=== PATIENT | male | born 1950 | race Caucasian/White ===

== ENCOUNTER → 2023-12-04 06:26 | Outpatient (REF) | payer MEDICARE, OTHER, SELFPAY ==
[2023-12-04 08:14] LABS: % Basophils 0.6 % (0-2); % Eosinophils 1.2 % (0-6); % Immature Granulocytes 0.4 % (0-0.5); % Lymphocytes 31.6 % (20.5-51.1); % Neutrophils 55.2 % (42.2-75.2); Absolute Eosinophils 0.1 10^3/uL (0-0.7); Absolute Lymphocytes 1.6 10^3/uL (1.2-3.4); Absolute Monocytes 0.5 10^3/uL (0.1-0.6); Absolute Neutrophils 2.7 10^3/uL (1.4-6.5); Hematocrit 30.9 % (39.0-52.0); Hemoglobin 10.7 g/dL (13.0-18.0); Mean Corp Hgb Conc. 34.6 g/dL (33.0-37.0); Mean Corpuscular Hgb 29.3 pg (27.0-31.0); Mean Corpuscular Volume 84.7 fL (80.0-94.0); Mean Platelet Volume 10.5 fL (7.4-10.4); Nucleated Red Blood Cells % 0 % (-); Platelet Count 242 10^3/uL (130-400); Red Blood Cell Count 3.65 10^6/uL (4.70-6.10); Red Cell Dist. Width 15.7 % (11.5-14.5); White Blood Cell Count 4.9 10^3/uL (4.8-10.8)
[2023-12-04 09:12] LABS: ALT (SGPT) 17 U/L (0-50); AST (SGOT) 29 U/L (17-59); Alkaline Phosphatase 67 U/L (38-126); Blood Urea Nitrogen 51 mg/dl (9-20); Calcium 9.2 mg/dl (8.4-10.2); Carbon Dioxide 22 mmol/L (22-30); Chloride 108 mmol/L (98-107); Glucose 100 mg/dl (70-99); HDL Cholesterol 46 mg/dl; LDL Cholesterol, Calculated 96 mg/dl; Sodium 140 mmol/L (135-145); Total Bilirubin 0.5 mg/dl (0.2-1.3); Total Cholesterol 164 mg/dl (50-199); Total Protein 7.4 g/dl (6.3-8.2); Triglyceride 110 mg/dl (10-149); Very Low Density Lipoprotein 22 mg/dl (0-30); eGFR 52.41
== END ==
LOC: REG 06:26
PROVIDERS: ATTENDING PHYSICIAN Family Medicine
DX: E78.2 Mixed hyperlipidemia (principal); I10 Essential (primary) hypertension; E87.1 Hypo-osmolality and hyponatremia; G45.9 Transient cerebral ischemic attack, unspecified; E87.5 Hyperkalemia; D64.9 Anemia, unspecified; E74.39 Other disorders of intestinal carbohydrate absorption
CPT/HCPCS: 36415; 80053; 80061; 85025

== ENCOUNTER → 2024-01-05 06:28 | Outpatient (REF) | payer MEDICARE, OTHER, SELFPAY ==
[2024-01-05 08:33] LABS: Blood Urea Nitrogen 52 mg/dl (9-20); Calcium 8.9 mg/dl (8.4-10.2); Carbon Dioxide 22 mmol/L (22-30); Chloride 108 mmol/L (98-107); Glucose 105 mg/dl (70-99); Sodium 138 mmol/L (135-145); eGFR 44.65
[2024-01-07 13:13] LABS: Aldosterone, Serum <3.0 ng/dL; Aldosterone/Renin Activ Ratio <6.0 ratio (<=25.0); Renin Activity Results 0.5 ng/mL/hr
== END ==
LOC: REG 06:28
PROVIDERS: ATTENDING PHYSICIAN Internal Medicine Cardiovascular Disease; FAMILY PHYSICIAN Family Medicine
DX: I10 Essential (primary) hypertension (principal)
CPT/HCPCS: 36415; 80048; 82088; 84244

== ENCOUNTER 2024-02-14 13:02 | Inpatient (IN) | payer MEDICARE, OTHER, SELFPAY ==
[2024-02-14] VITALS (10 sets, daily range): BP systolic 154–190; BP diastolic 61–76; BMI 24.6; BMI 23.4
[2024-02-14 09:52] LABS: % Basophils 0.8 % (0-2); % Eosinophils 1.2 % (0-6); % Immature Granulocytes 0.6 % (0-0.5); % Lymphocytes 17.2 % (20.5-51.1); % Monocytes 9.3 % (1.7-9.3); % Neutrophils 70.9 % (42.2-75.2); Absolute Eosinophils 0.1 10^3/uL (0-0.7); Absolute Lymphocytes 0.9 10^3/uL (1.2-3.4); Absolute Monocytes 0.5 10^3/uL (0.1-0.6); Absolute Neutrophils 3.6 10^3/uL (1.4-6.5); Hematocrit 24.5 % (39.0-52.0); Hemoglobin 8.9 g/dL (13.0-18.0); Mean Corp Hgb Conc. 36.3 g/dL (33.0-37.0); Mean Corpuscular Hgb 29.4 pg (27.0-31.0); Mean Corpuscular Volume 80.9 fL (80.0-94.0); Mean Platelet Volume 10.2 fL (7.4-10.4); Nucleated Red Blood Cells % 0 % (-); Platelet Count 235 10^3/uL (130-400); Red Blood Cell Count 3.03 10^6/uL (4.70-6.10); Red Cell Dist. Width 15.9 % (11.5-14.5); White Blood Cell Count 5.1 10^3/uL (4.8-10.8)
--- NOTE | 2024-02-14 09:53 | ED.GENMED ---
History of Present Illness
General
Chief Complaint: Cough
Source: patient and family
Exam Limitations: none
Time Seen by Provider: 02/14/24 09:04
Nursing documentation reviewed up to this point in time: agreed with
History of Present Illness
History of Present Illness:
Patient is a 73-year-old male with past medical history of GI bleed, stroke hypertension carotid artery disease presents to the ER for evaluation. Patient reports for the past several weeks he has been coughing up some blood. He reports there were
small strands of blood in his sputum but today he noticed bright red blood which is what prompted her to come to the ER. Also for the past 1 week he is very short of breath dyspneic with exertion. He is on Plavix. He is a former smoker quit 30
years ago. He denies any associated chest pain ,fever,chills. reports he does have a history of chronic wet sounding cough.
Past History
Past History
ED Past Medical History: CVA (TIA July 2021), HTN and Hypercholesterolemia
ED Past Surgical History: Orthopedic (Right hip replacement) and Other (Hernia repair)
Social History
Tobacco: Former smoker
Alcohol: None
Drug: None
Personal:
Living: with family
Employment: Employed
Family History
Family History: Other (Noncontributory)
Review of Systems
Review of Systems
Allergies reviewed?: Yes
Other source history: family
All Other Systems: ROS reviewed and negative except as documented in HPI and ROS
Constitutional: Denies fever, fatigue or chills
EENT: Reports no symptoms
Respiratory: Reports cough, hemoptysis and trouble breathing
Cardiac: Reports no symptoms
ABD/GI: Reports no symptoms
: Reports no symptoms
Skin: Reports no symptoms
Neurological: Reports other (pt shakes head no headache ); Denies dizzy or headache
Psychiatric: Reports no symptoms
Phy Exam
General Physical Exam
General Presentation: no apparent distress
General age: appears stated age
General Skin: warm and dry
General Habitus: elderly
General Mental: alert
General Hydration: appears well hydrated
Eye Exam
Eye Exam: PERRL and EOMI
Eye Exam General: PERRL: bilateral and EOM intact: bilateral
Pulmonary Exam
Pulmonary Exam: lungs clear, no respiratory distress and other (Wet sounding cough patient did cough bright red blood)
Neurological Exam
Neurological Exam: alert and oriented x3
Musculoskeletal Exam
Musculoskeletal Exam: full ROM
Skin Exam
Skin Exam: normal color and warm/dry
Psychiatric Exam
Psychiatric Exam: normal mood/affect
Course
Orders/Labs/Results
Orders:
Orders
02/14/24 09:20
DDimer [D-Dimer] Urgent
02/14/24 09:27
EKG [Electrocardiogram (*1)] Urgent
Reason for Study: Shortness of Breath
02/14/24 09:28
EKG- Treatment ONCE
02/14/24 09:30
BNP [NT-proBNP] Urgent
CMP [Comprehensive Metabolic Panel] Urgent
Complete Blood Count/With Diff Urgent
02/14/24 10:10
CT Chest W/o Iv Contrast Urgent
Comment:
Reason For Exam: hemoptysis/GRIER low GFR
02/14/24 11:25
CefTRIAXone [Rocephin] 1,000 mg IV NOW STA
02/14/24 11:26
Azithromycin 500 mg/250 ml [Zithromax Infusion] 500 mg in 250 ml IV NOW
Abnormal Lab Results
02/14/24 02/14/24
09:20 09:30
RBC 3.03 L 10^6/uL
(4.70-6.10)
Hgb 8.9 L g/dL
(13.0-18.0)
Hct 24.5 L %
(39.0-52.0)
RDW 15.9 H %
(11.5-14.5)
Absolute Lymphs (auto) 0.9 L 10^3/uL
(1.2-3.4)
Immature Gran % 0.6 H %
(0-0.5)
Lymphocytes % 17.2 L %
(20.5-51.1)
D-Dimer 1.56 H ug/mlFEU
(0.00-0.50)
Carbon Dioxide 21 L mmol/L
(22-30)
BUN 64 H mg/dl
(9-20)
Creatinine 2.2 H mg/dL
(0.7-1.3)
Glucose 138 H mg/dl
(70-99)
02/14/24 09:30
02/14/24 09:30
Vital Signs
Initial and Last Documented VS:
Initial Vital Signs
Temp Pulse Resp BP Pulse Ox
98.1 F 73 16 156/64 95
02/14/24 08:38 02/14/24 08:38 02/14/24 08:38 02/14/24 08:38 02/14/24 08:38
Last Documented Vital Signs
Temp Pulse Resp BP Pulse Ox
98.1 F 67 17 185/73 93
02/14/24 08:38 02/14/24 11:15 02/14/24 11:15 02/14/24 11:00 02/14/24 11:15
Panel Flow Machine Operator consulted with Physician
Panel Flow Machine Operator consulted with physician?: Yes
Name of Physician Consulted: DR Garcia
MDM/Problems Addressed
Differential Diagnosis Includes:
Not limited to mass pneumonia PE
MDM/Problems Addressed:
Patient is a 73-year-old male with past medical history as document of stroke GI bleed carotid artery disease on Plavix presents for evaluation of hemoptysis. Patient reports he has had a chronic cough which is not new and has noticed over the past
several weeks strands of blood in his cough but today had bright red blood and has noticed worsening dyspnea on exertion for the past 1 week. 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 He
denies any recent fever or chills. He presents awake alert he is not hypoxic nontachycardic afebrile with a normal white count hemoglobin however is low at 8.9 which is decreased from 10.10 Nov 2023. Patient also with elevated BUN/creatinine
creatinine 2.2 was 1.6 a month ago. His GFR is low at 30.47. With hemoptysis and shortness of breath initial CAT scan with IV contrast was ordered however with low GFR and elevated renal function we will do a plain CAT scan without contrast.
1130: CAT scan shows right upper lobe pneumonia. Patient's pulse ox around 88% on room air though no shortness of breath here. He was placed on 2 L. Patient is well-appearing IV antibiotics ordered will require admission for hemoptysis and
pneumonia(pt on plavix)
*Radiology
Radiology exam reviewed: radiology read reviewed (CAT scan shows large right upper lobe pneumonia; COPD)
*Pulse Oximetry
Patient hypoxic: yes
Comment: 88% on room air
*EKG
Interpreted by ED Provider?: Yes
Interpretation: abnormal
Comparison EKG: no changes
Heart Rate: 68
Rate: normal
Rhythm: sinus
Ischemia: non-specific ST changes
*Critical Care Note
Total Time (30-74mins, 75-104mins- exclusive of procedures): Not Applicable
Data Reviewed
Review of Other/Old Records Reveals: Other (Echo from 2022: EF of 60-65% normal right heart aortic sclerosis with trace aortic insufficiency)
ED Attending Note
-
Portions of this chart may have been created with voice recognition software.� Occasional wrong word or��sound alike� substitutions may have occurred due to the inherent limitations of voice recognition software.
Discharge Plan
Departure
Patient Disposition: Admit
Date of Disposition: 02/14/24
Time of Disposition: 11:29
Admit to: Telemetry
Admit to doctor: hospitalist
Presentation/result/management discussed w/ accepting MD/DO: Hospitalist
Patient with high blood pressure during this ER visit?: Yes
Condition: Fair
Covid-19: Not Applicable
Discharge Problem:
Pneumonia, Hemoptysis, Acute renal insufficiency, Anemia
Prescriptions:
No Action
metoprolol succinate 50 MG tablet extended release 24 hr
100 mg PO HS
pantoprazole 40 MG tablet,delayed release (DR/EC)
40 mg PO DAILY
acetaminophen [Tylenol Extra Strength] 500 MG tablet
1,000 mg PO HS
clopidogrel 75 MG tablet
75 mg PO DAILY 30 Days Qty: 30 0RF
atorvastatin 40 MG tablet
80 mg PO DAILY
amlodipine 10 MG tablet
10 mg PO HS
Referrals:
Rajat Talbert MD [Family Provider] -
Interventions
Interventions:
*Risk Screen - Suicide Last Done: 02/14/24 08:38
*General Assessment Last Done: 02/14/24 09:14
*Neglect/Abuse Screening Last Done: 02/14/24 08:38
ED- Fall Risk Assessment Last Done: 02/14/24 09:14
*ED COVID-19 Vaccine History Last Done: 02/14/24 08:38
ED- Pulmonary Assessment Last Done: 02/14/24 09:14
Discharge Date and Time
Print Language: LITHUANIAN
[2024-02-14 10:03] LABS: ALT (SGPT) 20 U/L (0-50); AST (SGOT) 31 U/L (17-59); Alkaline Phosphatase 87 U/L (38-126); Blood Urea Nitrogen 64 mg/dl (9-20); Calcium 8.9 mg/dl (8.4-10.2); Carbon Dioxide 21 mmol/L (22-30); Chloride 105 mmol/L (98-107); Estimated Creatinine Clearance 28 ml/min; Glucose 138 mg/dl (70-99); Potassium 4.6 mmol/L (3.5-5.1); Sodium 135 mmol/L (135-145); Total Bilirubin 0.6 mg/dl (0.2-1.3); Total Protein 7.1 g/dl (6.3-8.2); eGFR 30.47
[2024-02-14 10:12] LABS: NT-proBNP 8650 pg/ml
[2024-02-14 11:20] LABS: D-Dimer 1.56 ug/mlFEU (0.00-0.50)
[2024-02-14] MEDS: ROCEPHIN 1000 MG IV (11:47)
[2024-02-14] MEDS: ZITHROMAX INFUSION 250 IV (11:48)
--- NOTE | 2024-02-14 12:26 | HPS.HSE ---
Family Physician
-
Family Physician: Rajat Talbert
Chief Complaint
-
Cough, hemoptysis, shortness of breath
History of Present Illness
73-year-old male here complaining of increasing cough, hemoptysis and shortness of breath. Symptoms started a few weeks ago but have gradually worsened. Now with dyspnea on exertion. Hemoptysis initially was streaking of sputum but now has more
noticeable blood.
Denies any sick contacts.
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
History of pneumonia about 20 years ago requiring hospitalization.
Started a gluten-free diet 2 weeks ago under the direction of his primary care physician for treatment of chronic diarrhea. Has noted some improvement.
Medical History
Past Medical History
Past Medical History: Reports Other
Additional Past Medical History:
Duodenal ulcer with GI bleed
TIA -August 2021
Essential hypertension, difficult to control
Hyperlipidemia
Chronic anemia
CKD 3B -patient unaware of diagnosis
Past Surgical History: Reports Other
Additional Past Surgical History:
Right hip replacement
Hernia repair
Social History
Tobacco: Former Smoker
Alcohol: None
Drug: None
Personal:
Living: With Family
Family History
Family History: Not pertinent
Allergies / Home Medications
Allergies reflects when Allergies were last updated in [facility].
Home Medications with original date entered in [facility]
Allergy/Medication List:
Allergies
Allergy/AdvReac Type Severity Reaction Status Date / Time
No Known Allergies Allergy Verified 08/28/21 22:59
Home Medications
metoprolol succinate 50 mg tablet,extended release 24 hr 100 mg PO HS Blood pressure 08/10/20
pantoprazole 40 mg tablet,delayed release 40 mg PO DAILY Gastrointestinal issue 09/25/20
acetaminophen 500 mg tablet (Tylenol Extra Strength) 1,000 mg PO HS 08/05/21
clopidogrel 75 mg tablet 75 mg PO DAILY 30 days #30 tabs 08/07/21
amlodipine 10 mg tablet 10 mg PO HS 02/14/24
atorvastatin 40 mg tablet 80 mg PO DAILY 02/14/24
furosemide 40 mg tablet (Lasix) 40 mg PO DAILY 02/14/24
hydralazine 50 mg tablet 50 mg PO BID 02/14/24
losartan 50 mg tablet 50 mg PO HS 02/14/24
Review of Systems
-
History Source: Patient
A 12 point ROS was completed and negative except as noted: Yes
Physical Exam
Vital Signs
Vital Signs
Temp Pulse Resp BP Pulse Ox
98.1 F 67 17 185/73 93
02/14/24 08:38 02/14/24 11:15 02/14/24 11:15 02/14/24 11:00 02/14/24 11:15
Physical Exam
General: Well Developed, Well Nourished, No Apparent Distress and Comfortable
HEENT: NormoCephalic, Anicteric and Moist mucous membranes
Respiratory: Clear
Cardiac: S1/S2 and Regular Rhythm
GI: Soft, Non Tender and Non Distended
Genito-urinary: Deferred by me
Musculoskeletal: No Clubbing, No Cyanosis and No Edema
Skin: Warm and Dry
Neuro: AO x 3
Hematologic/Lymphatic: No Lymphadenopathy
Psych: Calm
Laboratory Results
-
02/14/24 09:30
02/14/24 09:30
Laboratory Results
Total Bilirubin 0.6 mg/dl (0.2-1.3) 02/14/24 09:30
AST 31 U/L (17-59) 02/14/24 09:30
ALT 20 U/L (0-50) 02/14/24 09:30
Alkaline Phosphatase 87 U/L (38-126) 02/14/24 09:30
Impression/Plan
-
Severe right upper lobe pneumonia - community-acquired. CT scan reviewed, large right upper lobe pneumonia confirmed. Small pericardial effusion, small right pleural effusion, mild loculated pleural fluid in the right minor fissure noted.
Admit to telemetry, start antibiotics, check cultures.
Consult pulmonary given severity of pneumonia, hemoptysis, suspected underlying COPD. Cannot rule out underlying malignancy.
Patient denies night sweats, fevers, chills, anorexia, weight loss.
JUDI on CKD 3B -etiology of JUDI unclear but differential diagnosis includes volume depletion. Check urinalysis. Check bladder scan. Hold losartan. Renal ultrasound in the morning. Baseline creatinine 1.4, currently 2.2.
Hemoptysis -likely due to pneumonia in the setting of clopidogrel use. Monitor for now.
Acute on chronic anemia -normocytic. Baseline hemoglobin around 10, currently 8.9. Check anemia labs. Etiology of anemia could be due to blood loss due to hemoptysis. No evidence of hemolysis.
History of duodenal ulcer/GI bleed -continue Protonix.
History of TIA -continue Plavix.
Essential hypertension -uncontrolled. He was informed prior to admission to increase hydralazine to 3 times daily if needed. Will do so now.
COPD -undiagnosed. Will need outpatient PFTs and pulmonary follow-up. Changes of COPD noted on CT scan. Not on inhalers at home.
Hyperlipidemia -on atorvastatin.
Full code
updated at the bedside.
--- NOTE | 2024-02-14 12:44 | CON.PUL ---
Consultation
Consultation Request
Date/Time Consultation Requested: 02/13
Date/Time Consultation Performed: 02/13
Reason for Consultation: Hemoptysis, pneumonia, abnormal CT
Medical History
-
History of Present Illness:
History obtained from the patient, at bedside and reviewing outpatient and inpatient records. Patient is a 73-year-old male with history of hypertension, hyperlipidemia, chronic kidney disease (pt not aware) who presents with shortness of
breath and productive cough. He states symptoms started few weeks ago. He then started coughing up mucus streaked with blood, increased over the last 24 to 48 hours. states that he when he came in from outside yesterday, she did not think he
looked good. Patient denies any fevers, chills, chest pain, pleurisy, lightheadedness, dizziness, nausea, falls, syncope. He continues to work 40 hours a week, and when walking on flat surface denies any issues but does have chronic shortness of
breath when he does any steps or hills. According to his he has a chronic cough for many years, but always has been told that his 'lungs are clear' by his primary physician. Has never seen a slitting and shipping supervisor, never told he had COPD. Patient has
a [id number] history of smoking. He states he had pneumonia in the past, once in 2003
.
PMH: Hypertension, hyperlipidemia, GERD with duodenal ulcer and GI bleed, history of TIA August 2021, Anemia, chronic kidney disease, history of right hip replacement, hernia repair, history of pneumonia around 2003
Past Medical History
Past Medical History: None (See above)
Past Surgical History: None (See above)
Social History
Tobacco: Former Smoker ([id number], quit 2023)
Alcohol: Former (Quit 2003)
Drug: None
Personal:
Living: With Family
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
Occupational Exposures: Asbestos exposure
Family History
Family History: Other (Family history of lung cancer, liver cancer)
Allergies / Home Medications
Allergies
Allergy/AdvReac Type Severity Reaction Status Date / Time
No Known Allergies Allergy Verified 08/28/21 22:59
Home Medications
�Medication �Instructions �Recorded �Confirmed �Last Taken �Type
metoprolol succinate 50 mg 100 mg PO HS Blood pressure 08/10/20 02/14/24 02/13/24 History
tablet,extended release 24 hr
pantoprazole 40 mg tablet,delayed 40 mg PO DAILY Gastrointestinal 09/25/20 02/14/24 02/13/24 History
release issue
acetaminophen 500 mg tablet 1,000 mg PO HS 08/05/21 02/14/24 02/13/24 History
(Tylenol Extra Strength)
clopidogrel 75 mg tablet 75 mg PO DAILY 30 days #30 tabs 08/07/21 02/14/24 02/14/24 Rx
amlodipine 10 mg tablet 10 mg PO HS 02/14/24 02/14/24 02/13/24 History
atorvastatin 40 mg tablet 80 mg PO DAILY 02/14/24 02/14/24 02/14/24 History
furosemide 40 mg tablet (Lasix) 40 mg PO DAILY 02/14/24 02/14/24 02/14/24 History
hydralazine 50 mg tablet 50 mg PO BID 02/14/24 02/14/24 02/14/24 History
losartan 50 mg tablet 50 mg PO HS 02/14/24 02/14/24 02/13/24 History
Review of Systems
-
All other systems: Negative unless noted
Vitals / Labs / Diagnostic Testing
Vital Signs
Temp Pulse Resp BP Pulse Ox
98.1 F 67 17 185/73 93
02/14/24 08:38 02/14/24 11:15 02/14/24 11:15 02/14/24 11:00 02/14/24 11:15
Lab Data
02/14/24 09:30
02/14/24 09:30
Diagnostic Testing:
Physical Exam
-
HEENT: Normocephalic and Anicteric
Cardiovascular: S1/S2, Regular Rhythm, Murmur (n), Rub (n), Peripheral Edema (tr) and Calf Tenderness (n)
Respiratory: Wheeze (n), Rales (Few right midlung zone posteriorly), Rhonchi (n), Non-Labored Respirations and Other (Bronchial)
GI: Soft, Non Distended and Non Tender
Neurology: Awake, Alert and No Motor Deficits
Skin: Good Color and Other (No rash, no cyanosis, no clubbing)
General: Comfortable (Conversant)
Assessment
-
73-year-old male with history of hypertension, hyperlipidemia, TIA on Plavix therapy, describes chronic bronchitis and chronic subjective dyspnea with [id number] history of smoking quit 2003. He now presents with progressive cough, shortness of
breath and hemoptysis. Found to have right upper lobe mass with likely pneumonia. We are asked to comment on pulmonary process
Right upper lobe mass/infiltrate
Acute hemoptysis x 3 days, blood mixed with mucus
Right upper lobe abnormality noted per chest x-ray April 2023
Small pleural effusion
Chronic bronchitis, dyspnea
Progressive
[id number] history of smoking, quit 2003
No prior spirometry, no prior pulmonary evaluation
Anemia
Chronic kidney disease, creatinine 2.2
Creatinine 1.6 in January 2024
Elevated proBNP
Chronic diarrhea
Conditions present prior to admission
History of anemia
Hypertension/hyperlipidemia
GERD with history of duodenal ulcer with bleeding
Required IR embolization 2020
Possible asbestos exposure
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
Family history of cancer
Father with lung cancer
Sister with brain cancer
Sister with liver cancer
Plan/recommendations
At this time, patient appears to be nontoxic
Mild crackles on right midlung, hemoptysis noted at bedside
Patient describes acute worsening in the last few days but describes chronic cough and subjective dyspnea
Apparently had a chest x-ray for shortness of breath in April 2023 where there was a right upper lobe infiltrate. Patient cannot recall any recent history of pneumonia except that 20+ years ago
Significant smoking history and likely occupational exposure history
Moving forward
Continue with empiric antibiotics for suspected pneumonia
Ceftriaxone/azithromycin is adequate. This will continue
Sputum culture pending
Patient is on Plavix therapy precluding any bronchoscopic evaluation this week
Given this, would recommend continued treatment with antibiotics
We will plan to obtain repeat imaging within the next 7 to 10 days
We will tentatively plan for possible bronchoscopic evaluation towards the end of the month
We will see patient as appropriate prior to that to review in further detail
Okay to continue Plavix for now but will need to monitor and quantify hemoptysis in the interim
Reviewed at length with patient and at bedside
Reviewed concern regarding possibility of underlying malignancy
Protonix therapy for GERD
All questions answered
We will follow
[2024-02-14 12:53] LABS: Urine Albumin Trace (Neg - Trace); Urine Bilirubin Negative (Negative); Urine Character Clear (Clear); Urine Color Yellow; Urine Glucose Negative (Negative); Urine Ketone Negative (Negative); Urine Leukocyte Negative (Negative); Urine Nitrite Negative (Negative); Urine Occult Blood Negative (Negative); Urine Urobilinogen Negative (Neg - 1+)
[2024-02-14 13:31] LABS: Reticulocyte Count 1.7 % (0.4-2.8)
[2024-02-14 13:51] LABS: Iron 56 ug/dl (49-181)
[2024-02-14 14:00] LABS: Percent Saturation 25 % (20-50); Total Iron Binding Capacity 218 ug/dl (261-462)
[2024-02-14 15:13] LABS: Folate 6.3 ng/ml (2.76-20); Vitamin B12 245 pg/ml (239-931)
[2024-02-14] MEDS: APRESOLINE 50 MG PO ×2 (16:14→21:58)
[2024-02-14] MEDS: NSS 1000 IV (16:14)
[2024-02-14] MEDS: HEPARIN 5000 UNITS SC (20:38)
[2024-02-14] MEDS: NORVASC 10 MG PO (21:59)
[2024-02-14] MEDS: TYLENOL 1000 MG PO (21:59)
[2024-02-14] MEDS: TOPROL XL 100 MG PO (21:59)
[2024-02-15] VITALS (7 sets, daily range): BP systolic 152–179; BP diastolic 64–85
[2024-02-15] MEDS: DUONEB 3 ML INH ×5 (00:30→20:04)
[2024-02-15 01:15] LABS: COVID-19 Antigen Negative (Negative)
[2024-02-15] MEDS: NSS 1000 IV (01:26)
--- NOTE | 2024-02-15 03:03 | PTCARENOTE ---
0000: Pt with increased work of breathing and use of abd muscles. SpO2=83-85% on 2L NC. O2 supply increased to 6L NC, SpO2=92-93%. OLIVIA Blanco made aware, ordered Covid test and breathing treatment. Pt breathing improves after Duoneb/Inh treatment.
Pt states he feels much better. Pt Covid test negative. Will continue to monitor the pt.
[2024-02-15] MEDS: LASIX 40 MG IV (06:11)
--- NOTE | 2024-02-15 06:15 | W.PN.UPDATE ---
Addendum entered and electronically signed by OLIVIA Tavarez 02/15/24 06:41:
Patient much improved after interventions outlined below. Asked nursing to reduce oxygen back to 4 L NC. He is able to speak in full sentences and appears comfortable.
Addendum entered and electronically signed by OLIVIA Tavarez 02/15/24 06:24:
COVID negative
Original Note:
Update Note
Progress Note Update
Patient noted with steadily increasing oxygen needs overnight. IV abts continue for PNA, added Lasix 40 mg IV x1, stopped NS IVF, Increased oxygen this am to NRB from 6 L. Morphine 1 mg IV prn, and ABG pending.
[2024-02-15] MEDS: MORPHINE SULFATE 1 MG IV (06:21)
[2024-02-15 06:28] LABS: B.E. -3.7 mmol/L; HCO3 20.3 mmol/L (21-28); O2 Saturation % 99.8 % (94-98); PCO2 32 mmHg (35-48); PO2 97 mmHg (83-108); pH 7.41 (7.35-7.45)
[2024-02-15 06:40] LABS: % Eosinophils 0.6 % (0-6); % Immature Granulocytes 0.8 % (0-0.5); % Lymphocytes 19.6 % (20.5-51.1); % Monocytes 9.4 % (1.7-9.3); % Neutrophils 68.6 % (42.2-75.2); Absolute Basophils 0.1 10^3/uL (0-0.2); Absolute Monocytes 0.5 10^3/uL (0.1-0.6); Absolute Neutrophils 3.5 10^3/uL (1.4-6.5); Hematocrit 23.8 % (39.0-52.0); Hemoglobin 8.6 g/dL (13.0-18.0); Mean Corp Hgb Conc. 36.1 g/dL (33.0-37.0); Mean Corpuscular Hgb 30.2 pg (27.0-31.0); Mean Corpuscular Volume 83.5 fL (80.0-94.0); Mean Platelet Volume 10.5 fL (7.4-10.4); Nucleated Red Blood Cells % 0 % (-); Platelet Count 205 10^3/uL (130-400); Red Blood Cell Count 2.85 10^6/uL (4.70-6.10); Red Cell Dist. Width 15.8 % (11.5-14.5); White Blood Cell Count 5.1 10^3/uL (4.8-10.8)
--- NOTE | 2024-02-15 06:57 | PTCARENOTE ---
Pt with labored breathing, SpO2=85-87%. Wood Blanco (OLIVIA) notified. Ordered ABG, IV Lasix, IV morphine and Resp assist. Pt's IVFs were stopped earlier bc of difficulty breathing. Pt breathing improved and pt states that he feels relax now. Pt will be
also placed on telemonitor. Will continue to monitor the pt.
[2024-02-15 07:00] LABS: ALT (SGPT) 16 U/L (0-50); AST (SGOT) 25 U/L (17-59); Albumin 3.5 g/dl (3.5-5.0); Alkaline Phosphatase 86 U/L (38-126); Blood Urea Nitrogen 57 mg/dl (9-20); Calcium 8.3 mg/dl (8.4-10.2); Carbon Dioxide 20 mmol/L (22-30); Chloride 108 mmol/L (98-107); Estimated Creatinine Clearance 33 ml/min; Glucose 112 mg/dl (70-99); Potassium 4.2 mmol/L (3.5-5.1); Sodium 135 mmol/L (135-145); Total Bilirubin 0.5 mg/dl (0.2-1.3); Total Protein 6.4 g/dl (6.3-8.2); eGFR 36.33
[2024-02-15] MEDS: PROTONIX 40 MG PO (08:28)
[2024-02-15] MEDS: LIPITOR 80 MG PO (08:28)
[2024-02-15] MEDS: PLAVIX 75 MG PO (08:28)
[2024-02-15] MEDS: HEPARIN 5000 UNITS SC ×2 (08:29→19:47)
[2024-02-15] MEDS: APRESOLINE 50 MG PO ×3 (08:29→23:26)
--- NOTE | 2024-02-15 08:57 | RESPNOTE ---
Respiratory: patient returned from Ultrasound SOB, SpO2 was 65% on 4 LPM nasal cannula. RN placed patient on NRB mask, pulse ox increased to the 90's quickly. Lungs with rhonchi, upper airway wheeze. Nebulizer given 7 LPM and 4 L nasal cannula
SpO2 92%. Post tx: patient now on 12 LPM midflow SpO2 93-94%.
--- NOTE | 2024-02-15 12:03 | W.PN.HOSP.TC ---
Today's Communication/Plan
-
Urine lytes
IV abx
Trend Cr
DC IVF
Wean o2
Pulm recs
Assessment / Plan
Assessment / Plan
General: Well Developed, Well Nourished, No Apparent Distress and Comfortable
HEENT: NormoCephalic, Anicteric and Moist mucous membranes
Respiratory: rhonchi R>L, Oxygen
Cardiac: S1/S2 and Regular Rhythm
GI: Soft, Non Tender and Non Distended
Genito-urinary: Deferred by me
Musculoskeletal: No Clubbing, No Cyanosis and No Edema
Skin: Warm and Dry
Neuro: AO x 3
Hematologic/Lymphatic: No Lymphadenopathy
Psych: Calm
Severe right upper lobe pneumonia - community-acquired. CT scan reviewed, large right upper lobe pneumonia confirmed. Small pericardial effusion, small right pleural effusion, mild loculated pleural fluid in the right minor fissure noted.
start antibiotics Rocephin/Azithromycin. check cultures.
Consult pulmonary given severity of pneumonia, hemoptysis, suspected underlying COPD. Cannot rule out underlying malignancy. May need bronchoscopy later on.
Patient denies night sweats, fevers, chills, anorexia, weight loss.
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 UA negative. Hold losartan. Renal ultrasound negative for hydro. Baseline creatinine 1.4, currently 2.2. Check
urine lytes. Mild improvement to 1.9 today.
Hemoptysis -likely due to pneumonia in the setting of clopidogrel use. Monitor for now.
Acute on chronic anemia -normocytic. Baseline hemoglobin around 10, currently 8.9. Check anemia labs. Etiology of anemia could be due to blood loss due to hemoptysis. No evidence of hemolysis.
Chronic HFpEF-IVF discontinued. Holding lasix with JUDI.
History of duodenal ulcer/GI bleed -continue Protonix.
History of TIA -continue Plavix.
Essential hypertension -uncontrolled. He was informed prior to admission to increase hydralazine to 3 times daily if needed. Will do so now.
COPD -undiagnosed. Will need outpatient PFTs and pulmonary follow-up. Changes of COPD noted on CT scan. Not on inhalers at home.
Hyperlipidemia -on atorvastatin.
possible exposure to COVID -Initial COVID negative. Repeat testing 02/16 and 02/18 ordered.
Full code
d/w with spouse at bedside
Anticipated Discharge: > 48 hours
Subjective/Interval History
-
Date of Service: February 15, 2024
Overnight events noted
states breathing has stabilized
remains with productive cough
possible exposure to COVID
Objective Data
-
Labs:
Laboratory Results
02/15/24 02/15/24
04:42 06:18
WBC 5.1
Hgb 8.6 L
Hct 23.8 L
Plt Count 205
HCO3 20.3 L
Sodium 135
Potassium 4.2
Chloride 108 H
Carbon Dioxide 20 L
BUN 57 H
Creatinine 1.9 H
Glucose 112 H
Calcium 8.3 L
Total Bilirubin 0.5
AST 25
ALT 16
Alkaline Phosphatase 86
Vital Signs:
Vital Signs
Temp Pulse Resp BP Pulse Ox
98.3 F 83 26 153/64 91
02/15/24 11:51 02/15/24 11:51 02/15/24 11:51 02/15/24 11:51 02/15/24 11:51
I&O
02/14/24 02/15/24 02/16/24
06:59 06:59 06:59
Intake Total 1630 / 1630
Output Total 1170 / 1170
Balance 460 / 460
Data Reviewed
-
Total Time Spent with Patient (in minutes): 56
[2024-02-15] MEDS: ROCEPHIN 1000 MG IV (12:45)
[2024-02-15] MEDS: STERILE WATER FOR INJECTION 10 ML IV (12:45)
[2024-02-15] MEDS: FLUSH (NSS) 1 FLUSH IV (12:45)
[2024-02-15] MEDS: ZITHROMAX INFUSION 250 IV (12:45)
--- NOTE | 2024-02-15 13:07 | W.PN.PUL3 ---
Today's Communication / Plan
-
High flow oxygen
[id number] if able, head of bed elevated
Hold Plavix
Quantify hemoptysis
Transfer to IMU
Respiratory status remains tenuous
Assessment
-
73-year-old male with history of hypertension, hyperlipidemia, TIA on Plavix therapy, describes chronic bronchitis and chronic subjective dyspnea with 87-hnwh-gveg history of smoking quit 2003. He now presents with progressive cough, shortness of
breath and hemoptysis. Found to have right upper lobe mass with likely pneumonia. We are asked to comment on pulmonary process
Right upper lobe mass/infiltrate
Acute hemoptysis x 3 days, blood mixed with mucus
Right upper lobe abnormality noted per chest x-ray April 2023
Small pleural effusion
Chronic bronchitis, dyspnea
Progressive
95-grnr-qlag history of smoking, quit 2003
No prior spirometry, no prior pulmonary evaluation
Anemia
Chronic kidney disease, creatinine 2.2
Creatinine 1.6 in January 2024
Elevated proBNP
Chronic diarrhea
Conditions present prior to admission
History of anemia
Hypertension/hyperlipidemia
GERD with history of duodenal ulcer with bleeding
Required IR embolization 2020
Possible asbestos exposure
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
Family history of cancer
Father with lung cancer
Sister with brain cancer
Sister with liver cancer
Plan/recommendations
At this time, patient respiratory status remains tenuous
He has crackles and rhonchi in the right, minimal crackles of the left base
Patient is currently 12 to 15 L mid flow
Chest x-ray today with worsening right-sided infiltrate
I am concerned about his worsening oxygen requirement and worsening radiographic findings
Preadmission history: Patient is short of breath since April 2023 at which time he had right upper lobe infiltrate. Patient cannot recall any history of recent pneumonia
Significant smoking and asbestos exposure history noted
Moving forward
Continue with empiric antibiotics for suspected pneumonia
Ceftriaxone/azithromycin
Sputum culture pending
Would like to quantify hemoptysis.
Patient is on Plavix therapy precluding any bronchoscopic evaluation this week
Given this, would recommend continued treatment with antibiotics
Given worsening in respiratory status, cannot rule out ongoing bleeding in the lung
Hold the Plavix
Protonix for GERD therapy
Ideally, [id number]
Placed on high flow oxygen
Consider transfer to IMU
Reviewed with respiratory care, primary service
Reviewed at length with patient
Reviewed concern regarding possibility of underlying malignancy, rapidly progressive process
Subjective Data
-
Date of Service:
Date of Service: February 15, 2024
Subjective:
Patient had difficult night. Increased oxygen requirement noted, still with productive cough, blood-tinged mucus. Denies chest pain, pleurisy. Patient prefers to lie on his left side, feels breathing is worse when lying on the right side.
Currently on 12 to 15 L mid flow intermittently requiring nonrebreather on top
Objective Data
Data Reviewed
Vital Signs / I&O / Oxygen:
Vital Signs
Temp Pulse Resp BP Pulse Ox
98.3 F 83 26 153/64 95
02/15/24 11:51 02/15/24 11:51 02/15/24 11:51 02/15/24 11:51 02/15/24 12:43
Intake and Output
02/14/24 02/15/24 02/16/24
06:59 06:59 06:59
Intake Total 1630 / 1630
Output Total 1170 / 1170
Balance 460 / 460
SaO2 95
Nasal Cannula flow liters per 12
minute
Physical Exam
General: Respiratory Distress (Mild with conversation)
HEENT: Normocephalic and Anicteric
Cardiovascular: S1-S2, Regular Rhythm, Murmur (n) and Rub (n)
Respiratory: Wheeze (n), Crackles (few right greater than left), Rhonchi (few), Accessory Resp Muscle Use (Mild with conversation, sitting up) and Stridor (n)
GI: Soft, Non Distended and Non Tender
Neurology: Awake, Alert and No Motor Deficits (Able to sit up without difficulty)
Skin: Cyanosis (n), Jaundice (n) and Rash (n)
Labs/Micro/Reports
Lab Data
02/15/24 04:42
02/15/24 04:42
Laboratory Results
02/15/24
06:18
pH 7.41
pCO2 32 L
pO2 97
HCO3 20.3 L
O2 Delivery Level
Microbiology
02/14/24 12:29 Blood/Venous Blood Culture - Preliminary
No Growth in 24 hours- Final report to follow
02/15/24 06:26 Urine Legionella Urinary Antigen - Final
Negative for Legionella pneumophila Serogroup 1 antigen.
A negative result does not rule out the possiblity of
Legionella infection due to other serogroups or species of
Legionella. Clinical correlation is recommended.
02/15/24 06:26 Urine Streptococcus pneumoniae Antigen (M - Final
Negative for Streptococcus pneumoniae antigen.
A negative result does not exclude infection with
Streptococcus pneumoniae. Clinical correlation is
recommended.
02/14/24 12:42 Sputum Respiratory Culture - Preliminary
Usual Respiratory Kim
02/14/24 12:42 Sputum Gram Stain - Preliminary
[2024-02-15 14:22] LABS: Urine Sodium 92 mmol/L (30-90)
--- NOTE | 2024-02-15 16:01 | PTCARENOTE ---
Pt AAO x3, PIRES; able to transfer to stretcher with minimal assistance; basil well. VSS. Telemetry:NSR. Currently on midflow O2 cannula @ 12 lpm- pulse ox 93%, pt with (+) tachypnea/GRIER; has occ productive cough- small amts blood tinged/pink sputum.
Encouraging use of IS q 1 hr while awake- pt minimally compliant. Abd soft, basil PO well. Voiding clear yellow urine in urinal. Resting in bed at present; awaiting transfer to IMU when bed available. Will continue to monitor.
--- NOTE | 2024-02-15 19:46 | PTCARENOTE ---
Pt transferred to IMU room 3351 via bed; on NRM/15 l O2. All pt belongings sent to room 3351. Report given to Jane CORREA. Pt condition stable at time of transfer.
[2024-02-15] MEDS: TYLENOL 1000 MG PO (19:47)
[2024-02-15] MEDS: TOPROL XL 100 MG PO (19:47)
[2024-02-15] MEDS: NORVASC 10 MG PO (19:47)
[2024-02-16] VITALS (15 sets, daily range): BP systolic 151–182; BP diastolic 65–97
[2024-02-16 04:27] LABS: % Basophils 0.5 % (0-2); % Eosinophils 0.3 % (0-6); % Immature Granulocytes 0.9 % (0-0.5); % Lymphocytes 20.2 % (20.5-51.1); % Neutrophils 69.1 % (42.2-75.2); Absolute Immature Granulocytes 0.1 10^3/uL (0-0.05); Absolute Lymphocytes 1.2 10^3/uL (1.2-3.4); Absolute Monocytes 0.5 10^3/uL (0.1-0.6); Hematocrit 24.4 % (39.0-52.0); Hemoglobin 8.9 g/dL (13.0-18.0); Mean Corp Hgb Conc. 36.5 g/dL (33.0-37.0); Mean Corpuscular Volume 82.2 fL (80.0-94.0); Mean Platelet Volume 9.9 fL (7.4-10.4); Nucleated Red Blood Cells % 0 % (-); Platelet Count 208 10^3/uL (130-400); Red Blood Cell Count 2.97 10^6/uL (4.70-6.10); Red Cell Dist. Width 15.7 % (11.5-14.5); White Blood Cell Count 5.8 10^3/uL (4.8-10.8)
[2024-02-16 04:51] LABS: Blood Urea Nitrogen 56 mg/dl (9-20); Calcium 8.4 mg/dl (8.4-10.2); Carbon Dioxide 20 mmol/L (22-30); Chloride 106 mmol/L (98-107); Estimated Creatinine Clearance 33 ml/min; Glucose 119 mg/dl (70-99); Potassium 4.1 mmol/L (3.5-5.1); Sodium 134 mmol/L (135-145); eGFR 36.33
--- NOTE | 2024-02-16 05:27 | PTCARENOTE ---
Pt transferred to floor earlier tonight. Transferred on NRB, switched to NFNC d/t orders. Started off on 50% on 50L but began desating to 88-89%. Eventually pt had to stay at 55L 85% to stay consistently above or at 92%. Pt desats when moving, pt
used the urinal in the bed and he desated to 79%, did not take oxygen off. Recovered with NRB. Hemoptysis continues. Sputum sent down. NSR. Bedrest for now. Urinal. Denies pain. Covid tests scheduled for thursday & thursday. Will continue to monitor.
[2024-02-16] MEDS: DUONEB 3 ML INH ×4 (07:42→19:59)
[2024-02-16] MEDS: LIPITOR 80 MG PO (08:49)
[2024-02-16] MEDS: APRESOLINE 50 MG PO (08:49)
[2024-02-16] MEDS: PROTONIX 40 MG PO (08:49)
[2024-02-16] MEDS: HEPARIN 5000 UNITS SC ×2 (08:49→20:33)
--- NOTE | 2024-02-16 10:13 | PTCARENOTE ---
Pt AAOx3 on HF 55 liters 85% o2. Covid neg after exposure, for testing again on THU . at bedside, encouraged to wwear a mask as a precaution.
[2024-02-16] MEDS: STERILE WATER FOR INJECTION 10 ML IV (11:57)
[2024-02-16] MEDS: ROCEPHIN 1000 MG IV (11:57)
[2024-02-16] MEDS: ZITHROMAX INFUSION 250 IV (11:58)
--- NOTE | 2024-02-16 12:28 | W.PN.HOSP.TC ---
Today's Communication/Plan
-
Increase hydralazine
Wean HFNC
pulm recs
IV abx
Assessment / Plan
Assessment / Plan
General: Well Developed, Well Nourished, No Apparent Distress and Comfortable
HEENT: NormoCephalic, Anicteric and Moist mucous membranes
Respiratory: rhonchi R>L, Oxygen, HFNC
Cardiac: S1/S2 and Regular Rhythm
GI: Soft, Non Tender and Non Distended
Genito-urinary: Deferred by me
Musculoskeletal: No Clubbing, No Cyanosis and No Edema
Skin: Warm and Dry
Neuro: AO x 3
Hematologic/Lymphatic: No Lymphadenopathy
Psych: Calm
Severe right upper lobe pneumonia - community-acquired. CT scan reviewed, large right upper lobe pneumonia confirmed. Small pericardial effusion, small right pleural effusion, mild loculated pleural fluid in the right minor fissure noted.
start antibiotics Rocephin/Azithromycin. check cultures in lab
Consult pulmonary given severity of pneumonia, hemoptysis, suspected underlying COPD. Cannot rule out underlying malignancy. May need bronchoscopy later on.
Patient denies night sweats, fevers, chills, anorexia, weight loss.
Now on high flow nasal cannula 55 L at 85% FiO2. Also requiring intermittent nonrebreather. Understand if with worsening hypoxemia may also require mechanical ventilation intubation.
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 UA negative. Hold losartan. Renal ultrasound negative for hydro. Baseline creatinine 1.4, currently 1.9. FENA
with intrinsic.
Hemoptysis -likely due to pneumonia in the setting of clopidogrel use. Monitor for now.
Acute on chronic anemia -normocytic. Baseline hemoglobin around 10, currently 8.9. Etiology of anemia could be due to blood loss due to hemoptysis. No evidence of hemolysis. Appropriate iron stores. low b12 and start po supplementation.
Chronic HFpEF-IVF discontinued. Holding lasix with JUDI.
History of duodenal ulcer/GI bleed -continue Protonix.
History of TIA -continue Plavix.
Essential hypertension -uncontrolled. He was informed prior to admission to increase hydralazine to 3 times daily if needed. Increased dose to 75mg TID. Cont toprol 100mg and norvasc 10mg
COPD -undiagnosed. Will need outpatient PFTs and pulmonary follow-up. Changes of COPD noted on CT scan. Not on inhalers at home.
Hyperlipidemia -on atorvastatin.
possible exposure to COVID -Initial COVID negative. Repeat testing 02/16 and 02/18 ordered.
Full code
d/w with spouse at bedside
Anticipated Discharge: > 48 hours
Subjective/Interval History
-
Date of Service: February 16, 2024
tx to IMU
Increase oxygen requirement
now on HFNC
Objective Data
-
Labs:
Laboratory Results
02/16/24
03:59
WBC 5.8
Hgb 8.9 L
Hct 24.4 L
Plt Count 208
Sodium 134 L
Potassium 4.1
Chloride 106
Carbon Dioxide 20 L
BUN 56 H
Creatinine 1.9 H
Glucose 119 H
Calcium 8.4
Vital Signs:
Vital Signs
Temp Pulse Resp BP Pulse Ox
99.5 F 78 28 174/69 94
02/16/24 11:11 02/16/24 11:24 02/16/24 11:24 02/16/24 10:00 02/16/24 11:25
I&O
02/15/24 02/16/24 02/17/24
06:59 06:59 06:59
Intake Total 1630 / 1630 990 / 990
Output Total 1170 / 1170 750 / 750 500 / 500
Balance 460 / 460 240 / 240 -500 / -500
Data Reviewed
-
Total Time Spent with Patient (in minutes): 56
--- NOTE | 2024-02-16 14:42 | W.PN.PUL3 ---
Today's Communication / Plan
-
Continue high flow oxygen
Quantify hemoptysis
Continue antibiotics
Chest x-ray 02/16
Plavix on hold
Assessment
-
73-year-old male with history of hypertension, hyperlipidemia, TIA on Plavix therapy, describes chronic bronchitis and chronic subjective dyspnea with 78-[id number]-qwhh history of smoking quit 2003. He now presents with progressive cough, shortness of
breath and hemoptysis. Found to have right upper lobe mass with likely pneumonia. We are asked to comment on pulmonary process
Right upper lobe mass/infiltrate
Acute hemoptysis x 3 days, blood mixed with mucus
Right upper lobe abnormality noted per chest x-ray April 2023
Small pleural effusion
Chronic bronchitis, dyspnea
Progressive
22-pasy-gpop history of smoking, quit 2003
No prior spirometry, no prior pulmonary evaluation
Anemia
Chronic kidney disease, creatinine 2.2
Creatinine 1.6 in January 2024
Elevated proBNP
Chronic diarrhea
Conditions present prior to admission
History of anemia
Hypertension/hyperlipidemia
GERD with history of duodenal ulcer with bleeding
Required IR embolization 2020
Possible asbestos exposure
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
Family history of cancer
Father with lung cancer
Sister with brain cancer
Sister with liver cancer
Plan/recommendations
At this time, patient respiratory status remains tenuous, but improved
Remains on high flow oxygen, 80% / 55 L
Chest exam improved with less rhonchi, less crackles
Continues to have productive cough, mucus mixed with blood
Preadmission history: Patient is short of breath since April 2023 at which time he had right upper lobe infiltrate. Patient cannot recall any history of recent pneumonia
Significant smoking and asbestos exposure history noted
Patient did not get follow-up x-ray as recommended per report in April
Moving forward
Continue with empiric antibiotics for suspected pneumonia
Ceftriaxone/azithromycin
Sputum culture few gram-positive cocci, many white cells, usual yaritza/finalized
We will repeat chest x-ray 02/16
Continue to quantify hemoptysis
Plavix has been held since 02/14 given worsening hypoxia, chest x-ray
Reviewed with patient and that is difficult to quantify extent of hemorrhage clinically
Protonix for GERD therapy
Ideally, [id number]
Reviewed with patient, at bedside
Reviewed concern regarding possibility of underlying malignancy, rapidly progressive process
Ongoing evaluation for possible bronchoscopic evaluation, timing to be determined
Subjective Data
-
Date of Service:
Date of Service: February 16, 2024
Subjective:
Patient is subjectively improved today. Remains on high flow oxygen, 80%, 55 L. Saturation 94%, goes down to 89 to 90% with conversation and sitting up. Appears to be less dyspneic with less use of accessory muscles per my review. Productive
cough continues. Denies chest pain, nausea, abdominal pain. at bedside
Objective Data
Data Reviewed
Vital Signs / I&O / Oxygen:
Vital Signs
Temp Pulse Resp BP Pulse Ox
99.5 F 78 28 174/69 94
02/16/24 11:11 02/16/24 11:24 02/16/24 11:24 02/16/24 10:00 02/16/24 11:25
Intake and Output
02/15/24 02/16/24 02/17/24
06:59 06:59 06:59
Intake Total 1630 / 1630 990 / 990
Output Total 1170 / 1170 750 / 750 500 / 500
Balance 460 / 460 240 / 240 -500 / -500
SaO2 94
Nasal Cannula flow liters per 55
minute
Physical Exam
General: Comfortable
HEENT: Normocephalic and Anicteric
Cardiovascular: S1-S2, Regular Rhythm, Murmur (n) and Rub (n)
Respiratory: Wheeze (n), Crackles (n), Rhonchi (n), Non-Labored Respirations and Stridor (n)
GI: Soft, Non Distended and Non Tender
Neurology: Awake, Alert and No Motor Deficits (Able to sit up without difficulty)
Skin: Cyanosis (n), Jaundice (n) and Rash (n)
Labs/Micro/Reports
Lab Data
02/16/24 03:59
02/16/24 03:59
Microbiology
02/14/24 12:29 Blood/Venous Blood Culture - Preliminary
No Growth in 48 hours- Final report to follow
02/14/24 12:42 Sputum Respiratory Culture - Final
Usual Respiratory Yaritza
02/14/24 12:42 Sputum Gram Stain - Final
02/15/24 06:26 Urine Legionella Urinary Antigen - Final
Negative for Legionella pneumophila Serogroup 1 antigen.
A negative result does not rule out the possiblity of
Legionella infection due to other serogroups or species of
Legionella. Clinical correlation is recommended.
02/15/24 06:26 Urine Streptococcus pneumoniae Antigen (M - Final
Negative for Streptococcus pneumoniae antigen.
A negative result does not exclude infection with
Streptococcus pneumoniae. Clinical correlation is
recommended.
[2024-02-16] MEDS: APRESOLINE 75 MG PO ×2 (17:15→21:31)
[2024-02-16] MEDS: OCEAN, SALINE MIST 2 SPRAYS NASAL (17:51)
[2024-02-16] MEDS: NORVASC 10 MG PO (21:32)
[2024-02-16] MEDS: TOPROL XL 100 MG PO (21:32)
[2024-02-16] MEDS: TYLENOL 1000 MG PO (21:32)
[2024-02-17] VITALS (12 sets, daily range): BP systolic 139–177; BP diastolic 64–79; BMI 23.9
[2024-02-17 05:19] LABS: % Basophils 0.6 % (0-2); % Eosinophils 0.2 % (0-6); % Immature Granulocytes 1.7 % (0-0.5); % Lymphocytes 12.6 % (20.5-51.1); % Monocytes 9.4 % (1.7-9.3); % Neutrophils 75.5 % (42.2-75.2); Absolute Basophils 0.1 10^3/uL (0-0.2); Absolute Immature Granulocytes 0.1 10^3/uL (0-0.05); Absolute Lymphocytes 1.1 10^3/uL (1.2-3.4); Absolute Monocytes 0.8 10^3/uL (0.1-0.6); Absolute Neutrophils 6.4 10^3/uL (1.4-6.5); Hematocrit 24.5 % (39.0-52.0); Hemoglobin 8.9 g/dL (13.0-18.0); Mean Corp Hgb Conc. 36.3 g/dL (33.0-37.0); Mean Corpuscular Hgb 30.1 pg (27.0-31.0); Mean Corpuscular Volume 82.8 fL (80.0-94.0); Mean Platelet Volume 9.8 fL (7.4-10.4); Nucleated Red Blood Cells % 0 % (-); Platelet Count 233 10^3/uL (130-400); Red Blood Cell Count 2.96 10^6/uL (4.70-6.10); Red Cell Dist. Width 15.9 % (11.5-14.5); White Blood Cell Count 8.4 10^3/uL (4.8-10.8)
--- NOTE | 2024-02-17 05:33 | PTCARENOTE ---
Assume care from AM RN. AAOx3, anxious at times and Gen weakness. NSR in the monitor. Lung sounds are coarse and expiratory wheezing and productive cough. SaO2 92-94% HF 55L 80%. Pt had Large loose BM. SBP <165 for most of the night. Call miranda
within reach.
[2024-02-17 05:44] LABS: Blood Urea Nitrogen 62 mg/dl (9-20); Calcium 8.3 mg/dl (8.4-10.2); Carbon Dioxide 17 mmol/L (22-30); Chloride 105 mmol/L (98-107); Estimated Creatinine Clearance 29 ml/min; Glucose 147 mg/dl (70-99); Potassium 4.3 mmol/L (3.5-5.1); Sodium 134 mmol/L (135-145); eGFR 32.22
[2024-02-17] MEDS: APRESOLINE 75 MG PO ×3 (07:50→20:09)
[2024-02-17] MEDS: LIPITOR 80 MG PO (07:50)
[2024-02-17] MEDS: VITAMIN B-12 1000 MCG PO (07:51)
[2024-02-17] MEDS: HEPARIN 5000 UNITS SC ×2 (07:51→20:08)
[2024-02-17] MEDS: PROTONIX 40 MG PO (07:51)
--- NOTE | 2024-02-17 08:14 | PTCARENOTE ---
Pt very anxious tachypnic SOB now on hf 55 liters 90% O2 OX 96. Pt encouraged to rest and conserve his energy. Dr Razo TT will see pt soon, Pt has a living will but states he would want to be intubated , present during conversation.
[2024-02-17] MEDS: DUONEB 3 ML INH ×4 (08:17→19:49)
[2024-02-17 08:24] LABS: COVID-19 Antigen Negative (Negative)
--- NOTE | 2024-02-17 08:45 | W.PN.PUL3 ---
Today's Communication / Plan
-
Lasix x 1
Decadron x 1
Kuo catheter
Continue antibiotics
Plavix remains on hold
Check Echo
Repeat labs p.m. (Cr)
Assessment
-
73-year-old male with history of hypertension, hyperlipidemia, TIA on Plavix therapy, describes chronic bronchitis and chronic subjective dyspnea with 80-xpel-uloi history of smoking quit 2003. He now presents with progressive cough, shortness of
breath and hemoptysis. Found to have right upper lobe mass with likely pneumonia. We are asked to comment on pulmonary process
Right upper lobe mass/infiltrate
Acute hemoptysis x 3 days, blood mixed with mucus
Right upper lobe abnormality noted per chest x-ray April 2023
Small pleural effusion
Chronic bronchitis, dyspnea
Progressive
90-gwtx-ofoe history of smoking, quit 2003
No prior spirometry, no prior pulmonary evaluation
Anemia
Chronic kidney disease, creatinine 2.2
Creatinine 1.6 in January 2024
Elevated proBNP
Chronic diarrhea
Conditions present prior to admission
History of anemia
Hypertension/hyperlipidemia
GERD with history of duodenal ulcer with bleeding
Required IR embolization 2020
Possible asbestos exposure
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
Family history of cancer
Father with lung cancer
Sister with brain cancer
Sister with liver cancer
Plan/recommendations
At this time, patient respiratory status remains tenuous, requiring 100% nonrebreather on top of high flow
This appeared to have occurred with patient turning. He had a loose stool overnight, required multiple movement/turning with nursing
92 to 97% saturation
Remains on high flow oxygen, 80% / 55 L and 100% nonrebreather
Chest exam improved with less rhonchi, less crackles
Continues to have productive cough, mucus mixed with blood
Chest x-ray today shows worsening of the left side, severe right-sided pneumonia
Creatinine 2.1
Hemoglobin stable
Preadmission history: Patient is short of breath since April 2023 at which time he had right upper lobe infiltrate. Patient cannot recall any history of recent pneumonia
Significant smoking and asbestos exposure history noted
Patient did not get follow-up x-ray as recommended per report in April
Moving forward
Continue with empiric antibiotics for suspected pneumonia
Ceftriaxone/azithromycin
Sputum culture few gram-positive cocci, many white cells, usual yaritza/finalized
Legionella, streptococcal pneumonia negative
Low suspicion for acid-fast organism but this is also pending, given right upper lobe infiltrate back in April 2023
Continue to quantify hemoptysis
Plavix has been held since 02/14 given worsening hypoxia, chest x-ray
Doubt active pulmonary hemorrhage given stable hemoglobin
Xhigl-[id number]-[id number] if develops worsening hemoptysis
I am concerned about worsening lung injury process, ARDS
We will give 1 dose of Decadron, 1 dose of Lasix
Kuo catheter
Repeat labs later p.m.
Protonix for GERD therapy
Reviewed with patient, at bedside
Reviewed concern regarding possibility of underlying malignancy. However, rapidly progressive process makes this less likely
Patient high risk for intubation. Reviewed with . Will update son at 's request (Kevon: [phone])
Subjective Data
-
Date of Service:
Date of Service: February 17, 2024
Subjective:
Patient had okay night but with any movement, desaturates. This morning, was moved, desaturated requiring 100% nonrebreather. Patient cannot recall if it was worse on the right side or left side. Continues to have productive cough, mucus mixed
with blood. No ana paula blood. Denies chest pain, nausea. at bedside
Objective Data
Data Reviewed
Vital Signs / I&O / Oxygen:
Vital Signs
Temp Pulse Resp BP Pulse Ox
98.3 F 78 28 177/79 97
02/17/24 08:17 02/17/24 08:19 02/17/24 08:19 02/17/24 08:00 02/17/24 08:21
Intake and Output
02/16/24 02/17/24 02/18/24
06:59 06:59 06:59
Intake Total 990 / 990 120 / 120
Output Total 750 / 750 1050 / 1050
Balance 240 / 240 -930 / -930
SaO2 97
Nasal Cannula flow liters per 55
minute
Physical Exam
General: Comfortable
HEENT: Normocephalic and Anicteric
Cardiovascular: S1-S2, Regular Rhythm, Murmur (n) and Rub (n)
Respiratory: Wheeze (n), Crackles (few), Rhonchi (n), Non-Labored Respirations and Stridor (n)
GI: Soft, Non Distended and Non Tender
Neurology: Awake, Alert and No Motor Deficits (Able to sit up without difficulty)
Skin: Cyanosis (n), Jaundice (n) and Rash (n)
Labs/Micro/Reports
Lab Data
02/17/24 05:00
02/17/24 05:00
Microbiology
02/16/24 15:05 Sputum Gram Stain - Preliminary
02/14/24 12:29 Blood/Venous Blood Culture - Preliminary
No Growth in 48 hours- Final report to follow
02/14/24 12:42 Sputum Respiratory Culture - Final
Usual Respiratory Yaritza
02/14/24 12:42 Sputum Gram Stain - Final
02/15/24 06:26 Urine Legionella Urinary Antigen - Final
Negative for Legionella pneumophila Serogroup 1 antigen.
A negative result does not rule out the possiblity of
Legionella infection due to other serogroups or species of
Legionella. Clinical correlation is recommended.
02/15/24 06:26 Urine Streptococcus pneumoniae Antigen (M - Final
Negative for Streptococcus pneumoniae antigen.
A negative result does not exclude infection with
Streptococcus pneumoniae. Clinical correlation is
recommended.
[2024-02-17] MEDS: LASIX 40 MG IV (09:32)
[2024-02-17] MEDS: DECADRON 10 MG IV (09:36)
--- NOTE | 2024-02-17 09:40 | PN.CDI ---
CDI
- -
CDI:
Physician Documentation Request
Admit Date: 02/14/24 13:02
Dear Doctor Dung,
Patient admitted for pneumonia.
02/15 PCN: 'Started off on 50% on 50L but began desating to 88-89%. Eventually pt had to stay at 55L 85% to stay consistently above or at 92%. Pt desats when moving, pt used the urinal in the bed and he desated to 79%, did not take oxygen off.
Recovered with NRB.'
02/15 Hospitalist PN: 'Now on high flow nasal cannula 55 L at 85% FiO2. Also requiring intermittent nonrebreather. Understand if with worsening hypoxemia may also require mechanical ventilation intubation.'
Clarify which of the following accurately represents the patient's respiratory status:
Acute hypoxic respiratory failure
Hypoxia
Other
Additional information for Respiratory Failure:
Recognized criteria for Respiratory Failure (Source: [facility] May 2013)
ABGs: (1 or more) Symptoms Please indicate type if known
1. p)2 <60 or RA SPO2 <91% on RA 1. Tachypnea, SOB, dyspnea Hypoxic
2. pCO2 50 and pH <7.35 2. Use of accessory muscles Hypercapnic
3. pO2 decrease of pCO2 increase by 3. Pallor or cyanosis Hypoxic and Hypercapnic
10 mmHg from baseline if known 4. Anxiety or restlessness Unable to determine
5. Unable to speak in full sentences
Supplemental O2 of > 40% (5LPM) Intubation is not required
Use of terms such as suspected, likely, concern for, or probable (associated with a specific diagnosis that is being evaluated, monitored, or treated as if it exists) are acceptable and can be coded in the inpatient setting, when documented at the
time of discharge.
Thank you,
Mayra Polanco RN, BSN
CDI Specialist
Available via [place] text
Please use your independent medical judgment in providing your response.
--- NOTE | 2024-02-17 09:52 | PTCARENOTE ---
Dr Razo and Pulmonary saw pt, new orders given. 16 FR goins placed without incident. Lasix and steroids given .
[2024-02-17 10:40] LABS: NT-proBNP 19500 pg/ml
[2024-02-17] MEDS: ROCEPHIN 1000 MG IV (11:43)
[2024-02-17] MEDS: ZITHROMAX INFUSION 250 IV (11:43)
[2024-02-17] MEDS: STERILE WATER FOR INJECTION 10 ML IV (11:43)
--- NOTE | 2024-02-17 11:54 | PTCARENOTE ---
Pt states he feels better. Not as anxious. Does not want to eat or drink. ABT as directed
--- NOTE | 2024-02-17 12:20 | W.PN.HOSP.TC ---
Today's Communication/Plan
-
IV lasix
IV steroids
IV abx
monitor UOP
Tenuous respiratory status
Assessment / Plan
Assessment / Plan
General: Well Developed, Well Nourished, No Apparent Distress and Comfortable
HEENT: NormoCephalic, Anicteric and Moist mucous membranes
Respiratory: rhonchi R>L, Oxygen, HFNC
Cardiac: S1/S2 and Regular Rhythm
GI: Soft, Non Tender and Non Distended
Genito-urinary: Deferred by me
Musculoskeletal: No Clubbing, No Cyanosis and No Edema
Skin: Warm and Dry
Neuro: AO x 3
Hematologic/Lymphatic: No Lymphadenopathy
Psych: Calm
#Severe right upper lobe pneumonia - community-acquired.
#Severe Acute hypoxic respiratory failure at accelerated pace
CT scan reviewed, large right upper lobe pneumonia confirmed. Small pericardial effusion, small right pleural effusion, mild loculated pleural fluid in the right minor fissure noted.
started antibiotics Rocephin/Azithromycin.
Sputum sample with siena
Consult pulmonary given severity of pneumonia, hemoptysis, suspected underlying COPD. Cannot rule out underlying malignancy. May need bronchoscopy later on.
Patient denies night sweats, fevers, chills, anorexia, weight loss.
Now on high flow nasal cannula 55 L at 85% FiO2. Also requiring intermittent nonrebreather. Understand if with worsening hypoxemia may also require mechanical ventilation intubation.
Trial of IV steroids 10mg Decadron x 1.
#JUDI on CKD 3B -etiology of JUDI unclear but differential diagnosis includes volume depletion in setting of taking diuretics and ARB.
UA negative.
Hold losartan.
Renal ultrasound negative for hydro.
Baseline creatinine 1.4, currently 1.9. FENA with intrinsic.
#Hemoptysis -likely due to pneumonia in the setting of clopidogrel use.
Monitor for now.
Acute on chronic anemia -normocytic.
Baseline hemoglobin around 10, currently 8.9.
Etiology of anemia could be due to blood loss due to hemoptysis.
No evidence of hemolysis. Appropriate iron stores. low b12 and start po supplementation.
#Suspected mild Acute on Chronic HFpEF
[place] [address]
IV lasix trial 40mg x 1 dose and monitor response
History of duodenal ulcer/GI bleed
continue Protonix.
History of TIA
Holding plavix as above
Essential hypertension -uncontrolled.
He was informed prior to admission to increase hydralazine to 3 times daily if needed.
Increased dose to 75mg TID. Cont toprol 100mg and norvasc 10mg
COPD -undiagnosed.
Will need outpatient PFTs and pulmonary follow-up. Changes of COPD noted on CT scan. Not on inhalers at home.
Hyperlipidemia -on atorvastatin.
possible exposure to COVID -COVID negative x 2. Repeat per protocol pending on 02/18.
Full code
d/w with spouse at bedside
d/w with pulmonary
Anticipated Discharge: > 48 hours
Subjective/Interval History
-
Date of Service: February 17, 2024
tachypneic this am
anxious
better with NRB and increase HFNC
Objective Data
-
Labs:
Laboratory Results
02/17/24 02/17/24
05:00 17:00
WBC 8.4
Hgb 8.9 L
Hct 24.5 L
Plt Count 233
Sodium 134 L
Potassium 4.3
Chloride 105
Carbon Dioxide 17 L
BUN 62 H
Creatinine 2.1 H Pending
Glucose 147 H
Calcium 8.3 L
Vital Signs:
Vital Signs
Temp Pulse Resp BP Pulse Ox
98.4 F 79 26 163/70 96
02/17/24 11:17 02/17/24 11:42 02/17/24 11:42 02/17/24 10:00 02/17/24 11:42
I&O
02/16/24 02/17/24 02/18/24
06:59 06:59 06:59
Intake Total 990 / 990 120 / 120 250 / 250
Output Total 750 / 750 1050 / 1050 235 / 235
Balance 240 / 240 -930 / -930
Data Reviewed
-
Total Time Spent with Patient (in minutes): 60
--- NOTE | 2024-02-17 12:26 | PTCARENOTE ---
Mouth care done Pt desat to 86% without nonrebreather mask
--- NOTE | 2024-02-17 16:16 | PTCARENOTE ---
Pt is breathing easier.55 liters 90% O2. goins in place
--- NOTE | 2024-02-17 16:27 | CM ---
Patient seen at bedside with .
to bring in a copy of Living Will.
Dx: hemoptysis, RUL pneumonia, COPD
On high flow 02, IV abt, nebs, IV steroids d/c today.
IA completed.
Patient lives in a 2 story split level home. 6 steps up & 6 steps down. 2 bathrooms
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
PCP: Rajat Talbert
Pharmacy: [facility]
PLAN: Discharge when medically stable. Await PT/OT recommendations.
CM to follow for needs.
[2024-02-17 17:36] LABS: Estimated Creatinine Clearance 24 ml/min
[2024-02-17] MEDS: TOPROL XL 100 MG PO (22:17)
[2024-02-17] MEDS: NORVASC 10 MG PO (22:18)
[2024-02-17] MEDS: TYLENOL 1000 MG PO (22:18)
[2024-02-17] MEDS: CALAMINE LOTION 180 ML TOPICAL (23:36)
[2024-02-18] VITALS (16 sets, daily range): BP systolic 136–167; BP diastolic 61–76; PULSE 83; O2SAT 95; BMI 24.2
--- NOTE | 2024-02-18 05:47 | PTCARENOTE ---
Received patient from day shift. Patient is Ax3 and on high flow nasal cannula at 55L and 100%. Patient stated they were weeding in their backyard prior to admission and now believes he has poison anna on his fingers. Calamine lotion applied. Call
miranda in reach of patient.
[2024-02-18 06:15] LABS: % Basophils 0.1 % (0-2); % Immature Granulocytes 1.1 % (0-0.5); % Lymphocytes 7.3 % (20.5-51.1); % Monocytes 6.2 % (1.7-9.3); % Neutrophils 85.3 % (42.2-75.2); Absolute Immature Granulocytes 0.1 10^3/uL (0-0.05); Absolute Lymphocytes 0.5 10^3/uL (1.2-3.4); Absolute Monocytes 0.5 10^3/uL (0.1-0.6); Absolute Neutrophils 6.3 10^3/uL (1.4-6.5); Hematocrit 23.5 % (39.0-52.0); Hemoglobin 8.5 g/dL (13.0-18.0); Mean Corp Hgb Conc. 36.2 g/dL (33.0-37.0); Mean Corpuscular Hgb 28.8 pg (27.0-31.0); Mean Corpuscular Volume 79.7 fL (80.0-94.0); Mean Platelet Volume 9.9 fL (7.4-10.4); Nucleated Red Blood Cells % 0 % (-); Platelet Count 231 10^3/uL (130-400); Red Blood Cell Count 2.95 10^6/uL (4.70-6.10); Red Cell Dist. Width 15.8 % (11.5-14.5); White Blood Cell Count 7.4 10^3/uL (4.8-10.8)
--- NOTE | 2024-02-18 06:23 | PTCARENOTE ---
Patient woke up at 0600 and was having shortness of breathe as well as hallucinations of the ceiling leaking and thinking his bed was wet. Patient's HOB was elevated and he was placed back on non rebreather until O2 sat returned to 98%. Confirmed
with patient that ceiling was not leaking and his bed was not wet and he understood. Patient was still Ax3, he stated the correct year, his location and name.
[2024-02-18 06:44] LABS: Blood Urea Nitrogen 79 mg/dl (9-20); Calcium 8.5 mg/dl (8.4-10.2); Carbon Dioxide 19 mmol/L (22-30); Chloride 103 mmol/L (98-107); Estimated Creatinine Clearance 23 ml/min; Glucose 141 mg/dl (70-99); Potassium 4.7 mmol/L (3.5-5.1); Sodium 131 mmol/L (135-145); eGFR 23.83
[2024-02-18] MEDS: DUONEB 3 ML INH ×5 (07:26→22:28)
--- NOTE | 2024-02-18 08:42 | W.PN.PUL3 ---
Addendum entered and electronically signed by Uma Mcghee MD 02/18/24 09:29:
Echocardiogram reviewed. Normal biventricular function. Worsening pulm hypertension noted, likely in the setting of pneumonia, hypoxia
Original Note:
Today's Communication / Plan
-
Incentive spirometry, Acapella
Continue to wean oxygen as able
Follow creatinine, urine output
Avoid nephrotoxic agents
Aspiration precautions, may benefit from speech and swallow evaluation. I ordered
Assessment
-
73-year-old male with history of hypertension, hyperlipidemia, TIA on Plavix therapy, describes chronic bronchitis and chronic subjective dyspnea with [id number] history of smoking quit 2003. He now presents with progressive cough, shortness of
breath and hemoptysis. Found to have right upper lobe mass with likely pneumonia. We are asked to comment on pulmonary process
Right upper lobe mass/infiltrate
Acute hemoptysis x 3 days, blood mixed with mucus
Right upper lobe abnormality noted per chest x-ray April 2023
Small pleural effusion
Chronic bronchitis, dyspnea
Progressive
[id number] history of smoking, quit 2003
No prior spirometry, no prior pulmonary evaluation
Anemia
Chronic kidney disease, creatinine 2.2
Creatinine 1.6 in January 2024
Elevated proBNP
Chronic diarrhea
Conditions present prior to admission
History of anemia
Hypertension/hyperlipidemia
GERD with history of duodenal ulcer with bleeding
Required IR embolization 2020
Possible asbestos exposure
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
Family history of cancer
Father with lung cancer
Sister with brain cancer
Sister with liver cancer
Plan/recommendations
At this time, patient respiratory status remains tenuous, 91% on high flow
Mild confusion overnight noted
Received 1 dose of Decadron, 1 dose of Lasix in the a.m. of 02/16
Creatinine increased to 2.7
Productive mucus, blood seems to be improved
Chest x-ray shows worsening of the left side, severe right-sided pneumonia
Hemoglobin stable
Preadmission history: Patient is short of breath since April 2023 at which time he had right upper lobe infiltrate. Patient cannot recall any history of recent pneumonia
Significant smoking and asbestos exposure history noted
Patient did not get follow-up x-ray as recommended per report in April
Moving forward
Continue with empiric antibiotics for suspected pneumonia
Ceftriaxone/azithromycin
Sputum culture few gram-positive cocci, many white cells, usual yaritza/finalized
Myrna noted
May require swallowing evaluation
Legionella, streptococcal pneumonia negative
Low suspicion for acid-fast organism but this is also pending, given right upper lobe infiltrate back in April 2023
Continue to quantify hemoptysis, seems to be improving
Plavix has been held since 02/14 given worsening hypoxia, chest x-ray
Doubt active pulmonary hemorrhage given stable hemoglobin
[id number] if develops worsening hemoptysis
I am concerned about worsening lung injury process, ARDS
Received 1 dose of Decadron, 1 dose of Lasix 02/16
Creatinine now 2.7. Kuo catheter in place
Defer need for nephrology evaluation to primary service
If he develops anuric renal failure, this would be a significant setback. This was reviewed with at bedside
Hold nephrotoxic drugs
Protonix for GERD therapy
Reviewed with patient, at bedside
Updated son by phone 02/16 (Kevon: [phone])
Reviewed concern regarding possibility of underlying malignancy. However, rapidly progressive process makes this less likely
Patient high risk for intubation.
Subjective Data
-
Date of Service:
Date of Service: February 18, 2024
Subjective:
Patient with intermittent confusion overnight, hallucinating. This morning appears to be oriented. at bedside. Presently 90 to 92% on high flow. Denies chest pain, nausea. Denies abdominal pain. Patient feels hemoptysis is improving
Objective Data
Data Reviewed
Vital Signs / I&O / Oxygen:
Vital Signs
Temp Pulse Resp BP Pulse Ox
98.1 F 76 20 150/65 91
02/18/24 07:00 02/18/24 07:29 02/18/24 07:29 02/17/24 22:18 02/18/24 07:29
Intake and Output
02/17/24 02/18/24 02/19/24
06:59 06:59 06:59
Intake Total 120 / 120 970 / 970
Output Total 1050 / 1050 635 / 635
Balance -930 / -930 335 / 335
SaO2 91
Nasal Cannula flow liters per 50
minute
Physical Exam
General: Comfortable
HEENT: Normocephalic and Anicteric
Cardiovascular: S1-S2, Regular Rhythm, Murmur (n) and Rub (n)
Respiratory: Wheeze (n), Crackles (few), Rhonchi (n), Non-Labored Respirations and Stridor (n)
GI: Soft, Non Distended and Non Tender
Neurology: Awake, Alert and No Motor Deficits (Able to sit up without difficulty)
Skin: Cyanosis (n), Jaundice (n) and Rash (n)
Labs/Micro/Reports
Lab Data
02/18/24 06:01
02/18/24 06:01
Microbiology
02/16/24 03:59 Sputum Acid Fast Bacilli Smear - Preliminary
02/16/24 03:59 Sputum Acid Fast Bacilli Culture - Preliminary
02/14/24 12:29 Blood/Venous Blood Culture - Preliminary
No Growth in 72 hours- Final report to follow
02/16/24 15:05 Sputum Respiratory Culture - Preliminary
Myrna albicans
02/16/24 15:05 Sputum Gram Stain - Preliminary
02/14/24 12:42 Sputum Respiratory Culture - Final
Usual Respiratory Yaritza
02/14/24 12:42 Sputum Gram Stain - Final
02/15/24 06:26 Urine Legionella Urinary Antigen - Final
Negative for Legionella pneumophila Serogroup 1 antigen.
A negative result does not rule out the possiblity of
Legionella infection due to other serogroups or species of
Legionella. Clinical correlation is recommended.
02/15/24 06:26 Urine Streptococcus pneumoniae Antigen (M - Final
Negative for Streptococcus pneumoniae antigen.
A negative result does not exclude infection with
Streptococcus pneumoniae. Clinical correlation is
recommended.
[2024-02-18] MEDS: PROTONIX 40 MG PO (08:58)
[2024-02-18] MEDS: LIPITOR 80 MG PO (08:58)
[2024-02-18] MEDS: ZITHROMAX 500 MG PO (08:58)
[2024-02-18] MEDS: VITAMIN B-12 1000 MCG PO (08:59)
[2024-02-18] MEDS: APRESOLINE 75 MG PO ×3 (08:59→19:47)
[2024-02-18] MEDS: HEPARIN 5000 UNITS SC ×2 (09:00→19:48)
--- NOTE | 2024-02-18 10:12 | W.CON.NEPH ---
Consultation
-
Date/Time Consultation Requested: 02/18/2024 9:30 AM
Date/Time Consultation Performed: 02/18/2024 10:15 AM
Requesting Provider: Dr. Razo
Performing Provider: Dr. Weaver
Reason for Consultation: Acute kidney injury/hyponatremia
Medical History
-
Chief Complaint: Acute kidney injury hyponatremia
History of Present Illness:
The patient is a 73-year-old male with a past medical history of chronic kidney disease stage IIIb who maintains a creatinine of approximately 1.6. He has a history of hypertension and is maintained on the combination of amlodipine hydralazine
metoprolol and losartan. He has a history of TIA and is maintained on statin and Plavix. He presented to the hospital a few days prior with complaints of increasing cough hemoptysis and shortness of breath. We were consulted as his creatinine has
now risen from 1.9 on admission up to 2.7.
Past Medical History
DHF
COPD
CKD 1.6
Hypertension (long standing uncontrolled)
GERD
Duodenal ulcer with GI bleed
TIA -August 2021
Hyperlipidemia
Chronic anemia
Social History
Tobacco: Former Smoker
Alcohol: None
Family History
No CKD
Allergies / Home Medications
Allergy/AdvReac Type Severity Reaction Status Date / Time
No Known Allergies Allergy Verified 08/28/21 22:59
�Medication �Instructions �Recorded �Confirmed �Type
metoprolol succinate 50 mg 100 mg PO HS Blood pressure 08/10/20 02/14/24 History
tablet,extended release 24 hr
pantoprazole 40 mg tablet,delayed 40 mg PO DAILY Gastrointestinal 09/25/20 02/14/24 History
release issue
acetaminophen 500 mg tablet 1,000 mg PO HS 08/05/21 02/14/24 History
(Tylenol Extra Strength)
clopidogrel 75 mg tablet 75 mg PO DAILY 30 days #30 tabs 08/07/21 02/14/24 Rx
amlodipine 10 mg tablet 10 mg PO HS 02/14/24 02/14/24 History
atorvastatin 40 mg tablet 80 mg PO DAILY 02/14/24 02/14/24 History
furosemide 40 mg tablet (Lasix) 40 mg PO DAILY 02/14/24 02/14/24 History
hydralazine 50 mg tablet 50 mg PO BID 02/14/24 02/14/24 History
losartan 50 mg tablet 50 mg PO HS 02/14/24 02/14/24 History
Physical Exam
Vital Signs
Vital Signs
Temp Pulse Resp BP Pulse Ox
98.1 F 77 20 159/74 91
02/18/24 07:00 02/18/24 08:59 02/18/24 07:29 02/18/24 08:59 02/18/24 07:35
Lab Results
02/18/24 06:01
02/18/24 06:01
WBC 7.4 10^3/uL (4.8-10.8) 02/18/24 06:01
RBC 2.95 10^6/uL (4.70-6.10) L 02/18/24 06:01
Hgb 8.5 g/dL (13.0-18.0) L 02/18/24 06:01
Hct 23.5 % (39.0-52.0) L 02/18/24 06:01
Plt Count 231 10^3/uL (130-400) 02/18/24 06:01
Sodium 131 mmol/L (135-145) L 02/18/24 06:01
Potassium 4.7 mmol/L (3.5-5.1) 02/18/24 06:01
Chloride 103 mmol/L (98-107) 02/18/24 06:01
Carbon Dioxide 19 mmol/L (22-30) L 02/18/24 06:01
BUN 79 mg/dl (9-20) H 02/18/24 06:01
Creatinine 2.7 mg/dL (0.7-1.3) H 02/18/24 06:01
eGFR 23.83 02/18/24 06:01
Glucose 141 mg/dl (70-99) H 02/18/24 06:01
Calcium 8.5 mg/dl (8.4-10.2) 02/18/24 06:01
Exo-O-Ynqseqydhxe Pept 41746 pg/ml 02/17/24 05:00
Albumin 3.5 g/dl (3.5-5.0) 02/15/24 04:42
Physical Exam
General: AOx3, Nontoxic , mild respiratory distress
HEENT: PERRL, EOMI, Anicteric, Conjunctivae Clear, Ear/Nose Intact, Hearing Normal, Oropharynx Clear/Moist, Dentition Intact, Facial Symmetry, Neck Supple, Neck: Trachea Midline, No JVD and No Thyromegaly, no Bruits
Respiratory: Coarse bilaterally with crackles along right lung field with decreased breath sounds to bases
Cardiac: S1/S2 and Regular tachycardic
Breast: Deferred by me
Abdomen: Soft, Nontender, Nondistended, Normal Bowel Sounds and No Hepatosplenomegaly
Rectal: Deferred by Provider
Genito-urinary: No Costovertebral Tenderness, Goins catheter to gravity
Extremities: No Clubbing, No Cyanosis and No Edema
Skin: No Rash or open lesions
Neuro: Nonfocal/Grossly Intact, CN II-XII (Intact) and Strength (Musculoskeletal exam 5 out of 5 both upper and lower extremities)
Hematologic/Lymphatic: No Cervical Lymphadenopathy, No Submandibular Lymphadenopathy and No Supraclavicular Lymphadenopathy
Psych: Mood/afflect pleasant, Insight/judgement good and Appropriate
Vascular: plus 1 pedal and radial pulses
Data Reviewed
-
Radiology: Image Personally Visualized and interpreted (Chest x-ray reviewed by me right extensive lung infiltrative process appreciate)
Ultrasound: Other (Renal ultrasound report reviewed notable for bilateral increased echogenicity but no hydronephrosis)
Labs: Labs Reviewed by me (bmp , CBC, UA)
Old Records: Reviewed (1.6 01/05/24)
Assessment/Plan
-
Impression:
Right upper lobe mass versus infiltrate with hemoptysis
Acute kidney
CKD stage IIIb baseline creatinine 1.6
HTN
History of TIA
History of COPD
Anemia
CHF HFpEF
Plan:
JUDI:
-Etiology remains elusive: currently barely non oliguric with goins catheter now inserted
-Urinalysis bland and fractional secretion of sodium not consistent with prerenal stimulus
-Obtained kidney and bladder ultrasound: No hydronephrosis echogenic renal parenchyma compatible with medical renal disease
-Volume status evaluation: pro bnp ~20K, weights stable, does not examine volume overloaded today
-Patient has remained hemodynamically stable currently with holding ARB in setting of acute kidney
--- NOTE | 2024-02-18 12:09 | PTOTSP ---
SPEECH THERAPY SWALLOW EVALUATION:
Patient exhibits clinical signs of oropharyngeal dysphagia, likely acutely related to pneumonia and acute hypoxic respiratory failure. Patient denied history of dysphagia symptoms, though endorsed 2-3 day period last week of coughing/choking
with liquids. Patient remains at high risk for aspiration and related complications at this time given tenuous respiratory/pulmonary status. Would consider instrumental assessment of swallowing to further assess swallow physiology, though patient is
not able to tolerate at this time given tenuous respiratory status (on 50L HFNC). Recommend cautious modified oral diet at this time to reduce energy expenditure for mastication and facilitate breathe/swallow coordination: IDDSI Level 6 Soft and
Bite Size diet, thin liquids. Medications whole in applesauce. Strict aspiration precautions including: Upright positioning; Small single sips/bites; Slow rate of intake; Take breaks during meals for breathing; Do not eat/drink when short of breath;
No straw; Oral care 3x/day; Only provide p.o. when SpO2>90% and RR<30. Monitor for signs of aspiration and d/c oral diet if any decline in mental or respiratory status. Speech therapy to follow closely, determine readiness for VSE, assess diet
tolerance and modify as appropriate, and provide continued education regarding aspiration risks and precautions.
RECOMMEND:
1) IDDSI Level 6 Soft and Bite Size diet, thin liquids
2) Medications whole in applesauce
3) Strict aspiration precautions including: Upright positioning; Small single sips/bites; Slow rate of intake; Take breaks during meals for breathing; Do not eat/drink when short of breath; No straw; Oral care 3x/day; Only provide p.o. when SpO2>90%
and RR<30. Monitor for signs of aspiration and d/c oral diet if any decline in mental or respiratory status
4) Speech therapy to follow
5) VSE when appropriate
--- NOTE | 2024-02-18 12:14 | PTCARENOTE ---
Patient out of bed to chair with 2 person assist, unsteady abd dyspnea with exertion. Patient continues to have blood tinged sputum, requiring high flow oygen 50 liters, 100% fio2. Patient has coarse lung sounds with expiratory wheezing. Pulse ox
dropped to the 80s while transferring to the chair and then came back up into the 90s. Denying pain when asked. Fair appetite. at bedside.
--- NOTE | 2024-02-18 12:22 | W.PN.HOSP.TC ---
Today's Communication/Plan
-
wean o2
downgrade diet
iv abx
hold lasix
pt/ot
Assessment / Plan
Assessment / Plan
General: Well Developed, Well Nourished, No Apparent Distress and Comfortable
HEENT: NormoCephalic, Anicteric and Moist mucous membranes
Respiratory: rhonchi R>L, Oxygen, HFNC
Cardiac: S1/S2 and Regular Rhythm
GI: Soft, Non Tender and Non Distended
Genito-urinary: Deferred by me
Musculoskeletal: No Clubbing, No Cyanosis and No Edema
Skin: Warm and Dry
Neuro: AO x 3
Hematologic/Lymphatic: No Lymphadenopathy
Psych: Calm
#Severe right upper lobe pneumonia - community-acquired.
#Severe Acute hypoxic respiratory failure at accelerated pace
CT scan reviewed, large right upper lobe pneumonia confirmed. Small pericardial effusion, small right pleural effusion, mild loculated pleural fluid in the right minor fissure noted.
started antibiotics Rocephin/Azithromycin.
Sputum sample with siena
Consult pulmonary given severity of pneumonia, hemoptysis, suspected underlying COPD. Cannot rule out underlying malignancy. May need bronchoscopy later on.
Patient denies night sweats, fevers, chills, anorexia, weight loss.
Now on high flow nasal cannula 55 L at 100% FiO2. Also requiring intermittent nonrebreather. Understand if with worsening hypoxemia may also require mechanical ventilation intubation.
Trial of IV steroids 10mg Decadron x 1 on 02/16.
Pulmonary HTN noted on ECHO probably in setting of sever hypoxemia
#JUDI on CKD 3B -etiology of JUDI unclear but differential diagnosis includes volume depletion in setting of taking diuretics and ARB.
UA negative.
Hold losartan.
Renal ultrasound negative for hydro.
Baseline creatinine 1.4 and Cr now jumped to 2.7 FENA with intrinsic.
Nephro following.
#Mild dysphagia
-Speech eval and diet downgraded IDDS6
-Eventually VSE pending stabilization of oxygen status
#Hemoptysis -likely due to pneumonia in the setting of clopidogrel use.
Monitor for now. seems to have resolved.
Acute on chronic anemia -normocytic.
Baseline hemoglobin around 10, currently 8.5.
Etiology of anemia could be due to blood loss due to hemoptysis.
No evidence of hemolysis. Appropriate iron stores. low b12 and start po supplementation.
#Suspected mild Acute on Chronic HFpEF
[place] [address]
hold further lasix as Cr bumped
History of duodenal ulcer/GI bleed
continue Protonix.
History of TIA
Holding plavix as above
Essential hypertension -uncontrolled.
He was informed prior to admission to increase hydralazine to 3 times daily if needed.
Increased dose to 75mg TID. Cont toprol 100mg and norvasc 10mg
COPD -undiagnosed.
Will need outpatient PFTs and pulmonary follow-up. Changes of COPD noted on CT scan. Not on inhalers at home.
Hyperlipidemia -on atorvastatin.
possible exposure to COVID -COVID negative x 2. Repeat per protocol pending on 02/18.
Full code
d/w with spouse at bedside
Anticipated Discharge: > 48 hours
Subjective/Interval History
-
Date of Service: February 18, 2024
remains on HFNC
states feeling better-less anxious
Objective Data
-
Labs:
Laboratory Results
02/18/24
06:01
WBC 7.4
Hgb 8.5 L
Hct 23.5 L
Plt Count 231
Sodium 131 L
Potassium 4.7
Chloride 103
Carbon Dioxide 19 L
BUN 79 H
Creatinine 2.7 H
Glucose 141 H
Calcium 8.5
Vital Signs:
Vital Signs
Temp Pulse Resp BP Pulse Ox
98.1 F 88 18 159/69 95
02/18/24 11:00 02/18/24 11:30 02/18/24 11:30 02/18/24 10:00 02/18/24 12:13
I&O
02/17/24 02/18/24 02/19/24
06:59 06:59 06:59
Intake Total 120 / 120 970 / 970 200 / 200
Output Total 1050 / 1050 635 / 635
Balance -930 / -930 335 / 335 200 / 200
Data Reviewed
-
Total Time Spent with Patient (in minutes): 56
[2024-02-18] MEDS: CALAMINE LOTION 180 ML TOPICAL (13:01)
[2024-02-18] MEDS: STERILE WATER FOR INJECTION IV (13:03)
[2024-02-18] MEDS: ROCEPHIN IV (13:03)
[2024-02-18] MEDS: ROCEPHIN 1000 MG IV (16:47)
[2024-02-18] MEDS: STERILE WATER FOR INJECTION 10 ML IV (16:47)
[2024-02-18] MEDS: TOPROL XL 100 MG PO (21:51)
[2024-02-18] MEDS: TYLENOL 1000 MG PO (21:53)
[2024-02-18] MEDS: NORVASC 10 MG PO (21:53)
[2024-02-18] MEDS: MORPHINE SULFATE 2 MG IV (22:28)
--- NOTE | 2024-02-18 22:45 | PTCARENOTE ---
patient was having trouble breathing with retractions while on HFNC at 55L and 80% and o2 sat dropped to 85. Non rebreather put on and sats came back up, but patient still was SOB and anxious. Respiratory therapy and JOB SPOTTER at the bedside. 1 ml morphine
given and stat chest xray ordered.
[2024-02-18 23:56] LABS: B.E. -5.5 mmol/L; HCO3 18.6 mmol/L (21-28); PCO2 30 mmHg (35-48); PO2 68 mmHg (83-108)
[2024-02-19] VITALS (25 sets, daily range): BP systolic 115–163; BP diastolic 50–94; BMI 24.5
[2024-02-19] MEDS: LASIX 60 MG IV (00:17)
[2024-02-19] MEDS: MORPHINE SULFATE 2 MG IV (01:12)
--- NOTE | 2024-02-19 01:37 | PTCARENOTE ---
patient still having sob, 60 mg lasix ordered and given with 150 cc output. Respiratory and GENERAL EXPEDITOR at bedside because sob and retractions continued. Patient was transferred to ICU.
--- NOTE | 2024-02-19 02:17 | PTCARENOTE ---
Pt received from IMU via bed,pt is alert,oriented,cooperative.Tolerated transfer well.Pt remains on noninvasive O2,at 80% with 60 liters,O2 sat 95%,resp rate 22.Pt in high semifowlers,with wedge supporting left posterior back,keeping pt turned to
right.Pt receptive,tolerated physical assessment fairly well.Skin warm and dry,afebrile,SR cardiac cath lab manager.Resp precautions maintained,close observation ongoing.
--- NOTE | 2024-02-19 03:14 | W.PN.UPDATE ---
Addendum entered and electronically signed by OLIVIA Tavarez 02/19/24 03:25:
update patient's over phone..she will be coming in to see him. Explained we did transfer him to ICU out of abundance of caution. She understood. All questions answered.
Original Note:
Update Note
Progress Note Update
Patient became increasingly tachypneic after getting back to bed. Had a good day being oob to chair. Morphine IV given with some effect. PCXR done and appears to be worsening from prior. Gave Lasix 60 mg iV. In discussion with him he would hope not
to need to be intubated but would agree. Reviewed with Jesus BAKER from ICU for possible transfer due to concerns for ability to maintain airway. Second dose of morphine given and he had minimal diuresis noted.
[2024-02-19 05:05] LABS: % Basophils 0.2 % (0-2); % Eosinophils 0.1 % (0-6); % Immature Granulocytes 1.5 % (0-0.5); % Monocytes 8.2 % (1.7-9.3); Absolute Immature Granulocytes 0.1 10^3/uL (0-0.05); Absolute Lymphocytes 0.7 10^3/uL (1.2-3.4); Absolute Monocytes 0.7 10^3/uL (0.1-0.6); Absolute Neutrophils 7.4 10^3/uL (1.4-6.5); Hematocrit 21.7 % (39.0-52.0); Hemoglobin 7.9 g/dL (13.0-18.0); Mean Corp Hgb Conc. 36.4 g/dL (33.0-37.0); Mean Corpuscular Hgb 29.3 pg (27.0-31.0); Mean Corpuscular Volume 80.4 fL (80.0-94.0); Mean Platelet Volume 10.2 fL (7.4-10.4); Nucleated Red Blood Cells % 0 % (-); Platelet Count 249 10^3/uL (130-400); Red Cell Dist. Width 15.7 % (11.5-14.5); White Blood Cell Count 9.1 10^3/uL (4.8-10.8)
[2024-02-19 05:14] LABS: APTT 33.2 Sec (23.4-35.0); INR 1.19; PT 15.1 Sec (11.4-14.6)
[2024-02-19 05:17] LABS: COVID-19 Antigen Negative (Negative)
[2024-02-19 05:29] LABS: Blood Urea Nitrogen 92 mg/dl (9-20); Calcium 8.2 mg/dl (8.4-10.2); Carbon Dioxide 18 mmol/L (22-30); Chloride 100 mmol/L (98-107); Estimated Creatinine Clearance 18 ml/min; Glucose 124 mg/dl (70-99); Potassium 4.9 mmol/L (3.5-5.1); Sodium 131 mmol/L (135-145); eGFR 18.07
[2024-02-19] MEDS: DECADRON 10 MG IV (06:53)
[2024-02-19] MEDS: DUONEB 3 ML INH ×4 (07:10→21:14)
--- NOTE | 2024-02-19 07:23 | W.PN.INTV ---
Today's Communication / Plan
Recommendations
Transfer to ICU for worsening hypoxemia, on HFNC
Add lasix 40mg IV BID, watchful waiting on creat, renal following
Continue abx CTX for 10 days, stop azithro
IV steroids continued, SS added for hyperglycemia
We discussed overall prognosis with on rounds, she understand his QoL is poor
Family to come in and further discuss GOC
Assessment
-
73-year-old male with history of hypertension, hyperlipidemia, TIA on Plavix therapy, describes chronic bronchitis and chronic subjective dyspnea with [id number] history of smoking quit 2003. He now presents with progressive cough, shortness of
breath and hemoptysis. Found to have right upper lobe mass with likely pneumonia. We are asked to comment on pulmonary process 02/14/24. Overnight 02/18/24, developed worsening hypoxemia, likely due to superimposed DHF now on HFNC. Transferred to
ICU for further management.
Acute HFpEF/DHF, proBNP
Moderate-severe PH, new on ECHO
Right upper lobe mass/infiltrate likely PNA
Acute hemoptysis x 3 days, blood mixed with mucus
Right upper lobe abnormality noted per chest x-ray April 2023
Small pleural effusion
Chronic bronchitis
Dyspnea, progressive
Former smoker, [id number] history of smoking, quit 2003
No prior spirometry, no prior pulmonary evaluation
Anemia
JUDI on Chronic kidney disease, creat peak 3.4, rising
Creatinine 1.4-1.6 at baseline
Elevated proBNP
Chronic diarrhea
Conditions present prior to admission
History of anemia
Hypertension
Hyperlipidemia
GERD with history of duodenal ulcer with bleeding
Required IR embolization 2020
Possible asbestos exposure
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
Family history of cancer
Father with lung cancer
Sister with brain cancer
Sister with liver cancer
Plan
At this time, patient respiratory status remains tenuous, 80% on high flow
Mild confusion overnight noted
Received 1 dose of Decadron, 1 dose of Lasix in the a.m. of 02/16
Creatinine increased to 2.7
Productive mucus, blood seems to be improved
Chest x-ray shows worsening of the left side, severe right-sided infiltrates
Preadmission history: Patient is short of breath since April 2023 at which time he had right upper lobe infiltrate. Patient cannot recall any history of recent pneumonia
Significant smoking and asbestos exposure history noted
Patient did not get follow-up x-ray as recommended per report in April
Former smoker, quit >30 years ago, strong family history of cancers
There is high suspicion this could be metastatic illness
IV steroids added, continue
Has been on empiric antibiotics for suspected pneumonia for past 5 days without benefit
Ceftriaxone/azithromycin, can continue until day 10, stop azithro
Sputum culture few gram-positive cocci, many white cells, usual yaritza/finalized
Myrna noted 02/15
Prior sputum 02/13 neg
Legionella, streptococcal pneumonia negative
Continue to quantify hemoptysis, seems to be improving
Airway clearance reviewed with RT, mucinex/acapella
Hemoglobin stable
Plavix has been held since 02/14 given worsening hypoxia, chest x-ray
Doubt active pulmonary hemorrhage given stable hemoglobin
ProBNP rising, history of CHF
Creatinine now >3. Kuo catheter in place
Renal following
Add on lasix 40mg IV BID
Hold nephrotoxic drugs
HD was discussed, if patient would want this, family feels this would not benefit QoL
Protonix for GERD therapy
Aspiration precautions
NPO due to high risk airway
Steroids with hyperglycemia
SS for coverage for now
Family Discussions
Mira 02/18- Reviewed with today and son on speaker phone today on rounds. We discussed all of his poor prognostic markers including possible/suspected metastatic disease, acute HF picture, worsening JUDI, worsening hypoxemia. She understands
his overall outlook remains poor even with intubation/MV. There is less chance for good QoL the more organ dysfunction occurs. Family will visit and discuss further GOC.
Litzy - Reviewed with patient, at bedside
Updated son by phone 02/16 (Kevon: [phone])
Reviewed concern regarding possibility of underlying malignancy. However, rapidly progressive process makes this less likely
Patient high risk for intubation.
Diagnostic Data
Chest X-Ray: 02/18/24- Findings raising concern for pulmonary edema, superimposed on right lung pneumonic process. The patient does have a proBNP value of 19,500 today.
02/17/24- Right lung opacities suspicious for pneumonia without significant change in comparison to recent prior study.
CT Scan: CHEST 02/14/24- 1. Large right upper lobe pneumonia. Imaging follow-up to resolution is recommended as an underlying pulmonary neoplasm would be difficult to completely exclude.
2. Chronic obstructive pulmonary disease.
3. Small pericardial effusion.
4. Small right pleural effusion.
5. Mild loculated pleural fluid in the right minor fissure.
Echo: 02/17/24- Normal left ventricular size and systolic function. No regional wall motion abnormalities are seen. LV ejection fraction is 65-70% by volumetric assessment. Mild concentric left ventricular hypertrophy. Stage II diastolic dysfunction
suggestive of abnormal relaxation and increased filling pressures. Top normal right ventricular size. Normal right ventricular systolic function. Aortic sclerosis without stenosis. Mild tricuspid regurgitation. Estimated pulmonary artery pressure
of 50-55 mmHg assuming a right atrial pressure of 8 mmHg. Compared to prior study dated 04/28/2023, estimated pulmonary artery systolic pressure was previously normal at 25-30 mmHg
04/28/23- 1. Mild concentric left ventricular hypertrophy with preserved systolic function, EF 60-65%
2. Thickened mitral leaflets with mitral annular calcification, trace mitral regurgitation and minimally dilated left atrium
3. Aortic sclerosis with trace aortic insufficiency
4. Normal right heart with normal pulmonary artery pressure
The study is similar to October 2021. The patient will be called and told that there is preserved heart muscle function and no significant valve abnormality.
PFT's:
Reports and relevant images were personally reviewed.
-----
Critical Care time 77 mins -- The patient is admitted for acute critical illness for the treatment of vital organ failure and/or prevention of further life-threatening conditions. Total care includes time spent in review of history, physical exam,
medications, hemodynamic/ventilator parameters, laboratory data, imaging and discussion with house staff, pharmacy, respiratory therapy, crayon grader, and nursing.
Subjective Dataa
Subjective Data
Date of Service:
Date of Service: February 19, 2024
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
Subjective:
Events noted ON, placed on HFNC
Transferred to ICU for worsening hypoxemia
Objective Data
Data Reviewed
Vital Signs / I&O / Oxygen:
Vital Signs
Temp Pulse Resp BP Pulse Ox
97.7 F 84 26 162/73 95
02/19/24 02:02 02/19/24 07:17 02/19/24 07:17 02/19/24 07:00 02/19/24 07:19
Intake and Output
02/18/24 02/19/24 02/20/24
06:59 06:59 06:59
Intake Total 970 / 970 200 / 200
Output Total 635 / 635 550 / 550
Balance 335 / 335 -350 / -350
SaO2 95
Nasal Cannula flow liters per 60
minute
Physical Exam
General: Respiratory Distress (mild-moderate), Poor Appetite and Other (ill appearing)
HEENT: Normocephalic and Anicteric
Cardiovascular: S1-S2 and Regular Rhythm
Respiratory: Crackles and Accessory Resp Muscle Use (mild, anxious appearing)
GI: Soft, Non Distended and Non Tender
Neurology: Awake, Alert and Lethargic (slightly confused)
Skin: Warm, Dry and Good Color
Labs/Micro/Reports
Lab Data
02/19/24 04:33
02/19/24 04:33
Laboratory Results
02/18/24 02/19/24
23:46 04:33
PT 15.1 H
INR 1.19
APTT 33.2
pH 7.40
pCO2 30 L
pO2 68 L
HCO3 18.6 L
O2 Delivery Level hi flow
Microbiology
02/14/24 12:29 Blood/Venous Blood Culture - Preliminary
No Growth in 4 days- Final report to follow
02/16/24 15:05 Sputum Respiratory Culture - Final
Myrna albicans
02/16/24 15:05 Sputum Gram Stain - Final
02/16/24 03:59 Sputum Acid Fast Bacilli Smear - Preliminary
02/16/24 03:59 Sputum Acid Fast Bacilli Culture - Preliminary
02/14/24 12:42 Sputum Respiratory Culture - Final
Usual Respiratory Yaritza
02/14/24 12:42 Sputum Gram Stain - Final
--- NOTE | 2024-02-19 08:00 | PTCARENOTE ---
Received pt in bed, AAOx3, discussed POC w/ , who is now at bedside. Pt is on 80% 60L High Flow, w/ 100% NRB to maintain sat >93%. RR fluctuates between 22-30. LS diminished w/ expiratory wheeze and scattered rhonchi. Pt w/ frequent moist cough,
bloody tinged sputum continues. NSR 80's on monitor. BP wnl. Kuo in place w/ yellow urine. Will continue to monitor, full assessment as documented.
[2024-02-19] MEDS: LIPITOR 80 MG PO (08:24)
[2024-02-19] MEDS: APRESOLINE 75 MG PO ×3 (08:24→22:04)
[2024-02-19] MEDS: ZITHROMAX 500 MG PO (08:25)
[2024-02-19] MEDS: HEPARIN 5000 UNITS SC ×2 (08:25→19:46)
[2024-02-19] MEDS: PROTONIX 40 MG PO (08:25)
[2024-02-19] MEDS: VITAMIN B-12 1000 MCG PO (08:25)
--- NOTE | 2024-02-19 09:40 | PTOTSP ---
SPEECH THERAPY SWALLOW FOLLOW UP NOTE:
Patient continues to exhibit clinical signs of oropharyngeal dysphagia, likely acutely related to COPD/pneumonia with possible underlying chronic component of unknown etiology. Patient will likely need VSE, but patient is not appropriate for
instrumental assessment of swallowing at this time due to tenuous respiratory/pulmonary status; Consider VSE when respiratory/pulmonary status improves. At this point, recommend temporary NPO except for necessary medications crushed in puree and
ARHP small single sips of water with RN supervision, only when breathing appears stable. Hold on all other oral nutrition/hydration at this time due to tenuous respiratory and pulmonary status. Speech therapy to follow, re-assess in 24 hours,
determine readiness for p.o. trials and/or oral diet, determine readiness for VSE procedure, and provide continued education regarding aspiration risks and precautions. /pt verbalized understanding/agreement of recommendations.
RECOMMEND:
1) Temporary NPO
2) Medications crushed in puree
3) ARHP: Small single sips of water, sparingly, with RN supervision
4) ST to follow, determine readiness for p.o. trials and/or oral diet, determine readiness for VSE procedure
--- NOTE | 2024-02-19 10:42 | W.PN.NEPH.PH ---
Today's Communication / Plan
-
lasix 80mg BID
Assessment/Plan
-
Impression:
Right upper lobe mass versus infiltrate with hemoptysis
Acute kidney
CKD stage IIIb baseline creatinine 1.6
HTN
History of TIA
History of COPD
Anemia
CHF HFpEF
Plan:
JUDI:
-Etiology remains elusive: bland UA, high FEna, no hydro on US
however now evolving CHF with PNA
cr increasing with possible oliguric with goins
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
would start lasix 80mg BID for now
not refusing HD if needed but wants to know over all prognosis
BP stable on po meds
on high flow O2 and NRB currently
mild hyponatremia and met acidosis monitor-add po bicarb if pt can take
monitor h/h , adequate fe stores
d/w pt , , nursing and ICU
CC time spent 35min
-
-
Date of Service: February 19, 2024
CC / HPI / ROS
-
Chief Complaint:
UJDI
History of Present Illness:
cr increasing to 3.4, sodium low 131, k 4.9
bicarb 18
BP stable
on high flow O2 and NRB \\
wt is up
Review of Systems:
sob, dry cough
no fever
Labs
-
Labs:
WBC 9.1 10^3/uL (4.8-10.8) 02/19/24 04:33
RBC 2.70 10^6/uL (4.70-6.10) L 02/19/24 04:33
Hgb 7.9 g/dL (13.0-18.0) L 02/19/24 04:33
Hct 21.7 % (39.0-52.0) L 02/19/24 04:33
Plt Count 249 10^3/uL (130-400) 02/19/24 04:33
Sodium 131 mmol/L (135-145) L 02/19/24 04:33
Potassium 4.9 mmol/L (3.5-5.1) 02/19/24 04:33
Chloride 100 mmol/L (98-107) 02/19/24 04:33
Carbon Dioxide 18 mmol/L (22-30) L 02/19/24 04:33
BUN 92 mg/dl (9-20) H 02/19/24 04:33
Creatinine 3.4 mg/dL (0.7-1.3) H 02/19/24 04:33
eGFR 18.07 02/19/24 04:33
Glucose 124 mg/dl (70-99) H 02/19/24 04:33
Calcium 8.2 mg/dl (8.4-10.2) L 02/19/24 04:33
Ada-M-Ojsdzbvioky Pept 76128 pg/ml 02/17/24 05:00
Albumin 3.5 g/dl (3.5-5.0) 02/15/24 04:42
Physical Exam
-
Vital Signs:
Vital Signs
Temp Pulse Resp BP Pulse Ox
98.6 F 84 26 157/69 95
02/19/24 08:56 02/19/24 08:24 02/19/24 07:17 02/19/24 08:24 02/19/24 07:19
Cardiovascular:: Regular rate and rhythm
Respiratory:: Bilateral: Coarse
Lung Excursion:: Abnormal
Abdomen:: Nontender and Soft
Extremity Edema:: None: Bilateral:
Goins Catheter: Yes
[2024-02-19] MEDS: LASIX 80 MG IV ×2 (11:13→15:41)
[2024-02-19] MEDS: ROCEPHIN 1000 MG IV (11:14)
[2024-02-19] MEDS: MUCINEX 600 MG PO ×2 (11:14→19:46)
[2024-02-19] MEDS: STERILE WATER FOR INJECTION 10 ML IV (11:14)
--- NOTE | 2024-02-19 11:34 | PTOTSP ---
Chart reviewed. Patient was transferred to ICU at 0325. PT orders not continued upon transfer.
Will discuss with RN.
--- NOTE | 2024-02-19 12:13 | W.PN.HOSP.TC ---
Today's Communication/Plan
-
Aggressive IV diuresis
IV steroids
IV antibiotic
Diet downgraded
Ultrasound chest pending
Assessment / Plan
Assessment / Plan
General: Well Developed, Well Nourished, No Apparent Distress and tachypenic
HEENT: NormoCephalic, Anicteric and Moist mucous membranes
Respiratory: rhonchi R>L, Oxygen, HFNC
Cardiac: S1/S2 and Regular Rhythm
GI: Soft, Non Tender and Non Distended
Genito-urinary: Deferred by me
Musculoskeletal: No Clubbing, No Cyanosis and No Edema
Skin: Warm and Dry
Neuro: AO x 3
Hematologic/Lymphatic: No Lymphadenopathy
Psych: Calm
#Severe right upper lobe pneumonia - community-acquired.
#Severe Acute hypoxic respiratory failure at accelerated pace likely secondary to pneumonia suspicious for pneumonitis and also with acute on chronic heart failure exacerbation
CT scan reviewed, large right upper lobe pneumonia confirmed. Small pericardial effusion, small right pleural effusion, mild loculated pleural fluid in the right minor fissure noted.
started antibiotics Rocephin/Azithromycin.
Sputum sample with siena
Consult pulmonary given severity of pneumonia, hemoptysis, suspected underlying COPD. Cannot rule out underlying malignancy. May need bronchoscopy later on.
Patient denies night sweats, fevers, chills, anorexia, weight loss.
Now on high flow nasal cannula 50 L at 80% FiO2. Also requiring intermittent nonrebreather. Understand if with worsening hypoxemia may also require mechanical ventilation intubation.
Pulmonary HTN noted on ECHO probably in setting of sever hypoxemia
see HF plan below
Received 10mg steorids overnight
Started on 4 mg every 8 Decadron
Chest ultrasound pending
Metal Numerical Control Programmer consulted
#Dysphagia likely secondary to deconditioning in the setting of pneumonia/heart failure and high flow nasal cannula
N.p.o. for now
Eventual video swallow evaluation once hemodynamically stable
Patient and family understands.
#JUDI on CKD 3B -etiology of JUDI unclear but differential diagnosis includes volume depletion in setting of taking diuretics and ARB.
UA negative.
Hold losartan.
Renal ultrasound negative for hydro.
Baseline creatinine 1.4 and Cr now jumped to 2.7 FENA with intrinsic.
Nephro following.
# Acute on Chronic HFpEF
[place] [id number]
IV Lasix 80 mg twice daily ordered per nephrology.
Chest x-ray this morning with pulmonary edema
Monitor urinary output transferred Kuo catheter. Weight has up trended.
#Hemoptysis -likely due to pneumonia in the setting of clopidogrel use.
Monitor for now. seems to have resolved.
Acute on chronic anemia -normocytic.
Baseline hemoglobin around 10,
Etiology of anemia could be due to blood loss due to hemoptysis.
No evidence of hemolysis. Appropriate iron stores. low b12 and start po supplementation.
History of duodenal ulcer/GI bleed
continue Protonix.
History of TIA
Holding plavix as above
Essential hypertension -uncontrolled.
He was informed prior to admission to increase hydralazine to 3 times daily if needed.
Increased dose to 75mg TID. Cont toprol 100mg and norvasc 10mg
COPD -undiagnosed.
Will need outpatient PFTs and pulmonary follow-up. Changes of COPD noted on CT scan. Not on inhalers at home.
Hyperlipidemia -on atorvastatin.
possible exposure to COVID -COVID negative x 2. Repeat per protocol pending on 02/18.
Full code
d/w with spouse at bedside in details on daily basis
Anticipated Discharge: > 48 hours
Subjective/Interval History
-
Date of Service: February 19, 2024
transfered to ICU overnight
remains with tachypnea
Was just seen by speech-recommend n.p.o.
Objective Data
-
Labs:
Laboratory Results
02/19/24
04:33
WBC 9.1
Hgb 7.9 L
Hct 21.7 L
Plt Count 249
PT 15.1 H
INR 1.19
APTT 33.2
Sodium 131 L
Potassium 4.9
Chloride 100
Carbon Dioxide 18 L
BUN 92 H
Creatinine 3.4 H
Glucose 124 H
Calcium 8.2 L
Vital Signs:
Vital Signs
Temp Pulse Resp BP Pulse Ox
98.6 F 87 29 156/68 92
02/19/24 08:56 02/19/24 11:18 02/19/24 11:18 02/19/24 11:13 02/19/24 11:18
I&O
02/18/24 02/19/24 02/20/24
06:59 06:59 06:59
Intake Total 970 / 970 200 / 200
Output Total 635 / 635 550 / 550
Balance 335 / 335 -350 / -350
Data Reviewed
-
Total Time Spent with Patient (in minutes): 59
--- NOTE | 2024-02-19 12:19 | CM ---
CM following re: discharge planning.
Discussed in Rounds, reviewed pt's chart, met with pt and pt's spouse at bedside. Per Rounds meeting pt requires 60 L HFNC with FIO2 60% with NRB mask, continue supportive care.
PT and OT evaluations yesterday noted - home PT vs SNF level of care recommended with a plan to confirm the plan as hospitalization progresses. Both pt and his spouse focused on clinical improvement rather on the next level of care.
D/C plan: home with VN vs SNF. Pt and his spouse to decide closer to discharge.
CM will follow with discharge plan updates as hospitalization progresses
[2024-02-19 13:10] LABS: Glucose - Point of Care 201 mg/dl (70-99)
--- NOTE | 2024-02-19 13:30 | PTCARENOTE ---
Pt assisted OOB x2 to chair. Son and at bedside. VSS. Remains on High Flow now 100% 60L, NRB as needed. 80mg IV Lasix given as ordered, 150ml yellow urine out after 2 hours. Will continue to monitor.
[2024-02-19] MEDS: NOVOLOG FLEXPEN-LOW RESISTANCE 2 UNITS SC (13:33)
[2024-02-19] MEDS: DECADRON 4 MG IV ×2 (14:57→23:31)
--- NOTE | 2024-02-19 15:11 | PTCARENOTE ---
Pt tolerating OOB to chair. VSS. No other changes.
--- NOTE | 2024-02-19 16:45 | PTCARENOTE ---
Received pt sitting in the chair with HFNC 60 lit/100% w/NRB mask 15 liters. He is tachypneic in the 20's, with moist cough, hemoptysis. He is using the [employer] independently. Right FA#22g protective catheter flushed and patent. Good radial pulses.
+2-3 pitting L/E edema, elevated in recliner with pillow under his calves. Weak pedal pulses. Breath sounds dim in the right base, otherwise sounds CTA. Hypoactive BSX4. NPO, however he has a poor appetite. Last BM 02/14, Thursday. Kuo catheter
secured. Draining small amount of rozina urine. He was informed of the plan of care to assess his Glucose. He prefers to remain in the recliner rather than get back to bed at this time. Safe environment maintained. Will continue to provide supportive
care.
[2024-02-19 18:07] LABS: Glucose - Point of Care 182 mg/dl (70-99)
[2024-02-19] MEDS: NOVOLOG FLEXPEN-LOW RESISTANCE 1 UNITS SC (18:08)
[2024-02-19] MEDS: NOVOLOG FLEXPEN-LOW RESISTANCE SC (18:21)
--- NOTE | 2024-02-19 20:00 | PTCARENOTE ---
Received patient at 1900. Pt. alert and oriented. Denies pain/discomfort. Afebrile. Heart rhythm sinus. Blood pressure normotensive. Currently on HFNC 60 lpm 100% Fi02. NPO. Kuo catheter in place, draining without issue. Skin as documented. Vital
signs stable at this time.
[2024-02-19] MEDS: NORVASC 10 MG PO (22:04)
[2024-02-19] MEDS: TOPROL XL 100 MG PO (22:04)
[2024-02-19] MEDS: TYLENOL 1000 MG PO (22:04)
[2024-02-19] MEDS: NOVOLOG FLEXPEN-MODERATE RESISTANCE 1 UNITS SC (23:31)
[2024-02-19 23:42] LABS: Glucose - Point of Care 153 mg/dl (70-99)
[2024-02-20] VITALS (23 sets, daily range): BP systolic 114–161; BP diastolic 55–85; BMI 24.2
--- NOTE | 2024-02-20 | PTCARENOTE ---
Pt. assessment unchanged. Remains on HFNC 60 lpm 100% Fi02. Pt. appears comfortable. Vital signs stable at this time.
[2024-02-20 03:47] LABS: Hematocrit 24.7 % (39.0-52.0); Hemoglobin 8.9 g/dL (13.0-18.0); Mean Corpuscular Hgb 29.7 pg (27.0-31.0); Mean Corpuscular Volume 82.3 fL (80.0-94.0); Platelet Count 277 10^3/uL (130-400); Red Cell Dist. Width 15.7 % (11.5-14.5); White Blood Cell Count 7.1 10^3/uL (4.8-10.8)
--- NOTE | 2024-02-20 04:00 | PTCARENOTE ---
Pt. assessment remains unchanged. AM labs drawn. Vital signs stable at this time.
[2024-02-20 04:03] LABS: Blood Urea Nitrogen 104 mg/dl (9-20); Calcium 8.5 mg/dl (8.4-10.2); Carbon Dioxide 14 mmol/L (22-30); Chloride 100 mmol/L (98-107); Estimated Creatinine Clearance 16 ml/min; Glucose 151 mg/dl (70-99); Potassium 5.4 mmol/L (3.5-5.1); Sodium 130 mmol/L (135-145); eGFR 15.33
[2024-02-20] MEDS: NOVOLOG FLEXPEN-MODERATE RESISTANCE 1 UNITS SC ×4 (05:03→23:15)
[2024-02-20] MEDS: SODIUM BICARBONATE 50 MEQ IV ×2 (05:03→11:53)
[2024-02-20] MEDS: DECADRON 4 MG IV ×3 (06:08→23:16)
--- NOTE | 2024-02-20 07:22 | W.PN.INTV ---
Today's Communication / Plan
Recommendations
Stable on HFNC, less WOB noted
Airway clearance continued, more productive lately
Continue lasix/steroids/abx
Creat trending upwards, renal following
Prognosis guarded
Assessment
-
73-year-old male with history of hypertension, hyperlipidemia, TIA on Plavix therapy, describes chronic bronchitis and chronic subjective dyspnea with [id number] history of smoking quit 2003. He now presents with progressive cough, shortness of
breath and hemoptysis. Found to have right upper lobe mass with likely pneumonia. We are asked to comment on pulmonary process 02/14/24. Overnight 02/18/24, developed worsening hypoxemia, likely due to superimposed DHF now on HFNC. Transferred to
ICU for further management.
Acute HFpEF/DHF, proBNP
Moderate-severe PH, new on ECHO
Right upper lobe mass/infiltrate likely PNA
Acute hemoptysis x 3 days, blood mixed with mucus
Right upper lobe abnormality noted per chest x-ray April 2023
Small pleural effusion
Chronic bronchitis
Dyspnea, progressive
Former smoker, [id number] history of smoking, quit 2003
No prior spirometry, no prior pulmonary evaluation
Anemia
JUDI on Chronic kidney disease, creat peak 3.4, rising
Creatinine 1.4-1.6 at baseline
Elevated proBNP
Chronic diarrhea
Conditions present prior to admission
History of anemia
Hypertension
Hyperlipidemia
GERD with history of duodenal ulcer with bleeding
Required IR embolization 2020
Possible asbestos exposure
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
Family history of cancer
Father with lung cancer
Sister with brain cancer
Sister with liver cancer
Plan
At this time, patient respiratory status remains tenuous, 80% on high flow
Mild confusion noted
Creatinine increased to >3 now
Productive mucus, blood seems to be improved
Chest x-ray shows worsening of the left side, severe right-sided infiltrates
Preadmission history: Patient is short of breath since April 2023 at which time he had right upper lobe infiltrate. Patient cannot recall any history of recent pneumonia
Significant smoking and asbestos exposure history noted
Patient did not get follow-up x-ray as recommended per report in April
Former smoker, quit >30 years ago, strong family history of cancers
There is high suspicion this could be metastatic illness
IV steroids added, continue
Has been on empiric antibiotics for suspected pneumonia for past 5 days without benefit
Ceftriaxone/azithromycin, can continue until day 10, stop azithro
Sputum culture few gram-positive cocci, many white cells, usual yaritza/finalized
Myrna noted 02/15
Prior sputum 02/13 neg
Legionella, streptococcal pneumonia negative
Continue to quantify hemoptysis, seems to be improving
Airway clearance reviewed with RT, mucinex/acapella
Will add vest/acapella today
Hemoglobin stable
Plavix has been held since 02/14 given worsening hypoxia, chest x-ray
Doubt active pulmonary hemorrhage given stable hemoglobin
ProBNP rising, history of CHF
Creatinine now >3. Kuo catheter in place
Renal following
Add on lasix 40mg IV BID
Hold nephrotoxic drugs
HD was discussed, if patient would want this, family feels this would not benefit QoL
Protonix for GERD therapy
Aspiration precautions
NPO due to high risk airway
Steroids with hyperglycemia
SS for coverage for now
Family Discussions
Mira 02/18- Reviewed with today and son on speaker phone today on rounds. We discussed all of his poor prognostic markers including possible/suspected metastatic disease, acute HF picture, worsening JUDI, worsening hypoxemia. She understands
his overall outlook remains poor even with intubation/MV. There is less chance for good QoL the more organ dysfunction occurs. Family will visit and discuss further GOC.
Litzy - Reviewed with patient, at bedside
Updated son by phone 02/16 (Kevon: [phone])
Reviewed concern regarding possibility of underlying malignancy. However, rapidly progressive process makes this less likely
Patient high risk for intubation.
Diagnostic Data
Chest X-Ray: 02/18/24- Findings raising concern for pulmonary edema, superimposed on right lung pneumonic process. The patient does have a proBNP value of 19,500 today.
02/17/24- Right lung opacities suspicious for pneumonia without significant change in comparison to recent prior study.
CT Scan: CHEST 02/14/24- 1. Large right upper lobe pneumonia. Imaging follow-up to resolution is recommended as an underlying pulmonary neoplasm would be difficult to completely exclude.
2. Chronic obstructive pulmonary disease.
3. Small pericardial effusion.
4. Small right pleural effusion.
5. Mild loculated pleural fluid in the right minor fissure.
Echo: 02/17/24- Normal left ventricular size and systolic function. No regional wall motion abnormalities are seen. LV ejection fraction is 65-70% by volumetric assessment. Mild concentric left ventricular hypertrophy. Stage II diastolic dysfunction
suggestive of abnormal relaxation and increased filling pressures. Top normal right ventricular size. Normal right ventricular systolic function. Aortic sclerosis without stenosis. Mild tricuspid regurgitation. Estimated pulmonary artery pressure
of 50-55 mmHg assuming a right atrial pressure of 8 mmHg. Compared to prior study dated 04/28/2023, estimated pulmonary artery systolic pressure was previously normal at 25-30 mmHg
04/28/23- 1. Mild concentric left ventricular hypertrophy with preserved systolic function, EF 60-65%
2. Thickened mitral leaflets with mitral annular calcification, trace mitral regurgitation and minimally dilated left atrium
3. Aortic sclerosis with trace aortic insufficiency
4. Normal right heart with normal pulmonary artery pressure
The study is similar to October 2021. The patient will be called and told that there is preserved heart muscle function and no significant valve abnormality.
PFT's:
Reports and relevant images were personally reviewed.
-----
Critical Care time 35 mins -- The patient is admitted for acute critical illness for the treatment of vital organ failure and/or prevention of further life-threatening conditions. Total care includes time spent in review of history, physical exam,
medications, hemodynamic/ventilator parameters, laboratory data, imaging and discussion with house staff, pharmacy, respiratory therapy, shuttlecock assembler, and nursing.
Subjective Dataa
Subjective Data
Date of Service:
Date of Service: February 20, 2024
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
Subjective:
Remains on HFNC, appears awake/alert
No new complaints
Trouble expectorating
Objective Data
Data Reviewed
Vital Signs / I&O / Oxygen:
Vital Signs
Temp Pulse Resp BP Pulse Ox
98.3 F 73 19 152/63 95
02/20/24 07:19 02/20/24 06:00 02/20/24 06:00 02/20/24 06:00 02/20/24 06:00
Intake and Output
02/19/24 02/20/24 02/21/24
06:59 06:59 06:59
Intake Total 200 / 200
Output Total 550 / 550 1075 / 1075
Balance -350 / -350 -1075 / -1075
SaO2 95
Nasal Cannula flow liters per 60
minute
Physical Exam
General: Comfortable, Poor Appetite and Other (ill appearing)
HEENT: Normocephalic and Anicteric
Cardiovascular: S1-S2 and Regular Rhythm
Respiratory: Crackles, Rhonchi and Non-Labored Respirations
GI: Soft, Non Distended and Non Tender
Neurology: Awake, Alert and Lethargic (slightly confused)
Skin: Warm, Dry and Good Color
Labs/Micro/Reports
Lab Data
02/20/24 03:28
02/20/24 03:28
Microbiology
02/14/24 12:29 Blood/Venous Blood Culture - Final
No Growth - Final Report
02/16/24 15:05 Sputum Respiratory Culture - Final
Myrna albicans
02/16/24 15:05 Sputum Gram Stain - Final
02/16/24 03:59 Sputum Acid Fast Bacilli Smear - Preliminary
02/16/24 03:59 Sputum Acid Fast Bacilli Culture - Preliminary
--- NOTE | 2024-02-20 08:00 | PTCARENOTE ---
Assumed care of patient. Pt rec'd A&Ox3. Garbled speech due to lack of dentures. Denies pain at present. S1 S2 reg w NSR on monitor. Weak PP. Trace generalized edema. On HFNC 50L/80%...sats 92%. Lungs diminished w/ coarse rhonchi anteriorly.
Productive cough for thick farias secretions...blood tinged. Encouraged to cough and deep breath and use yankauer for oral suctioning. Abdomen round...+BS. Takes po meds w/ applesauce and sips of water. To be seen by speech this am to advance
diet. Kuo draining yellow urine w/ sediment. Skin pale in color...sacrum intact. 20P RAC capped. 22P RFA capped. VS documented. Call miranda within reach. Will continue to monitor closely.
[2024-02-20] MEDS: DUONEB 3 ML INH ×4 (08:20→20:48)
[2024-02-20] MEDS: LASIX 80 MG IV ×2 (08:48→15:04)
[2024-02-20] MEDS: MUCINEX 600 MG PO ×2 (08:51→20:02)
[2024-02-20] MEDS: LIPITOR 80 MG PO (08:51)
[2024-02-20] MEDS: APRESOLINE 75 MG PO ×3 (08:52→21:04)
[2024-02-20] MEDS: VITAMIN B-12 1000 MCG PO (08:52)
[2024-02-20] MEDS: PROTONIX 40 MG PO (08:52)
[2024-02-20] MEDS: HEPARIN 5000 UNITS SC ×2 (08:52→20:02)
--- NOTE | 2024-02-20 09:00 | PTCARENOTE ---
Assist x 2 to get OOB to chair. Remains on HFNC...+GRIER. Call miranda within reach. at bedside and fully updated.
--- NOTE | 2024-02-20 09:08 | PTOTSP ---
SPEECH THERAPY SWALLOW FOLLOW UP NOTE:
Patient continues to exhibit clinical signs of oropharyngeal dysphagia, possibly chronic of unknown etiology (suspected due to report of coughing with liquid prior to admission), and acutely exacerbated by tenuous respiratory/pulmonary status.
Patient remains at HIGH RISK for aspiration and related complications given tenuous respiratory and pulmonary status. However, patient presents with mildly improved respiratory status today. Patient will likely require instrumental assessment of
swallowing (VSE) to further assess swallow physiology, though is not appropriate at this time given respiratory status. Given improved respiratory status, along with intact cognition and ability to implement strict aspiration precautions and safe
swallow strategies, patient appears safe for CAUTIOUS oral diet at this time. Recommend IDDSI Level 4 Puree diet (to reduce energy expenditure on mastication and improve breathe/swallow coordiation), thin liquids via cup single sips only.
Medications crushed in puree. STRICT aspiration precautions: Partial supervision/assistance; Upright positioning; Small single sips/bites; NO STRAW; Take breaks for breathing; Do not eat when SOB; Only provide p.o. when SpO2>90% and RR<30; Monitor
for signs of aspiration; Oral care 3x/day; Discontinue oral diet if ANY decline in respiratory status - LOW threshold to resume NPO status. Discussed at length with pt, who was in agreement. Discussed with RN and MD. ST to continue to follow,
determine readiness for VSE, assess diet tolerance and modify as appropriate, and continue plan of care.
RECOMMEND:
1) CAUTIOUS IDDSI Level 4 Puree diet, thin liquids via single cup sips only
2) Medications crushed in puree
3) STRICT aspiration precautions: Partial supervision/assistance; Upright positioning; Small single sips/bites; NO STRAW; Take breaks for breathing; Do not eat when SOB; Only provide p.o. when SpO2>90% and RR<30; Monitor for signs of aspiration;
Oral care 3x/day; Discontinue oral diet if ANY decline in respiratory status - LOW threshold to resume NPO status
4) ST to follow closely
--- NOTE | 2024-02-20 10:59 | W.PN.NEPH.PH ---
Today's Communication / Plan
-
cont lasix
add po bciarb and IV bicarb push
Assessment/Plan
-
Impression:
Right upper lobe mass versus infiltrate with hemoptysis
Acute kidney
CKD stage IIIb baseline creatinine 1.6
HTN
History of TIA
History of COPD
Anemia
CHF HFpEF
Plan:
JUDI:
-Etiology remains elusive: bland UA, high FEna, no hydro on US
cr increasing, non oliguric with high dose of lasix
reviewed with and pt high risk of B[place] PULP if no improvement, pt decided no HD at this time
and pt will discuss further, main goal is QOL
cont lasix 80mg BID for now
FR and low k diet for mild hyperkalemia
add po carb and IV push of bicarb for worsening met acidosis
BP stable on po meds
wean O2 as able
mild hyponatremia
monitor h/h , adequate fe stores
d/w pt , , nursing
CC time spent 31min
-
-
Date of Service: February 20, 2024
CC / HPI / ROS
-
Chief Complaint:
JUDI
History of Present Illness:
cr increasing to 3.9, BUN 104, sodium low 130, k 5.4
UOP 875cc
bicarb 14
BP stable
on high flow O2 and off NRB \\
wt is down
Review of Systems:
sob improving, dry cough
no fever
no n/v
Labs
-
Labs:
WBC 7.1 10^3/uL (4.8-10.8) 02/20/24 03:28
RBC 3.00 10^6/uL (4.70-6.10) L 02/20/24 03:28
Hgb 8.9 g/dL (13.0-18.0) L 02/20/24 03:28
Hct 24.7 % (39.0-52.0) L 02/20/24 03:28
Plt Count 277 10^3/uL (130-400) 02/20/24 03:28
Sodium 130 mmol/L (135-145) L 02/20/24 03:28
Potassium 5.4 mmol/L (3.5-5.1) H 02/20/24 03:28
Chloride 100 mmol/L (98-107) 02/20/24 03:28
Carbon Dioxide 14 mmol/L (22-30) L* 02/20/24 03:28
BUN 104 mg/dl (9-20) H* 02/20/24 03:28
Creatinine 3.9 mg/dL (0.7-1.3) H 02/20/24 03:28
eGFR 15.33 02/20/24 03:28
Glucose 151 mg/dl (70-99) H 02/20/24 03:28
Calcium 8.5 mg/dl (8.4-10.2) 02/20/24 03:28
Wyf-Q-Rakjqrmcyno Pept 79644 pg/ml 02/17/24 05:00
Albumin 3.5 g/dl (3.5-5.0) 02/15/24 04:42
Physical Exam
-
Vital Signs:
Vital Signs
Temp Pulse Resp BP Pulse Ox
98.3 F 80 23 152/65 92
02/20/24 07:19 02/20/24 08:52 02/20/24 08:30 02/20/24 08:52 02/20/24 08:40
Cardiovascular:: Regular rate and rhythm
Lung Excursion:: Abnormal (decreased)
Abdomen:: Nontender and Soft
Extremity Edema:: +1: Bilateral:
Kuo Catheter: Yes
[2024-02-20 11:10] LABS: Glucose - Point of Care 180 mg/dl (70-99)
--- NOTE | 2024-02-20 11:53 | W.PN.HOSP.TC ---
Today's Communication/Plan
-
Wean HFNC
IV lasix
IV steroids
start diet
prognosis grim
Assessment / Plan
Assessment / Plan
General: Well Developed, Well Nourished, No Apparent Distress and tachypenic
HEENT: NormoCephalic, Anicteric and Moist mucous membranes
Respiratory: rhonchi R>L, Oxygen, HFNC
Cardiac: S1/S2 and Regular Rhythm
GI: Soft, Non Tender and Non Distended
Genito-urinary: Deferred by me
Musculoskeletal: No Clubbing, No Cyanosis and No Edema
Skin: Warm and Dry
Neuro: AO x 3
Hematologic/Lymphatic: No Lymphadenopathy
Psych: Calm
#Severe right upper lobe pneumonia - community-acquired.
#Severe Acute hypoxic respiratory failure at accelerated pace likely secondary to pneumonia suspicious for pneumonitis and also with acute on chronic heart failure exacerbation
CT scan reviewed, large right upper lobe pneumonia confirmed. Small pericardial effusion, small right pleural effusion, mild loculated pleural fluid in the right minor fissure noted.
started antibiotics Rocephin/Azithromycin.
Sputum sample with siena
Consult pulmonary given severity of pneumonia, hemoptysis, suspected underlying COPD. Cannot rule out underlying malignancy. May need bronchoscopy later on.
Patient denies night sweats, fevers, chills, anorexia, weight loss.
Now on high flow nasal cannula 50 L at 80% FiO2. Also requiring intermittent nonrebreather. Understand if with worsening hypoxemia may also require mechanical ventilation intubation.
Pulmonary HTN noted on ECHO probably in setting of sever hypoxemia
see HF plan below
Started on 4 mg every 8 Decadron
Chest ultrasound -no severe effusion noted
Senior Security Engineer consulted
#Dysphagia likely secondary to deconditioning in the setting of pneumonia/heart failure and high flow nasal cannula
N.p.o and now on pureee diet
Eventual video swallow evaluation once hemodynamically stable
Patient and family understands.
#JUDI on CKD 3B -etiology of JUDI unclear but differential diagnosis includes volume depletion in setting of taking diuretics and ARB.
#Metabolic acidosis
#Mild hyperkalemia
UA negative.
Hold losartan.
Renal ultrasound negative for hydro.
Cr jumped to 3.9. IV lasix 80mg BID and started on bicarbonate
trend bmp.
Nephro following.
# Acute on Chronic HFpEF
[place] [id number]
IV Lasix 80 mg twice daily ordered per nephrology.
Chest x-ray with pulmonary edema
Monitor urinary output transferred Kuo catheter. Weight has up trended.
#Hemoptysis -likely due to pneumonia in the setting of clopidogrel use vs pulmonary lesion.
Monitor for now. seems to have resolved.
Acute on chronic anemia -normocytic.
Baseline hemoglobin around 10,
Etiology of anemia could be due to blood loss due to hemoptysis.
No evidence of hemolysis. Appropriate iron stores. low b12 and start po supplementation.
History of duodenal ulcer/GI bleed
continue Protonix.
History of TIA
Holding plavix as above
Essential hypertension -uncontrolled.
He was informed prior to admission to increase hydralazine to 3 times daily if needed.
Increased dose to 75mg TID. Cont toprol 100mg and norvasc 10mg
COPD -undiagnosed.
Will need outpatient PFTs and pulmonary follow-up. Changes of COPD noted on CT scan. Not on inhalers at home.
Hyperlipidemia -on atorvastatin.
possible exposure to COVID -COVID negative x 2. Repeat per protocol pending on 02/18.
Full code
Anticipated Discharge: > 48 hours
Subjective/Interval History
-
Date of Service: February 20, 2024
remains on HFNC
Objective Data
-
Labs:
Laboratory Results
02/20/24 02/20/24
03:28 14:00
WBC 7.1
Hgb 8.9 L
Hct 24.7 L
Plt Count 277
Sodium 130 L Pending
Potassium 5.4 H Pending
Chloride 100 Pending
Carbon Dioxide 14 L* Pending
BUN 104 H* Pending
Creatinine 3.9 H Pending
Glucose 151 H Pending
Calcium 8.5 Pending
Vital Signs:
Vital Signs
Temp Pulse Resp BP Pulse Ox
98.3 F 77 22 152/65 92
02/20/24 07:19 02/20/24 11:21 02/20/24 11:21 02/20/24 08:52 02/20/24 11:21
I&O
02/19/24 02/20/24 02/21/24
06:59 06:59 06:59
Intake Total 200 / 200
Output Total 550 / 550 1075 / 1075
Balance -350 / -350 -1075 / -1075
Data Reviewed
-
Total Time Spent with Patient (in minutes): 56
[2024-02-20] MEDS: STERILE WATER FOR INJECTION 10 ML IV (11:54)
[2024-02-20] MEDS: ROCEPHIN 1000 MG IV (11:54)
--- NOTE | 2024-02-20 12:15 | PTCARENOTE ---
Pt remains OOB in chair...resting comfortably. No major changes in physical assessment. VS documented. Call miranda within reach. Will continue to monitor.
[2024-02-20] MEDS: SODIUM BICARBONATE 1300 MG PO ×2 (15:04→21:05)
[2024-02-20 15:09] LABS: Blood Urea Nitrogen 117 mg/dl (9-20); Calcium 8.4 mg/dl (8.4-10.2); Carbon Dioxide 18 mmol/L (22-30); Chloride 97 mmol/L (98-107); Estimated Creatinine Clearance 16 ml/min; Glucose 179 mg/dl (70-99); Potassium 4.7 mmol/L (3.5-5.1); Sodium 132 mmol/L (135-145); eGFR 15.33
--- NOTE | 2024-02-20 16:00 | PTCARENOTE ---
Pt resting comfortably in chair. HFNC 50L/70%...sats 94%. No major changes in physical assessment. VS documented. Call miranda within reach.
[2024-02-20 17:14] LABS: Glucose - Point of Care 167 mg/dl (70-99)
--- NOTE | 2024-02-20 20:00 | PTCARENOTE ---
Received patient at 1900. Pt. awake, alert, and oriented. Denies pain/discomfort. Afebrile. Heart rhythm sinus. Blood pressure normotensive. Currently on HFNC 50L 70%. Lungs sound diminished. PO diet ordered, good appetite. Kuo catheter in place,
draining without issue. Skin as documented. Discussed plan of care with patient. Vital signs stable at this time.
[2024-02-20] MEDS: TOPROL XL 100 MG PO (21:05)
[2024-02-20] MEDS: TYLENOL 1000 MG PO (21:05)
[2024-02-20] MEDS: NORVASC 10 MG PO (21:05)
[2024-02-20 23:26] LABS: Glucose - Point of Care 193 mg/dl (70-99)
[2024-02-21] VITALS (25 sets, daily range): BP systolic 123–166; BP diastolic 56–88; BMI 24.2
--- NOTE | 2024-02-21 00:03 | PTCARENOTE ---
Pt. assessment unchanged. Remains on HFNC. Laying comfortably in bed. Vital signs stable at this time.
--- NOTE | 2024-02-21 04:55 | PTCARENOTE ---
Pt. assessment remains unchanged. AM labs drawn. Vital signs stable at this time.
[2024-02-21 05:25] LABS: % Basophils 0.2 % (0-2); % Immature Granulocytes 3.1 % (0-0.5); % Lymphocytes 5.3 % (20.5-51.1); % Monocytes 5.4 % (1.7-9.3); Absolute Immature Granulocytes 0.2 10^3/uL (0-0.05); Absolute Lymphocytes 0.3 10^3/uL (1.2-3.4); Absolute Monocytes 0.3 10^3/uL (0.1-0.6); Absolute Neutrophils 5.2 10^3/uL (1.4-6.5); Hematocrit 20.3 % (39.0-52.0); Hemoglobin 7.3 g/dL (13.0-18.0); Mean Corpuscular Hgb 28.9 pg (27.0-31.0); Mean Corpuscular Volume 80.2 fL (80.0-94.0); Mean Platelet Volume 10.6 fL (7.4-10.4); Nucleated Red Blood Cells % 0 % (-); Platelet Count 269 10^3/uL (130-400); Red Blood Cell Count 2.53 10^6/uL (4.70-6.10); Red Cell Dist. Width 15.6 % (11.5-14.5); White Blood Cell Count 6.1 10^3/uL (4.8-10.8)
[2024-02-21 05:33] LABS: Calcium 7.7 mg/dl (8.4-10.2); Carbon Dioxide 19 mmol/L (22-30); Chloride 99 mmol/L (98-107); Estimated Creatinine Clearance 15 ml/min; Glucose 159 mg/dl (70-99); Magnesium 2.2 mg/dl (1.6-2.3); Potassium 4.7 mmol/L (3.5-5.1); Sodium 132 mmol/L (135-145); eGFR 14.44
[2024-02-21 05:41] LABS: Blood Urea Nitrogen 132 mg/dl (9-20)
[2024-02-21] MEDS: NOVOLOG FLEXPEN-MODERATE RESISTANCE 1 UNITS SC ×2 (06:10→17:40)
[2024-02-21] MEDS: DECADRON 4 MG IV ×3 (06:14→21:42)
--- NOTE | 2024-02-21 07:20 | W.PN.INTV ---
Today's Communication / Plan
Recommendations
Improving sats with ongoing diuresis
Creat rising, renal following with discussions regarding HD
Encouraged OOB/PT/IS
Abx and steroids continued
Assessment
-
73-year-old male with history of hypertension, hyperlipidemia, TIA on Plavix therapy, describes chronic bronchitis and chronic subjective dyspnea with [id number] history of smoking quit 2003. He now presents with progressive cough, shortness of
breath and hemoptysis. Found to have right upper lobe mass with likely pneumonia. We are asked to comment on pulmonary process 02/14/24. Overnight 02/18/24, developed worsening hypoxemia, likely due to superimposed DHF now on HFNC. Transferred to
ICU for further management.
Acute HFpEF/DHF, proBNP
Moderate-severe PH, new on ECHO
Right upper lobe mass/infiltrate likely PNA
Acute hemoptysis x 3 days, blood mixed with mucus
Right upper lobe abnormality noted per chest x-ray April 2023
Small pleural effusion
Chronic bronchitis
Dyspnea, progressive
Former smoker, [id number]-otld history of smoking, quit 2003
No prior spirometry, no prior pulmonary evaluation
Anemia
JUDI on Chronic kidney disease, creat peak 3.4, rising
Creatinine 1.4-1.6 at baseline
Elevated proBNP
Chronic diarrhea
Conditions present prior to admission
History of anemia
Hypertension
Hyperlipidemia
GERD with history of duodenal ulcer with bleeding
Required IR embolization 2020
Possible asbestos exposure
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
Family history of cancer
Father with lung cancer
Sister with brain cancer
Sister with liver cancer
Plan
At this time, patient respiratory status remains tenuous, able to reduce to 70% on high flow
Creatinine increased to >4 now
Productive mucus, blood seems to be improved
Chest x-ray shows worsening of the left side, severe right-sided infiltrates
Preadmission history: Patient is short of breath since April 2023 at which time he had right upper lobe infiltrate. Patient cannot recall any history of recent pneumonia
Significant smoking and asbestos exposure history noted
Patient did not get follow-up x-ray as recommended per report in April
Former smoker, quit >30 years ago, strong family history of cancers
There is high suspicion this could be metastatic illness
IV steroids added, continue
Has been on empiric antibiotics for suspected pneumonia for past 5 days without benefit
Ceftriaxone/azithromycin, can continue until day 10, stop azithro
Sputum culture few gram-positive cocci, many white cells, usual yaritza/finalized
Myrna noted 02/15
Prior sputum 02/13 neg
Legionella, streptococcal pneumonia negative
Continue to quantify hemoptysis, seems to be improving
Airway clearance reviewed with RT, mucinex/acapella, vest/IS
Hemoglobin stable
Plavix has been held since 02/14 given worsening hypoxia, chest x-ray
Doubt active pulmonary hemorrhage given stable hemoglobin
ProBNP rising, history of CHF
Creatinine now >3. Kuo catheter in place
Renal following
Continue lasix 40mg IV BID
Hold nephrotoxic drugs
HD was discussed, if patient would want this, family feels this would not benefit QoL
Protonix for GERD therapy
Aspiration precautions
NPO due to high risk airway
Steroids with hyperglycemia
SS for coverage for now
Family Discussions
Mira 02/18- Reviewed with today and son on speaker phone today on rounds. We discussed all of his poor prognostic markers including possible/suspected metastatic disease, acute HF picture, worsening JUDI, worsening hypoxemia. She understands
his overall outlook remains poor even with intubation/MV. There is less chance for good QoL the more organ dysfunction occurs. Family will visit and discuss further GOC.
Litzy - Reviewed with patient, at bedside
Updated son by phone 02/16 (Kevon: [phone])
Reviewed concern regarding possibility of underlying malignancy. However, rapidly progressive process makes this less likely
Patient high risk for intubation.
Diagnostic Data
Chest X-Ray: 02/18/24- Findings raising concern for pulmonary edema, superimposed on right lung pneumonic process. The patient does have a proBNP value of 19,500 today.
02/17/24- Right lung opacities suspicious for pneumonia without significant change in comparison to recent prior study.
CT Scan: CHEST 02/14/24- 1. Large right upper lobe pneumonia. Imaging follow-up to resolution is recommended as an underlying pulmonary neoplasm would be difficult to completely exclude.
2. Chronic obstructive pulmonary disease.
3. Small pericardial effusion.
4. Small right pleural effusion.
5. Mild loculated pleural fluid in the right minor fissure.
Echo: 02/17/24- Normal left ventricular size and systolic function. No regional wall motion abnormalities are seen. LV ejection fraction is 65-70% by volumetric assessment. Mild concentric left ventricular hypertrophy. Stage II diastolic dysfunction
suggestive of abnormal relaxation and increased filling pressures. Top normal right ventricular size. Normal right ventricular systolic function. Aortic sclerosis without stenosis. Mild tricuspid regurgitation. Estimated pulmonary artery pressure
of 50-55 mmHg assuming a right atrial pressure of 8 mmHg. Compared to prior study dated 04/28/2023, estimated pulmonary artery systolic pressure was previously normal at 25-30 mmHg
04/28/23- 1. Mild concentric left ventricular hypertrophy with preserved systolic function, EF 60-65%
2. Thickened mitral leaflets with mitral annular calcification, trace mitral regurgitation and minimally dilated left atrium
3. Aortic sclerosis with trace aortic insufficiency
4. Normal right heart with normal pulmonary artery pressure
The study is similar to October 2021. The patient will be called and told that there is preserved heart muscle function and no significant valve abnormality.
PFT's:
Reports and relevant images were personally reviewed.
-----
Critical Care time 32 mins -- The patient is admitted for acute critical illness for the treatment of vital organ failure and/or prevention of further life-threatening conditions. Total care includes time spent in review of history, physical exam,
medications, hemodynamic/ventilator parameters, laboratory data, imaging and discussion with house staff, pharmacy, respiratory therapy, striper spray gun, and nursing.
Subjective Dataa
Subjective Data
Date of Service:
Date of Service: February 21, 2024
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
Subjective:
Slightly improved sats today, sitting in chair
Creat increasing
He is sitting in chair, sats 89-90% on HFNC
Objective Data
Data Reviewed
Vital Signs / I&O / Oxygen:
Vital Signs
Temp Pulse Resp BP Pulse Ox
98.1 F 79 21 153/78 88
02/21/24 07:01 02/21/24 06:02 02/21/24 06:02 02/21/24 06:02 02/21/24 06:02
Intake and Output
02/20/24 02/21/24 02/22/24
06:59 06:59 06:59
Intake Total 420 / 420
Output Total 1075 / 1075 875 / 875
Balance -1075 / -1075 -455 / -455
SaO2 88
Nasal Cannula flow liters per 50
minute
Physical Exam
General: Comfortable, Poor Appetite and Other (chronically ill appearing, weak/decondtioned)
HEENT: Normocephalic and Anicteric
Cardiovascular: S1-S2 and Regular Rhythm
Respiratory: Crackles, Rhonchi and Non-Labored Respirations
GI: Soft, Non Distended and Non Tender
Neurology: Awake, Alert, Oriented, AO x 3 and No Motor Deficits
Skin: Warm, Dry and Good Color
Labs/Micro/Reports
Lab Data
02/21/24 04:51
02/21/24 04:51
Microbiology
02/14/24 12:29 Blood/Venous Blood Culture - Final
No Growth - Final Report
02/16/24 15:05 Sputum Respiratory Culture - Final
Myrna albicans
02/16/24 15:05 Sputum Gram Stain - Final
02/16/24 03:59 Sputum Acid Fast Bacilli Smear - Preliminary
02/16/24 03:59 Sputum Acid Fast Bacilli Culture - Preliminary
[2024-02-21] MEDS: LASIX 80 MG IV ×2 (07:52→18:15)
[2024-02-21] MEDS: PROTONIX 40 MG PO (07:54)
[2024-02-21] MEDS: APRESOLINE 75 MG PO ×3 (07:54→21:43)
[2024-02-21] MEDS: MUCINEX 600 MG PO ×2 (07:54→19:48)
[2024-02-21] MEDS: LIPITOR 80 MG PO (07:54)
[2024-02-21] MEDS: VITAMIN B-12 1000 MCG PO (07:54)
[2024-02-21] MEDS: SODIUM BICARBONATE 1300 MG PO ×3 (07:54→21:45)
[2024-02-21] MEDS: HEPARIN 5000 UNITS SC ×2 (07:55→19:48)
[2024-02-21] MEDS: DUONEB 3 ML INH ×4 (08:02→19:22)
--- NOTE | 2024-02-21 08:22 | PTCARENOTE ---
Assumed care of patient. Pt rec'd A&Ox3. Garbled speech due to lack of dentures. Oral care done. Denies pain at present. S1 S2 reg w NSR on monitor. Weak PP. +1 generalized edema. On HFNC 50L/70%...sats 92%. Lungs diminished w/ coarse
rhonchi scattered throughout. Productive cough for thick farias secretions...blood tinged. Encouraged to cough and deep breath and use yankauer for oral suctioning. Abdomen round...+BS. Mod soft BM on BSC. Takes po meds whole w/ applesauce and
sips of water. Speech recommended staying on IDDS 4 (pureed) diet for now. Kuo draining yellow urine w/ sediment. Skin pale in color...sacrum intact. 20P RAC capped. 22P RFA capped. VS documented. Call miranda within reach. Will continue to
monitor closely.
--- NOTE | 2024-02-21 10:20 | PTCARENOTE ---
at bedside to speak w/ pt and pt's . Pt agreeable to HD cath and HD tomorrow.
--- NOTE | 2024-02-21 10:40 | W.PN.HOSP.TC ---
Today's Communication/Plan
-
IV steroid
IV rocephin
puree diet
HD tentative in am
Assessment / Plan
Assessment / Plan
General: Well Developed, Well Nourished, No Apparent Distress and tachypenic
HEENT: NormoCephalic, Anicteric and Moist mucous membranes
Respiratory: rhonchi R>L, Oxygen, HFNC
Cardiac: S1/S2 and Regular Rhythm
GI: Soft, Non Tender and Non Distended
Genito-urinary: Deferred by me
Musculoskeletal: No Clubbing, No Cyanosis and No Edema
Skin: Warm and Dry
Neuro: AO x 3
Hematologic/Lymphatic: No Lymphadenopathy
Psych: Calm
#Severe right upper lobe pneumonia - community-acquired.
#Severe Acute hypoxic respiratory failure at accelerated pace likely secondary to pneumonia suspicious for pneumonitis and also with acute on chronic heart failure exacerbation
CT scan reviewed, large right upper lobe pneumonia confirmed. Small pericardial effusion, small right pleural effusion, mild loculated pleural fluid in the right minor fissure noted.
started antibiotics Rocephin/Azithromycin. Completed azithromycin.
Sputum sample with siena
Consult pulmonary given severity of pneumonia, hemoptysis, suspected underlying COPD. Cannot rule out underlying malignancy. May need bronchoscopy later on.
Patient denies night sweats, fevers, chills, anorexia, weight loss.
Now on high flow nasal cannula 50 L at 70% FiO2. Also requiring intermittent nonrebreather. Understand if with worsening hypoxemia may also require mechanical ventilation intubation.
Pulmonary HTN noted on ECHO probably in setting of sever hypoxemia
see HF plan below
Started on 4 mg every 8 Decadron
Chest ultrasound -no severe effusion noted
Flap Presser consulted
#Dysphagia likely secondary to deconditioning in the setting of pneumonia/heart failure and high flow nasal cannula
N.p.o and now on pureee diet
Eventual video swallow evaluation once hemodynamically stable
Patient and family understands.
#JUDI on CKD 3B -etiology of JUDI unclear but differential diagnosis includes volume depletion in setting of taking diuretics and ARB.
#Metabolic acidosis
#Mild hyperkalemia
UA negative.
Hold losartan.
Renal ultrasound negative for hydro.
Cr jumped to 4.1 IV lasix 80mg BID and started on bicarbonate
trend bmp.
Plan to start HD. HD catheter in am.
Nephro following.
# Acute on Chronic HFpEF
[place] [id number]
IV Lasix 80 mg twice daily ordered per nephrology.
Chest x-ray with pulmonary edema
Monitor urinary output transferred Kuo catheter. Weight has up trended.
#Hemoptysis -likely due to pneumonia in the setting of clopidogrel use vs pulmonary lesion.
Monitor for now. seems to have resolved.
Acute on chronic anemia -normocytic.
Baseline hemoglobin around 10,
Etiology of anemia could be due to blood loss due to hemoptysis.
No evidence of hemolysis. Appropriate iron stores. low b12 and start po supplementation.
Tranfuse <7.
History of duodenal ulcer/GI bleed
continue Protonix.
History of TIA
Holding plavix as above
Essential hypertension -uncontrolled.
He was informed prior to admission to increase hydralazine to 3 times daily if needed.
Increased dose to 75mg TID. Cont toprol 100mg and norvasc 10mg
COPD -undiagnosed.
Will need outpatient PFTs and pulmonary follow-up. Changes of COPD noted on CT scan. Not on inhalers at home.
Hyperlipidemia -on atorvastatin.
possible exposure to COVID -COVID negative x 3.
Full code
d/w with spouse at bedside
Anticipated Discharge: > 48 hours
Subjective/Interval History
-
Date of Service: February 21, 2024
remains on HFNC
Eating breakfast
remains dypneic
Objective Data
-
Labs:
Laboratory Results
02/21/24
04:51
WBC 6.1
Hgb 7.3 L
Hct 20.3 L*
Plt Count 269
Sodium 132 L
Potassium 4.7
Chloride 99
Carbon Dioxide 19 L
BUN 132 H*
Creatinine 4.1 H*
Glucose 159 H
Calcium 7.7 L
Vital Signs:
Vital Signs
Temp Pulse Resp BP Pulse Ox
98.1 F 76 23 129/67 95
02/21/24 07:01 02/21/24 10:00 02/21/24 10:00 02/21/24 10:00 02/21/24 10:00
I&O
02/20/24 02/21/24 02/22/24
06:59 06:59 06:59
Intake Total 420 / 420 120 / 120
Output Total 1075 / 1075 875 / 875
Balance -1075 / -1075 -455 / -455 120 / 120
Data Reviewed
-
Total Time Spent with Patient (in minutes): 56
--- NOTE | 2024-02-21 10:47 | W.PN.NEPH.PH ---
Today's Communication / Plan
-
HD tomorrow
cotn lasix today
Assessment/Plan
-
Impression:
Right upper lobe mass versus infiltrate with hemoptysis
Acute kidney
CKD stage IIIb baseline creatinine 1.6
HTN
History of TIA
History of COPD
Anemia
CHF HFpEF
Plan:
JUDI:
-Etiology remains elusive: bland UA, high FEna, no hydro on US
cr increasing, barely non oliguric with high dose of lasix
significant azotemia from steroids, lasix
cont lasix 80mg BID for now
improving met acidosis on po bicarb
BP stable on po meds
wean O2 as able
mild hyponatremia
monitor h/h , adequate fe stores, r/o any bleeding, prn transfusion, send paraprotein w/u
case d/w pt and in detail, pt wishes to accept HD at this time most likely for short term
many questions answered, he is aware that possible lung cancer diagnosis and prepares himself to accept the prognosis
he wants to have some extra time to take care of few things prior to his departure
d/w pt , , nursing
CC time spent 31min
-
-
Date of Service: February 21, 2024
CC / HPI / ROS
-
Chief Complaint:
JUDI
History of Present Illness:
cr increasing to 4.1, BUN 132, sodium low 132, k better 4.7
UOP 875cc
bicarb better at 19
BP stable
on high flow O2
wt no change
hb is low 7.3
Review of Systems:
sob improving, dry cough
no fever
no n/v
Labs
-
Labs:
WBC 6.1 10^3/uL (4.8-10.8) 02/21/24 04:51
RBC 2.53 10^6/uL (4.70-6.10) L 02/21/24 04:51
Hgb 7.3 g/dL (13.0-18.0) L 02/21/24 04:51
Hct 20.3 % (39.0-52.0) L* 02/21/24 04:51
Plt Count 269 10^3/uL (130-400) 02/21/24 04:51
Sodium 132 mmol/L (135-145) L 02/21/24 04:51
Potassium 4.7 mmol/L (3.5-5.1) 02/21/24 04:51
Chloride 99 mmol/L (98-107) 02/21/24 04:51
Carbon Dioxide 19 mmol/L (22-30) L 02/21/24 04:51
BUN 132 mg/dl (9-20) H* 02/21/24 04:51
Creatinine 4.1 mg/dL (0.7-1.3) H* 02/21/24 04:51
eGFR 14.44 02/21/24 04:51
Glucose 159 mg/dl (70-99) H 02/21/24 04:51
Calcium 7.7 mg/dl (8.4-10.2) L 02/21/24 04:51
Kuf-R-Erbzqjfedaz Pept 07414 pg/ml 02/17/24 05:00
Albumin 3.5 g/dl (3.5-5.0) 02/15/24 04:42
Physical Exam
-
Vital Signs:
Vital Signs
Temp Pulse Resp BP Pulse Ox
98.1 F 76 23 129/67 95
02/21/24 07:01 02/21/24 10:00 02/21/24 10:00 02/21/24 10:00 02/21/24 10:00
Cardiovascular:: Regular rate and rhythm
Respiratory:: Bilateral: Coarse
Lung Excursion:: Abnormal
Abdomen:: Nontender and Soft
Extremity Edema:: +1: Bilateral:
Kuo Catheter: Yes
--- NOTE | 2024-02-21 12:00 | PTCARENOTE ---
Pt remains on HFNC and resting in chair. No major changes in physical assessment. Call miranda within reach. Will continue to monitor.
[2024-02-21] MEDS: NOVOLOG FLEXPEN-MODERATE RESISTANCE 3 UNITS SC (12:32)
[2024-02-21] MEDS: ROCEPHIN 1000 MG IV (12:34)
[2024-02-21] MEDS: STERILE WATER FOR INJECTION 10 ML IV (12:34)
[2024-02-21 12:35] LABS: Glucose - Point of Care 218 mg/dl (70-99)
--- NOTE | 2024-02-21 16:00 | PTCARENOTE ---
Both pt and pt's emotional after multiple conversations about goals of care. Pt and pt's both tearful at times...emotional support provided. Pt appears tired and states 'I need to say everything now'...'I'm don't think I will leave the
hospital'. Pt remains GRIER and tachypneic at times. Encouraged coughing and deep breathing. Scattered coarse crackles throughout. Multiple questions about HD...all questions answered. VS documented. Call miranda within reach. Will continue to
monitor closely.
[2024-02-21 16:14] LABS: Protein/creatinine Ratio 0.3; Urine Protein 21 mg/dl
[2024-02-21 16:31] LABS: Glucose - Point of Care 185 mg/dl (70-99)
--- NOTE | 2024-02-21 18:11 | PTCARENOTE ---
made aware of pt's increase in SOB....lasix reordered.
--- NOTE | 2024-02-21 20:00 | PTCARENOTE ---
Rec'd pt resting in bed, tearful, encouraged to vent, stated he 'wants to try dialysis so he can get his affairs in order', followscommands, SR, bp stable, weak distal pulses, + edema, skin warm/dry, O2 via hi flow- 60 liters/ 80% o2, sat 96, desat
to 88 when turning- uses prn nrb mask; lungs coarse rhonchi, moist cough for thick yellow bld tinged sputum- uses yankeaur, + bowel sounds, no bm, abd soft/nontender, no n/v, takes pills whole in applesauce w/o problem, goins draining yellow urine
w/ sediment
[2024-02-21 21:22] LABS: Glucose - Point of Care 224 mg/dl (70-99)
[2024-02-21] MEDS: XANAX 0.25 MG PO (21:41)
[2024-02-21] MEDS: TYLENOL 1000 MG PO (21:42)
[2024-02-21] MEDS: NOVOLOG FLEXPEN 3 UNITS SC (21:42)
[2024-02-21] MEDS: NORVASC 10 MG PO (21:43)
[2024-02-21] MEDS: TOPROL XL 100 MG PO (21:45)
--- NOTE | 2024-02-21 21:45 | PTCARENOTE ---
xanax 0.25 mg po given for anx, CHG bath done, linens changed, 3 units novolog ins sc given for accu 224
--- NOTE | 2024-02-21 23:35 | PTCARENOTE ---
resting comf, lungs unch, sat 94
[2024-02-22] VITALS (34 sets, daily range): BP systolic 123–172; BP diastolic 51–94; BMI 24.1
--- NOTE | 2024-02-22 03:50 | PTCARENOTE ---
sys reviewed, lungs coarse rhonchi, scat crackles, anxious- xanax 0.25 mg po given
[2024-02-22] MEDS: XANAX 0.25 MG PO (03:53)
[2024-02-22 04:02] LABS: % Immature Granulocytes 3.9 % (0-0.5); % Lymphocytes 4.8 % (20.5-51.1); % Monocytes 5.1 % (1.7-9.3); % Neutrophils 86.2 % (42.2-75.2); Absolute Immature Granulocytes 0.4 10^3/uL (0-0.05); Absolute Lymphocytes 0.4 10^3/uL (1.2-3.4); Absolute Monocytes 0.5 10^3/uL (0.1-0.6); Absolute Neutrophils 7.7 10^3/uL (1.4-6.5); Hematocrit 21.4 % (39.0-52.0); Hemoglobin 7.9 g/dL (13.0-18.0); Mean Corp Hgb Conc. 36.9 g/dL (33.0-37.0); Mean Corpuscular Hgb 29.4 pg (27.0-31.0); Mean Corpuscular Volume 79.6 fL (80.0-94.0); Mean Platelet Volume 10.2 fL (7.4-10.4); Nucleated Red Blood Cells % 0.2 % (-); Platelet Count 331 10^3/uL (130-400); Red Blood Cell Count 2.69 10^6/uL (4.70-6.10); Red Cell Dist. Width 15.6 % (11.5-14.5); White Blood Cell Count 8.9 10^3/uL (4.8-10.8)
[2024-02-22 04:13] LABS: Calcium 7.8 mg/dl (8.4-10.2); Carbon Dioxide 19 mmol/L (22-30); Chloride 99 mmol/L (98-107); Estimated Creatinine Clearance 14 ml/min; Glucose 162 mg/dl (70-99); Potassium 5.1 mmol/L (3.5-5.1); Sodium 131 mmol/L (135-145); eGFR 13.63
[2024-02-22 04:36] LABS: Blood Urea Nitrogen 156 mg/dl (9-20)
[2024-02-22] MEDS: DECADRON 4 MG IV ×3 (05:59→21:59)
[2024-02-22] MEDS: HEPARIN 5000 UNITS SC ×2 (07:28→19:26)
[2024-02-22] MEDS: SODIUM BICARBONATE 1300 MG PO ×3 (07:28→22:01)
[2024-02-22] MEDS: VITAMIN B-12 1000 MCG PO (07:28)
[2024-02-22] MEDS: MUCINEX 600 MG PO ×2 (07:28→19:26)
[2024-02-22] MEDS: LIPITOR 80 MG PO (07:28)
[2024-02-22] MEDS: PROTONIX 40 MG PO (07:28)
[2024-02-22] MEDS: APRESOLINE 75 MG PO ×3 (07:30→22:00)
[2024-02-22] MEDS: LASIX 80 MG IV (07:30)
[2024-02-22] MEDS: NOVOLOG FLEXPEN-MODERATE RESISTANCE 1 UNITS SC ×2 (07:32→11:40)
[2024-02-22] MEDS: DUONEB 3 ML INH ×4 (07:38→20:07)
[2024-02-22 07:43] LABS: Glucose - Point of Care 174 mg/dl (70-99)
[2024-02-22] MEDS: MORPHINE SULFATE 1 MG IV ×3 (07:52→19:26)
--- NOTE | 2024-02-22 07:52 | W.PN.INTV ---
Today's Communication / Plan
Recommendations
HD catheter insertion today followed by HD at bedside
Aspiration precautions
Mucolytics
Abx with rocephin
Monitor quantity of hemoptysis
Low threshold to intubate
DNR
Assessment
-
73-year-old male with history of hypertension, hyperlipidemia, TIA on Plavix therapy, describes chronic bronchitis and chronic subjective dyspnea with [id number] history of smoking quit 2003. He now presents with progressive cough, shortness of
breath and hemoptysis. Found to have right upper lobe mass with likely pneumonia. We are asked to comment on pulmonary process 02/14/24. Overnight 02/18/24, developed worsening hypoxemia, likely due to superimposed DHF now on HFNC. Transferred to
ICU for further management.
Impression:
Acute HFpEF/DHF, proBNP
Moderate-severe PH, new on ECHO
Right upper lobe mass/infiltrate likely PNA however lung cancer with postobstructive pneumonia also very possible
Acute hemoptysis, blood mixed with mucus - likely due to right upper lobe mass in the setting of uremia with platelet dysfunction
Right upper lobe abnormality noted per chest x-ray April 2023
Small pleural effusion
Chronic bronchitis
Dyspnea, progressive
Former smoker, [id number] history of smoking, quit 2003
No prior spirometry, no prior pulmonary evaluation
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
Anemia
JUDI on Chronic kidney disease, creat now 4.3 c/b uremia--> worsening
Creatinine 1.4-1.6 at baseline
Metabolic acidosis with normal anion gap due to JUDI
Elevated proBNP
Chronic diarrhea
Conditions present prior to admission
History of anemia
Hypertension
Hyperlipidemia
GERD with history of duodenal ulcer with bleeding
Required IR embolization 2020
Possible asbestos exposure
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
Family history of cancer
Father with lung cancer
Sister with brain cancer
Sister with liver cancer
Plan
At this time, patient respiratory status remains tenuous, now on high flow nasal cannula at 100% FiO2 with nonrebreather mask
Creatinine increased to >4 now with BUN >150
Productive mucus, blood seems to be improved
Chest x-ray shows worsening of the left side, severe right-sided infiltrates
Preadmission history: Patient is short of breath since April 2023 at which time he had right upper lobe infiltrate. Patient cannot recall any history of recent pneumonia
Significant smoking and asbestos exposure history noted
Patient did not get follow-up x-ray as recommended per report in April
Former smoker, quit >30 years ago, strong family history of cancers
There is high suspicion this could be metastatic illness
IV steroids added, continue
Has been on empiric antibiotics for suspected pneumonia for past 5 days without benefit
Ceftriaxone/azithromycin, continue until day 10, stopped azithro on 02/18
Sputum culture few gram-positive cocci, many white cells, usual yaritza/finalized
Myrna noted 02/15
Prior sputum 02/13 neg
Legionella, streptococcal pneumonia negative
Continue to quantify hemoptysis
Airway clearance reviewed with RT, mucinex/acapella, vest/IS
Hemoglobin stable
Plavix has been held since 02/14 given worsening hypoxia, chest x-ray findings
Doubt active pulmonary hemorrhage given stable hemoglobin
ProBNP rising, history of CHF
Creatinine now >4. Kuo catheter in place
Renal following
Hold nephrotoxic drugs
HD already discussed --> getting HD cath today then starting HD at bedside
Pt having anxiety and insomnia -- starting seroquel 25mg HS
Protonix for GERD therapy
Aspiration precautions
Pur�ed diet
Continue with moderate resistance sliding scale with goal BG 140�180
DVT ppx: HSQ to keep at 5000 units q 12hr for now given hemoptysis with uremia
Family Discussions
Mira 02/18- Reviewed with today and son on speaker phone today on rounds. We discussed all of his poor prognostic markers including possible/suspected metastatic disease, acute HF picture, worsening JUDI, worsening hypoxemia. She understands
his overall outlook remains poor even with intubation/MV. There is less chance for good QoL the more organ dysfunction occurs. Family will visit and discuss further GOC.
Litzy - Reviewed with patient, at bedside
Updated son by phone 02/16 (Kevon: [phone])
Reviewed concern regarding possibility of underlying malignancy.
Patient high risk for intubation.
Discussion held today with and patient is now DNR, okay for intubation in addition to other full medical management (see separate note from today)
Critical care statement: A total of 40 minutes of critical care time was provided for this patient today. This includes management of unstable vital signs, evaluation of the patient at bedside, reviewing the patient's pertinent medical records
including radiographs, microbiology, laboratory evaluations, and discussion with primary team, consultants, pharmacy, nutrition, physical therapy, case management, charge nurse, critical care nursing, and respiratory therapy.
Diagnostic Data
Chest x-ray 02/22/2024: Multifocal pneumonia, most pronounced within the right upper lobe. No significant change compared to 02/18/2024; Interstitial coarsening and mild interstitial prominence, suggestive of COPD. Pulmonary edema may also be present
Chest X-Ray: 02/18/24- Findings raising concern for pulmonary edema, superimposed on right lung pneumonic process. The patient does have a proBNP value of 19,500 today.
02/17/24- Right lung opacities suspicious for pneumonia without significant change in comparison to recent prior study.
CT Scan: CHEST 02/14/24- 1. Large right upper lobe pneumonia. Imaging follow-up to resolution is recommended as an underlying pulmonary neoplasm would be difficult to completely exclude.
2. Chronic obstructive pulmonary disease.
3. Small pericardial effusion.
4. Small right pleural effusion.
5. Mild loculated pleural fluid in the right minor fissure.
Echo: 02/17/24- Normal left ventricular size and systolic function. No regional wall motion abnormalities are seen. LV ejection fraction is 65-70% by volumetric assessment. Mild concentric left ventricular hypertrophy. Stage II diastolic dysfunction
suggestive of abnormal relaxation and increased filling pressures. Top normal right ventricular size. Normal right ventricular systolic function. Aortic sclerosis without stenosis. Mild tricuspid regurgitation. Estimated pulmonary artery pressure
of 50-55 mmHg assuming a right atrial pressure of 8 mmHg. Compared to prior study dated 04/28/2023, estimated pulmonary artery systolic pressure was previously normal at 25-30 mmHg
04/28/23- 1. Mild concentric left ventricular hypertrophy with preserved systolic function, EF 60-65%
2. Thickened mitral leaflets with mitral annular calcification, trace mitral regurgitation and minimally dilated left atrium
3. Aortic sclerosis with trace aortic insufficiency
4. Normal right heart with normal pulmonary artery pressure
The study is similar to October 2021. The patient will be called and told that there is preserved heart muscle function and no significant valve abnormality.
Subjective Dataa
Subjective Data
Date of Service:
Date of Service: February 22, 2024
Chief Complaint: Billposter Follow Up
Subjective:
Seen and evaluated this morning. Still having ana paula red blood from cough, about 5-10 cc per episode. He remains on high flow nasal cannula with FiO2 100%, SpO2 88%, heart rate 76 and BP 150/66. Put out 125cc of urine this AM s/p lasix. He is
pending HD catheter insertion. , Ashley, at bedside - I answered all of her questions.
Review of Systems
General: Other (Negative unless mentioned above)
Objective Data
Data Reviewed
Vital Signs / I&O / Oxygen:
Vital Signs
Temp Pulse Resp BP Pulse Ox
98.1 F 74 30 143/65 92
02/22/24 07:43 02/22/24 07:41 02/22/24 07:41 02/22/24 07:30 02/22/24 07:42
Intake and Output
02/21/24 02/22/24 02/23/24
06:59 06:59 06:59
Intake Total 420 / 420 820 / 820
Output Total 875 / 875 800 / 800
Balance -455 / -455
SaO2 92
Nasal Cannula flow liters per 60
minute
Physical Exam
General: Comfortable, Fever (negative), Poor Appetite and Other (chronically ill appearing, weak/deconditioned)
HEENT: Normocephalic and Anicteric
Cardiovascular: S1-S2 and Peripheral Edema (negative)
Respiratory: Wheeze (negative), Crackles (Bilateral), Rhonchi (Bilateral) and Accessory Resp Muscle Use
GI: Soft, Non Distended and Non Tender
Neurology: AO x 3 and Tremors (negative)
Skin: Warm, Dry, Cyanosis (negative) and Jaundice (negative)
Labs/Micro/Reports
Lab Data
02/22/24 03:45
02/22/24 03:45
Microbiology
02/14/24 12:29 Blood/Venous Blood Culture - Final
No Growth - Final Report
--- NOTE | 2024-02-22 08:41 | PTCARENOTE ---
Rec'd care of patient at 0700. Patient alert and oriented. Difficulty speaking due to dyspnea. Tachypneic with rate in the high 20-low 30's. Repositioned high in the bed. Pulse ox 88-92% on HFNC 60L 80%. GRIER and orthopneic requiring NRB for
recovery. 1mg Morphine administered (see MAR). Lung sounds coarse with scattered crackles throughout. Productive cough; blood tinged. NSR on tele monitor. +1 edema in b/l LE. Trace anasarca. Pulses palpable. +BS. Last BM yesterday. Appetite poor.
Kuo in place for JUDI. HD scheduled for today. Awaiting placement of temporary HD cath by NATHANAEL.
--- NOTE | 2024-02-22 10:29 | PTCARENOTE ---
HFNC increased to 100% FiO2. Pulse ox 89%.
[2024-02-22] MEDS: ATIVAN 0.25 MG IV (10:44)
--- NOTE | 2024-02-22 10:49 | PTCARENOTE ---
Pulse ox 85% on HFNC 60L 100%. NRB placed on top. Brim Stretching Machine Operator notified. Repeat CXR, 0.25mg Ativan and 1mg Morphine ordered.
--- NOTE | 2024-02-22 10:59 | W.PN.HOSP.TC ---
Today's Communication/Plan
-
HD catheter and HD afterwards
Wean o2 as tolerated
IV steroids high dose
IV abx
prognosis grim
Assessment / Plan
Assessment / Plan
General: Well Developed, Well Nourished, No Apparent Distress and tachypenic
HEENT: NormoCephalic, Anicteric and Moist mucous membranes
Respiratory: rhonchi R>L, Oxygen, HFNC
Cardiac: S1/S2 and Regular Rhythm
GI: Soft, Non Tender and Non Distended
Genito-urinary: Deferred by me
Musculoskeletal: No Clubbing, No Cyanosis and No Edema
Skin: Warm and Dry
Neuro: AO x 3
Hematologic/Lymphatic: No Lymphadenopathy
Psych: Calm
#Severe right upper lobe pneumonia - community-acquired.
#Severe Acute hypoxic respiratory failure at accelerated pace likely secondary to pneumonia suspicious for pneumonitis and also with acute on chronic heart failure exacerbation
CT scan reviewed, large right upper lobe pneumonia confirmed. Small pericardial effusion, small right pleural effusion, mild loculated pleural fluid in the right minor fissure noted.
started antibiotics Rocephin/Azithromycin. Completed azithromycin.
Sputum sample with siena
Consult pulmonary given severity of pneumonia, hemoptysis, suspected underlying COPD. Cannot rule out underlying malignancy. May need bronchoscopy later on.
Patient denies night sweats, fevers, chills, anorexia, weight loss.
Now on high flow nasal cannula 60 L at 100% FiO2. Also requiring intermittent nonrebreather. Understand if with worsening hypoxemia may also require mechanical ventilation intubation.
Pulmonary HTN noted on ECHO probably in setting of sever hypoxemia
see HF plan below
Started on 4 mg every 8 Decadron
Chest ultrasound -no severe effusion noted
Online Marketing Specialist consulted
#Dysphagia likely secondary to deconditioning in the setting of pneumonia/heart failure and high flow nasal cannula
N.p.o and now on pureee diet
Eventual video swallow evaluation once hemodynamically stable
Patient and family understands.
#JUDI on CKD 3B -etiology of JUDI unclear but differential diagnosis includes volume depletion in setting of taking diuretics and ARB.
#Metabolic acidosis
#Mild hyperkalemia
UA negative.
Hold losartan.
Renal ultrasound negative for hydro.
Cr jumped to 4.3 IV lasix 80mg BID and started on bicarbonate
trend bmp.
Plan to start HD. HD catheter today. fluid removal may help with oxygenation.
Nephro following.
# Acute on Chronic HFpEF
IVF discontinued.
Probnp elevated at
IV Lasix 80 mg twice daily ordered per nephrology.
Chest x-ray with pulmonary edema
Monitor urinary output transferred Kuo catheter.
#Hemoptysis -likely due to pneumonia in the setting of clopidogrel use vs pulmonary lesion.
Monitor for now. seems to have resolved.
Acute on chronic anemia -normocytic.
Baseline hemoglobin around 10,
Etiology of anemia could be due to blood loss due to hemoptysis.
No evidence of hemolysis. Appropriate iron stores. low b12 and start po supplementation.
Transfuse <7.
History of duodenal ulcer/GI bleed
continue Protonix.
History of TIA
Holding plavix as above
Essential hypertension -uncontrolled.
He was informed prior to admission to increase hydralazine to 3 times daily if needed.
Increased dose to 75mg TID. Cont toprol 100mg and norvasc 10mg
COPD -undiagnosed.
Will need outpatient PFTs and pulmonary follow-up. Changes of COPD noted on CT scan. Not on inhalers at home.
Hyperlipidemia -on atorvastatin.
possible exposure to COVID -COVID negative x 3.
Full code
d/w with RN
Anticipated Discharge: > 48 hours
Subjective/Interval History
-
Date of Service: February 22, 2024
remains tachypneic and on HFNC
agreed for HD
Objective Data
-
Labs:
Laboratory Results
02/22/24
03:45
WBC 8.9
Hgb 7.9 L
Hct 21.4 L
Plt Count 331 D
Sodium 131 L
Potassium 5.1
Chloride 99
Carbon Dioxide 19 L
BUN 156 H*
Creatinine 4.3 H*
Glucose 162 H
Calcium 7.8 L
Vital Signs:
Vital Signs
Temp Pulse Resp BP Pulse Ox
98.1 F 77 28 150/66 95
02/22/24 07:43 02/22/24 10:00 02/22/24 10:00 02/22/24 10:00 02/22/24 10:52
I&O
02/21/24 02/22/24 02/23/24
06:59 06:59 06:59
Intake Total 420 / 420 820 / 820 120 / 120
Output Total 875 / 875 800 / 875 250 / 250
Balance -455 / -455 20 / -55 -130 / -130
Data Reviewed
-
Total Time Spent with Patient (in minutes): 58
[2024-02-22 11:49] LABS: Glucose - Point of Care 162 mg/dl (70-99)
[2024-02-22] MEDS: ROCEPHIN 1000 MG IV (12:26)
[2024-02-22] MEDS: STERILE WATER FOR INJECTION 10 ML IV (12:26)
--- NOTE | 2024-02-22 12:35 | PTCARENOTE ---
Assessment unchanged. HFNC +NRB remains on. Oxygen dropping when NRB removed and with any exertion. Slow to recover. Labored breathing. UOP 75 cc's/hr. Awaiting IRAD to place temp cath for HD. at bedside.
--- NOTE | 2024-02-22 13:59 | CM ---
CM following re: discharge planning.
Discussed in Rounds, reviewed pt's chart, met with pt and pt's spouse at bedside. Per Rounds meeting pt requires 55 L HFNC with FIO2 100% with NRB mask, continue supportive care.
PT and OT will re-evaluate the pt when clinically appropriate to determine a level of care at discharge.
D/C plan: uncertain at this time and will dep[end on pt's progress
CM will follow with discharge plan updates as hospitalization progresses
--- NOTE | 2024-02-22 14:20 | PTCARENOTE ---
Missile Pad Mechanic at bedside to place temporary HD catheter. Consent obtained. Code status discussed with and patient. Code status to be changed to DNR.
--- NOTE | 2024-02-22 14:39 | W.PN.UPDATE ---
Update Note
Progress Note Update
Discussed patient's clinical status with the patient as well as , Ashley, at bedside. Patient currently on 100% FiO2 via high flow nasal cannula + nonrebreather. We discussed if breathing were to worsen that he will require ventilator. He is
okay with this however if his heart were to stop he does not wish to be resuscitated. He understands that in this scenario that he would pass away, and I explained that we would make him comfortable in that case. I answered all of his and his
's questions, emotional support provided, and code status changed in [facility].
--- NOTE | 2024-02-22 15:23 | PTCARENOTE ---
Right femoral line placed by Bioprocess Engineer. HD RN Celsa at bedside to initiate HD. VSS.
--- NOTE | 2024-02-22 15:27 | W.SUR.POST ---
Addendum entered and electronically signed by Thien Montoya MD 02/22/24 23:23:
Date of service: 02/22/2024
Original Note:
Surgical Immediate Post Op
Note
Dialysis Catheter Insertion Procedure
Pre Op Diagnosis: Acute kidney injury; Hypoxia; Acute pulmonary edema
Post Op Diagnosis: Same as above
Procedure Performed: Trialysis catheter insertion
Primary Surgeon/proceduralist: Dr. Montoya
Secondary Surgeons: N/A
Anesthesia: N/A
Estimated Blood Loss: 5-10cc
Fluids: N/A
Drains/Shunts: N/A
Specimens/Cultures: N/A
Doppler/Duplex/Angio (Y/N): N/A
Complications: No immediate complications
Operative Findings: After informed written consent obtained, patient positioned into reverse Trendelenburg. Preprocedure ultrasound identified right common femoral vein which was patent with apical�posterior piña touching indicating no thrombus
seen. Full sterile technique employed including handwashing, sterile gown, cap, mask, and sterile gloves. Patient draped in usual fashion. Trocar inserted into common femoral vein with blood return seen entering syringe. Syringe removed and
guidewire inserted into trocar without resistance. Trocar removed. First of 2 dilators inserted without resistance. Dilator removed and then second of 2 dilators inserted without resistance. Trialysis catheter inserted over the wire to the hub
and guidewire was removed entirely. Blood return from all 3 ports identified and 10 cc of NS instilled into each port without resistance. Paralysis was sutured in place. Trialysis catheter hub covered with Biopatch and then Tegaderm. There were
no immediate complications.
[2024-02-22 15:28] LABS: Venous Blood Gas B.E. -14.4 mmol/L (-4 to +4); Venous Blood Gas HCO3 9.8 mmol/L (22-27); Venous Blood Gas O2 Sat % 98.2 %; Venous Blood Gas pCO2 17 mmHg (35-48); Venous Blood Gas pH 7.37 (7.32-7.43); Venous Blood Gas pO2 94 mmHg (30-50)
[2024-02-22] MEDS: MANNITOL 25% 12.5 GRAMS IV ×2 (15:35→16:24)
[2024-02-22] MEDS: RETACRIT 10000 UNITS IV (15:51)
[2024-02-22] MEDS: FLEXBUMIN 25% FOR HEMODIALYSIS 12.5 GRAMS IV ×2 (15:52→16:24)
--- NOTE | 2024-02-22 16:36 | W.PN.NEPH.HD ---
Assessment
-
- patient is very tenuous
- removing 1L UF today, will plan for more tomorrow
Progress Note - Hemodialysis
-
Date of Service: February 22, 2024
Duration: 2 hours
Potassium Bath: 3
Calcium Bath: 2.5
Opti-Dialyzer: 160
Ultrafiltration: Other
Blood Flow: 200
Dialysate Flow: Other (400)
[2024-02-22] MEDS: LASIX IV (16:44)
[2024-02-22] MEDS: HEPARIN 2800 UNITS INTRACATH (17:35)
[2024-02-22] MEDS: NOVOLOG FLEXPEN-MODERATE RESISTANCE SC (17:46)
[2024-02-22 17:58] LABS: Glucose - Point of Care 146 mg/dl (70-99)
[2024-02-22 18:35] LABS: Hepatitis B Surface Antigen Negative (Negative)
[2024-02-22 18:53] LABS: Hepatitis B Core Ab, Total Negative (Negative); Hepatitis B Surface Antibody Negative; Hepatitis C Antibody Negative (Negative)
--- NOTE | 2024-02-22 19:25 | PTCARENOTE ---
Rec'd pt resting in bed, drowsy but easily awakened, oriented, cooperative, SR, bp stable, + edema, skin warm/dry, O2 via NRB mask & hi flow- 60 liters/ 100% o2, sat 93, morphine 1mg iv given for sob,when mask taken off for dinner sat dropped to
78%, mask reapplied & pt did not eat, he had no appetite, lungs coarse, crackles throughout, tachypneic, GRIER, sm amt bloody secretions, + bowel sounds, no bm, abd soft, no n/v, goins w/ scant yellow urine
[2024-02-22] MEDS: NORVASC 10 MG PO (21:59)
[2024-02-22] MEDS: TOPROL XL 100 MG PO (22:00)
[2024-02-22] MEDS: SEROQUEL 25 MG PO (22:01)
[2024-02-22] MEDS: TYLENOL 1000 MG PO (22:01)
[2024-02-22 22:16] LABS: Glucose - Point of Care 181 mg/dl (70-99)
[2024-02-22] MEDS: NOVOLOG FLEXPEN 2 UNITS SC (22:26)
--- NOTE | 2024-02-22 22:28 | PTCARENOTE ---
2 units novolog ins sc given for accu 181
--- NOTE | 2024-02-22 23:50 | PTCARENOTE ---
sys reviewed, lungs unch, CHG bath done, linens changed, remains on max hi flow & NRB mask
[2024-02-23] VITALS (34 sets, daily range): BP systolic 119–166; BP diastolic 54–74; BMI 23.7
--- NOTE | 2024-02-23 04:00 | PTCARENOTE ---
sys reviewed, has been sleeping most of night, resp unch, lungs unch
[2024-02-23 04:18] LABS: % Basophils 0.1 % (0-2); % Lymphocytes 3.8 % (20.5-51.1); % Monocytes 8.2 % (1.7-9.3); % Neutrophils 83.9 % (42.2-75.2); Absolute Immature Granulocytes 0.3 10^3/uL (0-0.05); Absolute Lymphocytes 0.3 10^3/uL (1.2-3.4); Absolute Monocytes 0.7 10^3/uL (0.1-0.6); Absolute Neutrophils 6.9 10^3/uL (1.4-6.5); Hematocrit 20.9 % (39.0-52.0); Hemoglobin 7.4 g/dL (13.0-18.0); Mean Corp Hgb Conc. 35.4 g/dL (33.0-37.0); Mean Corpuscular Hgb 29.5 pg (27.0-31.0); Mean Corpuscular Volume 83.3 fL (80.0-94.0); Mean Platelet Volume 10.5 fL (7.4-10.4); Nucleated Red Blood Cells % 0.7 % (-); Platelet Count 256 10^3/uL (130-400); Red Blood Cell Count 2.51 10^6/uL (4.70-6.10); Red Cell Dist. Width 15.3 % (11.5-14.5); White Blood Cell Count 8.2 10^3/uL (4.8-10.8)
[2024-02-23 04:36] LABS: ALT (SGPT) 36 U/L (0-50); AST (SGOT) 35 U/L (17-59); Albumin 3.3 g/dl (3.5-5.0); Alkaline Phosphatase 71 U/L (38-126); Blood Urea Nitrogen 112 mg/dl (9-20); Calcium 7.8 mg/dl (8.4-10.2); Carbon Dioxide 24 mmol/L (22-30); Chloride 100 mmol/L (98-107); Estimated Creatinine Clearance 21 ml/min; Glucose 147 mg/dl (70-99); Magnesium 2.2 mg/dl (1.6-2.3); Phosphorus 6.7 mg/dl (2.5-4.5); Potassium 5.1 mmol/L (3.5-5.1); Sodium 133 mmol/L (135-145); Total Bilirubin 0.6 mg/dl (0.2-1.3); Total Protein 5.9 g/dl (6.3-8.2)
[2024-02-23] MEDS: DECADRON 4 MG IV ×2 (06:24→19:40)
[2024-02-23] MEDS: DUONEB 3 ML INH ×4 (07:43→20:13)
--- NOTE | 2024-02-23 07:45 | PTCARENOTE ---
Assumed care of patient. Pt rec'd A&Ox3. Garbled speech due to lack of dentures. Oral care done. Denies pain at present. Tearful at times...emotional support provided. Drowsy but easily arousable. S1 S2 reg w NSR on monitor. Weak PP. +1
generalized edema. On HFNC 60L/100% w/ 100% NRB...sats 88-92%. Lungs diminished w/ coarse rhonchi and crackles scattered throughout. Productive cough for scant pink tinged secretions. Encouraged to cough and deep breath and use IS/acapella...
yankauer for oral suctioning. Abdomen round...+BS. Takes po meds whole w/ applesauce and sips of water. IDD4 pureed diet w/ thin liquids...refused breakfast. Kuo draining yellow urine w/ sediment. Skin pale in color...sacrum intact. 20P RAC
capped. 22P RFA capped. (R) femoral HD cath w/ pigtail VS documented. Call miranda within reach. Will continue to monitor closely.
--- NOTE | 2024-02-23 08:21 | W.PN.INTV ---
Today's Communication / Plan
Recommendations
Second session of HD today
Start nocturnal BiPAP and prn during the day for SOB/worsening dyspnea, lucas since his hemoptysis has improved
Aspiration precautions
Mucolytics
Abx with rocephin - last day today (day #10)
Monitor quantity of hemoptysis
Titrate FiO2 to keep SpO2 >88%
Low threshold to intubate
DNR
Assessment
-
73-year-old male with history of hypertension, hyperlipidemia, TIA on Plavix therapy, describes chronic bronchitis and chronic subjective dyspnea with [id number] history of smoking quit 2003. He now presents with progressive cough, shortness of
breath and hemoptysis. Found to have right upper lobe mass with likely pneumonia. We are asked to comment on pulmonary process 02/14/24. Overnight 02/18/24, developed worsening hypoxemia, likely due to superimposed DHF now on HFNC. Transferred to
ICU for further management.
Impression:
Acute HFpEF/DHF, proBNP
Moderate PH, new on ECHO from 02/17/2024 with estimated PASP 50-55 assuming RAP of 8 mmHg
Right upper lobe mass/infiltrate likely PNA however lung cancer with postobstructive pneumonia also very possible
Acute hemoptysis, blood mixed with mucus - likely due to right upper lobe mass in the setting of uremia with platelet dysfunction
Right upper lobe abnormality noted per chest x-ray April 2023
Small pleural effusion
Chronic bronchitis
Dyspnea, progressive
Former smoker, [id number] history of smoking, quit 2003
No prior spirometry, no prior pulmonary evaluation
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
Anemia
JUDI on chronic kidney disease, now on HD (Cr: 1.4-1.6 at baseline)
Metabolic acidosis with normal anion gap due to JUDI
Elevated proBNP
Chronic diarrhea
Conditions present prior to admission
History of anemia
Hypertension
Hyperlipidemia
GERD with history of duodenal ulcer with bleeding
Required IR embolization 2020
Possible asbestos exposure
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
Family history of cancer
Father with lung cancer
Sister with brain cancer
Sister with liver cancer
Plan
At this time, patient respiratory status remains tenuous, still on high flow nasal cannula at 100% FiO2 with nonrebreather mask
Creatinine peaked at 4.3 now with BUN 156 on 02/21
Productive mucus, blood seems to be improved lucas after HD session
Chest x-ray shows bilateral infiltrates with RUL mass and pulmonary vascular congestion
Preadmission history: Patient is short of breath since April 2023 at which time he had right upper lobe infiltrate. Patient cannot recall any history of recent pneumonia
Significant smoking and asbestos exposure history noted
Patient did not get follow-up x-ray as recommended per report in April
Former smoker, quit >30 years ago, strong family history of cancers
There is high suspicion this could be metastatic illness
IV steroids added with Decadron--> wean down to 4mg IV q12hr today
Today is 10th day of ceftriaxone, then stop
s/p 6 days zithromax - stopped on 02/18
Sputum culture few gram-positive cocci, many white cells, usual yaritza/finalized
Myrna noted 02/15
Prior sputum 02/13 neg
Legionella, streptococcal pneumonia negative
Continue to quantify hemoptysis
Airway clearance reviewed with RT, mucinex/acapella, vest/IS
Start BiPAP with sleep to help improve sleep quality, assist with ventilation and the higher PEEP may also improve O2 requiremnts
Hemoglobin stable
Plavix has been held since 02/14 given worsening hypoxia, chest x-ray findings
Doubt active pulmonary hemorrhage given stable hemoglobin
ProBNP elevated at 19,500 on 02/17/2024, history of CHF
Trend sCr and UOP; Kuo catheter in place --> recommend to continue given his critically ill state with need for strict I/O
Nephrology following � recommendations appreciated
Hold nephrotoxic drugs
s/p HD cath on 02/21 and got 1st session on 02/21, 2nd session planned for today
Pt having anxiety and insomnia -- started seroquel 25mg HS on 02/21 --> seemed to help his sleep quality
Protonix for GERD therapy
Aspiration precautions
Pur�ed diet
Continue with moderate resistance sliding scale with goal BG 140�180
DVT ppx: HSQ to keep at 5000 units q12hr for now given hemoptysis with uremia
Family Discussions
Mira 02/18- Reviewed with today and son on speaker phone today on rounds. We discussed all of his poor prognostic markers including possible/suspected metastatic disease, acute HF picture, worsening JUDI, worsening hypoxemia. She understands
his overall outlook remains poor even with intubation/MV. There is less chance for good QoL the more organ dysfunction occurs. Family will visit and discuss further GOC.
Litzy - Reviewed with patient, at bedside
Updated son by phone 02/16 (Kevon: [phone])
Reviewed concern regarding possibility of underlying malignancy.
Patient high risk for intubation.
Discussion held by Dr. Montoya on 02/22/2024 with in presence of the patient ---> patient is now DNR, okay for intubation in addition to other full medical management (see separate note from 02/21)
Critical care statement: A total of 38 minutes of critical care time was provided for this patient today. This includes management of unstable vital signs, evaluation of the patient at bedside, reviewing the patient's pertinent medical records
including radiographs, microbiology, laboratory evaluations, and discussion with primary team, consultants, pharmacy, nutrition, physical therapy, case management, charge nurse, critical care nursing, and respiratory therapy.
Diagnostic Data
Chest x-ray 02/22/2024: Multifocal pneumonia, most pronounced within the right upper lobe. No significant change compared to 02/18/2024; Interstitial coarsening and mild interstitial prominence, suggestive of COPD. Pulmonary edema may also be present
Chest X-Ray: 02/18/24- Findings raising concern for pulmonary edema, superimposed on right lung pneumonic process. The patient does have a proBNP value of 19,500 today.
02/17/24- Right lung opacities suspicious for pneumonia without significant change in comparison to recent prior study.
CT Scan: CHEST 02/14/24- 1. Large right upper lobe pneumonia. Imaging follow-up to resolution is recommended as an underlying pulmonary neoplasm would be difficult to completely exclude.
2. Chronic obstructive pulmonary disease.
3. Small pericardial effusion.
4. Small right pleural effusion.
5. Mild loculated pleural fluid in the right minor fissure.
Echo: 02/17/24- Normal left ventricular size and systolic function. No regional wall motion abnormalities are seen. LV ejection fraction is 65-70% by volumetric assessment. Mild concentric left ventricular hypertrophy. Stage II diastolic dysfunction
suggestive of abnormal relaxation and increased filling pressures. Top normal right ventricular size. Normal right ventricular systolic function. Aortic sclerosis without stenosis. Mild tricuspid regurgitation. Estimated pulmonary artery pressure
of 50-55 mmHg assuming a right atrial pressure of 8 mmHg. Compared to prior study dated 04/28/2023, estimated pulmonary artery systolic pressure was previously normal at 25-30 mmHg
04/28/23- 1. Mild concentric left ventricular hypertrophy with preserved systolic function, EF 60-65%
2. Thickened mitral leaflets with mitral annular calcification, trace mitral regurgitation and minimally dilated left atrium
3. Aortic sclerosis with trace aortic insufficiency
4. Normal right heart with normal pulmonary artery pressure
The study is similar to October 2021. The patient will be called and told that there is preserved heart muscle function and no significant valve abnormality.
Subjective Dataa
Subjective Data
Date of Service:
Date of Service: February 23, 2024
Chief Complaint: Recordist Chief Follow Up
Subjective:
Patient seen and evaluated this morning. Obtained 1st session of bedside HD yesterday. Current heart rate 70, BP 139/1960, saturating 89-90% on HFNC at 100% FiO2 + NRB. Second HD session planned for today. Hemoptysis improved - scant amount now.
He says he feels well, just tired overall but he did get some sleep last night. He denies chest pain, CERVANTES, abdominal pain, nausea, vomiting, fevers or chills.
Review of Systems
General: Other (Negative unless mentioned above)
Objective Data
Data Reviewed
Vital Signs / I&O / Oxygen:
Vital Signs
Temp Pulse Resp BP Pulse Ox
97.8 F 71 20 144/66 90
02/23/24 08:25 02/23/24 08:29 02/23/24 07:54 02/23/24 08:29 02/23/24 08:25
Intake and Output
02/22/24 02/23/24 02/24/24
06:59 06:59 06:59
Intake Total 820 / 820 480 / 480
Output Total 800 / 875 725 / 725
Balance 20 / -55 -245 / -245
SaO2 90
Nasal Cannula flow liters per 60
minute
Physical Exam
General: Comfortable, Fever (negative), Poor Appetite and Other (chronically ill appearing, weak/deconditioned)
HEENT: Normocephalic and Anicteric
Cardiovascular: S1-S2 and Peripheral Edema (+1 lower extremity pitting edema bilaterally)
Respiratory: Wheeze (negative), Crackles (Bilateral), Rhonchi (Bilateral) and Accessory Resp Muscle Use (During activity/exertion)
GI: Soft, Non Distended and Non Tender
Neurology: AO x 3 and Tremors (negative)
Skin: Warm, Dry, Cyanosis (negative) and Jaundice (negative)
Labs/Micro/Reports
Lab Data
02/23/24 03:21
02/23/24 03:21
[2024-02-23] MEDS: APRESOLINE 75 MG PO ×3 (08:29→21:52)
[2024-02-23] MEDS: LIPITOR 80 MG PO (08:29)
[2024-02-23] MEDS: MUCINEX 600 MG PO ×2 (08:29→19:40)
[2024-02-23] MEDS: NOVOLOG FLEXPEN-MODERATE RESISTANCE SC ×3 (08:29→17:09)
[2024-02-23] MEDS: SODIUM BICARBONATE 1300 MG PO ×3 (08:29→21:46)
[2024-02-23] MEDS: PROTONIX 40 MG PO (08:30)
[2024-02-23] MEDS: HEPARIN 5000 UNITS SC ×2 (08:30→19:40)
[2024-02-23] MEDS: VITAMIN B-12 1000 MCG PO (08:30)
[2024-02-23 08:39] LABS: Glucose - Point of Care 137 mg/dl (70-99)
--- NOTE | 2024-02-23 10:03 | W.PN.HOSP.TC ---
Today's Communication/Plan
-
Continue with IV steroid
IV antibiotics
HD today
Prognosis remains poor.
Assessment / Plan
Assessment / Plan
General: Well Developed, Well Nourished, No Apparent Distress and tachypenic
HEENT: NormoCephalic, Anicteric and Moist mucous membranes
Respiratory: rhonchi R>L, Oxygen, HFNC +NRB
Cardiac: S1/S2 and Regular Rhythm
GI: Soft, Non Tender and Non Distended
Genito-urinary: Deferred by me
Musculoskeletal: No Clubbing, No Cyanosis and No Edema
Skin: Warm and Dry
Neuro: AO x 3
Hematologic/Lymphatic: No Lymphadenopathy
Psych: Calm
#Severe right upper lobe pneumonia - community-acquired.
#Severe Acute hypoxic respiratory failure at accelerated pace likely secondary to pneumonia suspicious for pneumonitis and also with acute on chronic heart failure exacerbation
# High suspicious for right upper lobe mass
# Acute hemoptysis likely in the setting of suspected right upper lobe malignancy and also with Plavix
CT scan reviewed, large right upper lobe pneumonia confirmed. Small pericardial effusion, small right pleural effusion, mild loculated pleural fluid in the right minor fissure noted.
Continue with ceftriaxone. Completed azithromycin.
Sputum sample with siena
Consult pulmonary given severity of pneumonia, hemoptysis, suspected underlying COPD. Cannot rule out underlying malignancy. May need bronchoscopy later on.
Patient denies night sweats, fevers, chills, anorexia, weight loss.
Now on high flow nasal cannula 60 L at 100% FiO2. Also requiring intermittent nonrebreather. Understand if with worsening hypoxemia may also require mechanical ventilation intubation.
Pulmonary HTN noted on ECHO probably in setting of sever hypoxemia
see HF plan below
Started on 4 mg every 8 Decadron
Chest ultrasound -no severe effusion noted
Chief Design Branch consulted
#Dysphagia likely secondary to deconditioning in the setting of pneumonia/heart failure and high flow nasal cannula
N.p.o and now on pureee diet
Eventual video swallow evaluation once hemodynamically stable
Patient and family understands.
#JUDI on CKD 3B -etiology of JUDI unclear but differential diagnosis includes volume depletion in setting of taking diuretics and ARB.
#Metabolic acidosis
#Mild hyperkalemia
UA negative.
Hold losartan.
Renal ultrasound negative for hydro.
Lasix discontinued. Continued on bicarbonate
trend bmp.
Status post HD catheter and started on hemodialysis on 02/21. Plan for repeat HD today. 1 kg fluid removed yesterday.
Nephro following.
# Acute on Chronic HFpEF
[place] [id number]
IV Lasix 80 mg twice daily ordered per nephrology. Lasix discontinued and further fluid removal with HD.
Chest x-ray with pulmonary edema
Monitor urinary output transferred Kuo catheter.
#Hemoptysis -likely due to pneumonia in the setting of clopidogrel use vs pulmonary mass concern for malignancy
Unable to undergo bronchoscopy for further evaluation. Plavix has been on hold.
Acute on chronic anemia -normocytic.
Baseline hemoglobin around 10,
Etiology of anemia could be due to blood loss due to hemoptysis.
No evidence of hemolysis. Appropriate iron stores. low b12 and start po supplementation.
Transfuse <7.
History of duodenal ulcer/GI bleed
continue Protonix.
History of TIA
Holding plavix as above
Essential hypertension -uncontrolled.
He was informed prior to admission to increase hydralazine to 3 times daily if needed.
Increased dose to 75mg TID. Cont toprol 100mg and norvasc 10mg
Suspected COPD with emphysema
History of heavy tobacco abuse in the past
Will need outpatient PFTs and pulmonary follow-up. Changes of COPD noted on CT scan. Not on inhalers at home.
Hyperlipidemia -on atorvastatin.
possible exposure to COVID -COVID negative x 3.
Limited DNR-no CPR
DVT ppx-hep sc
d/w with RN
Discussed with patient spouse at bedside
Anticipated Discharge: > 48 hours
Subjective/Interval History
-
Date of Service: February 23, 2024
slept well last night
remains on HFNC w/NRB
Objective Data
-
Labs:
Laboratory Results
02/23/24
03:21
WBC 8.2
Hgb 7.4 L
Hct 20.9 L*
Plt Count 256 D
Sodium 133 L
Potassium 5.1
Chloride 100
Carbon Dioxide 24
BUN 112 H*
Creatinine 3.0 H
Glucose 147 H
Calcium 7.8 L
Total Bilirubin 0.6
AST 35
ALT 36
Alkaline Phosphatase 71
Vital Signs:
Vital Signs
Temp Pulse Resp BP Pulse Ox
97.8 F 71 20 144/66 90
02/23/24 08:25 02/23/24 08:29 02/23/24 07:54 02/23/24 08:29 02/23/24 08:25
I&O
02/22/24 02/23/24 02/24/24
06:59 06:59 06:59
Intake Total 820 / 820 480 / 480 60 / 60
Output Total 800 / 875 725 / 725
Balance 20 / -55 -245 / -245 60 / 60
Data Reviewed
-
Total Time Spent with Patient (in minutes): 58
--- NOTE | 2024-02-23 10:56 | PTCARENOTE ---
HD nurse at bedside to provide treatment.
[2024-02-23] MEDS: MANNITOL 25% 12.5 GRAMS IV ×2 (11:20→12:29)
--- NOTE | 2024-02-23 12:00 | PTCARENOTE ---
No major changes in physical assessment. Rec'ing HD at bedside. VS documented. Call miranda within reach.
[2024-02-23 12:09] LABS: Glucose - Point of Care 127 mg/dl (70-99)
[2024-02-23] MEDS: ROCEPHIN 1000 MG IV (13:49)
[2024-02-23] MEDS: STERILE WATER FOR INJECTION 10 ML IV (13:49)
--- NOTE | 2024-02-23 15:32 | W.PN.NEPH.HD ---
Assessment
-
- UF 1.5L
- feeling well on HD
Progress Note - Hemodialysis
-
Date of Service: February 23, 2024
Duration: 30 minutes and 2 hours
Potassium Bath: 2
Calcium Bath: 2.5
Opti-Dialyzer: 160
Ultrafiltration: Other
Blood Flow: 300
Dialysate Flow: 600
--- NOTE | 2024-02-23 16:00 | PTCARENOTE ---
Pt remains on HFNC 60L/100% but w/ PNRB...sats 93%. HD completed w/o issue...1.5kg removed. For HD tmr morning...time unknown. Pt continent for moderate soft brown BM on bedpan. No other major changes in physical assessment. VS documented.
at bedside and fully updated. Call miranda within reach. Will continue to monitor closely.
[2024-02-23 17:16] LABS: Glucose - Point of Care 139 mg/dl (70-99)
--- NOTE | 2024-02-23 19:57 | PTCARENOTE ---
rec'd pt resting in bed,oriented, cooperative,denies pain, SR, weak distal pulses, +LE edema, TR anasarca, skin warm/dry,O2 via hi flow 100% O2, 60 liters, sat 92%, desat to 84% with activity, PRB mask applied prn, reaches 1250ml on IS, uses flutter
valve, scant bld tinged sputum, few exp wheezes, decr in bases,, coarse rhonchi, + bowel sounds, had sm brown soft bm, ate 50% of dinner, abd soft/nontender,goins draining yellow urine
--- NOTE | 2024-02-23 20:33 | PTCARENOTE ---
sat 88%, PRB mask appied- sat incr to 91-92
[2024-02-23 21:39] LABS: Glucose - Point of Care 218 mg/dl (70-99)
[2024-02-23] MEDS: NOVOLOG FLEXPEN 5 UNITS SC (21:45)
[2024-02-23] MEDS: TOPROL XL 100 MG PO (21:46)
[2024-02-23] MEDS: TYLENOL 1000 MG PO (21:46)
[2024-02-23] MEDS: SEROQUEL 25 MG PO (21:46)
[2024-02-23] MEDS: NORVASC 10 MG PO (21:52)
--- NOTE | 2024-02-23 21:56 | PTCARENOTE ---
5 novolog insulin sc given per order, CHG bath done, linens changed
--- NOTE | 2024-02-23 22:44 | PTCARENOTE ---
changged to NIV- Rate 15, IPAP 15, EPAP 8, 75% by resp therapist
--- NOTE | 2024-02-23 22:45 | PTCARENOTE ---
changed to NIV- Rate 15, IPAP 15, EPAP 8, 75% by resp therapist
--- NOTE | 2024-02-23 23:43 | PTCARENOTE ---
sys reviewed, changes noted
[2024-02-24] VITALS (42 sets, daily range): BP systolic 134–168; BP diastolic 57–132; BMI 22.9
--- NOTE | 2024-02-24 02:00 | PTCARENOTE ---
Pt requests NIV to be off,'too uncomf', Resp changed pt to Hi flow 60 liters/ 100%, sat 94
--- NOTE | 2024-02-24 02:55 | DOWNTIME ---
There was a [facility] [employer] Downtime on 02/24/2024 from 0100 to 02/24/2024 at 0252. Downtime documentation of patient's care, including medication administrations, has been reconciled in the electronic record per guidelines. Refer to the
patient's paper chart under the miscellaneous tab to see printed paper medication records and downtime forms.
--- NOTE | 2024-02-24 03:35 | PTCARENOTE ---
asha reviewed, much more comf on hi flow, sat 94
[2024-02-24 03:41] LABS: % Basophils 0.1 % (0-2); % Immature Granulocytes 4.3 % (0-0.5); % Lymphocytes 3.5 % (20.5-51.1); % Monocytes 7.5 % (1.7-9.3); % Neutrophils 84.6 % (42.2-75.2); Absolute Immature Granulocytes 0.5 10^3/uL (0-0.05); Absolute Lymphocytes 0.4 10^3/uL (1.2-3.4); Absolute Monocytes 0.9 10^3/uL (0.1-0.6); Absolute Neutrophils 10.6 10^3/uL (1.4-6.5); Hemoglobin 7.7 g/dL (13.0-18.0); Mean Corpuscular Hgb 28.7 pg (27.0-31.0); Mean Corpuscular Volume 82.1 fL (80.0-94.0); Nucleated Red Blood Cells % 1.3 % (-); Platelet Count 277 10^3/uL (130-400); Red Blood Cell Count 2.68 10^6/uL (4.70-6.10); Red Cell Dist. Width 15.6 % (11.5-14.5); White Blood Cell Count 12.5 10^3/uL (4.8-10.8)
[2024-02-24 03:56] LABS: Blood Urea Nitrogen 73 mg/dl (9-20); Calcium 7.9 mg/dl (8.4-10.2); Carbon Dioxide 28 mmol/L (22-30); Chloride 98 mmol/L (98-107); Estimated Creatinine Clearance 23 ml/min; Glucose 168 mg/dl (70-99); Potassium 4.5 mmol/L (3.5-5.1); Sodium 134 mmol/L (135-145); eGFR 23.83
[2024-02-24] MEDS: DUONEB 3 ML INH ×4 (07:47→19:43)
[2024-02-24] MEDS: PROTONIX 40 MG PO (07:56)
[2024-02-24] MEDS: NOVOLOG FLEXPEN-MODERATE RESISTANCE 1 UNITS SC ×2 (07:56→12:28)
[2024-02-24] MEDS: MUCINEX 600 MG PO ×2 (07:56→19:37)
[2024-02-24] MEDS: HEPARIN 5000 UNITS SC ×2 (07:56→17:42)
[2024-02-24] MEDS: APRESOLINE 75 MG PO ×3 (07:56→21:31)
[2024-02-24] MEDS: SODIUM BICARBONATE 1300 MG PO (07:57)
[2024-02-24] MEDS: LIPITOR 80 MG PO (07:57)
[2024-02-24] MEDS: DECADRON 4 MG IV ×2 (07:59→19:37)
[2024-02-24] MEDS: VITAMIN B-12 1000 MCG PO (07:59)
[2024-02-24 08:06] LABS: Glucose - Point of Care 154 mg/dl (70-99)
--- NOTE | 2024-02-24 08:26 | W.PN.INTV ---
Today's Communication / Plan
Recommendations
3rd session of HD today
Continue nocturnal BiPAP --> reduce pressures to 12/5
Aspiration precautions
Mucolytics
Monitor quantity of hemoptysis
Titrate FiO2 to keep SpO2 >88%
Low threshold to intubate
DNR
Assessment
-
73-year-old male with history of hypertension, hyperlipidemia, TIA on Plavix therapy, describes chronic bronchitis and chronic subjective dyspnea with 27-[id number]-tzci history of smoking quit 2003. He now presents with progressive cough, shortness of
breath and hemoptysis. Found to have right upper lobe mass with likely pneumonia. We are asked to comment on pulmonary process 02/14/24. Overnight 02/18/24, developed worsening hypoxemia, likely due to superimposed DHF now on HFNC. Transferred to
ICU for further management.
Impression:
Acute HFpEF/DHF, proBNP
Moderate PH, new on ECHO from 02/17/2024 with estimated PASP 50-55 assuming RAP of 8 mmHg
Right upper lobe mass/infiltrate likely PNA however lung cancer with postobstructive pneumonia also very possible
Acute hemoptysis, blood mixed with mucus - likely due to right upper lobe mass in the setting of uremia with platelet dysfunction
Right upper lobe abnormality noted per chest x-ray April 2023
Small pleural effusion
Chronic bronchitis
Dyspnea, progressive
Former smoker, [id number] history of smoking, quit 2003
No prior spirometry, no prior pulmonary evaluation
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
Anemia
JUDI on chronic kidney disease, now on iHD (Cr: 1.4-1.6 at baseline)
Metabolic acidosis with normal anion gap due to JUDI
Elevated proBNP
Chronic diarrhea
Conditions present prior to admission
History of anemia
Hypertension
Hyperlipidemia
GERD with history of duodenal ulcer with bleeding
Required IR embolization 2020
Possible asbestos exposure
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
Family history of cancer
Father with lung cancer
Sister with brain cancer
Sister with liver cancer
Plan
Today, patient's respiratory status has improved, and he is only on high flow nasal cannula without nonrebreather. Today's CXR shows improvement in bilateral infiltrates with improved pulmonary edema
Creatinine and BUN peaked at 4.3 and 156, respectively, on 02/21
Productive mucus, blood seems to be improved lucas after HD session
Preadmission history: Patient is short of breath since April 2023 at which time he had right upper lobe infiltrate. Patient cannot recall any history of recent pneumonia
Significant smoking and asbestos exposure history noted
Patient did not get follow-up x-ray as recommended per report in April
Former smoker, quit >30 years ago, strong family history of cancers
There is high suspicion this could be metastatic illness
IV steroids added with Decadron--> weaned down to 4mg IV q12hr on 02/22 --> can likely wean further tomorrow and then transition to prednisone taper
Finished 10 day course of ceftriaxone on 02/22
s/p 6 days zithromax - stopped on 02/18
Sputum culture few gram-positive cocci, many white cells, usual yaritza/finalized
Myrna noted 02/15
Prior sputum 02/13 neg
Legionella, streptococcal pneumonia negative
Continue to quantify hemoptysis
Airway clearance reviewed with RT, mucinex/acapella, vest/IS
Did not tolerate BiPAP last night -->try again tonight on reduced pressures; will try 06/09 --> goal is to improve sleep quality, assist with ventilation and the higher PEEP may also improve O2 requirements
Otherwise continue high flow NC during the day, reducing FiO2 as tolerated, keeping SpO2 88-95%
Hemoglobin stable
Plavix has been held since 02/14 given worsening hypoxia, chest x-ray findings
- Consider restarting plavix once hemoptysis fully resolved for >48 -72 hrs
Doubt active pulmonary hemorrhage given stable hemoglobin
ProBNP elevated at 19,500 on 02/17/2024, history of CHF
Trend sCr and UOP; Kuo catheter in place --> recommend to continue given his critically ill state with need for strict I/O
Nephrology following � recommendations appreciated
Hold nephrotoxic drugs
s/p HD cath on 02/21 and got 1st session on 02/21, 2nd session 02/22; 3rd session today
Pt having anxiety and insomnia -- started seroquel 25mg HS on 02/21 --> seemed to help his sleep quality
Protonix for GERD therapy
Aspiration precautions
Pur�ed diet
Continue with moderate resistance sliding scale with goal BG 140�180
DVT ppx: HSQ 5000 units q8hr
Family Discussions
Mira 02/18- Reviewed with today and son on speaker phone today on rounds. We discussed all of his poor prognostic markers including possible/suspected metastatic disease, acute HF picture, worsening JUDI, worsening hypoxemia. She understands
his overall outlook remains poor even with intubation/MV. There is less chance for good QoL the more organ dysfunction occurs. Family will visit and discuss further GOC.
Litzy - Reviewed with patient, at bedside
Updated son by phone 02/16 (Kevon: [phone])
Reviewed concern regarding possibility of underlying malignancy.
Patient high risk for intubation.
Discussion held by Dr. Montoya on 02/22/2024 with in presence of the patient ---> patient is now DNR, okay for intubation in addition to other full medical management (see separate note from 02/21)
Critical care statement: A total of 42 minutes of critical care time was provided for this patient today. This includes management of unstable vital signs, evaluation of the patient at bedside, reviewing the patient's pertinent medical records
including radiographs, microbiology, laboratory evaluations, and discussion with primary team, consultants, pharmacy, nutrition, physical therapy, case management, charge nurse, critical care nursing, and respiratory therapy.
Diagnostic Data
Chest x-ray 02/22/2024: Multifocal pneumonia, most pronounced within the right upper lobe. No significant change compared to 02/18/2024; Interstitial coarsening and mild interstitial prominence, suggestive of COPD. Pulmonary edema may also be present
Chest X-Ray: 02/18/24- Findings raising concern for pulmonary edema, superimposed on right lung pneumonic process. The patient does have a proBNP value of 19,500 today.
02/17/24- Right lung opacities suspicious for pneumonia without significant change in comparison to recent prior study.
CT Scan: CHEST 02/14/24- 1. Large right upper lobe pneumonia. Imaging follow-up to resolution is recommended as an underlying pulmonary neoplasm would be difficult to completely exclude.
2. Chronic obstructive pulmonary disease.
3. Small pericardial effusion.
4. Small right pleural effusion.
5. Mild loculated pleural fluid in the right minor fissure.
CXR 02/24/2024:There is moderate diffuse interstitial and groundglass airspace disease throughout both lungs with more confluent alveolar airspace disease in the right upper lung. This airspace disease is improved but unresolved compared with
previous examination and has more the appearance of inflammatory airspace disease than pulmonary edema as there are no septal lines to suggest interstitial edema.
Echo: 02/17/24- Normal left ventricular size and systolic function. No regional wall motion abnormalities are seen. LV ejection fraction is 65-70% by volumetric assessment. Mild concentric left ventricular hypertrophy. Stage II diastolic dysfunction
suggestive of abnormal relaxation and increased filling pressures. Top normal right ventricular size. Normal right ventricular systolic function. Aortic sclerosis without stenosis. Mild tricuspid regurgitation. Estimated pulmonary artery pressure
of 50-55 mmHg assuming a right atrial pressure of 8 mmHg. Compared to prior study dated 04/28/2023, estimated pulmonary artery systolic pressure was previously normal at 25-30 mmHg
04/28/23- 1. Mild concentric left ventricular hypertrophy with preserved systolic function, EF 60-65%
2. Thickened mitral leaflets with mitral annular calcification, trace mitral regurgitation and minimally dilated left atrium
3. Aortic sclerosis with trace aortic insufficiency
4. Normal right heart with normal pulmonary artery pressure
The study is similar to October 2021. The patient will be called and told that there is preserved heart muscle function and no significant valve abnormality.
Subjective Dataa
Subjective Data
Date of Service:
Date of Service: February 24, 2024
Chief Complaint: Cork Cutter Follow Up
Subjective:
Patient seen and evaluated today at bedside. Third session of HD scheduled for today. Remains on high flow nasal cannula at 100% FiO2, SpO2 92%, heart rate 75 and BP 151/65. Having blood-tinged sputum. He says his shortness of breath has
improved. Denies chest pain, CERVANTES, abdominal pain, nausea, fevers or chills. Afebrile overnight.
Review of Systems
General: Other (Negative unless mentioned above)
Objective Data
Data Reviewed
Vital Signs / I&O / Oxygen:
Vital Signs
Temp Pulse Resp BP Pulse Ox
98.6 F 76 18 150/91 92
02/24/24 07:39 02/24/24 09:07 02/24/24 09:07 02/24/24 09:07 02/24/24 09:07
Intake and Output
02/23/24 02/24/24 02/25/24
06:59 06:59 06:59
Intake Total 480 / 480 650 / 650 60 / 60
Output Total 725 / 725 350 / 350
Balance -245 / -245 300 / 300 60 / 60
SaO2 [NIV (Non Invasive 94
Ventilation)]
SaO2 92
Nasal Cannula flow liters per 60
minute
Physical Exam
General: Respiratory Distress (negative), Comfortable, Fever (negative), Poor Appetite and Other (chronically ill appearing, weak/deconditioned)
HEENT: Normocephalic and Anicteric
Cardiovascular: S1-S2 and Peripheral Edema (+1 lower extremity pitting edema bilaterally)
Respiratory: Wheeze (negative), Crackles (Bilateral), Rhonchi (Bilateral) and Accessory Resp Muscle Use (During activity/exertion)
GI: Soft, Non Distended, Non Tender and Normal Bowel Sounds
Neurology: AO x 3 and Tremors (negative)
Skin: Warm, Dry, Cyanosis (negative) and Jaundice (negative)
Labs/Micro/Reports
Lab Data
02/24/24 03:03
02/24/24 03:03
--- NOTE | 2024-02-24 08:56 | PTOTSP ---
Chart reviewed. Patient continues to require re-start orders when medically appropriate to participate.
Will discharge from case load at this time. When patient is appropriate for PT/OT consult please re-consult. Will discuss with RN.
--- NOTE | 2024-02-24 08:58 | PTOTSP ---
Pt remains medically not appropriate to participate in therapy sessions at this time. Poor prognosis per notes. Will sign off at this time. Re-consult if pt becomes more stable to participate in therapy.
--- NOTE | 2024-02-24 09:27 | PTCARENOTE ---
Received pt awake and alert.Speech is appropriate.+PIRES.Assisted with repositioning.Did not get oob because of the right femoral HD catheter.Denies pain.SR noted.Right groin HD catheter intact.High Flow 60 l 100% intact.POX 93%+ tachypnea and
orthopnea noted.Desaturates to 78% with activity.POX returns to 90% within 1-2 minutes.Scattered crackles,coarse breath sounds.Occasional moist cough noted.Expectorating small amount blood tinged sputum.Appetite fair.+ BM.Kuo draining yellow
urine.Skin integrity as documented.Pt's at bedside.Plan of care discussed.
--- NOTE | 2024-02-24 10:15 | W.PN.HOSP.TC ---
Today's Communication/Plan
-
Continue with IV antibiotics and steroid
Wean oxygen for SpO2 goal >90%
Plan for ambulation and OOB after dialysis later
Assessment / Plan
Assessment / Plan
#Severe Acute hypoxic respiratory failure -- due to pneumonia, superimposed HFpEF, possible COPD
#Severe CAP -- RUL, bacterial
#Acute on chronic HFpEF
#Acute hemoptysis -- suspected right upper lobe malignancy and also with Plavix
-CT thorax showed with large RUL consolidation, also signs of malignancy in the RUL, pulmonary edema
-Was started on IV ceftriaxone empirically, completed course of IV azithromycin as well; started on steroid for severe bacterial pneumonia
-Developed decompensation of HFpEF in the context of IV fluids, elevated proBNP, s/p IV Lasix course, now on HD
-Echocardiogram here showed severe pulmonary hypertension; has evidence of COPD with emphysematous findings, tobacco history
-Has temporarily required NIV, often overnight, though currently on high flow oxygen with adequate oxygenation
-Appears to be euvolemic, no signs of excessive wheezing though does seem very rhonchorous
-Pulmonology following
Plan
-Continue with IV ceftriaxone and steroid therapy
-Continue to hold clopidogrel due to hemoptysis
-Continue with HD for volume status; Monitor I/Os
-Consider GDMT with MRA/SGLT2i for HFpEF
-Titrate supplemental oxygen for SpO2 goal >90%
#Oliguric JUDI on CKD 3B
#Metabolic acidosis
-Suspected to be prerenal; Home medications include diuretics and ARB, presented with infection
-Home diuretics and losartan are held, started on bicarbonate therapy for acidosis
-Nephrology following, planning for HD session again today via femoral access
-Optimistic that renal function will improve to no longer needing HD
Plan
-Continue HD at nephrology discretion
-Trend daily BMP, monitor strict I's and O's
-Renal diet
#Right upper lobe mass
-Likely demonstrated on CT, but does have superimposed bacterial pneumonia which may affect findings
-Will need a repeat CT scan when infection is clear, possible consideration for biopsy if mass present
-Suspect this is the source of hemoptysis as above
#Dysphagia -- likely due to deconditioning and critical illness
-Currently on pur�ed diet, pending video swallow examination
#Acute on chronic normocytic anemia -- blood loss from hemoptysis, dilution
-Baseline hemoglobin around 10, most recently hemoglobin 7.5 and has been stable
-Iron studies without signs of deficiency, no evidence of hemolysis, B12 was low but now on therapy
-Will continue to trend daily CBC and transfuse for hemoglobin <7
#History of duodenal ulcer/GI bleed
-No signs of active GI bleeding while here, did have hemoptysis
-Remains on home PPI regimen
#History of TIA
-Holding plavix as above
#Essential hypertension
-No known history of hypertensive systemic disease, Home meds include metoprolol hydralazine, and amlodipine
-Blood pressure has been poorly controlled outside of the hospital, recently hydralazine was increased
-Most recent BP 149/64 mmHg, will not be too aggressive while here due to critical illness
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
-History of heavy tobacco abuse in the past; no formal diagnosis, no home inhaler therapies
-Currently without any wheezing or signs of exacerbation though cannot rule out contribution to his presentation
-Plan for pulm follow-up and PFTs at discharge, DC on DuoNebs as needed
#Hyperlipidemia
-No known history of ASCVD
-No medications include high intensity shortness
CODE STATUS: Limited DNR-no CPR
DVT prophylaxis: Heparin subcutaneous
d/w with RN
Discussed with patient spouse at bedside
Anticipated Discharge: > 48 hours
Subjective/Interval History
-
Date of Service: February 24, 2024
Seen and examined at the bedside. No acute events. Remains hemodynamically stable, on high flow O2 via nasal cannula with SpO2 in low 90s.
He states he feels better today, breathing is improving though slowly. Denies any chest pain or fevers or chills. Denies GI or urinary issues as well. He does want to get out of bed though his femoral placed HD cath is barrier. Spoke with
nephrology today who prefers him to stay in bed until after his HD session.
Objective Data
-
Labs:
Laboratory Results
02/24/24
03:03
WBC 12.5 H
Hgb 7.7 L
Hct 22.0 L
Plt Count 277
Sodium 134 L
Potassium 4.5
Chloride 98
Carbon Dioxide 28
BUN 73 H
Creatinine 2.7 H
Glucose 168 H
Calcium 7.9 L
Vital Signs:
Vital Signs
Temp Pulse Resp BP Pulse Ox
98.6 F 76 18 150/91 92
02/24/24 07:39 02/24/24 09:07 02/24/24 09:07 02/24/24 09:07 02/24/24 09:07
I&O
02/23/24 02/24/24 02/25/24
06:59 06:59 06:59
Intake Total 480 / 480 650 / 650 60 / 60
Output Total 725 / 725 350 / 350
Balance -245 / -245 300 / 300 60 / 60
Review of Systems
-
History Source: Patient
All other systems: Reviewed and negative
Physical Exam
-
General: Well Nourished, No Apparent Distress and Comfortable; Negative Respiratory Distress
HEENT: Normocephalic, Atraumatic, Moist Mucous Membranes and Anicteric
Respiratory: Rhonchi (Bilateral, R>L) and Non Labored Respirations; Negative Wheezes, Rales or Accessory Resp Muscle Use
Cardiac: Regular Rhythm and S1/S2; Negative Murmur, Rub, JVD or Gallop
GI: Soft, Nontender, Nondistended and Normal Bowel Sounds
Musculoskeletal: No Clubbing, No Cyanosis and No Edema
Skin: Warm and Dry; Negative Rash or Jaundice
Neuro: AO x 3, Nonfocal/Grossly Intact and Central Nerve's Intact; Negative Tremors
Psych: Calm
Data Reviewed
-
Labs: Labs Reviewed by me
[2024-02-24 11:11] LABS: 24 Hour Urine Total Volume Random mL; Urine Collection Length Random hr; Urine Free Kappa Light Chains 51.75 mg/L (0.00-32.90); Urine Free Lambda Light Chains 7.39 mg/L (0.00-3.79)
--- NOTE | 2024-02-24 12:02 | W.PN.NEPH.PH ---
Today's Communication / Plan
-
HD today
consider d/c femoral line and plan tunneled HD catheter
d/c goins
Assessment/Plan
-
Impression:
Right upper lobe mass versus infiltrate with hemoptysis
Acute kidney
CKD stage IIIb baseline creatinine 1.6
HTN
History of TIA
History of COPD
Anemia
CHF HFpEF
Plan:
JUDI:
-Etiology remains elusive: bland UA, high FEna, no hydro on US
severe JUDI-HD initiated on 02/21 for hypervolemia
HD again today
wt improving, CXR improving CHF part
wean O2 as able , remains on high flow
BP stable on po meds
mild hyponatremia
monitor h/h , adequate fe stores, high dose AYALA, UPEP neg, SPEP pending
currently he has femoral HD catheter, likely needs to be removed and place tunneled catheter as he remains oliguric
d/w pt ,
-
-
Date of Service: February 24, 2024
CC / HPI / ROS
-
Chief Complaint:
JUDI
History of Present Illness:
oliguric with goins
BP stable
on high flow O2
wt decreasing
hb is low 7.7
Review of Systems:
sob improving, cough+ hemoptysis
no fever
no n/v
Labs
-
Labs:
WBC 12.5 10^3/uL (4.8-10.8) H 02/24/24 03:03
RBC 2.68 10^6/uL (4.70-6.10) L 02/24/24 03:03
Hgb 7.7 g/dL (13.0-18.0) L 02/24/24 03:03
Hct 22.0 % (39.0-52.0) L 02/24/24 03:03
Plt Count 277 10^3/uL (130-400) 02/24/24 03:03
Sodium 134 mmol/L (135-145) L 02/24/24 03:03
Potassium 4.5 mmol/L (3.5-5.1) 02/24/24 03:03
Chloride 98 mmol/L (98-107) 02/24/24 03:03
Carbon Dioxide 28 mmol/L (22-30) 02/24/24 03:03
BUN 73 mg/dl (9-20) H 02/24/24 03:03
Creatinine 2.7 mg/dL (0.7-1.3) H 02/24/24 03:03
eGFR 23.83 02/24/24 03:03
Glucose 168 mg/dl (70-99) H 02/24/24 03:03
Calcium 7.9 mg/dl (8.4-10.2) L 02/24/24 03:03
Phosphorus 6.7 mg/dl (2.5-4.5) H 02/23/24 03:21
Bqi-T-Refggnqqjoc Pept 34340 pg/ml 02/17/24 05:00
Albumin 3.3 g/dl (3.5-5.0) L 02/23/24 03:21
Physical Exam
-
Vital Signs:
Vital Signs
Temp Pulse Resp BP Pulse Ox
99.2 F 74 23 150/91 91
02/24/24 11:30 02/24/24 11:33 02/24/24 11:33 02/24/24 09:07 02/24/24 11:33
Cardiovascular:: Regular rate and rhythm
Respiratory:: Bilateral: Coarse
Lung Excursion:: Abnormal
Abdomen:: Nontender and Soft
Extremity Edema:: None: Bilateral:
Goins Catheter: Yes
--- NOTE | 2024-02-24 12:25 | PTCARENOTE ---
Pt assessed.No change in assessment noted.HD is ongoing.
[2024-02-24 12:38] LABS: Glucose - Point of Care 190 mg/dl (70-99)
--- NOTE | 2024-02-24 14:56 | W.PN.NEPH.HD ---
Assessment
-
pt seen during HD
vitals stable , UF as toelrates
wean O2 as possible
ok for OOB after HD
likley need tunnel HD catheter in next 1-2days
Progress Note - Hemodialysis
-
Date of Service: February 24, 2024
Duration: 15 minutes and 3 hours
Potassium Bath: 3
Calcium Bath: 2.5
Opti-Dialyzer: 160
Ultrafiltration: Other (2kg)
Blood Flow: 400
Dialysate Flow: 600
Heparin: no
EPO: [id number]
[2024-02-24] MEDS: RETACRIT 10000 UNITS IV (15:20)
--- NOTE | 2024-02-24 15:34 | PN.CDI ---
CDI
- -
CDI:
Physician Documentation Request
Admit Date: 02/14/24 13:02
Dear Doctor Collin,
Patient admitted with pneumonia, HF, and possible COPD.
02/23 Hospitalist PN: 'Oliguric JUDI on CKD 3B'
02/23 Nephrology PN: 'JUDI:
-Etiology remains elusive: bland UA, high FEna, no hydro on US
severe JUDI-HD initiated on 02/21 for hypervolemia
HD again today'
02/13 Urine Sodium: 92
02/21 Creatinine: 4.3
Clarify which of the following accurately represents the patient's renal status:
Acute renal failure with suspected ATN
Acute renal failure only
Other
Use of terms such as suspected, likely, concern for, or probable (associated with a specific diagnosis that is being evaluated, monitored, or treated as if it exists) are acceptable and can be coded in the inpatient setting, when documented at the
time of discharge.
Thank you,
Mayra Polanco RN, BSN
CDI Specialist
Available via [facility] text
Please use your independent medical judgment in providing your response.
*Source: Kidney Disease: Improving Global Outcomes (KDIGO) 2012
--- NOTE | 2024-02-24 16:33 | PTCARENOTE ---
Pt assessed.HD completed.POX desaturates to 86-88% on High flow.NRB mask applied.POX 93-94%.Pt denies SOB.PM care completed.
[2024-02-24] MEDS: NOVOLOG FLEXPEN-MODERATE RESISTANCE SC (17:45)
[2024-02-24 17:56] LABS: Glucose - Point of Care 139 mg/dl (70-99)
--- NOTE | 2024-02-24 19:45 | PTCARENOTE ---
Received patient at 1900. Pt. currently awake, alert, and oriented. Denies pain/discomfort. Afebrile. Heart rhythm sinus. Blood pressure normotensive. Currently on HFNC 100% 60L w/ NRB mask. Productive cough, thick blood tinged mucous. PO diet is
ordered, poor appetite. Kuo catheter draining without issue. Skin as documented. Discussed plan of care with patient. Vital signs stable at this time.
[2024-02-24] MEDS: SEROQUEL 25 MG PO (21:32)
[2024-02-24] MEDS: TYLENOL 1000 MG PO (21:32)
[2024-02-24] MEDS: NORVASC 10 MG PO (21:32)
[2024-02-24] MEDS: TOPROL XL 100 MG PO (21:32)
[2024-02-24 21:52] LABS: Glucose - Point of Care 191 mg/dl (70-99)
[2024-02-25] VITALS (24 sets, daily range): BP systolic 117–168; BP diastolic 55–79; BMI 22.8
--- NOTE | 2024-02-25 | PTCARENOTE ---
Pt. placed on Bipap HS. Tolerating mask well. Appears to be sleeping comfortably. Vital signs stable at this time.
[2024-02-25] MEDS: HEPARIN 5000 UNITS SC ×3 (00:13→16:07)
--- NOTE | 2024-02-25 03:20 | PTCARENOTE ---
Pt. assessment remains unchanged. AM labs drawn. Vital signs stable at this time.
[2024-02-25 03:39] LABS: % Basophils 0.2 % (0-2); % Immature Granulocytes 3.9 % (0-0.5); % Lymphocytes 3.8 % (20.5-51.1); % Neutrophils 87.1 % (42.2-75.2); Absolute Immature Granulocytes 0.5 10^3/uL (0-0.05); Absolute Lymphocytes 0.4 10^3/uL (1.2-3.4); Absolute Monocytes 0.6 10^3/uL (0.1-0.6); Hematocrit 22.2 % (39.0-52.0); Hemoglobin 7.6 g/dL (13.0-18.0); Mean Corp Hgb Conc. 34.2 g/dL (33.0-37.0); Mean Corpuscular Hgb 29.6 pg (27.0-31.0); Mean Corpuscular Volume 86.4 fL (80.0-94.0); Mean Platelet Volume 11.2 fL (7.4-10.4); Nucleated Red Blood Cells % 0.9 % (-); Platelet Count 218 10^3/uL (130-400); Red Blood Cell Count 2.57 10^6/uL (4.70-6.10); Red Cell Dist. Width 15.7 % (11.5-14.5); White Blood Cell Count 11.5 10^3/uL (4.8-10.8)
[2024-02-25 03:59] LABS: Blood Urea Nitrogen 50 mg/dl (9-20); Calcium 8.1 mg/dl (8.4-10.2); Carbon Dioxide 30 mmol/L (22-30); Chloride 96 mmol/L (98-107); Estimated Creatinine Clearance 29 ml/min; Glucose 180 mg/dl (70-99); Magnesium 2.1 mg/dl (1.6-2.3); Phosphorus 4.3 mg/dl (2.5-4.5); Potassium 4.2 mmol/L (3.5-5.1); Sodium 135 mmol/L (135-145); eGFR 32.22
[2024-02-25 07:52] LABS: Glucose - Point of Care 156 mg/dl (70-99)
--- NOTE | 2024-02-25 08:00 | PTCARENOTE ---
Received patient from cardiology coordinator. patient is on 83% 50L, and saturating 92%, poor inspiratory effort, diminished throughout, continues to have bloody sputum with productive cough. exchanged [place] and tubing. Patient is AAOx3, [place]. H is
sinus rhythm on monitor, some trace edema in lower extremities. Patient is on pureed diet, aided patient in ordering breakfast. Kuo in for drainage. Right femoral line for HD. plan to possibly change out with IR at bedside. Patient is able
to make needs known, call miranda at bedside. Using NRB prn.
[2024-02-25] MEDS: DUONEB 3 ML INH ×4 (08:14→20:23)
--- NOTE | 2024-02-25 08:28 | W.PN.INTV ---
Today's Communication / Plan
Recommendations
Holding HD session today
Continue nocturnal NIV @ 06/09
Aspiration precautions
Mucolytics
Monitor quantity of hemoptysis
Titrate FiO2 to keep SpO2 >88%
Low threshold to intubate
DNR
Guarded prognosis --> brought up hospice today; goal is to reduce down O2 requirements to nasal cannula, possibly repeat CT chest next week and if RUL mass persists then obtain IR CT-guided TTNA (family wants to know if he has cancer or not), and
then going home on hospice
Assessment
-
73-year-old male with history of hypertension, hyperlipidemia, TIA on Plavix therapy, describes chronic bronchitis and chronic subjective dyspnea with [id number] history of smoking quit 2003. He now presents with progressive cough, shortness of
breath and hemoptysis. Found to have right upper lobe mass with likely pneumonia. We are asked to comment on pulmonary process 02/14/24. Overnight 02/18/24, developed worsening hypoxemia, likely due to superimposed DHF now on HFNC. Transferred to
ICU for further management.
Impression:
Acute HFpEF/DHF, proBNP
Moderate PH, new on ECHO from 02/17/2024 with estimated PASP 50-55 assuming RAP of 8 mmHg
Right upper lobe mass/infiltrate likely PNA however lung cancer with postobstructive pneumonia also very possible
Acute hemoptysis, blood mixed with mucus - likely due to right upper lobe mass in the setting of uremia with platelet dysfunction
Right upper lobe abnormality noted per chest x-ray April 2023
Small pleural effusion
Chronic bronchitis
Dyspnea, progressive
Former smoker, [id number] history of smoking, quit 2003
No prior spirometry, no prior pulmonary evaluation
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
Anemia
JUDI on chronic kidney disease, now on iHD (Cr: 1.4-1.6 at baseline)
Metabolic acidosis with normal anion gap due to JUDI
Elevated proBNP
Chronic diarrhea
Conditions present prior to admission
History of anemia
Hypertension
Hyperlipidemia
GERD with history of duodenal ulcer with bleeding
Required IR embolization 2020
Possible asbestos exposure
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
Family history of cancer
Father with lung cancer
Sister with brain cancer
Sister with liver cancer
Plan
Respiratory status continuing to slowly improve although he still remains tenuous, intermittently needing nonrebreather over the HFNC. HFNC FiO2 down to 80% at 50 L/min flow rate
Creatinine and BUN peaked at 4.3 and 156, respectively, on 02/21
Productive mucus, blood seems to be improved lucas after HD session
Preadmission history: Patient is short of breath since April 2023 at which time he had right upper lobe infiltrate. Patient cannot recall any history of recent pneumonia
Significant smoking and asbestos exposure history noted
Patient did not get follow-up x-ray as recommended per report in April
Former smoker, quit >30 years ago, strong family history of cancers
There is high suspicion this could be metastatic illness
IV steroids added with Decadron--> weaned down to 4mg IV q12hr on 02/22 --> can wean down to prednisone taper starting today
Finished 10 day course of ceftriaxone on 02/22
s/p 6 days zithromax - stopped on 02/18
Sputum culture few gram-positive cocci, many white cells, usual yaritza/finalized
Myrna noted 02/15
Prior sputum 02/13 neg
Legionella, streptococcal pneumonia negative
Continue to quantify hemoptysis
Airway clearance reviewed with RT, mucinex/acapella, vest/IS
Tolerated NIV last night at 12/ at 75% FiO2. Continue NIV with sleep to improve sleep quality, assist with ventilation and the higher PEEP may also improve O2 requirements
Continue high flow NC during the day, reducing FiO2 as tolerated, keeping SpO2 88-95%
Hemoglobin stable
Plavix has been held since 02/14 given worsening hypoxia, chest x-ray findings
- Consider restarting plavix once hemoptysis fully resolved for >48 -72 hrs
Doubt active pulmonary hemorrhage given stable hemoglobin
ProBNP elevated at 19,500 on 02/17/2024, history of CHF
Trend sCr and UOP; Kuo catheter in place --> recommend to continue given his critically ill state with need for strict I/O
Nephrology following � recommendations appreciated
Hold nephrotoxic drugs
s/p HD cath on 02/21 and got 1st session on 02/21, 2nd session 02/22; 3rd session on 02/23 --> skipping HD session today
Pt having anxiety and insomnia -- started seroquel 25mg HS on 02/21 --> seemed to help his sleep quality
Protonix for GERD therapy
Aspiration precautions
Pur�ed diet
Continue with moderate resistance sliding scale with goal BG 140�180
DVT ppx: HSQ 5000 units q8hr
Family Discussions
Mira 02/18- Reviewed with today and son on speaker phone today on rounds. We discussed all of his poor prognostic markers including possible/suspected metastatic disease, acute HF picture, worsening JUDI, worsening hypoxemia. She understands
his overall outlook remains poor even with intubation/MV. There is less chance for good QoL the more organ dysfunction occurs. Family will visit and discuss further GOC.
Litzy - Reviewed with patient, at bedside
Updated son by phone 02/16 (Kevon: [phone])
Reviewed concern regarding possibility of underlying malignancy.
Patient high risk for intubation.
Discussion held by Dr. Montoya on 02/22/2024 with and patient ---> patient is now DNR, okay for intubation in addition to other full medical management (see separate note from 02/21)
Continue ICU level care given his labile oxygen saturations with high risk for clinical deterioration and need for intubation.
Critical care statement: A total of 38 minutes of critical care time was provided for this patient today. This includes management of unstable vital signs, evaluation of the patient at bedside, reviewing the patient's pertinent medical records
including radiographs, microbiology, laboratory evaluations, and discussion with primary team, consultants, pharmacy, nutrition, physical therapy, case management, charge nurse, critical care nursing, and respiratory therapy.
Diagnostic Data
Chest x-ray 02/22/2024: Multifocal pneumonia, most pronounced within the right upper lobe. No significant change compared to 02/18/2024; Interstitial coarsening and mild interstitial prominence, suggestive of COPD. Pulmonary edema may also be present
Chest X-Ray: 02/18/24- Findings raising concern for pulmonary edema, superimposed on right lung pneumonic process. The patient does have a proBNP value of 19,500 today.
02/17/24- Right lung opacities suspicious for pneumonia without significant change in comparison to recent prior study.
CT Scan: CHEST 02/14/24- 1. Large right upper lobe pneumonia. Imaging follow-up to resolution is recommended as an underlying pulmonary neoplasm would be difficult to completely exclude.
2. Chronic obstructive pulmonary disease.
3. Small pericardial effusion.
4. Small right pleural effusion.
5. Mild loculated pleural fluid in the right minor fissure.
CXR 02/24/2024:There is moderate diffuse interstitial and groundglass airspace disease throughout both lungs with more confluent alveolar airspace disease in the right upper lung. This airspace disease is improved but unresolved compared with
previous examination and has more the appearance of inflammatory airspace disease than pulmonary edema as there are no septal lines to suggest interstitial edema.
Echo: 02/17/24- Normal left ventricular size and systolic function. No regional wall motion abnormalities are seen. LV ejection fraction is 65-70% by volumetric assessment. Mild concentric left ventricular hypertrophy. Stage II diastolic dysfunction
suggestive of abnormal relaxation and increased filling pressures. Top normal right ventricular size. Normal right ventricular systolic function. Aortic sclerosis without stenosis. Mild tricuspid regurgitation. Estimated pulmonary artery pressure
of 50-55 mmHg assuming a right atrial pressure of 8 mmHg. Compared to prior study dated 04/28/2023, estimated pulmonary artery systolic pressure was previously normal at 25-30 mmHg
04/28/23- 1. Mild concentric left ventricular hypertrophy with preserved systolic function, EF 60-65%
2. Thickened mitral leaflets with mitral annular calcification, trace mitral regurgitation and minimally dilated left atrium
3. Aortic sclerosis with trace aortic insufficiency
4. Normal right heart with normal pulmonary artery pressure
The study is similar to October 2021. The patient will be called and told that there is preserved heart muscle function and no significant valve abnormality.
Subjective Dataa
Subjective Data
Date of Service:
Date of Service: February 25, 2024
Chief Complaint: Director [employer] Follow Up
Subjective:
Patient seen and evaluated this morning. Remains on high flow nasal cannula at 80% FiO2 saturating 96%, intermittently needing nonrebreather as his sats are labile which drop to the upper 70s with activity. Heart rate 77 and BP 134/55. at
bedside - I answered her questions. Pt. still having bloody phlegm. He denies CP, worsening SOB, CERVANTES, abdominal pain, fevers or chills. Afebrile overnight.
Review of Systems
General: Other (Negative unless mentioned above)
Objective Data
Data Reviewed
Vital Signs / I&O / Oxygen:
Vital Signs
Temp Pulse Resp BP Pulse Ox
98.3 F 71 20 158/78 93
02/25/24 07:46 02/25/24 08:20 02/25/24 08:20 02/25/24 08:32 02/25/24 08:20
Intake and Output
02/24/24 02/25/24 02/26/24
06:59 06:59 06:59
Intake Total 650 / 650 640 / 640 450 / 450
Output Total 350 / 350 350 / 350
Balance 300 / 300 290 / 290 450 / 450
SaO2 [NIV (Non Invasive 94
Ventilation)]
SaO2 93
Nasal Cannula flow liters per 50
minute
Physical Exam
General: Respiratory Distress (negative), Comfortable, Fever (negative) and Other (chronically ill appearing, weak/deconditioned)
HEENT: Normocephalic and Anicteric
Cardiovascular: S1-S2 and Peripheral Edema (+1 lower extremity pitting edema bilaterally)
Respiratory: Wheeze (negative), Crackles (Bilateral), Rhonchi (Bilateral) and Accessory Resp Muscle Use (During activity/exertion)
GI: Soft, Non Distended, Non Tender and Normal Bowel Sounds
Neurology: AO x 3 and Tremors (negative)
Skin: Warm, Dry, Cyanosis (negative) and Jaundice (negative)
Labs/Micro/Reports
Lab Data
02/25/24 03:15
02/25/24 03:15
[2024-02-25] MEDS: VITAMIN B-12 1000 MCG PO (08:32)
[2024-02-25] MEDS: PROTONIX 40 MG PO (08:32)
[2024-02-25] MEDS: LIPITOR 80 MG PO (08:32)
[2024-02-25] MEDS: NOVOLOG FLEXPEN-MODERATE RESISTANCE 1 UNITS SC (08:32)
[2024-02-25] MEDS: MUCINEX 600 MG PO ×2 (08:32→21:09)
[2024-02-25] MEDS: APRESOLINE 75 MG PO ×3 (08:32→21:10)
[2024-02-25] MEDS: DECADRON 4 MG IV (08:33)
--- NOTE | 2024-02-25 09:56 | W.PN.HOSP.TC ---
Today's Communication/Plan
-
Continue to wean oxygen as able
Continue IV antibiotics, steroid
Planning for tunnel cath for HD access
Quantify any hemoptysis produced
Assessment / Plan
Assessment / Plan
#Acute hypoxemic respiratory failure -- due to pneumonia, superimposed HFpEF, possible COPD, hematemesis
#Severe CAP -- RUL, bacterial
#Acute on chronic HFpEF
#Acute hemoptysis -- suspected right upper lobe malignancy and also with Plavix
-CT thorax showed with large RUL consolidation, also signs of malignancy in the RUL, pulmonary edema
-Was started on IV ceftriaxone empirically, completed course of IV azithromycin as well; started on steroid for severe bacterial pneumonia
-Developed decompensation of HFpEF in the context of IV fluids, elevated proBNP, s/p IV Lasix course, now on hemodialysis
-Echocardiogram here showed severe pulmonary hypertension; has evidence of COPD with emphysematous findings, tobacco history
-Appears to be euvolemic, no signs of excessive wheezing though does seem very rhonchorous
-Oxygen status is improving, titrated down to 50 L via high flow nasal cannula
-Pulmonology following
Plan
-Continue with IV ceftriaxone and steroid therapy
-Continue to hold clopidogrel, quantify hemoptysis
-Continue with HD for volume status; Monitor I/Os
-Consider GDMT with MRA/SGLT2i for HFpEF if renal function recovers
-Titrate supplemental oxygen for SpO2 goal 88-94%, NIV nightly PRN
-Will eventually need PFTs and pulm assessment for new COPD
#Oliguric JUDI on CKD 3B
#Metabolic acidosis
-Suspected to be prerenal; Home medications include diuretics and ARB, presented with infection
-Home diuretics and losartan are held, started on bicarbonate therapy for acidosis
-Nephrology following, planning for tunneled cath as permanent HD access
-Optimistic that renal function will improve to no longer needing HD
Plan
-Continue HD at nephrology discretion
-Trend daily BMP, monitor strict I's and O's
-Planning for AYALA for associated anemia
-Renal diet
#Right upper lobe mass
-Likely demonstrated on CT, but does have superimposed bacterial pneumonia which may affect findings
-Will need a repeat CT scan when infection is clear, possible consideration for biopsy if mass present
-Suspect this is the source of hemoptysis as above
#Dysphagia
-likely due to deconditioning and critical illness
-Currently on pur�ed diet, pending video swallow examination
#Acute on chronic normocytic anemia -- blood loss from hemoptysis, dilution
-Baseline hemoglobin around 10, most recently hemoglobin 7.5 and has been stable
-Iron studies without signs of deficiency, no evidence of hemolysis, B12 was low but now on therapy
-Will continue to trend daily CBC and transfuse for hemoglobin <7
-Planning for AYALA as above
#History of duodenal ulcer/GI bleed
-No signs of active GI bleeding while here, did have hemoptysis
-Remains on home PPI regimen
#History of TIA
-Holding plavix as above
#Essential hypertension
-No known history of hypertensive systemic disease, Home meds include metoprolol hydralazine, and amlodipine
-Blood pressure has been poorly controlled outside of the hospital, recently hydralazine was increased
-Most recent BP 149/64 mmHg, will not be too aggressive while here due to critical illness
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
-History of heavy tobacco abuse in the past; no formal diagnosis, no home inhaler therapies
-Currently without any wheezing or signs of exacerbation though cannot rule out contribution to his presentation
-Plan for pulm follow-up and PFTs at discharge, DC on DuoNebs as needed
#Hyperlipidemia
-No known history of ASCVD
-No medications include high intensity shortness
CODE STATUS: Limited DNR-no CPR
DVT prophylaxis: Heparin subcutaneous
Diet: Pur�ed
Anticipated Discharge: > 48 hours
Subjective/Interval History
-
Date of Service: February 25, 2024
Seen and examined at the bedside. No acute events reported overnight. No acute events per telemetry. Has been titrated down to 50 L high flow via nasal cannula.
He states that he feels well this morning, breathing is improving slowly. States that he had a good night sleep as well. Denies chest pain, coughing or wheezing, nausea, vomiting, diarrhea, urinary issues, bleeding or bruising.
He would like to get out of bed today
Objective Data
-
Labs:
Laboratory Results
02/25/24
03:15
WBC 11.5 H
Hgb 7.6 L
Hct 22.2 L
Plt Count 218 D
Sodium 135
Potassium 4.2
Chloride 96 L
Carbon Dioxide 30
BUN 50 H
Creatinine 2.1 H
Glucose 180 H
Calcium 8.1 L
Vital Signs:
Vital Signs
Temp Pulse Resp BP Pulse Ox
98.3 F 71 20 158/78 93
02/25/24 07:46 02/25/24 08:20 02/25/24 08:20 02/25/24 08:32 02/25/24 08:20
I&O
02/24/24 02/25/24 02/26/24
06:59 06:59 06:59
Intake Total 650 / 650 640 / 640 450 / 450
Output Total 350 / 350 350 / 350
Balance 300 / 300 290 / 290 450 / 450
Review of Systems
-
History Source: Patient
All other systems: Reviewed and negative
Physical Exam
-
General: Well Nourished, No Apparent Distress and Comfortable; Negative Respiratory Distress
HEENT: Normocephalic, Atraumatic, Moist Mucous Membranes and Anicteric
Respiratory: Rhonchi (Upper, R>L) and Non Labored Respirations; Negative Wheezes, Rales or Accessory Resp Muscle Use
Cardiac: Regular Rhythm and S1/S2; Negative Murmur, Rub, JVD or Gallop
GI: Soft, Nontender, Nondistended and Normal Bowel Sounds
Musculoskeletal: No Clubbing, No Cyanosis and No Edema
Skin: Warm and Dry; Negative Rash
Neuro: AO x 3, Nonfocal/Grossly Intact and Central Nerve's Intact
Data Reviewed
-
Labs: Labs Reviewed by me and Discussed with Patient
--- NOTE | 2024-02-25 11:24 | W.PN.NEPH.PH ---
Addendum entered and electronically signed by Lynne Polanco MD 02/26/24 15:57:
for billing -ARF suspected ATN
Original Note:
Today's Communication / Plan
-
HD tomorrow
Assessment/Plan
-
Impression:
Right upper lobe mass versus infiltrate with hemoptysis
Acute kidney
CKD stage IIIb baseline creatinine 1.6
HTN
History of TIA
History of COPD
Anemia
CHF HFpEF
Plan:
JUDI:
-Etiology remains elusive: bland UA, high FEna, no hydro on US
severe JUDI-HD initiated on 02/21 for hypervolemia
wean O2 as able , remains on high flow
BP stable on po meds
mild hyponatremia -improving
monitor h/h , adequate fe stores, high dose AYALA, UPEP neg, SPEP pending
currently he has femoral HD catheter,
UOP remains oliguric
may need IJ catheter eventually based on resp status
Seem to have poor prognosis
d/w pt ,
d/w nursing
-
-
Date of Service: February 25, 2024
CC / HPI / ROS
-
Chief Complaint:
JUDI
History of Present Illness:
oliguric with goins
BP stable
remains on high flow O2
wt decreasing
hb is low 7.6
Review of Systems:
sob still, cough+ hemoptysis
no fever
no n/v
Labs
-
Labs:
WBC 11.5 10^3/uL (4.8-10.8) H 02/25/24 03:15
RBC 2.57 10^6/uL (4.70-6.10) L 02/25/24 03:15
Hgb 7.6 g/dL (13.0-18.0) L 02/25/24 03:15
Hct 22.2 % (39.0-52.0) L 02/25/24 03:15
Plt Count 218 10^3/uL (130-400) D 02/25/24 03:15
Sodium 135 mmol/L (135-145) 02/25/24 03:15
Potassium 4.2 mmol/L (3.5-5.1) 02/25/24 03:15
Chloride 96 mmol/L (98-107) L 02/25/24 03:15
Carbon Dioxide 30 mmol/L (22-30) 02/25/24 03:15
BUN 50 mg/dl (9-20) H 02/25/24 03:15
Creatinine 2.1 mg/dL (0.7-1.3) H 02/25/24 03:15
eGFR 32.22 02/25/24 03:15
Glucose 180 mg/dl (70-99) H 02/25/24 03:15
Calcium 8.1 mg/dl (8.4-10.2) L 02/25/24 03:15
Phosphorus 4.3 mg/dl (2.5-4.5) 02/25/24 03:15
Xjc-N-Miyzofmknlu Pept 97192 pg/ml 02/17/24 05:00
Albumin 3.3 g/dl (3.5-5.0) L 02/23/24 03:21
Physical Exam
-
Vital Signs:
Vital Signs
Temp Pulse Resp BP Pulse Ox
98.3 F 77 21 158/78 92
02/25/24 07:46 02/25/24 11:14 02/25/24 11:14 02/25/24 08:32 02/25/24 11:14
Cardiovascular:: Regular rate and rhythm
Respiratory:: Bilateral: Rales (at bases)
Lung Excursion:: Abnormal
Abdomen:: Nontender and Soft
Extremity Edema:: None: Bilateral:
Goins Catheter: Yes
--- NOTE | 2024-02-25 11:46 | PTCARENOTE ---
Patient now on 90% 50L. Kept desaturating into low 80s and requiring non rebreather.
--- NOTE | 2024-02-25 12:40 | CM ---
Patient seen with in ICU. Nurse indicated that patient had questions. Patient confirmed and stated that he had questions about insurances. Patient also indicated that she had called to the billing office and they were unable to assist
with explaining bills until they were submitted. Patient stated that she understands the plan is for patient to work on needing less O2 in the next week and then they would make a decision with the physicians. Patient expressed questions
about hospice and stated that patient does not want to go home with 'supports' and patient confirmed that wish. Patient and also indicated that they were not interested in SNF/rehab options at this time. Patient expressed appreciation about
[facility] supports and blanket. Patient indicated that their bindery technician would be coming to visit sometime in the next day or so. CM will continue to follow for discharge planning needs.
Plan; pending patient medical treatment needs
[2024-02-25] MEDS: NOVOLOG FLEXPEN-MODERATE RESISTANCE 3 UNITS SC (13:26)
[2024-02-25 13:39] LABS: Glucose - Point of Care 232 mg/dl (70-99)
[2024-02-25 14:13] LABS: Albumin 2.95 g/dL (3.75-5.01); Alpha 1 Globulin 0.51 g/dL (0.19-0.46); Alpha 2 Globulin 1.18 g/dL (0.48-1.05); SPEP IFE Reflex Not Done; Total Protein-Electrophoresis 6.4 g/dL (6.3-8.2)
--- NOTE | 2024-02-25 16:02 | PTOTSP ---
ST Follow-Up
Pt currently presents with clinical symptoms of mild oropharyngeal dysphagia characterized by prolonged mastication and bolus formation, increased WOB with mastication with subsequent PO2 desaturation, and possible penetration/aspiration event with
liquids. Extensive education provided regarding increased risk for aspiration given HFNC and increased WOB with PO intake. Reminded pt of general aspiration precautions as well as importance of choosing softer food items (including Ensure drinks) as
well as taking breaks between bites/sips to breathe/catch his breath.
Recommendations:
- Upgrade pt to SOFT BITE SIZED SOLIDS and continue with regular thin liquids; meds as tolerated.
- HIGH aspiration precautions: Fully awake, alert, and upright for all PO intake, PO2 >92% and RR <30 for PO intake; small bites/sips; alternate bites/sips; slow intake rate; take breaks to breathe/catch breath; denture adhesive if electing to use
dentures.
- LUBRICATING MACHINE TENDER to f/u to ensure pt is safely consuming the recommended diet upgrades and to determine whether pt would benefit from an instrumental swallow study.
[2024-02-25] MEDS: DELTASONE 40 MG PO (16:07)
--- NOTE | 2024-02-25 16:12 | PTCARENOTE ---
Patient OOB to chair assist x2. oxygen saturation now in mid 90s. Sitting and speaking with family. Order changed per physician, ok to get OOB with femoral line.
[2024-02-25 17:19] LABS: Glucose - Point of Care 247 mg/dl (70-99)
[2024-02-25] MEDS: NOVOLOG FLEXPEN-HIGH RESISTANCE 4 UNITS SC (17:59)
[2024-02-25] MEDS: TYLENOL 1000 MG PO (21:09)
[2024-02-25] MEDS: NORVASC 10 MG PO (21:09)
[2024-02-25] MEDS: SEROQUEL 25 MG PO (21:10)
[2024-02-25] MEDS: TOPROL XL 100 MG PO (23:59)
[2024-02-26] VITALS (54 sets, daily range): BP systolic 131–172; BP diastolic 58–89; BMI 22.8
[2024-02-26] MEDS: HEPARIN 5000 UNITS SC ×3 (03:45→16:57)
[2024-02-26 06:41] LABS: % Basophils 0.1 % (0-2); % Lymphocytes 5.8 % (20.5-51.1); % Monocytes 4.6 % (1.7-9.3); % Neutrophils 85.5 % (42.2-75.2); Absolute Immature Granulocytes 0.4 10^3/uL (0-0.05); Absolute Lymphocytes 0.6 10^3/uL (1.2-3.4); Absolute Monocytes 0.4 10^3/uL (0.1-0.6); Absolute Neutrophils 8.2 10^3/uL (1.4-6.5); Hematocrit 20.3 % (39.0-52.0); Hemoglobin 7.1 g/dL (13.0-18.0); Mean Corpuscular Hgb 29.1 pg (27.0-31.0); Mean Corpuscular Volume 83.2 fL (80.0-94.0); Mean Platelet Volume 11.1 fL (7.4-10.4); Nucleated Red Blood Cells % 0.2 % (-); Platelet Count 205 10^3/uL (130-400); Red Blood Cell Count 2.44 10^6/uL (4.70-6.10); White Blood Cell Count 9.6 10^3/uL (4.8-10.8)
[2024-02-26 06:55] LABS: Blood Urea Nitrogen 88 mg/dl (9-20); Calcium 7.8 mg/dl (8.4-10.2); Carbon Dioxide 28 mmol/L (22-30); Chloride 94 mmol/L (98-107); Estimated Creatinine Clearance 24 ml/min; Glucose 149 mg/dl (70-99); Potassium 4.1 mmol/L (3.5-5.1); Sodium 132 mmol/L (135-145); eGFR 24.94
[2024-02-26] MEDS: DUONEB 3 ML INH ×4 (07:33→20:32)
[2024-02-26] MEDS: MUCINEX 600 MG PO ×2 (07:42→20:38)
[2024-02-26] MEDS: NOVOLOG FLEXPEN-HIGH RESISTANCE SC ×3 (07:42→16:57)
[2024-02-26] MEDS: LIPITOR 80 MG PO (07:42)
[2024-02-26] MEDS: VITAMIN B-12 1000 MCG PO (07:42)
[2024-02-26] MEDS: DELTASONE 40 MG PO (07:42)
[2024-02-26] MEDS: APRESOLINE 75 MG PO ×3 (07:42→22:37)
[2024-02-26] MEDS: PROTONIX 40 MG PO (07:42)
[2024-02-26 07:47] LABS: Glucose - Point of Care 143 mg/dl (70-99)
--- NOTE | 2024-02-26 08:00 | PTCARENOTE ---
Received pt @ change of shift. Drowsy, awakens to verbal stim; ox3; denies pain. SR on monitor. SpO2 96% on HFNC 50L/85%. P cough w small amt of thick farias/bloody tinged oral secretions; anchor in use. Assisted w mouth/denture care. +BS, poor
yevgeniy; cachectic. Kuo in place draining yellow urine. R going HD cath w pigtail dressing c/d/i. Assisted pt. w ordering breakfast and awaiting meal. Instructed on how to report care concerns and call ruben fuentes in reach.
--- NOTE | 2024-02-26 08:50 | W.PN.INTV ---
Today's Communication / Plan
Recommendations
4th HD session today
Continue nocturnal NIV @ 06/09
Aspiration precautions
Mucolytics
Monitor quantity of hemoptysis
Trend H/H --> transfuse if Hb<7g/dL
Titrate FiO2 to keep SpO2 >88%
Low threshold to intubate
DNR
Guarded prognosis --> brought up hospice on 02/24; goal is to reduce down O2 requirements to nasal cannula, possibly repeat CT chest next week and if RUL mass persists then obtain IR CT-guided TTNA (family wants to know if he has cancer or not), and
then going home on hospice
Assessment
-
73-year-old male with history of hypertension, hyperlipidemia, TIA on Plavix therapy, describes chronic bronchitis and chronic subjective dyspnea with [id number] history of smoking quit 2003. He now presents with progressive cough, shortness of
breath and hemoptysis. Found to have right upper lobe mass with likely pneumonia. We are asked to comment on pulmonary process 02/14/24. Overnight 02/18/24, developed worsening hypoxemia, likely due to superimposed DHF now on HFNC. Transferred to
ICU for further management.
Impression:
Acute HFpEF/DHF, proBNP
Moderate PH, new on ECHO from 02/17/2024 with estimated PASP 50-55 assuming RAP of 8 mmHg
Right upper lobe mass/infiltrate likely PNA however lung cancer with postobstructive pneumonia also very possible
Acute hemoptysis, blood mixed with mucus - likely due to right upper lobe mass in the setting of uremia with platelet dysfunction
Right upper lobe abnormality noted per chest x-ray April 2023
Small pleural effusion
Chronic bronchitis
Dyspnea, progressive
Former smoker, [id number] history of smoking, quit 2003
No prior spirometry, no prior pulmonary evaluation
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
Anemia
JUDI on chronic kidney disease, now on iHD (Cr: 1.4-1.6 at baseline)
Metabolic acidosis with normal anion gap due to JUDI
Elevated proBNP
Chronic diarrhea
Conditions present prior to admission
History of anemia
Hypertension
Hyperlipidemia
GERD with history of duodenal ulcer with bleeding
Required IR embolization 2020
Possible asbestos exposure
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
Family history of cancer
Father with lung cancer
Sister with brain cancer
Sister with liver cancer
Plan
Respiratory status continuing to slowly improve although he still remains tenuous, intermittently needing nonrebreather over the HFNC. HFNC FiO2 down to 85% at 50 L/min flow rate
Creatinine and BUN peaked at 4.3 and 156, respectively, on 02/21
Productive mucus, blood seems to be improved lucas after HD sessions
Preadmission history: Patient is short of breath since April 2023 at which time he had right upper lobe infiltrate. Patient cannot recall any history of recent pneumonia
Significant smoking and asbestos exposure history noted
Patient did not get follow-up x-ray as recommended per report in April
Former smoker, quit >30 years ago, strong family history of cancers
There is high suspicion this could be metastatic illness
IV steroids added with Decadron--> weaned down to 4mg IV q12hr on 02/22 --> weaned down to prednisone taper on 02/25
Finished 10 day course of ceftriaxone on 02/22
s/p 6 days zithromax - stopped on 02/18
Sputum culture few gram-positive cocci, many white cells, usual yaritza/finalized
Myrna noted 02/15
Prior sputum 02/13 neg
Legionella, streptococcal pneumonia negative
Continue to quantify hemoptysis
Airway clearance reviewed with RT, mucinex/acapella, vest/IS
Tolerating NIV at 12/5 at 70% FiO2. Continue NIV with sleep to improve sleep quality, assist with ventilation and the higher PEEP may also improve O2 requirements
Continue high flow NC during the day, reducing FiO2 as tolerated, keeping SpO2 88-95%
Hemoglobin stable
Plavix has been held since 02/14 given worsening hypoxia, chest x-ray findings
- Consider restarting plavix once hemoptysis fully resolved for >48 -72 hrs
Doubt active pulmonary hemorrhage given stable hemoglobin
ProBNP elevated at 19,500 on 02/17/2024, history of CHF
Trend sCr and UOP; Kuo catheter in place --> recommend to continue given his critically ill state with need for strict I/O
Nephrology following � recommendations appreciated
Hold nephrotoxic drugs
s/p HD cath on 02/21 and got 1st session on 02/21, 2nd session 02/22; 3rd session on 02/23 --> 4th session planned for today
Pt having anxiety and insomnia -- started seroquel 25mg HS on 02/21 --> seemed to help his sleep quality
Protonix for GERD therapy
Aspiration precautions
Soft & bite sized
Continue with moderate resistance sliding scale with goal BG 140�180
DVT ppx: HSQ 5000 units q8hr
Family Discussions
Mira 02/18- Reviewed with today and son on speaker phone today on rounds. We discussed all of his poor prognostic markers including possible/suspected metastatic disease, acute HF picture, worsening JUDI, worsening hypoxemia. She understands
his overall outlook remains poor even with intubation/MV. There is less chance for good QoL the more organ dysfunction occurs. Family will visit and discuss further GOC.
Litzy - Reviewed with patient, at bedside
Updated son by phone 02/16 (Kevon: [phone])
Reviewed concern regarding possibility of underlying malignancy.
Patient high risk for intubation.
Discussion held by Dr. Montoya on 02/22/2024 with and patient ---> patient is now DNR, okay for intubation in addition to other full medical management (see separate note from 02/21)
Continue ICU level care given his labile oxygen saturations with high risk for clinical deterioration and need for intubation.
Critical care statement: A total of 41 minutes of critical care time was provided for this patient today. This includes management of unstable vital signs, evaluation of the patient at bedside, reviewing the patient's pertinent medical records
including radiographs, microbiology, laboratory evaluations, and discussion with primary team, consultants, pharmacy, nutrition, physical therapy, case management, charge nurse, critical care nursing, and respiratory therapy.
Diagnostic Data
Chest x-ray 02/22/2024: Multifocal pneumonia, most pronounced within the right upper lobe. No significant change compared to 02/18/2024; Interstitial coarsening and mild interstitial prominence, suggestive of COPD. Pulmonary edema may also be present
Chest X-Ray: 02/18/24- Findings raising concern for pulmonary edema, superimposed on right lung pneumonic process. The patient does have a proBNP value of 19,500 today.
02/17/24- Right lung opacities suspicious for pneumonia without significant change in comparison to recent prior study.
CT Scan: CHEST 02/14/24- 1. Large right upper lobe pneumonia. Imaging follow-up to resolution is recommended as an underlying pulmonary neoplasm would be difficult to completely exclude.
2. Chronic obstructive pulmonary disease.
3. Small pericardial effusion.
4. Small right pleural effusion.
5. Mild loculated pleural fluid in the right minor fissure.
CXR 02/24/2024:There is moderate diffuse interstitial and groundglass airspace disease throughout both lungs with more confluent alveolar airspace disease in the right upper lung. This airspace disease is improved but unresolved compared with
previous examination and has more the appearance of inflammatory airspace disease than pulmonary edema as there are no septal lines to suggest interstitial edema.
Echo: 02/17/24- Normal left ventricular size and systolic function. No regional wall motion abnormalities are seen. LV ejection fraction is 65-70% by volumetric assessment. Mild concentric left ventricular hypertrophy. Stage II diastolic dysfunction
suggestive of abnormal relaxation and increased filling pressures. Top normal right ventricular size. Normal right ventricular systolic function. Aortic sclerosis without stenosis. Mild tricuspid regurgitation. Estimated pulmonary artery pressure
of 50-55 mmHg assuming a right atrial pressure of 8 mmHg. Compared to prior study dated 04/28/2023, estimated pulmonary artery systolic pressure was previously normal at 25-30 mmHg
04/28/23- 1. Mild concentric left ventricular hypertrophy with preserved systolic function, EF 60-65%
2. Thickened mitral leaflets with mitral annular calcification, trace mitral regurgitation and minimally dilated left atrium
3. Aortic sclerosis with trace aortic insufficiency
4. Normal right heart with normal pulmonary artery pressure
The study is similar to October 2021. The patient will be called and told that there is preserved heart muscle function and no significant valve abnormality.
Subjective Dataa
Subjective Data
Date of Service:
Date of Service: February 26, 2024
Chief Complaint: Dietetic Assistant Follow Up
Subjective:
Patient seen and evaluated this morning, sitting in chair in NAD - at bedside - all questions were answered. Wore NIV overnight 06/09 at 70% FiO2. Currently on HFNC at 50 L/min, 85% FiO2. BP 151/69, HR 71, SpO2 94%. Still having bloody
phlegm mixed with farias sputum. He otherwise denies worsening SOB, CP, CERVANTES, abdominal pain, fevers or chills.
Review of Systems
General: Other (Negative unless mentioned above)
Objective Data
Data Reviewed
Vital Signs / I&O / Oxygen:
Vital Signs
Temp Pulse Resp BP Pulse Ox
97.9 F 78 14 144/59 96
02/26/24 07:50 02/26/24 07:42 02/26/24 07:36 02/26/24 07:42 02/26/24 08:16
Intake and Output
02/25/24 02/26/24 02/27/24
06:59 06:59 06:59
Intake Total 640 / 640 690 / 690 360 / 360
Output Total 350 / 350 450 / 450
Balance 290 / 290 240 / 240 360 / 360
SaO2 [NIV (Non Invasive 94
Ventilation)]
SaO2 96
Nasal Cannula flow liters per 50
minute
Physical Exam
General: Respiratory Distress (negative), Comfortable, Fever (negative) and Other (chronically ill appearing, weak/deconditioned)
HEENT: Normocephalic and Anicteric
Cardiovascular: S1-S2 and Peripheral Edema (trace lower extremity pitting edema bilaterally)
Respiratory: Wheeze (negative), Crackles (negative), Rhonchi (Bilateral) and Accessory Resp Muscle Use (During activity/exertion)
GI: Soft, Non Distended, Non Tender and Normal Bowel Sounds
Neurology: AO x 3 and Tremors (negative)
Skin: Warm, Dry, Cyanosis (negative) and Jaundice (negative)
Labs/Micro/Reports
Lab Data
02/26/24 06:22
02/26/24 06:22
--- NOTE | 2024-02-26 09:55 | W.PN.HOSP.TC ---
Today's Communication/Plan
-
Continue IV antibiotics and steroid
Repeat chest x-ray
Hemodialysis today
Wean oxygen with SpO2 goal 88 to 94%
Assessment / Plan
Assessment / Plan
#Acute hypoxemic respiratory failure -- due to pneumonia, superimposed HFpEF, possible COPD, hematemesis
#Severe CAP -- RUL, bacterial
#Acute on chronic HFpEF
#Acute hemoptysis -- suspected right upper lobe malignancy and also with Plavix
-CT thorax showed with large RUL consolidation, also signs of malignancy in the RUL, pulmonary edema
-Was started on IV ceftriaxone empirically, completed course of IV azithromycin as well; started on steroid for severe bacterial pneumonia
-Developed decompensation of HFpEF in the context of IV fluids, elevated proBNP, s/p IV Lasix course, now on hemodialysis
-Echocardiogram here showed severe pulmonary hypertension; has evidence of COPD with emphysematous findings, tobacco history
-Seems euvolemic as of now, pulmonary auscultation is improving as he seems less rhonchorous, on 50 L high flow today
-Pulmonology following
Plan
-Continue with IV ceftriaxone and steroid therapy
-Continue to hold clopidogrel, quantify hemoptysis
-Continue with HD for volume status; Monitor I/Os
-Repeat chest x-ray today to reassess opacities
-Titrate supplemental oxygen for SpO2 goal 88-94%, NIV nightly PRN
-Will eventually need PFTs and pulm assessment for new COPD
#Oliguric JUDI on CKD 3B
#Metabolic acidosis
#Normocytic anemia
-Suspected to be prerenal; Home medications include diuretics and ARB, presented with infection
-Home diuretics and losartan are held, started on bicarbonate therapy for acidosis
-Nephrology following, planning for tunneled cath as permanent HD access
-Optimistic that renal function will improve to no longer needing HD
-Planning for another HD session today at noon
-Blood counts with hemoglobin in the range of 7-7.6
Plan
-Continue HD at nephrology discretion
-Trend daily BMP, monitor strict I's and O's
-Planning for AYALA for associated anemia
-Consider transfusion for hemoglobin <7
-Renal diet
#Right upper lobe mass
-Likely demonstrated on CT, but does have superimposed bacterial pneumonia which may affect findings
-Will need a repeat CT scan when infection is clear, possible consideration for biopsy if mass present
-Suspect this is the source of hemoptysis as above
#Acute on chronic normocytic anemia -- blood loss from hemoptysis, dilution
-Baseline hemoglobin around 10, most recently hemoglobin 7.5 and has been stable
-Iron studies without signs of deficiency, no evidence of hemolysis, B12 was low but now on therapy
-Will continue to trend daily CBC and transfuse for hemoglobin <7
-Planning for AYALA as above
#History of duodenal ulcer/GI bleed
-No signs of active GI bleeding while here, did have hemoptysis
-Remains on home PPI regimen
#History of TIA
-Holding plavix as above
#Essential hypertension
-No known history of hypertensive systemic disease, Home meds include metoprolol hydralazine, and amlodipine
-Blood pressure has been poorly controlled outside of the hospital, recently hydralazine was increased
-Most recent BP 149/64 mmHg, will not be too aggressive while here due to critical illness
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
-History of heavy tobacco abuse in the past; no formal diagnosis, no home inhaler therapies
-Currently without any wheezing or signs of exacerbation though cannot rule out contribution to his presentation
-Plan for pulm follow-up and PFTs at discharge, DC on DuoNebs as needed
#Hyperlipidemia
-No known history of ASCVD
-No medications include high intensity shortness
CODE STATUS: Limited DNR-no CPR
DVT prophylaxis: Heparin subcutaneous
Diet: Soft and bite sized, Ensure with meals, renal friendly
Anticipated Discharge: > 48 hours
Subjective/Interval History
-
Date of Service: February 26, 2024
Seen and examined at the bedside. No acute events overnight. Remains on 50 L O2 via high flow nasal cannula with SpO2 in the low to mid 90s.
He continues to feel better day by day. Denies significant dyspnea or cough this morning. Also denies chest pain, fevers or chills, nausea, vomiting, diarrhea, abnormal bleeding or bruising, urinary issues, paresthesias or weakness.
Objective Data
-
Labs:
Laboratory Results
02/26/24
06:22
WBC 9.6
Hgb 7.1 L
Hct 20.3 L*
Plt Count 205
Sodium 132 L
Potassium 4.1
Chloride 94 L
Carbon Dioxide 28
BUN 88 H
Creatinine 2.6 H
Glucose 149 H
Calcium 7.8 L
Vital Signs:
Vital Signs
Temp Pulse Resp BP Pulse Ox
97.9 F 78 14 144/59 96
02/26/24 07:50 02/26/24 07:42 02/26/24 07:36 02/26/24 07:42 02/26/24 08:16
I&O
02/25/24 02/26/24 02/27/24
06:59 06:59 06:59
Intake Total 640 / 640 690 / 690 360 / 360
Output Total 350 / 350 450 / 450
Balance 290 / 290 240 / 240 360 / 360
Review of Systems
-
History Source: Patient
All other systems: Reviewed and negative
Physical Exam
-
General: No Apparent Distress and Comfortable; Negative Respiratory Distress
HEENT: Normocephalic, Atraumatic and Moist Mucous Membranes
Respiratory: Rhonchi (Improved, upper, R>L) and Non Labored Respirations; Negative Wheezes, Rales or Accessory Resp Muscle Use
Cardiac: Regular Rhythm and S1/S2; Negative Murmur, Rub, JVD or Gallop
GI: Soft, Nontender, Nondistended and Normal Bowel Sounds
Genito-urinary: Clear Urine and Kuo
Musculoskeletal: No Clubbing, No Cyanosis and No Edema
Skin: Warm and Dry; Negative Rash
Neuro: AO x 3, Nonfocal/Grossly Intact and Central Nerve's Intact
Data Reviewed
-
Diagnostic Radiology: Discussed with Patient and Discussed with Family
Labs: Labs Reviewed by me and Discussed with Patient
--- NOTE | 2024-02-26 12:28 | W.SUR.POST ---
Surgical Immediate Post Op
Note
Bedside Hemodialysis Catheter Insertion Procedure
Pre Op Diagnosis: Acute kidney injury; Hypoxia; Acute pulmonary edema
Post Op Diagnosis: Same as above
Date of procedure: 02/26/2024
Procedure Performed: Trialysis catheter insertion (right IJ)
Primary Surgeon/proceduralist: Dr. Montoya
Secondary Surgeons: N/A
Anesthesia: N/A
Estimated Blood Loss: 5-10cc
Fluids: N/A
Drains/Shunts: N/A
Specimens/Cultures: N/A
Doppler/Duplex/Angio (Y/N): N/A
Complications: No immediate complications
Operative Findings: After informed written consent obtained, patient positioned into Trendelenburg. Pre-procedure ultrasound identified right internal jugular vein which was patent with apical�posterior piña touching indicating no thrombus seen.
Full sterile technique employed including handwashing, sterile gown, cap, mask, and sterile gloves. Patient draped in usual fashion. Trocar inserted into right IJ vein with blood return seen entering syringe. Syringe removed and guidewire
inserted into trocar without resistance. Trocar removed. First of 2 dilators inserted without resistance. Dilator removed and then second of 2 dilators inserted without resistance. Trialysis catheter inserted over the wire to the hub and
guidewire was removed entirely. Blood return from all 3 ports identified and 10 cc of NS 0.9% instilled into each port without resistance. Trialysis was sutured in place. Trialysis catheter hub covered with Biopatch and then Tegaderm. There were
no immediate complications.
--- NOTE | 2024-02-26 12:30 | W.PN.UPDATE ---
Update Note
Progress Note Update
Right femoral Trialysis catheter removed. Hemostasis fully achieved and then prior insertion site covered with 4 x 4 gauze + Tegaderm. Patient tolerated catheter removal without any immediate complications.
[2024-02-26 12:33] LABS: Glucose - Point of Care 195 mg/dl (70-99)
--- NOTE | 2024-02-26 13:06 | PTCARENOTE ---
pt. assisted x 2 to stand/pivot to chair @ 0930. NRB placed for activity over HFNC 50L/85%. Generalized weakness. Tolerated chair position x2H. Assisted x2 back to bed w/out NRB @ 1130. SpO2 dropped to 88%, self recovered on HFNC back into 90's.
Once back to bed, Dr. Vinson to bedside to insert new R IJ Trialysis catheter; placement confirmed w x-ray, stat read by Dr. Montoya @ bedside. R groin Trialysis removed by Dr. Blackwood and clean dressing applied. HD RN to bedside and
treatment in progress. Call ruben fuentes in reach.
[2024-02-26] MEDS: RETACRIT 10000 UNITS IV (13:09)
--- NOTE | 2024-02-26 15:16 | W.PN.NEPH.HD ---
Assessment
-
- feeling well on HD
- remains on high machelle
Progress Note - Hemodialysis
-
Date of Service: February 26, 2024
Duration: 30 minutes and 3 hours
Potassium Bath: 3
Calcium Bath: 2.5
Opti-Dialyzer: 160
Ultrafiltration: Other
Blood Flow: 400
Dialysate Flow: 600
[2024-02-26 15:40] LABS: Hematocrit 25.2 % (39.0-52.0); Hemoglobin 8.8 g/dL (13.0-18.0); Mean Corp Hgb Conc. 34.9 g/dL (33.0-37.0); Mean Corpuscular Hgb 29.5 pg (27.0-31.0); Mean Corpuscular Volume 84.6 fL (80.0-94.0); Mean Platelet Volume 10.9 fL (7.4-10.4); Platelet Count 221 10^3/uL (130-400); Red Blood Cell Count 2.98 10^6/uL (4.70-6.10); Red Cell Dist. Width 16.1 % (11.5-14.5); White Blood Cell Count 14.3 10^3/uL (4.8-10.8)
[2024-02-26] MEDS: HEPARIN 2400 UNITS INTRACATH (16:20)
[2024-02-26 17:08] LABS: Glucose - Point of Care 138 mg/dl (70-99)
--- NOTE | 2024-02-26 22:30 | PTCARENOTE ---
Handoff report received from off going RN. Patient in bed AAOx3 and able to make his needs known. Plan of care for the shift reviewed with the patient. Sinus rhythm on the monitor. Occasional cough. Pt's SpO2 at 92% on high flow. Scattered Rhonchi.
Kuo catheter is intact with small amount of urine. Pt's SpO2 desat to low 80s. Deep breathing encouraged without success.Nonrebreather utilized without improvement. SpO2 at 85%.Respiratory paged and at the bedside. Pt placed on NIV. 06/09 & 60%.
[2024-02-26] MEDS: SEROQUEL 25 MG PO (22:38)
[2024-02-26] MEDS: NORVASC 10 MG PO (22:38)
[2024-02-26] MEDS: TYLENOL 1000 MG PO (22:38)
[2024-02-26] MEDS: TOPROL XL 100 MG PO (22:38)
[2024-02-26 23:01] LABS: Glucose - Point of Care 144 mg/dl (70-99)
[2024-02-27] VITALS (23 sets, daily range): BP systolic 124–162; BP diastolic 55–91; BMI 22.4
[2024-02-27] MEDS: HEPARIN 5000 UNITS SC ×3 (00:12→16:57)
--- NOTE | 2024-02-27 00:55 | PTCARENOTE ---
Pt reassessed. SpO2 at 97%. AAOx3. No further changes at this time.
[2024-02-27] MEDS: XANAX 0.5 MG PO (02:21)
--- NOTE | 2024-02-27 02:26 | PTCARENOTE ---
Patient complained of not being able to fall asleep. The patient asked for 'something to help me sleep.' OLIVIA Gilliland made aware and Xanax 0.5 mg ordered and administered.
[2024-02-27 03:32] LABS: % Basophils 0.1 % (0-2); % Eosinophils 0.1 % (0-6); % Immature Granulocytes 4.2 % (0-0.5); % Lymphocytes 9.3 % (20.5-51.1); % Monocytes 5.6 % (1.7-9.3); % Neutrophils 80.7 % (42.2-75.2); Absolute Immature Granulocytes 0.5 10^3/uL (0-0.05); Absolute Lymphocytes 1.2 10^3/uL (1.2-3.4); Absolute Monocytes 0.7 10^3/uL (0.1-0.6); Absolute Neutrophils 10.1 10^3/uL (1.4-6.5); Hematocrit 21.8 % (39.0-52.0); Hemoglobin 7.5 g/dL (13.0-18.0); Mean Corp Hgb Conc. 34.4 g/dL (33.0-37.0); Mean Corpuscular Hgb 29.5 pg (27.0-31.0); Mean Corpuscular Volume 85.8 fL (80.0-94.0); Mean Platelet Volume 11.3 fL (7.4-10.4); Nucleated Red Blood Cells % 0.2 % (-); Platelet Count 196 10^3/uL (130-400); Red Blood Cell Count 2.54 10^6/uL (4.70-6.10); Red Cell Dist. Width 15.9 % (11.5-14.5); White Blood Cell Count 12.5 10^3/uL (4.8-10.8)
[2024-02-27 03:57] LABS: Blood Urea Nitrogen 44 mg/dl (9-20); Calcium 7.9 mg/dl (8.4-10.2); Carbon Dioxide 30 mmol/L (22-30); Chloride 97 mmol/L (98-107); Estimated Creatinine Clearance 36 ml/min; Glucose 104 mg/dl (70-99); Potassium 3.9 mmol/L (3.5-5.1); Sodium 133 mmol/L (135-145); eGFR 41.52
--- NOTE | 2024-02-27 06:20 | PTCARENOTE ---
0430: Patient reassessed. Remains AAOx3 and able to make his needs known. Patient is incontinent of moderate soft stool. Pt cleansed and full linen change completed. Labs drawn and sent.
[2024-02-27] MEDS: DUONEB 3 ML INH ×4 (07:02→19:28)
--- NOTE | 2024-02-27 08:20 | PTCARENOTE ---
Assumed care of pt at 0715 following shift report. Pt resting quietly in bed. Denies complaints of pain. GRIER noted w/ Pox down to low 80's w/ repositioning pt- NRB mask applied w/ Pox improved to 92%. Physical assessment completed. Hygiene and
comfort care provided. Call miranda w/in pt reach.
--- NOTE | 2024-02-27 08:25 | W.PN.INTV ---
Today's Communication / Plan
Recommendations
4th HD session on 02/25
Ok to make nocturnal NIV prn
Continue HFNC during the day
Aspiration precautions --> VFSS this upcoming Thursday
Mucolytics
Monitor quantity of hemoptysis
Trend H/H --> transfuse if Hb<7g/dL
Titrate FiO2 to keep SpO2 >88%
Low threshold to intubate
DNR
Guarded prognosis --> brought up hospice on 02/24; goal is to reduce down O2 requirements to nasal cannula, possibly repeat CT chest next week and if RUL mass persists then obtain IR CT-guided TTNA (family wants to know if he has cancer or not), and
then go home on hospice. If he does not want to go home on hospice, then he needs to make decision about continuing HD as he may still need to do that after discharge (nephro can help with this discussion)
Assessment
-
73-year-old male with history of hypertension, hyperlipidemia, TIA on Plavix therapy, describes chronic bronchitis and chronic subjective dyspnea with [id number] history of smoking quit 2003. He now presents with progressive cough, shortness of
breath and hemoptysis. Found to have right upper lobe mass with likely pneumonia. We are asked to comment on pulmonary process 02/14/24. Overnight 02/18/24, developed worsening hypoxemia, likely due to superimposed DHF now on HFNC. Transferred to
ICU for further management.
Impression:
Acute HFpEF/DHF, proBNP
Moderate PH, new on ECHO from 02/17/2024 with estimated PASP 50-55 assuming RAP of 8 mmHg
Right upper lobe mass/infiltrate likely PNA however lung cancer with postobstructive pneumonia also very possible
Acute hemoptysis, blood mixed with mucus - likely due to right upper lobe mass in the setting of uremia with platelet dysfunction
Right upper lobe abnormality noted per chest x-ray April 2023
Small pleural effusion
Chronic bronchitis
Dyspnea, progressive
Former smoker, [id number] history of smoking, quit 2003
No prior spirometry, no prior pulmonary evaluation
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
Anemia
JUDI on chronic kidney disease, now on iHD (Cr: 1.4-1.6 at baseline)
Metabolic acidosis with normal anion gap due to JUDI
Elevated proBNP
Chronic diarrhea
Conditions present prior to admission
History of anemia
Hypertension
Hyperlipidemia
GERD with history of duodenal ulcer with bleeding
Required IR embolization 2020
Possible asbestos exposure
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
Family history of cancer
Father with lung cancer
Sister with brain cancer
Sister with liver cancer
Plan
Respiratory status continuing to slowly improve although he still remains tenuous, now on HFNC with FiO2 at 60% from 85% yesterday.
Creatinine and BUN peaked at 4.3 and 156, respectively, on 02/21
Productive mucus, blood seems to be improved lucas after HD sessions
Preadmission history: Patient is short of breath since April 2023 at which time he had right upper lobe infiltrate. Patient cannot recall any history of recent pneumonia
Significant smoking and asbestos exposure history noted
Patient did not get follow-up x-ray as recommended per report in April
Former smoker, quit >30 years ago, strong family history of cancers
There is high suspicion this could be metastatic illness
IV steroids added with Decadron--> weaned down to 4mg IV q12hr on 02/22 --> weaned down to prednisone taper on 02/25
Finished 10 day course of ceftriaxone on 02/22
s/p 6 days zithromax - stopped on 02/18
Sputum culture few gram-positive cocci, many white cells, usual yaritza/finalized
Myrna noted 02/15
Prior sputum 02/13 neg
Legionella, streptococcal pneumonia negative
Continue to quantify hemoptysis
Airway clearance reviewed with RT, mucinex/acapella, vest/IS
Tolerating NIV at 06/09 at 70% FiO2. Can use NIV prn with sleep to improve sleep quality, assist with ventilation and the higher PEEP may also improve O2 requirements
Continue high flow NC during the day, reducing FiO2 as tolerated, keeping SpO2 88-95%
Hemoglobin stable
Plavix has been held since 02/14 given worsening hypoxia, chest x-ray findings
- Consider restarting plavix once hemoptysis fully resolved for >48 -72 hrs
Doubt active pulmonary hemorrhage given stable hemoglobin
ProBNP elevated at 19,500 on 02/17/2024, history of CHF
Trend sCr and UOP; Kuo catheter in place --> recommend to continue given his critically ill state with need for strict I/O
Nephrology following � recommendations appreciated
Hold nephrotoxic drugs
s/p HD cath on 02/21 and got 1st session on 02/21, 2nd session 02/22; 3rd session on 02/23 --> 4th session done on 02/25
Pt having anxiety and insomnia -- started seroquel 25mg HS on 02/21 --> seemed to help his sleep quality
Protonix for GERD therapy
Aspiration precautions
Soft & bite sized/gluten free ---> VFSS this upcoming Thursday as per REEL STRIPPER
Continue with ISS with goal BG 140�180
- Change high resistance to moderate resistance given BG today is in the low 100s
DVT ppx: HSQ 5000 units q8hr
Family Discussions
Mira 02/18- Reviewed with today and son on speaker phone today on rounds. We discussed all of his poor prognostic markers including possible/suspected metastatic disease, acute HF picture, worsening JUDI, worsening hypoxemia. She understands
his overall outlook remains poor even with intubation/MV. There is less chance for good QoL the more organ dysfunction occurs. Family will visit and discuss further GOC.
Litzy - Reviewed with patient, at bedside
Updated son by phone 02/16 (Kevon: [phone])
Reviewed concern regarding possibility of underlying malignancy.
Patient high risk for intubation.
Discussion held by Dr. Montoya on 02/22/2024 with and patient ---> patient is now DNR, okay for intubation in addition to other full medical management (see separate note from 02/21)
Once patient's FiO2 requirements are <70% x 48 hours, I will downgrade out of ICU to IMU level of care, assuming that hemodialysis can be performed at bedside still.
He still remains a high risk for clinical deterioration and need for intubation.
Total time spent today was 75 minutes for this encounter. Time includes reviewing laboratory test/imaging results, reviewing pertinent medical records, obtaining and reviewing medical history, performing an appropriate exam, ordering medications,
tests and procedures. Time also includes documentation of this encounter, coordinating patient care and communicating with other healthcare professionals. Total time does not include separately billed tests performed on this date of service.
Diagnostic Data
Chest x-ray 02/22/2024: Multifocal pneumonia, most pronounced within the right upper lobe. No significant change compared to 02/18/2024; Interstitial coarsening and mild interstitial prominence, suggestive of COPD. Pulmonary edema may also be present
Chest X-Ray: 02/18/24- Findings raising concern for pulmonary edema, superimposed on right lung pneumonic process. The patient does have a proBNP value of 19,500 today.
02/17/24- Right lung opacities suspicious for pneumonia without significant change in comparison to recent prior study.
CT Scan: CHEST 02/14/24- 1. Large right upper lobe pneumonia. Imaging follow-up to resolution is recommended as an underlying pulmonary neoplasm would be difficult to completely exclude.
2. Chronic obstructive pulmonary disease.
3. Small pericardial effusion.
4. Small right pleural effusion.
5. Mild loculated pleural fluid in the right minor fissure.
CXR 02/24/2024:There is moderate diffuse interstitial and groundglass airspace disease throughout both lungs with more confluent alveolar airspace disease in the right upper lung. This airspace disease is improved but unresolved compared with
previous examination and has more the appearance of inflammatory airspace disease than pulmonary edema as there are no septal lines to suggest interstitial edema.
Echo: 02/17/24- Normal left ventricular size and systolic function. No regional wall motion abnormalities are seen. LV ejection fraction is 65-70% by volumetric assessment. Mild concentric left ventricular hypertrophy. Stage II diastolic dysfunction
suggestive of abnormal relaxation and increased filling pressures. Top normal right ventricular size. Normal right ventricular systolic function. Aortic sclerosis without stenosis. Mild tricuspid regurgitation. Estimated pulmonary artery pressure
of 50-55 mmHg assuming a right atrial pressure of 8 mmHg. Compared to prior study dated 04/28/2023, estimated pulmonary artery systolic pressure was previously normal at 25-30 mmHg
04/28/23- 1. Mild concentric left ventricular hypertrophy with preserved systolic function, EF 60-65%
2. Thickened mitral leaflets with mitral annular calcification, trace mitral regurgitation and minimally dilated left atrium
3. Aortic sclerosis with trace aortic insufficiency
4. Normal right heart with normal pulmonary artery pressure
The study is similar to October 2021. The patient will be called and told that there is preserved heart muscle function and no significant valve abnormality.
Subjective Dataa
Subjective Data
Date of Service:
Date of Service: February 27, 2024
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
Subjective:
Patient seen and evaluated today at bedside. Patient's , Ashley, at bedside. All questions were answered. Patient currently on high flow nasal cannula down to 60% FiO2, saturating 94%. BP 162/91 and heart rate 77. Creatinine + BUN are
better today. Still coughing up blood-tinged sputum but it has improved. He denies CP, CERVANTES, SOB, abdominal pain, fevers or chills.
Review of Systems
General: Other (Negative unless mentioned above)
Objective Data
Data Reviewed
Vital Signs / I&O / Oxygen:
Vital Signs
Temp Pulse Resp BP Pulse Ox
97.6 F 67 15 140/62 93
02/27/24 03:30 02/27/24 08:40 02/27/24 07:07 02/27/24 08:40 02/27/24 07:07
Intake and Output
02/26/24 02/27/24 02/28/24
06:59 06:59 06:59
Intake Total 690 / 690 1540 / 1540
Output Total 450 / 450 450 / 450
Balance 240 / 240 1090 / 1090
SaO2 [NIV (Non Invasive 94
Ventilation)]
SaO2 93
Nasal Cannula flow liters per 50
minute
Physical Exam
General: Respiratory Distress (negative), Comfortable, Fever (negative) and Other (chronically ill appearing, weak/deconditioned)
HEENT: Normocephalic and Anicteric
Cardiovascular: S1-S2 and Peripheral Edema (trace lower extremity pitting edema bilaterally)
Respiratory: Wheeze (negative), Crackles (bibasilar), Rhonchi (negative), Accessory Resp Muscle Use (During activity/exertion) and Other (Diminished BS at bases)
GI: Soft, Non Distended, Non Tender and Normal Bowel Sounds
Neurology: AO x 3 and Tremors (negative)
Skin: Warm, Dry, Cyanosis (negative) and Jaundice (negative)
Labs/Micro/Reports
Lab Data
02/27/24 03:21
02/27/24 03:21
[2024-02-27] MEDS: APRESOLINE 75 MG PO ×3 (08:40→22:16)
[2024-02-27] MEDS: DELTASONE 40 MG PO (08:41)
[2024-02-27] MEDS: PROTONIX 40 MG PO (08:42)
[2024-02-27] MEDS: LIPITOR 80 MG PO (08:42)
[2024-02-27] MEDS: VITAMIN B-12 1000 MCG PO (08:42)
[2024-02-27] MEDS: MUCINEX 600 MG PO ×2 (08:42→19:48)
[2024-02-27] MEDS: NOVOLOG FLEXPEN-HIGH RESISTANCE SC ×2 (08:54→12:54)
[2024-02-27 09:04] LABS: Glucose - Point of Care 102 mg/dl (70-99)
--- NOTE | 2024-02-27 09:32 | W.PN.HOSP.TC ---
Today's Communication/Plan
-
Continue with oral steroids
Wean oxygen for SpO2 goal >88%
Hold Plavix and quantify hematemesis [address] present
[address]anning for repeat CT scan, potential IR guided biopsy next week
Assessment / Plan
Assessment / Plan
#Acute hypoxemic respiratory failure -- due to pneumonia, superimposed HFpEF, possible COPD, hematemesis
#Suspected ARDS -- No recent ABG to calculate P/F; clinically consistent per course and xray findings
#Severe CAP -- RUL, bacterial
#Acute on chronic HFpEF
#Acute hemoptysis -- suspected right upper lobe malignancy and also with Plavix
-CT thorax showed with large RUL consolidation, also signs of malignancy in the RUL, pulmonary edema
-Was started on IV ceftriaxone empirically, completed course of IV azithromycin as well; started on steroid for severe bacterial pneumonia
-Developed decompensation of HFpEF in the context of IV fluids, elevated proBNP, s/p IV Lasix course, now on hemodialysis
-Echocardiogram here showed severe pulmonary hypertension; has evidence of COPD with emphysematous findings, tobacco history
-Seems euvolemic as of now, pulmonary auscultation is improving as he seems less rhonchorous, on 50 L high flow today
-Pulmonology following; s/p IV antibiotic course, remains on steroid
Plan
-Continue with oral prednisone taper
-Continue to hold clopidogrel, quantify hemoptysis
-Continue with HD for volume status; Monitor I/Os
-Titrate supplemental oxygen for SpO2 goal 88-94%, NIV nightly PRN
-Will eventually need PFTs and pulm assessment for new COPD
-Low threshold to intubate
#Oliguric JUDI on CKD 3B
#Metabolic acidosis
#Normocytic anemia -- 2/2 renal dysfunction
-Suspected to be prerenal; Home medications include diuretics and ARB, presented with infection
-Home diuretics and losartan are held, received bicarbonate therapy for his acidemia
-Nephrology following, planning for tunneled cath as permanent HD access
-Renal function seems to be improving per labs and urine output
-Blood counts with hemoglobin in the range of 7-7.6
Plan
-Continue HD at nephrology discretion
-Trend daily BMP, monitor strict I's and O's
-Planning for AYALA for associated anemia
-Consider transfusion for hemoglobin <7
-Renal diet
#Right upper lobe mass
-Likely demonstrated on CT, but does have superimposed bacterial pneumonia which may affect findings
-Will need a repeat CT scan when infection is clear, possible consideration for biopsy if mass present
-Planning for possible repeat CT thorax to assess RUL mass, IR guided biopsy if still present
-Suspect this is the source of hemoptysis as above
#Acute on chronic normocytic anemia -- blood loss from hemoptysis, dilution
-Baseline hemoglobin around 10, most recently hemoglobin 7.5 and has been stable
-Iron studies without signs of deficiency, no evidence of hemolysis, B12 was low but now on therapy
-Will continue to trend daily CBC and transfuse for hemoglobin <7
-Planning for AYALA as above
#History of duodenal ulcer/GI bleed
-No signs of active GI bleeding while here, did have hemoptysis
-Remains on home PPI regimen
#History of TIA
-Holding plavix as above
#Essential hypertension
-No known history of hypertensive systemic disease, Home meds include metoprolol hydralazine, and amlodipine
-Blood pressure has been poorly controlled outside of the hospital, recently hydralazine was increased
-Blood pressure here has been stable and adequate for his clinical condition
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
-History of heavy tobacco abuse in the past; no formal diagnosis, no home inhaler therapies
-Currently without any wheezing or signs of exacerbation though cannot rule out contribution to his presentation
-Plan for pulm follow-up and PFTs at discharge, DC on DuoNebs as needed
#Hyperlipidemia
-No known history of ASCVD
-No medications include high intensity shortness
DVT prophylaxis: Heparin subcutaneous
Diet: Soft and bite sized, Ensure with meals, renal friendly
Goals of care/CODE STATUS: Hospice was mentioned on 02/24, remains full treatment with limited DNR (no chest compressions)
Anticipated Discharge: > 48 hours
Subjective/Interval History
-
Date of Service: February 27, 2024
Seen and examined at the bedside. No acute events reported overnight. He states that he continues to feel better day by day. Remains hemodynamically stable without fever. Saturating in the low 90s on high flow nasal cannula, noted to have
desaturations into the 70s with any exertion. Has put out 450 mL of urine since midnight, improved from yesterday.
He denies any chest pain, coughing or wheezing, nausea, vomiting, diarrhea, constipation, paresthesias or weakness, fevers or chills, abnormal bleeding or bruising
Objective Data
-
Labs:
Laboratory Results
02/27/24
03:21
WBC 12.5 H
Hgb 7.5 L
Hct 21.8 L
Plt Count 196
Sodium 133 L
Potassium 3.9
Chloride 97 L
Carbon Dioxide 30
BUN 44 H
Creatinine 1.7 H
Glucose 104 H
Calcium 7.9 L
Vital Signs:
Vital Signs
Temp Pulse Resp BP Pulse Ox
97.6 F 67 15 140/62 93
02/27/24 03:30 02/27/24 08:40 02/27/24 07:07 02/27/24 08:40 02/27/24 07:07
I&O
02/26/24 02/27/24 02/28/24
06:59 06:59 06:59
Intake Total 690 / 690 1540 / 1540
Output Total 450 / 450 450 / 450
Balance 240 / 240 1090 / 1090
Review of Systems
-
History Source: Patient
All other systems: Reviewed and negative
Physical Exam
-
General: No Apparent Distress and Comfortable; Negative Respiratory Distress
HEENT: Normocephalic, Atraumatic and Moist Mucous Membranes
Respiratory: Rhonchi and Non Labored Respirations; Negative Wheezes, Rales or Accessory Resp Muscle Use
Cardiac: Regular Rhythm and S1/S2; Negative Murmur, Rub, JVD or Gallop
GI: Soft, Nontender, Nondistended and Normal Bowel Sounds
Musculoskeletal: No Clubbing, No Cyanosis and No Edema
Skin: Warm and Dry; Negative Rash
Neuro: AO x 3, Nonfocal/Grossly Intact and Central Nerve's Intact
Data Reviewed
-
Labs: Labs Reviewed by me and Discussed with Patient
--- NOTE | 2024-02-27 12:30 | PTCARENOTE ---
Pt has had two loose BM's on BSC this shift and is requesting Yamileth- notified. Pt remains OOB in chair 'I want to stay up all day'. here to visit- updated on pt's present condition and plan of care. No changes from previous assessment
findings. [place]low O2 tapered by Resp Therapy. IS use encouraged w/ pt- pt pulling 1250ml. Call miranda remains w/in pt reach.
[2024-02-27 13:04] LABS: Glucose - Point of Care 145 mg/dl (70-99)
[2024-02-27] MEDS: IMODIUM 2 MG PO (13:15)
--- NOTE | 2024-02-27 13:47 | W.PN.NEPH.PH ---
Today's Communication / Plan
-
- trend Cr
Assessment/Plan
-
Impression:
Right upper lobe mass versus infiltrate with hemoptysis
Acute kidney
CKD stage IIIb baseline creatinine 1.6
HTN
History of TIA
History of COPD
Anemia
CHF HFpEF
Plan:
JUDI:
-Etiology remains elusive: bland UA, high FEna, no hydro on US
-severe JUDI-HD initiated on 02/21 for hypervolemia but Cr is quite low post dialysis --> some renal recovery?
-BP stable on po meds
- monitor h/h , adequate fe stores, high dose AYALA, UPEP neg, SPEP pending
- currently he has IJ catheter (temporary)
- UOP remains oliguric
- Seem to have poor prognosis. planning for repeat CT scan and IR guided biopsy next week
d/w pt ,
-
-
Date of Service: February 27, 2024
CC / HPI / ROS
-
Chief Complaint:
JUDI
History of Present Illness:
oliguric with goins
BP stable
remains on high flow O2
wt decreasing
hb is low 7.6
Review of Systems:
sob still, cough+ hemoptysis
no fever
no n/v
Labs
-
Labs:
WBC 12.5 10^3/uL (4.8-10.8) H 02/27/24 03:21
RBC 2.54 10^6/uL (4.70-6.10) L 02/27/24 03:21
Hgb 7.5 g/dL (13.0-18.0) L 02/27/24 03:21
Hct 21.8 % (39.0-52.0) L 02/27/24 03:21
Plt Count 196 10^3/uL (130-400) 02/27/24 03:21
Sodium 133 mmol/L (135-145) L 02/27/24 03:21
Potassium 3.9 mmol/L (3.5-5.1) 02/27/24 03:21
Chloride 97 mmol/L (98-107) L 02/27/24 03:21
Carbon Dioxide 30 mmol/L (22-30) 02/27/24 03:21
BUN 44 mg/dl (9-20) H 02/27/24 03:21
Creatinine 1.7 mg/dL (0.7-1.3) H 02/27/24 03:21
eGFR 41.52 02/27/24 03:21
Glucose 104 mg/dl (70-99) H 02/27/24 03:21
Calcium 7.9 mg/dl (8.4-10.2) L 02/27/24 03:21
Phosphorus 4.3 mg/dl (2.5-4.5) 02/25/24 03:15
Kwx-L-Zwqzbfzjyfr Pept 28382 pg/ml 02/17/24 05:00
Albumin 3.3 g/dl (3.5-5.0) L 02/23/24 03:21
Physical Exam
-
Vital Signs:
Vital Signs
Temp Pulse Resp BP Pulse Ox
98.5 F 73 14 143/70 93
02/27/24 12:00 02/27/24 12:00 02/27/24 12:00 02/27/24 12:00 02/27/24 12:00
Cardiovascular:: Regular rate and rhythm
Respiratory:: Bilateral: Coarse
Lung Excursion:: Normal
Abdomen:: Nontender and Soft
Bowel Sounds:: Normal
Extremity Edema:: None: Bilateral:
Goins Catheter: Yes
--- NOTE | 2024-02-27 15:40 | PTOTSP ---
ST Follow-Up
Pt continues to present with clinical signs consistent with mild oropharyngeal dysphagia characterized by prolonged mastication and inconsistent airway protection with ingestion of liquids.
Recommendations:
- Continue with GLUTEN FREE SOFT BITE SIZED SOLIDS, THIN LIQUIDS, and meds as tolerated.
- Aspiration precautions: Fully awake, alert, and upright for all PO intake; denture care/adhesive; slow intake rate; small bites/sips; alternate bites/sips.
- VFSS next week for more information.
- MEETING COORDINATOR to f/u to provide updated recommendations upon completion of VFSS.
--- NOTE | 2024-02-27 16:30 | PTCARENOTE ---
Addendum entered by Agnes Foss RN 02/27/24 18:10:
Dr Wheeler made aware of urine output total for last 24hrs.
Original Note:
Pt remains OOB in chair watching TV w/o change from previous assessment findings or new complaints received. Fluid Restriction order clarified/received from Dr Wheeler.
[2024-02-27] MEDS: NOVOLOG FLEXPEN-MODERATE RESISTANCE 3 UNITS SC (17:02)
[2024-02-27 17:13] LABS: Glucose - Point of Care 230 mg/dl (70-99)
--- NOTE | 2024-02-27 19:56 | PTCARENOTE ---
Handoff report recieved from off going RN. Pt's in bed and watching television. Pt's AAox4 and able to make his needs known. plan of care for the shoift reviewed with the patient. sinus rhythm on the monitor. Pt's Spo2 at 94% on high flow oxygen
50L/60%. Occasional productive cough. The patient suctions himself with the [place] for a small amount of farias sputum. IS max at 2000 ml x3 attempts. Pillows placed.Safety measures in place. Bedc in the lowest postion. Call miranda and personal
belonging are within reach.
[2024-02-27] MEDS: NORVASC 10 MG PO (22:14)
[2024-02-27] MEDS: SEROQUEL 25 MG PO (22:16)
[2024-02-27] MEDS: TYLENOL 1000 MG PO (22:16)
[2024-02-27] MEDS: TOPROL XL 100 MG PO (22:16)
[2024-02-28] VITALS (17 sets, daily range): BP systolic 125–160; BP diastolic 58–82; BMI 22.1; BMI 22.7
[2024-02-28] MEDS: HEPARIN 5000 UNITS SC ×4 (00:13→23:18)
--- NOTE | 2024-02-28 00:16 | PTCARENOTE ---
Patient reassessed. Remains AAOx4 and able to make his needs known. VSS on the monitor. Kuo catheter draining yellow urine. No changes from the previous assessment.
[2024-02-28 00:27] LABS: Glucose - Point of Care 121 mg/dl (70-99)
[2024-02-28 03:59] LABS: % Basophils 0.1 % (0-2); % Immature Granulocytes 3.5 % (0-0.5); % Lymphocytes 8.4 % (20.5-51.1); % Monocytes 4.5 % (1.7-9.3); % Neutrophils 83.5 % (42.2-75.2); Absolute Immature Granulocytes 0.4 10^3/uL (0-0.05); Absolute Monocytes 0.5 10^3/uL (0.1-0.6); Absolute Neutrophils 9.7 10^3/uL (1.4-6.5); Hemoglobin 7.3 g/dL (13.0-18.0); Mean Corp Hgb Conc. 35.1 g/dL (33.0-37.0); Mean Corpuscular Hgb 29.8 pg (27.0-31.0); Mean Corpuscular Volume 84.9 fL (80.0-94.0); Mean Platelet Volume 11.4 fL (7.4-10.4); Nucleated Red Blood Cells % 0 % (-); Platelet Count 168 10^3/uL (130-400); Red Blood Cell Count 2.45 10^6/uL (4.70-6.10); Red Cell Dist. Width 15.7 % (11.5-14.5); White Blood Cell Count 11.7 10^3/uL (4.8-10.8)
[2024-02-28 04:12] LABS: Blood Urea Nitrogen 63 mg/dl (9-20); Calcium 7.6 mg/dl (8.4-10.2); Carbon Dioxide 26 mmol/L (22-30); Chloride 94 mmol/L (98-107); Estimated Creatinine Clearance 27 ml/min; Glucose 98 mg/dl (70-99); Potassium 3.9 mmol/L (3.5-5.1); Sodium 129 mmol/L (135-145); eGFR 30.47
--- NOTE | 2024-02-28 06:31 | PTCARENOTE ---
0430: Patient reassessed. Remains AAOx3. Patient cleansed with CHG wipes. Linens changed. Labs drawn and sent.
[id number]: Patient's SpO2 at 85% on 50L % 60% high flow oxygen. Pt's GRIER. nonrebreather mask placed. RT Sunny made aware and at the bedside.
[2024-02-28] MEDS: DUONEB 3 ML INH ×4 (07:31→17:03)
--- NOTE | 2024-02-28 08:30 | PTCARENOTE ---
Assumed care of pt at 0715 following shift report. Pt awake and resting quietly in bed. Denies any c/o pain or SOB. Reports 'slept pretty well last night'. Physical assessment completed as documented. Hygiene and comfort care provided. Assisted w/
ordering breakfast and encouraged intake of dietary supplement. Call miranda w/in pt reach.
[2024-02-28] MEDS: APRESOLINE 75 MG PO ×3 (08:34→22:02)
[2024-02-28] MEDS: NOVOLOG FLEXPEN-MODERATE RESISTANCE SC ×2 (08:34→22:01)
[2024-02-28] MEDS: DELTASONE 30 MG PO (08:35)
[2024-02-28] MEDS: PROTONIX 40 MG PO (08:36)
[2024-02-28] MEDS: LIPITOR 80 MG PO (08:36)
[2024-02-28] MEDS: MUCINEX 600 MG PO ×2 (08:36→21:05)
[2024-02-28] MEDS: VITAMIN B-12 1000 MCG PO (08:37)
[2024-02-28 08:40] LABS: Glucose - Point of Care 96 mg/dl (70-99)
--- NOTE | 2024-02-28 09:51 | W.PN.HOSP.TC ---
Today's Communication/Plan
-
Continue prednisone
Wean oxygen as possible
Quantify hematemesis
Monitor urine output
Plan for repeat CT and biopsy this
Assessment / Plan
Assessment / Plan
#Acute hypoxemic respiratory failure -- due to pneumonia, superimposed HFpEF, possible COPD, hematemesis
#Suspected ARDS -- No recent ABG to calculate P/F; clinically consistent per course and xray findings
#Severe CAP -- RUL, bacterial
#Acute on chronic HFpEF
#Acute hemoptysis -- suspected right upper lobe malignancy and also with Plavix
-CT thorax showed with large RUL consolidation, also signs of malignancy in the RUL, pulmonary edema
-Was started on IV ceftriaxone empirically, completed course of IV azithromycin as well; started on steroid for severe bacterial pneumonia
-Developed decompensation of HFpEF in the context of IV fluids, elevated proBNP, s/p IV Lasix course, now on hemodialysis
-Echocardiogram here showed severe pulmonary hypertension; has evidence of COPD with emphysematous findings, tobacco history
-Seems euvolemic as of now, pulmonary auscultation is improving as he seems less rhonchorous, on 50 L high flow today
-Pulmonology following; s/p IV antibiotic course, remains on steroid
Plan
-Continue with oral prednisone taper
-Continue to hold clopidogrel, quantify hemoptysis
-Continue with HD for volume status; Monitor I/Os
-Titrate supplemental oxygen for SpO2 goal 88-94%, NIV nightly PRN
-Will eventually need PFTs and pulm assessment for new COPD
-Low threshold to intubate
#Oliguric JUDI on CKD 3B
#Metabolic acidosis
#Normocytic anemia -- 2/2 renal dysfunction
-Suspected to be prerenal; Home medications include diuretics and ARB, presented with infection
-Home diuretics and losartan are held, received bicarbonate therapy for his acidemia
-Nephrology following, planning for tunneled cath as permanent HD access
-Renal function seems to be improving per labs and urine output
-Blood counts with hemoglobin in the range of 7-7.5
-Urine output improving daily
Plan
-Continue HD at nephrology discretion
-Trend daily BMP, monitor strict I's and O's
-Planning for AYALA for associated anemia
-Consider transfusion for hemoglobin <7
-Renal diet
#Right upper lobe mass
-Likely demonstrated on CT, but does have superimposed bacterial pneumonia which may affect findings
-Will need a repeat CT scan when infection is clear, possible consideration for biopsy if mass present
-Planning for repeat CT thorax to assess RUL mass, IR guided biopsy if still present
-Suspect this is the source of hemoptysis as above
#Acute on chronic normocytic anemia -- blood loss from hemoptysis, dilution
-Baseline hemoglobin around 10, most recently hemoglobin 7.5 and has been stable
-Iron studies without signs of deficiency, no evidence of hemolysis, B12 was low but now on therapy
-Will continue to trend daily CBC and transfuse for hemoglobin <7
-Planning for AYALA as above
#History of duodenal ulcer/GI bleed
-No signs of active GI bleeding while here, did have hemoptysis
-Remains on home PPI regimen
#History of TIA
-Holding plavix as above
#Essential hypertension
-No known history of hypertensive systemic disease, Home meds include metoprolol hydralazine, and amlodipine
-Blood pressure has been poorly controlled outside of the hospital, recently hydralazine was increased
-Blood pressure here has been stable and adequate for his clinical condition
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
-History of heavy tobacco abuse in the past; no formal diagnosis, no home inhaler therapies
-Currently without any wheezing or signs of exacerbation though cannot rule out contribution to his presentation
-Plan for pulm follow-up and PFTs at discharge, DC on DuoNebs as needed
#Hyperlipidemia
-No known history of ASCVD
-No medications include high intensity shortness
#Celiac's disease
-No formal diagnosis, gluten sensitivity per history, told him to avoid gluten by an outside doctor
-No gluten diet ordered
DVT prophylaxis: Heparin subcutaneous
Diet: Soft and bite sized, Ensure with meals, renal friendly
Goals of care/CODE STATUS: Hospice was mentioned on 02/24, remains full treatment with limited DNR (no chest compressions)
Anticipated Discharge: > 48 hours
Subjective/Interval History
-
Date of Service: February 28, 2024
Seen and examined at the bedside. No acute events overnight. States he slept well and generally feels well today.
Remains hemodynamically stable, afebrile, on high flow nasal cannula with SpO2 95%. Noted to desaturate with exertion into the 70s. Urine output improving daily, 450 mL so far as of this morning. Hematemesis continue to improve, no blood produced
so far today
He denies any chest pain, coughing or wheezing, nausea, vomiting, diarrhea, constipation, urinary issues, fevers or chills, paresthesias or weakness.
Objective Data
-
Labs:
Laboratory Results
02/28/24
03:42
WBC 11.7 H
Hgb 7.3 L
Hct 21.0 L
Plt Count 168
Sodium 129 L
Potassium 3.9
Chloride 94 L
Carbon Dioxide 26
BUN 63 H
Creatinine 2.2 H
Glucose 98
Calcium 7.6 L
Vital Signs:
Vital Signs
Temp Pulse Resp BP Pulse Ox
98.4 F 67 14 143/63 94
02/28/24 08:00 02/28/24 08:34 02/28/24 07:32 02/28/24 08:34 02/28/24 08:25
I&O
02/27/24 02/28/24 02/29/24
06:59 06:59 06:59
Intake Total 1540 / 1540 735 / 735
Output Total 450 / 450 400 / 400
Balance 1090 / 1090 335 / 335
Review of Systems
-
History Source: Patient
All other systems: Reviewed and negative
Physical Exam
-
General: No Apparent Distress and Comfortable; Negative Respiratory Distress
HEENT: Normocephalic, Atraumatic, Moist Mucous Membranes and Anicteric
Respiratory: Rhonchi (RUL, improving daily) and Non Labored Respirations; Negative Wheezes, Rales or Accessory Resp Muscle Use
Cardiac: Regular Rhythm and S1/S2; Negative Murmur, Rub, JVD or Gallop
GI: Soft, Nontender, Nondistended and Normal Bowel Sounds
Genito-urinary: Clear Urine and Kuo
Musculoskeletal: No Clubbing, No Cyanosis and No Edema
Skin: Warm and Dry; Negative Rash
Neuro: AO x 3, Nonfocal/Grossly Intact and Central Nerve's Intact
Data Reviewed
-
Labs: Labs Reviewed by me, Discussed with Patient and Discussed with Family
--- NOTE | 2024-02-28 10:32 | W.PN.INTV ---
Today's Communication / Plan
Recommendations
4th HD session on 02/25
Continue BiPAP HS prn
Continue HFNC during the day --> hopefully can switch to midflow nasal cannula tomorrow
Aspiration precautions --> VFSS tomorrow
Mucolytics
Monitor quantity of hemoptysis
Trend H/H --> transfuse if Hb<7g/dL
Titrate FiO2 to keep SpO2 >88%
DNR
Guarded prognosis --> brought up hospice on 02/24; goal is to reduce down O2 requirements to nasal cannula, repeat CT chest next week (Thursday) and if RUL mass persists then obtain IR CT-guided TTNA (family wants to know if he has cancer or not),
and then discuss home hospice vs continued medical care. If he does not want to go home on hospice, then he needs to make decision about continuing HD as he may still need to do that after discharge (nephro can help with this discussion)
Downgrade patient from ICU to IMU. Pulmonary service will continue to follow along.
Assessment
-
73-year-old male with history of hypertension, hyperlipidemia, TIA on Plavix therapy, describes chronic bronchitis and chronic subjective dyspnea with [id number] history of smoking quit 2003. He now presents with progressive cough, shortness of
breath and hemoptysis. Found to have right upper lobe mass with likely pneumonia. We are asked to comment on pulmonary process 02/14/24. Overnight 02/18/24, developed worsening hypoxemia, likely due to superimposed DHF now on HFNC. Transferred to
ICU for further management.
Impression:
Acute HFpEF/DHF, proBNP
Moderate PH, new on ECHO from 02/17/2024 with estimated PASP 50-55 assuming RAP of 8 mmHg
Right upper lobe mass/infiltrate likely PNA however lung cancer with postobstructive pneumonia also very possible
Acute hemoptysis, blood mixed with mucus - likely due to right upper lobe mass in the setting of uremia with platelet dysfunction
Right upper lobe abnormality noted per chest x-ray April 2023
Small pleural effusion
Chronic bronchitis
Dyspnea, progressive
Former smoker, [id number] history of smoking, quit 2003
No prior spirometry, no prior pulmonary evaluation
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
Anemia
JUDI on chronic kidney disease, now on iHD (Cr: 1.4-1.6 at baseline)
Metabolic acidosis with normal anion gap due to JUDI - acidosis now resolved
Elevated proBNP
Chronic diarrhea
Conditions present prior to admission
History of anemia
Hypertension
Hyperlipidemia
GERD with history of duodenal ulcer with bleeding
Required IR embolization 2020
Possible asbestos exposure
Ch[employer] Spring As[employer]er in the [employer] for many years
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
Family history of cancer
Father with lung cancer
Sister with brain cancer
Sister with liver cancer
Plan
Respiratory status has markedly improved, and he is now on HFNC at 50% FiO2, saturating 93-94% and he clinically is doing better, saying his SOB has improved.
Creatinine and BUN peaked at 4.3 and 156, respectively, on 02/21
Productive mucus, blood seems to be improved lucas after HD sessions
Preadmission history: Patient is short of breath since April 2023 at which time he had right upper lobe infiltrate. Patient cannot recall any history of recent pneumonia
Significant smoking and asbestos exposure history noted
Patient did not get follow-up x-ray as recommended per report in April
Former smoker, quit >30 years ago, strong family history of cancers
There is high suspicion this could be metastatic illness
IV steroids added with Decadron--> weaned down to 4mg IV q12hr on 02/22 --> weaned down to prednisone taper on 02/25
Finished 10 day course of ceftriaxone on 02/22
s/p 6 days zithromax - stopped on 02/18
Sputum culture few gram-positive cocci, many white cells, usual yaritza/finalized
Myrna noted 02/15
Prior sputum 02/13 neg
Legionella, streptococcal pneumonia negative
Continue to quantify hemoptysis
Airway clearance reviewed with RT, mucinex/acapella, vest/IS
Tolerating NIV with sleep at 06/09 --> did not need to use it overnight. Can change to prn BiPAP to improve sleep quality, assist with ventilation and the higher PEEP may also improve O2 requirements
Continue high flow NC during the day, reducing FiO2 as tolerated, keeping SpO2 88-95%
Hemoglobin stable
Plavix has been held since 02/14 given worsening hypoxia, chest x-ray findings
- Consider restarting plavix once hemoptysis fully resolved for >48 -72 hrs
Doubt active pulmonary hemorrhage given stable hemoglobin
Family interested in obtaining lung biopsy. I will obtain CT chest on Thursday as he is getting dialysis tomorrow. Will discuss case with IR after CT chest to discuss if TTNA is feasible.
ProBNP elevated at 19,500 on 02/17/2024, history of CHF
Trend sCr and UOP; Kuo catheter in place --> recommend to continue given his critically ill state with need for strict I/O
Nephrology following � recommendations appreciated
Hold nephrotoxic drugs
s/p HD cath on 02/21 and got 1st session on 02/21, 2nd session 02/22; 3rd session on 02/23 --> 4th session done on 02/25
Pt having anxiety and insomnia -- started seroquel 25mg HS on 02/21 --> seemed to help his sleep quality
Protonix for GERD therapy
Aspiration precautions
Soft & bite sized/gluten free ---> VFSS tomorrow as per PROPERTY DISPOSAL OFFICER
Continue with ISS with goal BG 140�180
- Moderate resistance ISS
DVT ppx: HSQ 5000 units q8hr
Family Discussions
Mira 02/18- Reviewed with today and son on speaker phone today on rounds. We discussed all of his poor prognostic markers including possible/suspected metastatic disease, acute HF picture, worsening JUDI, worsening hypoxemia. She understands
his overall outlook remains poor even with intubation/MV. There is less chance for good QoL the more organ dysfunction occurs. Family will visit and discuss further GOC.
Litzy - Reviewed with patient, at bedside
Updated son by phone 02/16 (Kevon: [phone])
Reviewed concern regarding possibility of underlying malignancy.
Patient high risk for intubation.
Discussion held by Dr. Montoya on 02/22/2024 with and patient ---> patient is now DNR, okay for intubation in addition to other full medical management (see separate note from 02/21)
Patient has markedly improved, FiO2 on high flow nasal cannula is at 50% with plans to reduce to 40-45% today, and he has clinically improved and is feeling better. No longer needs ICU level of care. Will downgrade to IMU and pulmonary service
will continue to follow along. We will also see him after discharge assuming that he continues to improve and is discharged home.
Total time spent today was 50 minutes for this encounter. Time includes reviewing laboratory test/imaging results, reviewing pertinent medical records, obtaining and reviewing medical history, performing an appropriate exam, ordering medications,
tests and procedures. Time also includes documentation of this encounter, coordinating patient care and communicating with other healthcare professionals. Total time does not include separately billed tests performed on this date of service.
Diagnostic Data
Chest x-ray 02/28/2024: Mildly improved pulmonary changes concerning for pneumonia. Underlying mass in the right upper lobe not completely excluded as mentioned on prior chest CT examination. Repeat chest CT examination in a couple weeks following
resolution of acute pneumonic process recommended; Slightly progressed tiny right pleural effusion; Findings diaphragms consistent with COPD. Stable
Chest x-ray 02/22/2024: Multifocal pneumonia, most pronounced within the right upper lobe. No significant change compared to 02/18/2024; Interstitial coarsening and mild interstitial prominence, suggestive of COPD. Pulmonary edema may also be present
Chest X-Ray: 02/18/24- Findings raising concern for pulmonary edema, superimposed on right lung pneumonic process. The patient does have a proBNP value of 19,500 today.
02/17/24- Right lung opacities suspicious for pneumonia without significant change in comparison to recent prior study.
CT Scan: CHEST 02/14/24- 1. Large right upper lobe pneumonia. Imaging follow-up to resolution is recommended as an underlying pulmonary neoplasm would be difficult to completely exclude.
2. Chronic obstructive pulmonary disease.
3. Small pericardial effusion.
4. Small right pleural effusion.
5. Mild loculated pleural fluid in the right minor fissure.
CXR 02/24/2024:There is moderate diffuse interstitial and groundglass airspace disease throughout both lungs with more confluent alveolar airspace disease in the right upper lung. This airspace disease is improved but unresolved compared with
previous examination and has more the appearance of inflammatory airspace disease than pulmonary edema as there are no septal lines to suggest interstitial edema.
Echo: 02/17/24- Normal left ventricular size and systolic function. No regional wall motion abnormalities are seen. LV ejection fraction is 65-70% by volumetric assessment. Mild concentric left ventricular hypertrophy. Stage II diastolic dysfunction
suggestive of abnormal relaxation and increased filling pressures. Top normal right ventricular size. Normal right ventricular systolic function. Aortic sclerosis without stenosis. Mild tricuspid regurgitation. Estimated pulmonary artery pressure
of 50-55 mmHg assuming a right atrial pressure of 8 mmHg. Compared to prior study dated 04/28/2023, estimated pulmonary artery systolic pressure was previously normal at 25-30 mmHg
04/28/23- 1. Mild concentric left ventricular hypertrophy with preserved systolic function, EF 60-65%
2. Thickened mitral leaflets with mitral annular calcification, trace mitral regurgitation and minimally dilated left atrium
3. Aortic sclerosis with trace aortic insufficiency
4. Normal right heart with normal pulmonary artery pressure
The study is similar to October 2021. The patient will be called and told that there is preserved heart muscle function and no significant valve abnormality.
Subjective Dataa
Subjective Data
Date of Service:
Date of Service: February 28, 2024
Chief Complaint: Marketing Research Coordinator Follow Up
Subjective:
Patient seen and evaluated today at bedside. He continues to improve daily and is currently on high flow nasal cannula at 50% FiO2. Saturating 94%, heart rate 72 and BP 125/82. Patient's as well as son, Kevon, at bedside. All questions were
answered. He is still coughing up small amount of blood-tinged phlegm but it is improving. He feels overall well. Denies chest pain, CERVANTES, abdominal pain, fevers or chills.
Review of Systems
General: Other (Negative unless mentioned above)
Objective Data
Data Reviewed
Vital Signs / I&O / Oxygen:
Vital Signs
Temp Pulse Resp BP Pulse Ox
98.4 F 67 14 143/63 94
02/28/24 08:00 02/28/24 08:34 02/28/24 07:32 02/28/24 08:34 02/28/24 08:25
Intake and Output
02/27/24 02/28/24 02/29/24
06:59 06:59 06:59
Intake Total 1540 / 1540 735 / 735
Output Total 450 / 450 400 / 400
Balance 1090 / 1090 335 / 335
SaO2 [NIV (Non Invasive 94
Ventilation)]
SaO2 94
Nasal Cannula flow liters per 50
minute
Physical Exam
General: Respiratory Distress (negative), Comfortable, Fever (negative) and Other (chronically ill appearing, weak/deconditioned)
HEENT: Normocephalic and Anicteric
Cardiovascular: S1-S2 and Peripheral Edema (negative)
Respiratory: Wheeze (negative), Crackles (Right upper lobe in posterior lung field), Rhonchi (negative), Non-Labored Respirations and Accessory Resp Muscle Use (negative)
GI: Soft, Non Distended, Non Tender and Normal Bowel Sounds
Neurology: AO x 3 and Tremors (negative)
Skin: Warm, Dry, Cyanosis (negative) and Jaundice (negative)
Labs/Micro/Reports
Lab Data
02/28/24 03:42
02/28/24 03:42
--- NOTE | 2024-02-28 11:45 | PTCARENOTE ---
No changes from previous assessment findings. OOB to BSC to have BM and then to bedside chair. Call miranda remains w/in pt reach.
[2024-02-28] MEDS: NOVOLOG FLEXPEN-MODERATE RESISTANCE 3 UNITS SC ×2 (13:05→17:32)
[2024-02-28 13:18] LABS: Glucose - Point of Care 204 mg/dl (70-99)
--- NOTE | 2024-02-28 13:38 | W.PN.NEPH.PH ---
Today's Communication / Plan
-
- HD tomorrow
Assessment/Plan
-
Impression:
Right upper lobe mass versus infiltrate with hemoptysis
Acute kidney
CKD stage IIIb baseline creatinine 1.6
HTN
History of TIA
History of COPD
Anemia
CHF HFpEF
Plan:
JDUI:
-Etiology remains elusive: bland UA, high FEna, no hydro on US
-severe JUDI-HD initiated on 02/21 for hypervolemia but Cr is quite low post dialysis --> some renal recovery?
- BP stable on po meds
- monitor h/h , adequate fe stores, high dose AYALA, UPEP neg, SPEP pending
- currently he has IJ catheter (temporary)
- UOP remains oliguric
- Seem to have poor prognosis. planning for repeat CT scan and IR guided biopsy next week
d/w pt ,
-
-
Date of Service: February 28, 2024
CC / HPI / ROS
-
Chief Complaint:
JUDI
History of Present Illness:
oliguric with goins
BP stable
remains on high flow O2 but downtitrating
wt decreasing
hb is low 7.6
Review of Systems:
sob still, cough+ hemoptysis
no fever
no n/v
Labs
-
Labs:
WBC 11.7 10^3/uL (4.8-10.8) H 02/28/24 03:42
RBC 2.45 10^6/uL (4.70-6.10) L 02/28/24 03:42
Hgb 7.3 g/dL (13.0-18.0) L 02/28/24 03:42
Hct 21.0 % (39.0-52.0) L 02/28/24 03:42
Plt Count 168 10^3/uL (130-400) 02/28/24 03:42
Sodium 129 mmol/L (135-145) L 02/28/24 03:42
Potassium 3.9 mmol/L (3.5-5.1) 02/28/24 03:42
Chloride 94 mmol/L (98-107) L 02/28/24 03:42
Carbon Dioxide 26 mmol/L (22-30) 02/28/24 03:42
BUN 63 mg/dl (9-20) H 02/28/24 03:42
Creatinine 2.2 mg/dL (0.7-1.3) H 02/28/24 03:42
eGFR 30.47 02/28/24 03:42
Glucose 98 mg/dl (70-99) 02/28/24 03:42
Calcium 7.6 mg/dl (8.4-10.2) L 02/28/24 03:42
Phosphorus 4.3 mg/dl (2.5-4.5) 02/25/24 03:15
Aar-Q-Jeexgdpzvoe Pept 85051 pg/ml 02/17/24 05:00
Albumin 3.3 g/dl (3.5-5.0) L 02/23/24 03:21
Physical Exam
-
Vital Signs:
Vital Signs
Temp Pulse Resp BP Pulse Ox
98.4 F 68 20 143/63 94
02/28/24 08:00 02/28/24 11:05 02/28/24 11:05 02/28/24 08:34 02/28/24 11:05
Cardiovascular:: Regular rate and rhythm
Respiratory:: Bilateral: Coarse
Lung Excursion:: Normal
Abdomen:: Nontender and Soft
Bowel Sounds:: Normal
Extremity Edema:: None: Bilateral:
Goins Catheter: Yes
--- NOTE | 2024-02-28 14:54 | PTCARENOTE ---
Pt sitting OOB in chair visiting w/ . No new complaints or changes noted from previous assessment findings. Resp Therapy tapering O2 as able.
[2024-02-28 17:40] LABS: Glucose - Point of Care 229 mg/dl (70-99)
--- NOTE | 2024-02-28 17:47 | PTCARENOTE ---
Pt continues to sit OOB in chair. No changes from previous assessment findings- no complaints. POx 95% on 40L/50% HighFlow
--- NOTE | 2024-02-28 21:00 | PTCARENOTE ---
pt ax1 back to bed, SR 60-70s, Sat 94% on HFNC 40L/50%, RA IV x 2/RIJ HD cath WNL. Kuo draining yellow urine. vss, POC discussed with pt, pt tx to IMU.
[2024-02-28 22:00] LABS: Glucose - Point of Care 211 mg/dl (70-99)
[2024-02-28] MEDS: SEROQUEL 25 MG PO (22:02)
[2024-02-28] MEDS: TYLENOL 1000 MG PO (22:03)
[2024-02-28] MEDS: TOPROL XL 100 MG PO (22:03)
[2024-02-28] MEDS: NORVASC 10 MG PO (22:04)
--- NOTE | 2024-02-28 22:20 | PTCARENOTE ---
Received verbal report on pt from MADELINE Mendenhall. pt arrived from ICU in bed, AAOx3. Pt 94% on highflow NC, 40L 50%. Denies c/o pain or SOB. NS on the monitor, hr 60s. Assessment completed. Pt resting in bed with call miranda in reach.
[2024-02-29] VITALS (14 sets, daily range): BP systolic 121–163; BP diastolic 57–71; PULSE 79; O2SAT 94; BMI 22.1
[2024-02-29 05:59] LABS: % Basophils 0.2 % (0-2); % Eosinophils 0.2 % (0-6); % Immature Granulocytes 3.3 % (0-0.5); % Monocytes 4.8 % (1.7-9.3); % Neutrophils 81.5 % (42.2-75.2); Absolute Immature Granulocytes 0.4 10^3/uL (0-0.05); Absolute Lymphocytes 1.2 10^3/uL (1.2-3.4); Absolute Monocytes 0.6 10^3/uL (0.1-0.6); Hematocrit 21.7 % (39.0-52.0); Hemoglobin 7.9 g/dL (13.0-18.0); Mean Corp Hgb Conc. 36.4 g/dL (33.0-37.0); Mean Corpuscular Volume 82.5 fL (80.0-94.0); Mean Platelet Volume 11.3 fL (7.4-10.4); Nucleated Red Blood Cells % 0 % (-); Platelet Count 170 10^3/uL (130-400); Red Blood Cell Count 2.63 10^6/uL (4.70-6.10); Red Cell Dist. Width 15.7 % (11.5-14.5); White Blood Cell Count 12.2 10^3/uL (4.8-10.8)
[2024-02-29 06:27] LABS: ALT (SGPT) 30 U/L (0-50); AST (SGOT) 32 U/L (17-59); Alkaline Phosphatase 67 U/L (38-126); Blood Urea Nitrogen 83 mg/dl (9-20); Calcium 7.9 mg/dl (8.4-10.2); Carbon Dioxide 22 mmol/L (22-30); Chloride 95 mmol/L (98-107); Direct Bilirubin 0.3 mg/dl (0.0-0.4); Estimated Creatinine Clearance 25 ml/min; Glucose 87 mg/dl (70-99); Phosphorus 4.4 mg/dl (2.5-4.5); Potassium 4.1 mmol/L (3.5-5.1); Sodium 128 mmol/L (135-145); Total Bilirubin 0.8 mg/dl (0.2-1.3); Total Protein 5.5 g/dl (6.3-8.2); eGFR 27.45
[2024-02-29 07:59] LABS: Glucose - Point of Care 86 mg/dl (70-99)
[2024-02-29] MEDS: DUONEB 3 ML INH ×4 (08:12→20:19)
[2024-02-29] MEDS: VITAMIN B-12 1000 MCG PO (08:26)
[2024-02-29] MEDS: PROTONIX 40 MG PO (08:26)
[2024-02-29] MEDS: APRESOLINE 75 MG PO ×3 (08:26→21:09)
[2024-02-29] MEDS: LIPITOR 80 MG PO (08:26)
[2024-02-29] MEDS: DELTASONE 30 MG PO (08:26)
[2024-02-29] MEDS: MUCINEX 600 MG PO ×2 (08:26→21:10)
[2024-02-29] MEDS: NOVOLOG FLEXPEN-MODERATE RESISTANCE SC ×2 (08:27→14:17)
[2024-02-29] MEDS: HEPARIN 5000 UNITS SC ×2 (08:27→17:14)
--- NOTE | 2024-02-29 09:04 | W.PN.PUL3 ---
Today's Communication / Plan
-
Doing well, weaning down O2, may transition to midflow and off HFNC today as tolerated
Continue HD per renal, with volume removal
Prednisone taper
PT/OT, reconsult
May consider lung biopsy when hypoxemia improves
Updated at bedside as well
Assessment
-
73-year-old male with history of hypertension, hyperlipidemia, TIA on Plavix therapy, describes chronic bronchitis and chronic subjective dyspnea with [id number] history of smoking quit 2003. He now presents with progressive cough, shortness of
breath and hemoptysis. Found to have right upper lobe mass with likely pneumonia. We are asked to comment on pulmonary process
Right upper lobe mass/infiltrate
Acute hemoptysis x 3 days, blood mixed with mucus
Right upper lobe abnormality noted per chest x-ray April 2023
Small pleural effusion
Chronic bronchitis, dyspnea
Progressive
[id number] history of smoking, quit 2003
No prior spirometry, no prior pulmonary evaluation
Anemia
Chronic kidney disease, creatinine 2.2
Creatinine 1.6 in January 2024
Elevated proBNP
Chronic diarrhea
Conditions present prior to admission
History of anemia
Hypertension/hyperlipidemia
GERD with history of duodenal ulcer with bleeding
Required IR embolization 2020
Possible asbestos exposure
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
Family history of cancer
Father with lung cancer
Sister with brain cancer
Sister with liver cancer
Plan
Respiratory status has markedly improved, and he is now on HFNC at 50% FiO2, saturating 93-94% and he clinically is doing better, saying his SOB has improved.
Transition to midflow if able
Creatinine and BUN peaked at 4.3 and 156, respectively, on 02/21, trending down to mid 2's
Preadmission history: Patient is short of breath since April 2023 at which time he had right upper lobe infiltrate.
Patient cannot recall any history of recent pneumonia
Significant smoking and asbestos exposure history noted
Patient did not get follow-up x-ray as recommended per report in April
Former smoker, quit >30 years ago, strong family history of cancers
There is high suspicion this could be metastatic illness
IV steroids added with Decadron--> weaned down to 4mg IV q12hr on 02/22 --> weaned down to prednisone taper on 02/25
Finished 10 day course of ceftriaxone on 02/22
s/p 6 days zithromax - stopped on 02/18
Sputum culture few gram-positive cocci, many white cells, usual yaritza/finalized
Myrna noted 02/15
Prior sputum 02/13 neg
Legionella, streptococcal pneumonia negative
Airway clearance reviewed with RT, mucinex/acapella, vest/IS
Tolerating NIV with sleep at 12/ --> did not need to use it overnight.
Can change to prn BiPAP to improve sleep quality, assist with ventilation and the higher PEEP may also improve O2 requirements
Hemoglobin stable
Plavix has been held since 02/14 given worsening hypoxia, chest x-ray findings
Consider restarting plavix once hemoptysis fully resolved for >48 -72 hrs
Doubt active pulmonary hemorrhage given stable hemoglobin
Family interested in obtaining lung biopsy.
This may need to be planned pending improvement of hypoxemia
ProBNP elevated at 19,500 on 02/17/2024, history of CHF
Trend sCr and UOP; Kuo catheter in place --> recommend to continue given his critically ill state with need for strict I/O
Nephrology following � recommendations appreciated
s/p HD cath on 02/21 and got 1st session on 02/21
Continue HD per renal
Pt having anxiety and insomnia -- started seroquel 25mg HS on 02/21
Seemed to help his sleep quality, continue for now
Protonix for GERD therapy
Aspiration precautions
Soft & bite sized/gluten free
VFSS tomorrow as per RETAIL MERCHANDISING COORDINATOR
Continue with ISS with goal BG 140�180
Moderate resistance ISS, accu check with meals
DVT ppx: HSQ 5000 units q8hr
Family Discussions
Discussion held by Dr. Montoya on 02/22/2024 with and patient ---> patient is now DNR, okay for intubation in addition to other full medical management (see separate note from 02/21)
Mira 02/18- Reviewed with today and son on speaker phone today on rounds. We discussed all of his poor prognostic markers including possible/suspected metastatic disease, acute HF picture, worsening JUDI, worsening hypoxemia. She understands
his overall outlook remains poor even with intubation/MV. There is less chance for good QoL the more organ dysfunction occurs. Family will visit and discuss further GOC.
Litzy - Reviewed with patient, at bedside
Updated son by phone 02/16 (Kevon: [phone])
Reviewed concern regarding possibility of underlying malignancy.
Patient high risk for intubation.
Diagnostic Data
Chest x-ray 02/28/2024: Mildly improved pulmonary changes concerning for pneumonia. Underlying mass in the right upper lobe not completely excluded as mentioned on prior chest CT examination. Repeat chest CT examination in a couple weeks following
resolution of acute pneumonic process recommended; Slightly progressed tiny right pleural effusion; Findings diaphragms consistent with COPD. Stable
Chest x-ray 02/22/2024: Multifocal pneumonia, most pronounced within the right upper lobe. No significant change compared to 02/18/2024; Interstitial coarsening and mild interstitial prominence, suggestive of COPD. Pulmonary edema may also be present
Chest X-Ray: 02/18/24- Findings raising concern for pulmonary edema, superimposed on right lung pneumonic process. The patient does have a proBNP value of 19,500 today.
02/17/24- Right lung opacities suspicious for pneumonia without significant change in comparison to recent prior study.
CT Scan: CHEST 02/14/24- 1. Large right upper lobe pneumonia. Imaging follow-up to resolution is recommended as an underlying pulmonary neoplasm would be difficult to completely exclude.
2. Chronic obstructive pulmonary disease.
3. Small pericardial effusion.
4. Small right pleural effusion.
5. Mild loculated pleural fluid in the right minor fissure.
CXR 02/24/2024:There is moderate diffuse interstitial and groundglass airspace disease throughout both lungs with more confluent alveolar airspace disease in the right upper lung. This airspace disease is improved but unresolved compared with
previous examination and has more the appearance of inflammatory airspace disease than pulmonary edema as there are no septal lines to suggest interstitial edema.
Echo: 02/17/24- Normal left ventricular size and systolic function. No regional wall motion abnormalities are seen. LV ejection fraction is 65-70% by volumetric assessment. Mild concentric left ventricular hypertrophy. Stage II diastolic dysfunction
suggestive of abnormal relaxation and increased filling pressures. Top normal right ventricular size. Normal right ventricular systolic function. Aortic sclerosis without stenosis. Mild tricuspid regurgitation. Estimated pulmonary artery pressure
of 50-55 mmHg assuming a right atrial pressure of 8 mmHg. Compared to prior study dated 04/28/2023, estimated pulmonary artery systolic pressure was previously normal at 25-30 mmHg
04/28/23- 1. Mild concentric left ventricular hypertrophy with preserved systolic function, EF 60-65%
2. Thickened mitral leaflets with mitral annular calcification, trace mitral regurgitation and minimally dilated left atrium
3. Aortic sclerosis with trace aortic insufficiency
4. Normal right heart with normal pulmonary artery pressure
The study is similar to October 2021. The patient will be called and told that there is preserved heart muscle function and no significant valve abnormality.
-----
Total time spent today was 52 minutes for this encounter. Time includes reviewing laboratory test/imaging results, reviewing pertinent medical records, obtaining and reviewing medical history, performing an appropriate exam, ordering medications,
tests and procedures. Time also includes documentation of this encounter, coordinating patient care and communicating with other healthcare professionals. Total time does not include separately billed tests performed on this date of service.
Subjective Data
-
Date of Service:
Date of Service: February 29, 2024
Chief Complaint: Pulmonary Follow Up
Subjective:
Doing well, on HFNC
HD continued per renal
at bedside
Objective Data
Data Reviewed
Vital Signs / I&O / Oxygen:
Vital Signs
Temp Pulse Resp BP Pulse Ox
97.8 F 62 10 163/63 95
02/29/24 07:47 02/29/24 08:26 02/29/24 08:20 02/29/24 08:26 02/29/24 08:20
Intake and Output
02/28/24 02/29/24 03/01/24
06:59 06:59 06:59
Intake Total 735 / 735 600 / 600
Output Total 400 / 400 430 / 430
Balance 335 / 335 170 / 170
SaO2 [NIV (Non Invasive 94
Ventilation)]
SaO2 95
Nasal Cannula flow liters per 40
minute
Physical Exam
General: Comfortable
HEENT: Normocephalic and Anicteric
Cardiovascular: S1-S2, Regular Rhythm, Murmur (n) and Rub (n)
Respiratory: Wheeze (n), Crackles (few), Rhonchi (n), Non-Labored Respirations and Stridor (n)
GI: Soft, Non Distended and Non Tender
Neurology: Awake, Alert, Oriented, AO x 3 and No Motor Deficits (Able to sit up without difficulty)
Skin: Cyanosis (n), Jaundice (n) and Rash (n)
Labs/Micro/Reports
Lab Data
02/29/24 05:39
02/29/24 05:39
--- NOTE | 2024-02-29 10:23 | W.PN.NEPH.PH ---
Today's Communication / Plan
-
lasix
Assessment/Plan
-
Impression:
Right upper lobe mass versus infiltrate with hemoptysis
Acute kidney
CKD stage IIIb baseline creatinine 1.6
HTN
History of TIA
History of COPD
Anemia
CHF HFpEF
Plan:
hold HD today
follow BMP
lasix trial
ok to dc follow, follow PVR
check remainder serologies, cause of JUDI undetermined
-
-
Date of Service: February 29, 2024
CC / HPI / ROS
-
Chief Complaint:
JUDI
History of Present Illness:
nonoliguric with goins
BP stable
Cr up to 2.4
last HD 02/25
BUN up to 83
Review of Systems:
no fever
no n/v
Labs
-
Labs:
WBC 12.2 10^3/uL (4.8-10.8) H 02/29/24 05:39
RBC 2.63 10^6/uL (4.70-6.10) L 02/29/24 05:39
Hgb 7.9 g/dL (13.0-18.0) L 02/29/24 05:39
Hct 21.7 % (39.0-52.0) L 02/29/24 05:39
Plt Count 170 10^3/uL (130-400) 02/29/24 05:39
Sodium 128 mmol/L (135-145) L 02/29/24 05:39
Potassium 4.1 mmol/L (3.5-5.1) 02/29/24 05:39
Chloride 95 mmol/L (98-107) L 02/29/24 05:39
Carbon Dioxide 22 mmol/L (22-30) 02/29/24 05:39
BUN 83 mg/dl (9-20) H 02/29/24 05:39
Creatinine 2.4 mg/dL (0.7-1.3) H 02/29/24 05:39
eGFR 27.45 02/29/24 05:39
Glucose 87 mg/dl (70-99) 02/29/24 05:39
Calcium 7.9 mg/dl (8.4-10.2) L 02/29/24 05:39
Phosphorus 4.4 mg/dl (2.5-4.5) 02/29/24 05:39
Xcy-C-Fzeigcrjdls Pept 17270 pg/ml 02/17/24 05:00
Albumin 3.0 g/dl (3.5-5.0) L 02/29/24 05:39
Physical Exam
-
Vital Signs:
Vital Signs
Temp Pulse Resp BP Pulse Ox
97.8 F 62 10 163/63 95
02/29/24 07:47 02/29/24 08:26 02/29/24 08:20 02/29/24 08:26 02/29/24 08:20
Cardiovascular:: Regular rate and rhythm
Respiratory:: Bilateral: Coarse
Lung Excursion:: Normal
Abdomen:: Nontender and Soft
Bowel Sounds:: Normal
Extremity Edema:: None: Bilateral:
[2024-02-29] MEDS: LASIX 40 MG PO (10:46)
[2024-02-29 11:32] LABS: Glucose - Point of Care 170 mg/dl (70-99)
[2024-02-29 11:36] LABS: Complement C3 116 mg/dl (88-165)
--- NOTE | 2024-02-29 11:43 | W.PN.HOSP.TC ---
Today's Communication/Plan
-
wean o2 as tolerated
CT chest in am
lasix. HD held
dc buster
prednisone taper
Assessment / Plan
Assessment / Plan
#Acute hypoxemic respiratory failure -- due to pneumonia, superimposed HFpEF, possible COPD, hematemesis
#Suspected ARDS -- No recent ABG to calculate P/F; clinically consistent per course and xray findings
#Severe CAP -- RUL, bacterial
#Acute on chronic HFpEF
#Acute hemoptysis -- suspected right upper lobe malignancy and also with Plavix
-CT thorax showed with large RUL consolidation, also signs of malignancy in the RUL, pulmonary edema
-Was started on IV ceftriaxone empirically, completed course of IV azithromycin as well;
-Developed decompensation of HFpEF in the context of IV fluids, elevated proBNP, s/p IV Lasix course, now on hemodialysis
-Echocardiogram here showed severe pulmonary hypertension; has evidence of COPD with emphysematous findings, tobacco history
-Continue with oral prednisone taper
-Continue to hold clopidogrel, quantify hemoptysis
-Continue with HD for volume status; Monitor I/Os
-Titrate supplemental oxygen for SpO2 goal 88-94%, NIV nightly PRN. Improvement in FiO2 now on 50%
-Will eventually need PFTs and pulm assessment for new COPD
-Pulm recs
#Oliguric JUDI on CKD 3B
#Metabolic acidosis
#Normocytic anemia -- 2/2 renal dysfunction
-Suspected to be prerenal; Home medications include diuretics and ARB, presented with infection
-Home diuretics and losartan are held, received bicarbonate therapy for his acidemia
-Nephrology following, planning for tunneled cath as permanent HD access
-Renal function seems to be improving per labs and urine output
-Continue HD at nephrology discretion
-Trend daily BMP, monitor strict I's and O's
-Planning for AYALA for associated anemia
-Consider transfusion for hemoglobin <7
-REYNALDO goins. plan for lasix today. Complements back to normal. ANCA panel pending. Normal serum protein electrophoresis.
-Renal diet
#Right upper lobe mass
-Likely demonstrated on CT, but does have superimposed bacterial pneumonia which may affect findings
-Will need a repeat CT scan when infection is clear, possible consideration for biopsy if mass present
-Planning for repeat CT thorax to assess RUL mass, IR guided biopsy if still present
-Suspect this is the source of hemoptysis as above
#Acute on chronic normocytic anemia -- blood loss from hemoptysis, dilution
-Baseline hemoglobin around 10, most recently hemoglobin 7.5 and has been stable
-Iron studies without signs of deficiency, no evidence of hemolysis, B12 was low but now on therapy
-Will continue to trend daily CBC and transfuse for hemoglobin <7
-Planning for AYALA as above
#History of duodenal ulcer/GI bleed
-No signs of active GI bleeding while here, did have hemoptysis
-Remains on home PPI regimen
#History of TIA
-Holding plavix as above
#Essential hypertension
-No known history of hypertensive systemic disease, Home meds include metoprolol hydralazine, and amlodipine
-Blood pressure has been poorly controlled outside of the hospital, recently hydralazine was increased
-Blood pressure here has been stable and adequate for his clinical condition
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
-History of heavy tobacco abuse in the past; no formal diagnosis, no home inhaler therapies
-Currently without any wheezing or signs of exacerbation though cannot rule out contribution to his presentation
-Plan for pulm follow-up and PFTs at discharge, DC on DuoNebs as needed
#Hyperlipidemia
-No known history of ASCVD
-No medications include high intensity shortness
#Celiac's disease
-No formal diagnosis, gluten sensitivity per history, told him to avoid gluten by an outside doctor
-No gluten diet ordered
DVT prophylaxis: Heparin subcutaneous
Diet: Soft and bite sized, Ensure with meals, renal friendly
Goals of care/CODE STATUS: Hospice was mentioned on 02/24, remains full treatment with limited DNR (no chest compressions)
Discussed with spouse at bedside in detail
Discussed with nephrology
Discussed with RN
Anticipated Discharge: > 48 hours
Subjective/Interval History
-
Date of Service: February 29, 2024
remains on HFNC
Objective Data
-
Labs:
Laboratory Results
02/29/24
05:39
WBC 12.2 H
Hgb 7.9 L
Hct 21.7 L
Plt Count 170
Sodium 128 L
Potassium 4.1
Chloride 95 L
Carbon Dioxide 22
BUN 83 H
Creatinine 2.4 H
Glucose 87
Calcium 7.9 L
Total Bilirubin 0.8
AST 32
ALT 30
Alkaline Phosphatase 67
Vital Signs:
Vital Signs
Temp Pulse Resp BP Pulse Ox
97.8 F 66 21 152/71 95
02/29/24 07:47 02/29/24 11:28 02/29/24 11:28 02/29/24 10:46 02/29/24 11:29
I&O
02/28/24 02/29/24 03/01/24
06:59 06:59 06:59
Intake Total 735 / 735 600 / 600
Output Total 400 / 400 430 / 430
Balance 335 / 335 170 / 170
Physical Exam
-
General: No Apparent Distress and Comfortable; Negative Respiratory Distress
HEENT: Normocephalic, Atraumatic, Moist Mucous Membranes, Anicteric and Oxygen (HFNC)
Respiratory: Rhonchi and Non Labored Respirations; Negative Wheezes, Rales or Accessory Resp Muscle Use
Cardiac: Regular Rhythm and S1/S2; Negative Murmur, Rub, JVD or Gallop
GI: Soft, Nontender, Nondistended and Normal Bowel Sounds
Genito-urinary: Clear Urine and Goins
Musculoskeletal: No Clubbing, No Cyanosis and No Edema
Skin: Warm and Dry; Negative Rash
Neuro: Awake, AO x 3, Nonfocal/Grossly Intact and Central Nerve's Intact
Psych: Calm
Data Reviewed
-
Total Time Spent with Patient (in minutes): 58
[2024-02-29] MEDS: NOVOLOG FLEXPEN-MODERATE RESISTANCE 1 UNITS SC (14:46)
[2024-02-29 14:56] LABS: Glucose - Point of Care 157 mg/dl (70-99)
--- NOTE | 2024-02-29 16:20 | CM ---
Patient with Dx Acute hypoxemic respiratory failure, pneumonia, HF, JUDI, possible lung mass, anemia. High flow O2. PT; assist of 2, recommend skilled rehab. OT; Therapy not warranted. ST for VSE on hold. Dysphagia diet.
CM continuing to follow and will assist with d/c plans when less medically acute.
Plan TBD.
[2024-02-29 17:50] LABS: Glucose - Point of Care 376 mg/dl (70-99)
[2024-02-29] MEDS: TYLENOL 1000 MG PO (21:09)
[2024-02-29] MEDS: NORVASC 10 MG PO (21:10)
[2024-02-29] MEDS: TOPROL XL 100 MG PO (21:10)
[2024-02-29] MEDS: SEROQUEL 25 MG PO (21:10)
[2024-02-29 21:29] LABS: Glucose - Point of Care 242 mg/dl (70-99)
[2024-03-01] VITALS (15 sets, daily range): BP systolic 139–159; BP diastolic 52–77; O2SAT 93; BMI 23.0
--- NOTE | 2024-03-01 00:59 | PTCARENOTE ---
Received pt at change of shift. RT switched pt from high flow NC to 15L MF. Pt has since been weaned down to 14L MF with pulse ox at 96%. Pt still unable to void. Bladder scanned pt for 481 ml. Straight cath per protocol for 600 output. Pt
states he feels much better and less pressure. States he felt the urge to void but was unable. Difficulty falling asleep. Notified CODING EDUCATOR. Trazadone ordered 1x dose. Resting in bed with call miranda in reach.
[2024-03-01] MEDS: HEPARIN 5000 UNITS SC ×4 (01:12→23:08)
[2024-03-01] MEDS: DESYREL 12.5 MG PO (01:12)
--- NOTE | 2024-03-01 06:13 | PTCARENOTE ---
No urine output. Bladder scanned pt for 554. Pt unable to void on own. Straight cath for 525 ml of clear yellow urine. Tolerated well.
[2024-03-01 06:16] LABS: Hematocrit 21.5 % (39.0-52.0); Hemoglobin 7.7 g/dL (13.0-18.0); Mean Corp Hgb Conc. 35.8 g/dL (33.0-37.0); Mean Corpuscular Hgb 29.6 pg (27.0-31.0); Mean Corpuscular Volume 82.7 fL (80.0-94.0); Mean Platelet Volume 11.4 fL (7.4-10.4); Platelet Count 182 10^3/uL (130-400); Red Cell Dist. Width 15.7 % (11.5-14.5); White Blood Cell Count 12.7 10^3/uL (4.8-10.8)
[2024-03-01 06:42] LABS: Blood Urea Nitrogen 92 mg/dl (9-20); Calcium 7.7 mg/dl (8.4-10.2); Carbon Dioxide 22 mmol/L (22-30); Chloride 92 mmol/L (98-107); Estimated Creatinine Clearance 28 ml/min; Glucose 79 mg/dl (70-99); Sodium 125 mmol/L (135-145); eGFR 30.47
[2024-03-01] MEDS: DUONEB 3 ML INH ×4 (08:13→20:15)
[2024-03-01] MEDS: VITAMIN B-12 1000 MCG PO (08:18)
[2024-03-01] MEDS: DELTASONE 30 MG PO (08:18)
[2024-03-01] MEDS: PROTONIX 40 MG PO (08:18)
[2024-03-01] MEDS: APRESOLINE 75 MG PO ×3 (08:18→22:32)
[2024-03-01] MEDS: LIPITOR 80 MG PO (08:18)
[2024-03-01] MEDS: MUCINEX 600 MG PO ×2 (08:18→22:32)
[2024-03-01] MEDS: NOVOLOG FLEXPEN-MODERATE RESISTANCE SC (08:19)
--- NOTE | 2024-03-01 08:24 | PTCARENOTE ---
Pt AAOx3 desat earlier now on 15l mid flow pt fot Ct and vswallow
[2024-03-01 08:26] LABS: Glucose - Point of Care 88 mg/dl (70-99)
--- NOTE | 2024-03-01 09:04 | W.PN.PUL3 ---
Today's Communication / Plan
-
Doing relatively well transitioning from HFNC to midflow, continue weaning as tolerated
PT/OT resumed
Ongoing diuretic management per renal, keep volume output > input
Prednisone taper continues
Currently off abx, completed course
CT planning today
VSE planning as well, but on hold while sats were borderline this AM
Assessment
-
73-year-old male with history of hypertension, hyperlipidemia, TIA on Plavix therapy, describes chronic bronchitis and chronic subjective dyspnea with [id number] history of smoking quit 2003. He now presents with progressive cough, shortness of
breath and hemoptysis. Found to have right upper lobe mass with likely pneumonia. We are asked to comment on pulmonary process
Right upper lobe mass/infiltrate
Acute hemoptysis x 3 days, blood mixed with mucus
Right upper lobe abnormality noted per chest x-ray April 2023
Small pleural effusion
Chronic bronchitis, dyspnea
Progressive
[id number] history of smoking, quit 2003
No prior spirometry, no prior pulmonary evaluation
Anemia
Chronic kidney disease, creatinine 2.2
Creatinine 1.6 in January 2024
Elevated proBNP
Chronic diarrhea
Conditions present prior to admission
History of anemia
Hypertension/hyperlipidemia
GERD with history of duodenal ulcer with bleeding
Required IR embolization 2020
Possible asbestos exposure
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
Family history of cancer
Father with lung cancer
Sister with brain cancer
Sister with liver cancer
Plan
Respiratory status has markedly improved, transitioned to midflow 15L
Could not tolerate 10L, had some desaturation while sleeping
Could try nocturnal BIPAP to maintain sat
Creatinine and BUN peaked at 4.3 and 156, respectively, on 02/21, trending down to mid 2's
Preadmission history: Patient is short of breath since April 2023 at which time he had right upper lobe infiltrate.
Patient cannot recall any history of recent pneumonia
Significant smoking and asbestos exposure history noted
Patient did not get follow-up x-ray as recommended per report in April
Former smoker, quit >30 years ago, strong family history of cancers
There is high suspicion this could be metastatic illness
IV steroids initially --> on prednisone taper to continue until off
Finished 10 day course of ceftriaxone on 02/22
s/p 6 days zithromax - stopped on 02/18
Sputum culture few gram-positive cocci, many white cells, usual yaritza/finalized
Myrna noted 02/15
Prior sputum 02/13 neg
Legionella, streptococcal pneumonia negative
Airway clearance reviewed with RT, mucinex/acapella, vest/IS
Currently off abx, can observe for now
Hemoglobin stable
Had brief hemoptysis on this admission, resolved
Plavix has been held and can likely be resumed
He has not had further episodes
Family interested in obtaining lung biopsy.
This may need to be planned pending improvement of hypoxemia
CT chest planning
ProBNP elevated at 19,500 on 02/17/2024, history of CHF
Trend sCr and UOP; Kuo catheter in place --> recommend to continue given his critically ill state with need for strict I/O
Nephrology following � recommendations appreciated
s/p HD cath on 02/21 and got 1st session on 02/21
Continue HD per renal
Pt having anxiety and insomnia -- started seroquel 25mg HS on 02/21
Seemed to help his sleep quality initially
Feeling worsening insomnia, will add melatonin
Protonix for GERD therapy
Aspiration precautions
Soft & bite sized/gluten free
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
Continue with ISS with goal BG 140�180
Moderate resistance ISS, accu check with meals
DVT ppx: HSQ 5000 units q8hr
Family Discussions
Discussion held by Dr. Montoya on 02/22/2024 with and patient ---> patient is now DNR, okay for intubation in addition to other full medical management (see separate note from 02/21)
Mira 02/18- Reviewed with today and son on speaker phone today on rounds. We discussed all of his poor prognostic markers including possible/suspected metastatic disease, acute HF picture, worsening JUDI, worsening hypoxemia. She understands
his overall outlook remains poor even with intubation/MV. There is less chance for good QoL the more organ dysfunction occurs. Family will visit and discuss further GOC.
Litzy - Reviewed with patient, at bedside
Updated son by phone 02/16 (Kevon: [phone])
Reviewed concern regarding possibility of underlying malignancy.
Patient high risk for intubation.
Diagnostic Data
Chest x-ray 02/28/2024: Mildly improved pulmonary changes concerning for pneumonia. Underlying mass in the right upper lobe not completely excluded as mentioned on prior chest CT examination. Repeat chest CT examination in a couple weeks following
resolution of acute pneumonic process recommended; Slightly progressed tiny right pleural effusion; Findings diaphragms consistent with COPD. Stable
Chest x-ray 02/22/2024: Multifocal pneumonia, most pronounced within the right upper lobe. No significant change compared to 02/18/2024; Interstitial coarsening and mild interstitial prominence, suggestive of COPD. Pulmonary edema may also be present
Chest X-Ray: 02/18/24- Findings raising concern for pulmonary edema, superimposed on right lung pneumonic process. The patient does have a proBNP value of 19,500 today.
02/17/24- Right lung opacities suspicious for pneumonia without significant change in comparison to recent prior study.
CT Scan: CHEST 02/14/24- 1. Large right upper lobe pneumonia. Imaging follow-up to resolution is recommended as an underlying pulmonary neoplasm would be difficult to completely exclude.
2. Chronic obstructive pulmonary disease.
3. Small pericardial effusion.
4. Small right pleural effusion.
5. Mild loculated pleural fluid in the right minor fissure.
CXR 02/24/2024:There is moderate diffuse interstitial and groundglass airspace disease throughout both lungs with more confluent alveolar airspace disease in the right upper lung. This airspace disease is improved but unresolved compared with
previous examination and has more the appearance of inflammatory airspace disease than pulmonary edema as there are no septal lines to suggest interstitial edema.
Echo: 02/17/24- Normal left ventricular size and systolic function. No regional wall motion abnormalities are seen. LV ejection fraction is 65-70% by volumetric assessment. Mild concentric left ventricular hypertrophy. Stage II diastolic dysfunction
suggestive of abnormal relaxation and increased filling pressures. Top normal right ventricular size. Normal right ventricular systolic function. Aortic sclerosis without stenosis. Mild tricuspid regurgitation. Estimated pulmonary artery pressure
of 50-55 mmHg assuming a right atrial pressure of 8 mmHg. Compared to prior study dated 04/28/2023, estimated pulmonary artery systolic pressure was previously normal at 25-30 mmHg
04/28/23- 1. Mild concentric left ventricular hypertrophy with preserved systolic function, EF 60-65%
2. Thickened mitral leaflets with mitral annular calcification, trace mitral regurgitation and minimally dilated left atrium
3. Aortic sclerosis with trace aortic insufficiency
4. Normal right heart with normal pulmonary artery pressure
The study is similar to October 2021. The patient will be called and told that there is preserved heart muscle function and no significant valve abnormality.
-----
Total time spent today was 53 minutes for this encounter. Time includes reviewing laboratory test/imaging results, reviewing pertinent medical records, obtaining and reviewing medical history, performing an appropriate exam, ordering medications,
tests and procedures. Time also includes documentation of this encounter, coordinating patient care and communicating with other healthcare professionals. Total time does not include separately billed tests performed on this date of service.
Subjective Data
-
Date of Service:
Date of Service: March 01, 2024
Chief Complaint: Pulmonary Follow Up
Subjective:
Doing well on midflow, off HFNC
Had some desaturation overnight briefly (while on 10L), recovered on 15L
at bedside
Objective Data
Data Reviewed
Vital Signs / I&O / Oxygen:
Vital Signs
Temp Pulse Resp BP Pulse Ox
97.7 F 62 22 154/52 93
03/01/24 07:10 03/01/24 08:18 03/01/24 08:15 03/01/24 08:18 03/01/24 08:15
Intake and Output
02/29/24 03/01/24 03/02/24
06:59 06:59 06:59
Intake Total 600 / 600 2080 / 2080
Output Total 430 / 430 1125 / 1125
Balance 170 / 170 955 / 955
SaO2 [NIV (Non Invasive 94
Ventilation)]
SaO2 93
Nasal Cannula flow liters per 15
minute
Physical Exam
General: Comfortable
HEENT: Normocephalic and Anicteric
Cardiovascular: S1-S2, Regular Rhythm, Murmur (n) and Rub (n)
Respiratory: Wheeze (n), Crackles (few), Rhonchi (n), Non-Labored Respirations and Stridor (n)
GI: Soft, Non Distended and Non Tender
Neurology: Awake, Alert, Oriented, AO x 3 and No Motor Deficits (Able to sit up without difficulty)
Skin: Cyanosis (n), Jaundice (n) and Rash (n)
Labs/Micro/Reports
Lab Data
03/01/24 05:52
03/01/24 05:52
--- NOTE | 2024-03-01 09:04 | PTCARENOTE ---
Pt continues to desat 84-88 % on 15 [facility]rs [facility] pt for CT of chest and vs . Dr Fontana notified.VS now on hold
--- NOTE | 2024-03-01 09:09 | W.PN.NEPH.PH ---
Today's Communication / Plan
-
lasix
Assessment/Plan
-
Impression:
Right upper lobe mass versus infiltrate with hemoptysis
Acute kidney
CKD stage IIIb baseline creatinine 1.6
HTN
History of TIA
History of COPD
Anemia
CHF HFpEF
Plan:
hold HD today, if cr lower tomorrow, dc CVC
follow BMP
lasix again today
flomax, unfortunately may require replacement of goins
check remainder serologies, cause of JUDI undetermined. ANCA pending
remove K restriction
-
-
Date of Service: March 01, 2024
CC / HPI / ROS
-
Chief Complaint:
JUDI
History of Present Illness:
required 2 straight cath since goins removed
BP stable
Cr down to 2.2
last HD 02/25
BUN up to 92
Na low 125
Review of Systems:
no fever
no n/v
Labs
-
Labs:
WBC 12.7 10^3/uL (4.8-10.8) H 03/01/24 05:52
RBC 2.60 10^6/uL (4.70-6.10) L 03/01/24 05:52
Hgb 7.7 g/dL (13.0-18.0) L 03/01/24 05:52
Hct 21.5 % (39.0-52.0) L 03/01/24 05:52
Plt Count 182 10^3/uL (130-400) 03/01/24 05:52
Sodium 125 mmol/L (135-145) L 03/01/24 05:52
Potassium 4.0 mmol/L (3.5-5.1) 03/01/24 05:52
Chloride 92 mmol/L (98-107) L 03/01/24 05:52
Carbon Dioxide 22 mmol/L (22-30) 03/01/24 05:52
BUN 92 mg/dl (9-20) H 03/01/24 05:52
Creatinine 2.2 mg/dL (0.7-1.3) H 03/01/24 05:52
eGFR 30.47 03/01/24 05:52
Glucose 79 mg/dl (70-99) 03/01/24 05:52
Calcium 7.7 mg/dl (8.4-10.2) L 03/01/24 05:52
Phosphorus 4.4 mg/dl (2.5-4.5) 02/29/24 05:39
Hxo-N-Vswqfxipdfg Pept 03166 pg/ml 02/17/24 05:00
Albumin 3.0 g/dl (3.5-5.0) L 02/29/24 05:39
Physical Exam
-
Vital Signs:
Vital Signs
Temp Pulse Resp BP Pulse Ox
97.7 F 62 22 154/52 93
03/01/24 07:10 03/01/24 08:18 03/01/24 08:15 03/01/24 08:18 03/01/24 08:15
Cardiovascular:: Regular rate and rhythm
Respiratory:: Bilateral: Coarse
Lung Excursion:: Normal
Abdomen:: Nontender and Soft
Bowel Sounds:: Normal
Extremity Edema:: +1: Bilateral:
[2024-03-01] MEDS: FLOMAX 0.4 MG PO (09:25)
[2024-03-01] MEDS: LASIX 40 MG PO (09:39)
--- NOTE | 2024-03-01 10:48 | W.PN.HOSP.TC ---
Today's Communication/Plan
-
CT chest today to guide further management
IV lasix
monitor UOP
Wean o2
Assessment / Plan
Assessment / Plan
#Acute hypoxemic respiratory failure -- due to pneumonia, superimposed HFpEF, possible COPD, hematemesis
#Suspected ARDS -- No recent ABG to calculate P/F; clinically consistent per course and xray findings
#Severe CAP -- RUL, bacterial
#Acute on chronic HFpEF
#Acute hemoptysis -- suspected right upper lobe malignancy and also with Plavix
-CT thorax showed with large RUL consolidation, also signs of malignancy in the RUL, pulmonary edema
-Was started on IV ceftriaxone empirically, completed course of IV azithromycin as well;
-Developed decompensation of HFpEF in the context of IV fluids, elevated proBNP, s/p IV Lasix course, now on hemodialysis
-Echocardiogram here showed severe pulmonary hypertension; has evidence of COPD with emphysematous findings, tobacco history
-Continue with oral prednisone taper
-Continue to hold clopidogrel, quantify hemoptysis
-Continue with HD for volume status; Monitor I/Os
-off HFNC and transitioned to midflow.
-Will eventually need PFTs and pulm assessment for new COPD
-Pulm recs
#Oliguric JUDI on CKD 3B
#Metabolic acidosis
#Normocytic anemia -- 2/2 renal dysfunction
-Suspected to be prerenal; Home medications include diuretics and ARB, presented with infection
-Home diuretics and losartan are held, received bicarbonate therapy for his acidemia
-Nephrology following, planning for tunneled cath as permanent HD access
-Renal function seems to be improving per labs and urine output
-Continue HD at nephrology discretion
-Trend daily BMP, monitor strict I's and O's
-Planning for AYALA for associated anemia
-Consider transfusion for hemoglobin <7
-REYNALDO goins. plan for lasix again today. Flomax. Complements back to normal. ANCA panel pending. Normal serum protein electrophoresis.
-Renal diet
#Right upper lobe mass
-Likely demonstrated on CT, but does have superimposed bacterial pneumonia which may affect findings
-Will need a repeat CT scan when infection is clear, possible consideration for biopsy if mass present
-Planning for repeat CT thorax to assess RUL mass, IR guided biopsy if still present
-Suspect this is the source of hemoptysis as above
#Urinary retention
-started on flomax.
-straight cath protocol
-may require goins placement
#Acute on chronic normocytic anemia -- blood loss from hemoptysis, dilution
-Baseline hemoglobin around 10, most recently hemoglobin 7.7 and has been stable
-Iron studies without signs of deficiency, no evidence of hemolysis, B12 was low but now on therapy
-Will continue to trend daily CBC and transfuse for hemoglobin <7
-Planning for AYALA as above
#History of duodenal ulcer/GI bleed
-No signs of active GI bleeding while here, did have hemoptysis
-Remains on home PPI regimen
#History of TIA
-Holding plavix as above
#Essential hypertension
-No known history of hypertensive systemic disease, Home meds include metoprolol hydralazine, and amlodipine
-Blood pressure has been poorly controlled outside of the hospital, recently hydralazine was increased
-Blood pressure here has been stable and adequate for his clinical condition
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
-History of heavy tobacco abuse in the past; no formal diagnosis, no home inhaler therapies
-Currently without any wheezing or signs of exacerbation though cannot rule out contribution to his presentation
-Plan for pulm follow-up and PFTs at discharge, DC on DuoNebs as needed
#Hyperlipidemia
-No known history of ASCVD
-No medications include high intensity shortness
#Celiac's disease
-No formal diagnosis, gluten sensitivity per history, told him to avoid gluten by an outside doctor
-No gluten diet ordered
DVT prophylaxis: Heparin subcutaneous
Diet: Soft and bite sized, Ensure with meals, renal friendly
Goals of care/CODE STATUS: Hospice was mentioned on 02/24, remains full treatment with limited DNR (no chest compressions)
Discussed with spouse at bedside in detail
Discussed with RN
Anticipated Discharge: > 48 hours
Subjective/Interval History
-
Date of Service: March 01, 2024
transitioned to midflow
Objective Data
-
Labs:
Laboratory Results
03/01/24
05:52
WBC 12.7 H
Hgb 7.7 L
Hct 21.5 L
Plt Count 182
Sodium 125 L
Potassium 4.0
Chloride 92 L
Carbon Dioxide 22
BUN 92 H
Creatinine 2.2 H
Glucose 79
Calcium 7.7 L
Vital Signs:
Vital Signs
Temp Pulse Resp BP Pulse Ox
97.7 F 68 22 154/52 90
03/01/24 07:10 03/01/24 09:39 03/01/24 08:15 03/01/24 09:39 03/01/24 09:16
I&O
02/29/24 03/01/24 03/02/24
06:59 06:59 06:59
Intake Total 600 / 600 2079 / 2080
Output Total 430 / 430 1125 / 1125
Balance 170 / 170 955 / 955
Physical Exam
-
General: No Apparent Distress and Comfortable; Negative Respiratory Distress
HEENT: Normocephalic, Atraumatic, Moist Mucous Membranes, Anicteric and Oxygen (on 15L midflow )
Respiratory: Rhonchi and Non Labored Respirations; Negative Wheezes, Rales or Accessory Resp Muscle Use
Cardiac: Regular Rhythm and S1/S2; Negative Murmur, Rub, JVD or Gallop
GI: Soft, Nontender, Nondistended and Normal Bowel Sounds
Genito-urinary: Clear Urine and Goins
Musculoskeletal: No Clubbing, No Cyanosis and No Edema
Skin: Warm and Dry; Negative Rash
Neuro: Awake, AO x 3, Nonfocal/Grossly Intact and Central Nerve's Intact
Psych: Calm
Data Reviewed
-
Total Time Spent with Patient (in minutes): 56
--- NOTE | 2024-03-01 11:02 | PTCARENOTE ---
Pt to CT scan without incident
[2024-03-01 13:47] LABS: Glucose - Point of Care 257 mg/dl (70-99)
[2024-03-01] MEDS: NOVOLOG FLEXPEN-MODERATE RESISTANCE 5 UNITS SC (13:57)
[2024-03-01] MEDS: LASIX 40 MG IV (15:43)
--- NOTE | 2024-03-01 16:06 | CM ---
CM reviewed chart- ADC >48 hours
Pt remains with high O2 needs, 15L
PT with SNF recs, OT will be need to be reconsulted
Plan to follow up with pt and family on dc planning once medically stable
Discharge Disposition- anticipate SNF
[2024-03-01] MEDS: NOVOLOG FLEXPEN-MODERATE RESISTANCE 3 UNITS SC (17:52)
[2024-03-01 18:01] LABS: Glucose - Point of Care 204 mg/dl (70-99)
[2024-03-01 21:43] LABS: Glucose - Point of Care 219 mg/dl (70-99)
[2024-03-01] MEDS: TYLENOL 1000 MG PO (22:32)
[2024-03-01] MEDS: NORVASC 10 MG PO (22:32)
[2024-03-01] MEDS: TOPROL XL 100 MG PO (22:32)
[2024-03-01] MEDS: MELATONIN 5 MG PO (22:32)
[2024-03-01] MEDS: SEROQUEL 25 MG PO (22:32)
[2024-03-02] VITALS (18 sets, daily range): BP systolic 113–163; BP diastolic 46–93; BMI 22.7
[2024-03-02 04:20] LABS: Hematocrit 19.1 % (39.0-52.0); Hemoglobin 6.9 g/dL (13.0-18.0); Mean Corp Hgb Conc. 36.1 g/dL (33.0-37.0); Mean Corpuscular Hgb 29.1 pg (27.0-31.0); Mean Corpuscular Volume 80.6 fL (80.0-94.0); Platelet Count 178 10^3/uL (130-400); Red Blood Cell Count 2.37 10^6/uL (4.70-6.10); Red Cell Dist. Width 16.1 % (11.5-14.5); White Blood Cell Count 8.8 10^3/uL (4.8-10.8)
--- NOTE | 2024-03-02 04:24 | PTCARENOTE ---
Patient able to sleep overnight. Tele showing NSR/SB. Midflow 10-14L in place. Denies any pain.
Bladder scan this morning showing >600mL in bladder. Pt unable to void. OLIVIA Haskins made aware that patient has not been able to void on his own and has been straight cathed the past two days since previous goins was removed, despite being on Flomax.
Order for goins received for acute urinary retention. Pt tolerated well. 500mL clear yellow urine drained immediately. Small amount of urine drained from around catheter at urethra.
Labs sent this morning. Critical H/H received and relayed to OLIVIA Tidwell.
[2024-03-02 04:40] LABS: Blood Urea Nitrogen 98 mg/dl (9-20); Calcium 7.9 mg/dl (8.4-10.2); Carbon Dioxide 21 mmol/L (22-30); Chloride 93 mmol/L (98-107); Estimated Creatinine Clearance 29 ml/min; Glucose 141 mg/dl (70-99); Potassium 4.6 mmol/L (3.5-5.1); Sodium 127 mmol/L (135-145); eGFR 32.22
--- NOTE | 2024-03-02 05:04 | W.PN.UPDATE ---
Update Note
Progress Note Update
hgb level this am 6.9 previously 7.7, no signs of bleeding. Vital signs with normal limit. Blood consent was obtained and kept in the chart. Type screen and one unit of blood ordered.
[2024-03-02 07:06] LABS: Myeloperoxidase Antibody 0 AU/mL (0-19); Serine Protease-3, IgG 0 AU/mL (0-19)
[2024-03-02] MEDS: DUONEB 3 ML INH ×4 (07:28→19:55)
--- NOTE | 2024-03-02 08:14 | W.PN.PUL3 ---
Today's Communication / Plan
-
Weaning down slowly, now on 14L midflow
Diuresis ongoing per renal, able to make UO
CT reviewed- still unable to schedule unless hypoxemia much more improved
Chest US in past showing effusion too small to tap
Continue prednisone taper
VSE planning per speech
Assessment
-
73-year-old male with history of hypertension, hyperlipidemia, TIA on Plavix therapy, describes chronic bronchitis and chronic subjective dyspnea with 15-tkav-ibso history of smoking quit 2003. He now presents with progressive cough, shortness of
breath and hemoptysis. Found to have right upper lobe mass with likely pneumonia. We are asked to comment on pulmonary process
Right upper lobe mass/infiltrate
Acute hemoptysis x 3 days, blood mixed with mucus
Right upper lobe abnormality noted per chest x-ray April 2023
Small pleural effusion
Chronic bronchitis, dyspnea
Progressive
15-aewe-ezbw history of smoking, quit 2003
No prior spirometry, no prior pulmonary evaluation
Anemia
Chronic kidney disease, creatinine 2.2
Creatinine 1.6 in January 2024
Elevated proBNP
Chronic diarrhea
Conditions present prior to admission
History of anemia
Hypertension/hyperlipidemia
GERD with history of duodenal ulcer with bleeding
Required IR embolization 2020
Em[address]
Possible asbestos exposure
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
Family history of cancer
Father with lung cancer
Sister with brain cancer
Sister with liver cancer
Plan
Respiratory status has markedly improved, transitioned to midflow 15L--weaned to 14L
Slow progress
Creatinine and BUN peaked at 4.3 and 156, respectively, on 02/21, trending down to mid 2's
Preadmission history: Patient is short of breath since April 2023 at which time he had right upper lobe infiltrate.
Patient cannot recall any history of recent pneumonia
Significant smoking and asbestos exposure history noted--emphysema noted on CT
Patient did not get follow-up x-ray as recommended per report in April
Former smoker, quit >30 years ago, strong family history of cancers
There is high suspicion this could be metastatic illness
IV steroids initially --> on prednisone taper to continue until off
Repeat CT scan reviewed but cannot offer planning until hypoxemia significantly improving
Finished 10 day course of ceftriaxone on 02/22
s/p 6 days zithromax - stopped on 02/18
Sputum culture few gram-positive cocci, many white cells, usual yaritza/finalized
Myrna noted 02/15
Prior sputum 02/13 neg
Legionella, streptococcal pneumonia negative
Airway clearance reviewed with RT, mucinex/acapella, vest/IS
Currently off abx, can observe for now
Hemoglobin stable
Had brief hemoptysis on this admission, resolved
Plavix has been held and can likely be resumed
He has not had further episodes
Family interested in obtaining lung biopsy.
This may need to be planned pending improvement of hypoxemia
ProBNP elevated at 19,500 on 02/17/2024, history of CHF
Trend sCr and UOP; Kuo catheter in place --> recommend to continue given his critically ill state with need for strict I/O
Nephrology following � recommendations appreciated
s/p HD cath on 02/21 and got 1st session on 02/21
Continue HD/diuresis per renal
R effusion has been reviewed on US, too small likely to tap, similar appearance on CT
Pt having anxiety and insomnia -- started seroquel 25mg HS on 02/21
Seemed to help his sleep quality initially
Feeling worsening insomnia, continue melatonin
Protonix for GERD therapy
Aspiration precautions
Soft & bite sized/gluten free
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
Continue with ISS with goal BG 140�180
Moderate resistance ISS, accu check with meals
DVT ppx: HSQ 5000 units q8hr
Family Discussions
Discussion held by Dr. Montoya on 02/22/2024 with and patient ---> patient is now DNR, okay for intubation in addition to other full medical management (see separate note from 02/21)
Mira 02/18- Reviewed with today and son on speaker phone today on rounds. We discussed all of his poor prognostic markers including possible/suspected metastatic disease, acute HF picture, worsening JUDI, worsening hypoxemia. She understands
his overall outlook remains poor even with intubation/MV. There is less chance for good QoL the more organ dysfunction occurs. Family will visit and discuss further GOC.
Litzy - Reviewed with patient, at bedside
Updated son by phone 02/16 (Kevon: [phone])
Reviewed concern regarding possibility of underlying malignancy.
Patient high risk for intubation.
Diagnostic Data
Chest x-ray 02/28/2024: Mildly improved pulmonary changes concerning for pneumonia. Underlying mass in the right upper lobe not completely excluded as mentioned on prior chest CT examination. Repeat chest CT examination in a couple weeks following
resolution of acute pneumonic process recommended; Slightly progressed tiny right pleural effusion; Findings diaphragms consistent with COPD. Stable
CXR 02/24/2024:There is moderate diffuse interstitial and groundglass airspace disease throughout both lungs with more confluent alveolar airspace disease in the right upper lung. This airspace disease is improved but unresolved compared with
previous examination and has more the appearance of inflammatory airspace disease than pulmonary edema as there are no septal lines to suggest interstitial edema.
Chest x-ray 02/22/2024: Multifocal pneumonia, most pronounced within the right upper lobe. No significant change compared to 02/18/2024; Interstitial coarsening and mild interstitial prominence, suggestive of COPD. Pulmonary edema may also be present
Chest X-Ray: 02/18/24- Findings raising concern for pulmonary edema, superimposed on right lung pneumonic process. The patient does have a proBNP value of 19,500 today.
02/17/24- Right lung opacities suspicious for pneumonia without significant change in comparison to recent prior study.
CT Scan: CHEST 03/01/24- Mildly enlarged and more consolidated right upper lobe pulmonary mass. This probably represents pneumonia considering the acute change. Underlying neoplasm cannot be excluded. Sampling recommended as well as clinical and
laboratory correlation. Moderate right pleural effusion. Progressed. Small left pleural effusion. Progressed. Mild right lower lobe consolidation probably atelectasis. New spiculated mass in left lower lung field probably infectious considering the
acute development. New moderate bilateral groundglass densities suggesting additional foci of pneumonia considering the acute development. Emphysematous disease. Stable.
CHEST 02/14/24- 1. Large right upper lobe pneumonia. Imaging follow-up to resolution is recommended as an underlying pulmonary neoplasm would be difficult to completely exclude.
2. Chronic obstructive pulmonary disease.
3. Small pericardial effusion.
4. Small right pleural effusion.
5. Mild loculated pleural fluid in the right minor fissure.
Echo: 02/17/24- Normal left ventricular size and systolic function. No regional wall motion abnormalities are seen. LV ejection fraction is 65-70% by volumetric assessment. Mild concentric left ventricular hypertrophy. Stage II diastolic dysfunction
suggestive of abnormal relaxation and increased filling pressures. Top normal right ventricular size. Normal right ventricular systolic function. Aortic sclerosis without stenosis. Mild tricuspid regurgitation. Estimated pulmonary artery pressure
of 50-55 mmHg assuming a right atrial pressure of 8 mmHg. Compared to prior study dated 04/28/2023, estimated pulmonary artery systolic pressure was previously normal at 25-30 mmHg
04/28/23- 1. Mild concentric left ventricular hypertrophy with preserved systolic function, EF 60-65%
2. Thickened mitral leaflets with mitral annular calcification, trace mitral regurgitation and minimally dilated left atrium
3. Aortic sclerosis with trace aortic insufficiency
4. Normal right heart with normal pulmonary artery pressure
The study is similar to October 2021. The patient will be called and told that there is preserved heart muscle function and no significant valve abnormality.
-----
Total time spent today was 51 minutes for this encounter. Time includes reviewing laboratory test/imaging results, reviewing pertinent medical records, obtaining and reviewing medical history, performing an appropriate exam, ordering medications,
tests and procedures. Time also includes documentation of this encounter, coordinating patient care and communicating with other healthcare professionals. Total time does not include separately billed tests performed on this date of service.
Subjective Data
-
Date of Service:
Date of Service: March 02, 2024
Chief Complaint: Pulmonary Follow Up
Subjective:
Weaned to 14L, stable
at bedside
No new complaints
Objective Data
Data Reviewed
Vital Signs / I&O / Oxygen:
Vital Signs
Temp Pulse Resp BP Pulse Ox
97.5 F 58 19 132/57 94
03/02/24 07:47 03/02/24 07:30 03/02/24 07:30 03/02/24 06:00 03/02/24 07:30
Intake and Output
03/01/24 03/02/24 03/03/24
06:59 06:59 06:59
Intake Total 2080 / 2080 460 / 460
Output Total 1125 / 1125 1400 / 1400
Balance 955 / 955 -940 / -940
SaO2 [NIV (Non Invasive 94
Ventilation)]
SaO2 94
Nasal Cannula flow liters per 14
minute
Physical Exam
General: Comfortable
HEENT: Normocephalic and Anicteric
Cardiovascular: S1-S2, Regular Rhythm, Murmur (n) and Rub (n)
Respiratory: Wheeze (n), Crackles (few), Rhonchi (n), Non-Labored Respirations and Stridor (n)
GI: Soft, Non Distended and Non Tender
Neurology: Awake, Alert, Oriented, AO x 3 and No Motor Deficits (Able to sit up without difficulty)
Skin: Cyanosis (n), Jaundice (n) and Rash (n)
Labs/Micro/Reports
Lab Data
03/02/24 03:54
03/02/24 03:54
[2024-03-02] MEDS: VITAMIN B-12 1000 MCG PO (08:58)
[2024-03-02] MEDS: DELTASONE 20 MG PO (08:59)
[2024-03-02] MEDS: MUCINEX 600 MG PO (08:59)
[2024-03-02] MEDS: FLOMAX 0.4 MG PO (08:59)
[2024-03-02] MEDS: APRESOLINE 75 MG PO (08:59)
[2024-03-02] MEDS: HEPARIN 5000 UNITS SC ×3 (08:59→23:38)
[2024-03-02] MEDS: LIPITOR 80 MG PO (08:59)
[2024-03-02] MEDS: PROTONIX 40 MG PO (08:59)
[2024-03-02] MEDS: NOVOLOG FLEXPEN-MODERATE RESISTANCE SC ×2 (09:00→16:51)
[2024-03-02 09:12] LABS: Glucose - Point of Care 100 mg/dl (70-99)
--- NOTE | 2024-03-02 11:00 | PTOTSP ---
Speech Language Pathology
VIDEOFLUOROSCOPIC SWALLOWING EXAMINATION (VSE) completed. Overall, pt with mod-severe pharyngeal dysphagia with penetration/aspiration during the swallow secondary to inadequate airway protection and following the swallow secondary to spillover of
residue. Aspiration was silent in nature, and a cued cough was ineffective at clearing this. Suspect dysphagia is acute and related to current respiratory status and medical comorbidities. Short-term prognosis dependent on improvement in
respiratory status.
Recommend:
(1) Consider NPO. If not in line with plan of care, can consider IDDSI Level 4 (Puree) and Moderately Thick Liquids, although aspiration risk still present.
(2) Oral care 4x/day with suctioning as needed
(3) Non-oral meds
(4) Allow ice chips post oral care per Aspiration Risk Hydration Protocol (ARHP)
(5) PEN RIDER to continue to follow
--- NOTE | 2024-03-02 11:04 | W.PN.HOSP.TC ---
Today's Communication/Plan
-
Pulm recs
IRAD for thora stated probably tomm
PRBC today
wean o2
Assessment / Plan
Assessment / Plan
#Acute hypoxemic respiratory failure -- due to pneumonia, superimposed HFpEF, possible COPD, hematemesis
#Suspected ARDS -- No recent ABG to calculate P/F; clinically consistent per course and xray findings
#Severe CAP -- RUL, bacterial
#Acute on chronic HFpEF
#Acute hemoptysis -- suspected right upper lobe malignancy and also with Plavix
-CT thorax showed with large RUL consolidation, also signs of malignancy in the RUL, pulmonary edema
-Was started on IV ceftriaxone empirically, completed course of IV azithromycin as well;
-Developed decompensation of HFpEF in the context of IV fluids, elevated proBNP, s/p IV Lasix course, now on hemodialysis
-Echocardiogram here showed severe pulmonary hypertension; has evidence of COPD with emphysematous findings, tobacco history
-Continue with oral prednisone taper
-Continue to hold clopidogrel but if no plan for thora or biopsy may need to consider restarting it in near future.
-Continue with HD for volume status; Monitor I/Os
-off HFNC and transitioned to midflow.
-Will eventually need PFTs and pulm assessment for new COPD
-Pulm recs
#Oliguric JUDI on CKD 3B
#Metabolic acidosis
#Normocytic anemia -- 2/2 renal dysfunction
-Suspected to be prerenal; Home medications include diuretics and ARB, presented with infection
-Home diuretics and losartan are held, received bicarbonate therapy for his acidemia
-Nephrology following, planning for tunneled cath as permanent HD access
-Renal function seems to be improving per labs and urine output
-Continue HD at nephrology discretion
-Trend daily BMP, monitor strict I's and O's
-Planning for AYALA for associated anemia
-Consider transfusion for hemoglobin <7
-REYNALDO goins. plan for lasix again today. Flomax. Complements back to normal. ANCA panel pending. Normal serum protein electrophoresis.
-Renal diet
#Suspected Right upper lobe lesion shadowed due to pneumonia?
#Pleural effusion
-Likely demonstrated on CT, but does have superimposed bacterial pneumonia which may affect findings
-CT chest Mildly enlarged and more consolidated right upper lobe pulmonary mass. This probably represents pneumonia considering the acute change. Underlying neoplasm cannot be excluded. Sampling recommended as well as clinical and laboratory
correlation. Moderate right pleural effusion. Progressed. Small left pleural effusion. Progressed. Mild right lower lobe consolidation probably atelectasis. New spiculated mass in left lower lung field probably infectious considering the acute
development. New moderate bilateral groundglass densities suggesting additional foci of pneumonia considering the acute development.
-IRAD for R sided thoracentesis. Cytology ordered too.
-Unclear role of bronch at this juncture as plavix has been held.
#Urinary retention
-started on flomax.
-straight cath protocol
-s/p goins catheter placement.
#Acute on chronic normocytic anemia -- blood loss from hemoptysis, dilution
-Baseline hemoglobin around 10,
-Iron studies without signs of deficiency, no evidence of hemolysis, B12 was low but now on therapy
-Will continue to trend daily CBC and transfuse for hemoglobin <7
-Hgb at 6.8 with plan to transfuse PRBC later today.
#History of duodenal ulcer/GI bleed
-No signs of active GI bleeding while here, did have hemoptysis
-Remains on home PPI regimen
#History of TIA
-Holding plavix as above
#Essential hypertension
-No known history of hypertensive systemic disease, Home meds include metoprolol hydralazine, and amlodipine
-Blood pressure has been poorly controlled outside of the hospital, recently hydralazine was increased
-Blood pressure here has been stable and adequate for his clinical condition
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
-History of heavy tobacco abuse in the past; no formal diagnosis, no home inhaler therapies
-Currently without any wheezing or signs of exacerbation though cannot rule out contribution to his presentation
-Plan for pulm follow-up and PFTs at discharge, DC on DuoNebs as needed
#Hyperlipidemia
-No known history of ASCVD
-No medications include high intensity shortness
#Celiac's disease
-No formal diagnosis, gluten sensitivity per history, told him to avoid gluten by an outside doctor
-No gluten diet ordered
DVT prophylaxis: Heparin subcutaneous
Diet: Soft and bite sized, Ensure with meals, renal friendly
Goals of care/CODE STATUS: Hospice was mentioned on 02/24, remains full treatment with limited DNR (no chest compressions)
Discussed with spouse at bedside in detail
Discussed with RN
Anticipated Discharge: > 48 hours
Subjective/Interval History
-
Date of Service: March 02, 2024
required goins placement
hgb low
Objective Data
-
Labs:
Laboratory Results
03/02/24
03:54
WBC 8.8
Hgb 6.9 L*
Hct 19.1 L*
Plt Count 178
Sodium 127 L
Potassium 4.6
Chloride 93 L
Carbon Dioxide 21 L
BUN 98 H
Creatinine 2.1 H
Glucose 141 H
Calcium 7.9 L
Vital Signs:
Vital Signs
Temp Pulse Resp BP Pulse Ox
97.8 F 64 17 143/63 90
03/02/24 10:13 03/02/24 10:13 03/02/24 10:13 03/02/24 10:13 03/02/24 10:00
I&O
03/01/24 03/02/24 03/03/24
06:59 06:59 06:59
Intake Total 2080 / 2080 460 / 460 0 / 0
Output Total 1125 / 1125 1400 / 1400
Balance 955 / 955 -940 / -940 0 / 0
Physical Exam
-
General: No Apparent Distress and Comfortable; Negative Respiratory Distress
HEENT: Normocephalic, Atraumatic, Moist Mucous Membranes, Anicteric and Oxygen (on 15L midflow )
Respiratory: Rhonchi, Non Labored Respirations and Decreased Breath Sounds (R>L); Negative Wheezes, Rales or Accessory Resp Muscle Use
Cardiac: Regular Rhythm and S1/S2; Negative Murmur, Rub, JVD or Gallop
GI: Soft, Nontender, Nondistended and Normal Bowel Sounds
Genito-urinary: Clear Urine and Goins
Musculoskeletal: No Clubbing, No Cyanosis and No Edema
Skin: Warm and Dry; Negative Rash
Neuro: Awake, AO x 3, Nonfocal/Grossly Intact and Central Nerve's Intact
Psych: Calm
--- NOTE | 2024-03-02 11:45 | PTCARENOTE ---
One unit of PRBCs infusion with no reactions noted.
Patient taken to OP radiology for VSE by this RN.
--- NOTE | 2024-03-02 12:22 | CM ---
Patient with Dx Acute hypoxemic respiratory failure, pneumonia, HF, suspected ARDS, JUDI, suspected RUL lung lesion, anemia. O2 14L midflow. Transfusion today. VSE today. Dysphagia diet. PT 03/01; min-mod assist of 2 for transfers, ambulated 6',
recommend skilled rehab. OT; max assist/dependent LE dressing; recommend skilled rehab.
Met with patient and Ashley; discussed patient's current mobility as per PT/OT; expressed concern re; return to home with 5 stairs up to bedroom/bath in small living space. does not have any other family to assist her with patient at
home. Ashley says she was told by MD patient will likely need home O2. They will consider short term SNF for rehab vs home with VN. Patient/ wish to wait and see how he progresses and then will decide.
Plan follow up with patient and re; short term SNF for rehab vs home with VN.
[2024-03-02 12:24] LABS: Glucose - Point of Care 162 mg/dl (70-99)
[2024-03-02] MEDS: NOVOLOG FLEXPEN-MODERATE RESISTANCE 1 UNITS SC ×3 (12:44→23:38)
--- NOTE | 2024-03-02 12:56 | W.PN.NEPH.PH ---
Today's Communication / Plan
-
lasix
likely d/c CVC once IV established
Assessment/Plan
-
Impression:
Right upper lobe mass versus infiltrate with hemoptysis
Acute kidney
CKD stage IIIb baseline creatinine 1.6
HTN
History of TIA
History of COPD
Anemia
CHF HFpEF
Plan:
JUDI-cr stable at 2.1
however worsening azotemia on steroids
goins replaced for retention
hb low 6.9, no reported bleeding source , s/p PRBC
will dose lasix today
wean O2 as possible
hyponatremia slowly improving, cont strict FR
cont to hold HD today, plan d/c CVC tomorrow if renal numbers stable
follow BMP
-
-
Date of Service: March 02, 2024
CC / HPI / ROS
-
Chief Complaint:
JUDI
History of Present Illness:
required straight cath since goins repoalced this am
BP stable
Cr down to 2.1, BUN up 98
last HD 02/25
Na better at 127
Review of Systems:
no fever
no cp. sob improving slowly-on mid flow 13lit
hemoptysis resolved
no n/v,failed swallow
Labs
-
Labs:
WBC 8.8 10^3/uL (4.8-10.8) 03/02/24 03:54
RBC 2.37 10^6/uL (4.70-6.10) L 03/02/24 03:54
Hgb 6.9 g/dL (13.0-18.0) L* 03/02/24 03:54
Hct 19.1 % (39.0-52.0) L* 03/02/24 03:54
Plt Count 178 10^3/uL (130-400) 03/02/24 03:54
Sodium 127 mmol/L (135-145) L 03/02/24 03:54
Potassium 4.6 mmol/L (3.5-5.1) 03/02/24 03:54
Chloride 93 mmol/L (98-107) L 03/02/24 03:54
Carbon Dioxide 21 mmol/L (22-30) L 03/02/24 03:54
BUN 98 mg/dl (9-20) H 03/02/24 03:54
Creatinine 2.1 mg/dL (0.7-1.3) H 03/02/24 03:54
eGFR 32.22 03/02/24 03:54
Glucose 141 mg/dl (70-99) H 03/02/24 03:54
Calcium 7.9 mg/dl (8.4-10.2) L 03/02/24 03:54
Phosphorus 4.4 mg/dl (2.5-4.5) 02/29/24 05:39
Dye-Q-Otxybeqhtfh Pept 85284 pg/ml 02/17/24 05:00
Albumin 3.0 g/dl (3.5-5.0) L 02/29/24 05:39
Physical Exam
-
Vital Signs:
Vital Signs
Temp Pulse Resp BP Pulse Ox
97.9 F 71 17 150/58 94
03/02/24 12:55 03/02/24 12:55 03/02/24 12:55 03/02/24 12:55 03/02/24 12:55
Cardiovascular:: Regular rate and rhythm
Lung Excursion:: Abnormal (decreased)
Abdomen:: Nontender and Soft
Extremity Edema:: None: Bilateral: (tarce)
Goins Catheter: Yes
[2024-03-02] MEDS: LASIX 40 MG IV (13:27)
--- NOTE | 2024-03-02 14:05 | W.PN.UPDATE ---
Addendum entered and electronically signed by Yahaira Luz Do, MD 03/03/24 08:55:
I saw and examined the patient on 03/02. This is delayed note
The [employer] OPERATOR's note was reviewed and I agree with the note.
Comment: DHT placed by myself with [employer] assistance. AXR confirmed placement at 65cm from nares. Ok to start TF orders placed. All questions answered
Addendum entered and electronically signed by OLIVIA Estevez 03/02/24 17:15:
NGT good placement -- tube feeds ordered per dietary recs
Addendum entered and electronically signed by OLIVIA Estevez 03/02/24 14:30:
another attempt with Dr. Shabazz and placement in right nare at 65 cm confirmed with air insufflation. Check X ray to confirm placement. Dietary consult for Tube feeds recs
Original Note:
Update Note
Progress Note Update
attempted several times for DHT without success. Will have Dr. Shabazz attempt next. updated family and nursing staff
[2024-03-02 16:49] LABS: Glucose - Point of Care 190 mg/dl (70-99)
[2024-03-02] MEDS: APRESOLINE PO (16:50)
[2024-03-02] MEDS: MUCINEX PO (20:04)
[2024-03-02] MEDS: TOPROL XL PO (20:05)
[2024-03-02] MEDS: MELATONIN 5 MG TUBE (20:35)
[2024-03-02] MEDS: TYLENOL 1000 MG TUBE (20:35)
[2024-03-02] MEDS: SEROQUEL 25 MG TUBE (20:35)
[2024-03-02] MEDS: APRESOLINE 75 MG TUBE (20:35)
[2024-03-02] MEDS: NORVASC 10 MG TUBE (20:35)
[2024-03-02] MEDS: ROBITUSSIN 200 MG TUBE ×2 (20:36→23:38)
[2024-03-02] MEDS: LOPRESSOR 25 MG TUBE (23:38)
[2024-03-02 23:46] LABS: Glucose - Point of Care 178 mg/dl (70-99)
[2024-03-03] VITALS (18 sets, daily range): BP systolic 132–161; BP diastolic 55–69; BMI 22.9
[2024-03-03 03:26] LABS: % Basophils 0.1 % (0-2); % Immature Granulocytes 3.4 % (0-0.5); % Lymphocytes 6.9 % (20.5-51.1); % Monocytes 5.9 % (1.7-9.3); % Neutrophils 83.7 % (42.2-75.2); Absolute Immature Granulocytes 0.3 10^3/uL (0-0.05); Absolute Lymphocytes 0.5 10^3/uL (1.2-3.4); Absolute Monocytes 0.5 10^3/uL (0.1-0.6); Absolute Neutrophils 6.4 10^3/uL (1.4-6.5); Hematocrit 21.9 % (39.0-52.0); Hemoglobin 7.8 g/dL (13.0-18.0); Mean Corp Hgb Conc. 35.6 g/dL (33.0-37.0); Mean Corpuscular Hgb 29.8 pg (27.0-31.0); Mean Corpuscular Volume 83.6 fL (80.0-94.0); Mean Platelet Volume 10.7 fL (7.4-10.4); Nucleated Red Blood Cells % 0 % (-); Platelet Count 170 10^3/uL (130-400); Red Blood Cell Count 2.62 10^6/uL (4.70-6.10); Red Cell Dist. Width 15.9 % (11.5-14.5); White Blood Cell Count 7.6 10^3/uL (4.8-10.8)
[2024-03-03 03:51] LABS: Blood Urea Nitrogen 98 mg/dl (9-20); Calcium 7.9 mg/dl (8.4-10.2); Carbon Dioxide 25 mmol/L (22-30); Chloride 96 mmol/L (98-107); Estimated Creatinine Clearance 31 ml/min; Glucose 128 mg/dl (70-99); Potassium 4.6 mmol/L (3.5-5.1); Sodium 130 mmol/L (135-145); eGFR 34.16
[2024-03-03] MEDS: ROBITUSSIN 200 MG TUBE ×2 (04:19→08:18)
[2024-03-03 05:48] LABS: Glucose - Point of Care 132 mg/dl (70-99)
[2024-03-03] MEDS: LOPRESSOR 25 MG TUBE (05:51)
[2024-03-03] MEDS: NOVOLOG FLEXPEN-MODERATE RESISTANCE SC ×4 (05:51→23:50)
[2024-03-03] MEDS: DUONEB 3 ML INH ×4 (05:56→19:58)
[2024-03-03] MEDS: APRESOLINE 75 MG TUBE (08:17)
[2024-03-03] MEDS: LIPITOR 80 MG TUBE (08:18)
[2024-03-03] MEDS: DELTASONE 20 MG TUBE (08:19)
[2024-03-03] MEDS: FLOMAX 0.4 MG TUBE (08:19)
[2024-03-03] MEDS: HEPARIN 5000 UNITS SC ×3 (08:20→23:39)
[2024-03-03] MEDS: VITAMIN B-12 1000 MCG TUBE (08:20)
[2024-03-03] MEDS: NSS (PRESERVATIVE FREE) 10 ML IV (08:21)
[2024-03-03] MEDS: PROTONIX IV 40 MG IV (08:21)
--- NOTE | 2024-03-03 09:00 | PTCARENOTE ---
Pt AAOx3 13l midflow R rey chand, meds given via ng now clogged. aware. Pt to IR for yani
--- NOTE | 2024-03-03 10:39 | W.PN.HOSP.TC ---
Today's Communication/Plan
-
Thora
IV bp meds
trend cbc
wean o2
GI for DHT assistance
Assessment / Plan
Assessment / Plan
#Acute hypoxemic respiratory failure -- due to pneumonia, superimposed HFpEF, possible COPD, hematemesis
#Suspected ARDS -- No recent ABG to calculate P/F; clinically consistent per course and xray findings
#Severe CAP -- RUL, bacterial
#Acute on chronic HFpEF
#Acute hemoptysis -- suspected right upper lobe malignancy and also with Plavix
-CT thorax showed with large RUL consolidation, also signs of malignancy in the RUL, pulmonary edema
-Was started on IV ceftriaxone empirically, completed course of IV azithromycin as well;
-Developed decompensation of HFpEF in the context of IV fluids, elevated proBNP, s/p IV Lasix course, now on hemodialysis
-Echocardiogram here showed severe pulmonary hypertension; has evidence of COPD with emphysematous findings, tobacco history
-Continue with oral prednisone taper
-Continue to hold clopidogrel but if no plan for thora or biopsy may need to consider restarting it in near future.
-Continue with HD for volume status; Monitor I/Os
-off HFNC and transitioned to midflow.
-Will eventually need PFTs and pulm assessment for new COPD
-Pulm recs
#Severe dysphagia
-s/p VSE and now strict NPO
-DHT placement-clogged per RN. EWELINA aware. appreciate assistance.
-avoid meds via DHT
-will need repeat VSE
-speech recs
#Oliguric JUDI on CKD 3B
#Metabolic acidosis
#Normocytic anemia -- 2/2 renal dysfunction
-Suspected to be prerenal; Home medications include diuretics and ARB, presented with infection
-Home diuretics and losartan are held, received bicarbonate therapy for his acidemia
-Nephrology following, planning for tunneled cath as permanent HD access
-Renal function seems to be improving per labs and urine output
-Continue HD at nephrology discretion
-Trend daily BMP, monitor strict I's and O's
-Planning for AYALA for associated anemia
-Consider transfusion for hemoglobin <7
-DC goins. Complements back to normal. ANCA panel wnl. Normal serum protein electrophoresis.
-Renal diet
#Suspected Right upper lobe lesion shadowed due to pneumonia?
#Pleural effusion
-Likely demonstrated on CT, but does have superimposed bacterial pneumonia which may affect findings
-CT chest Mildly enlarged and more consolidated right upper lobe pulmonary mass. This probably represents pneumonia considering the acute change. Underlying neoplasm cannot be excluded. Sampling recommended as well as clinical and laboratory
correlation. Moderate right pleural effusion. Progressed. Small left pleural effusion. Progressed. Mild right lower lobe consolidation probably atelectasis. New spiculated mass in left lower lung field probably infectious considering the acute
development. New moderate bilateral groundglass densities suggesting additional foci of pneumonia considering the acute development.
-IRAD for R sided thoracentesis. Cytology ordered too. s/p 500cc fluid removed.
-Unclear role of bronch at this juncture as plavix has been held.
#Urinary retention
- flomax.
-straight cath protocol
-s/p goins catheter placement.
#Acute on chronic normocytic anemia -- blood loss from hemoptysis, dilution
-Baseline hemoglobin around 10,
-Iron studies without signs of deficiency, no evidence of hemolysis, B12 was low but now on therapy
-Will continue to trend daily CBC and transfuse for hemoglobin <7
-Hgb at 7.8 s/p 1u of PRBC so far.
#History of duodenal ulcer/GI bleed
-No signs of active GI bleeding while here, did have hemoptysis
-Remains on home PPI regimen
#History of TIA
-Holding plavix as above
#Essential hypertension
-No known history of hypertensive systemic disease, Home meds include metoprolol hydralazine, and amlodipine-HOLD
-Blood pressure has been poorly controlled outside of the hospital, recently hydralazine was increased
-Started on IV labetalol standing and hydralazine prn as plan for non oral meds.
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
-History of heavy tobacco abuse in the past; no formal diagnosis, no home inhaler therapies
-Currently without any wheezing or signs of exacerbation though cannot rule out contribution to his presentation
-Plan for pulm follow-up and PFTs at discharge, DC on DuoNebs as needed
#Hyperlipidemia
-No known history of ASCVD
-No medications include high intensity shortness
#Celiac's disease
-No formal diagnosis, gluten sensitivity per history, told him to avoid gluten by an outside doctor
-No gluten diet ordered
DVT prophylaxis: Heparin subcutaneous
Diet: Soft and bite sized, Ensure with meals, renal friendly
Goals of care/CODE STATUS: Hospice was mentioned on 02/24, remains full treatment with limited DNR (no chest compressions)
Discussed with spouse at bedside in detail
Discussed with RN
Anticipated Discharge: > 48 hours
Subjective/Interval History
-
Date of Service: March 03, 2024
remains on midflow
s/p thoracentesis
Objective Data
-
Labs:
Laboratory Results
03/03/24
03:13
WBC 7.6
Hgb 7.8 L
Hct 21.9 L
Plt Count 170
Sodium 130 L
Potassium 4.6
Chloride 96 L
Carbon Dioxide 25
BUN 98 H
Creatinine 2.0 H
Glucose 128 H
Calcium 7.9 L
Vital Signs:
Vital Signs
Temp Pulse Resp BP Pulse Ox
98.3 F 67 16 149/59 95
03/03/24 07:44 03/03/24 08:17 03/03/24 06:00 03/03/24 08:17 03/03/24 05:58
I&O
03/02/24 03/03/24 03/04/24
06:59 06:59 06:59
Intake Total 460 / 460 830 / 830
Output Total 1400 / 1400 1325 / 1325
Balance -940 / -940 -495 / -495
Data Reviewed
-
Total Time Spent with Patient (in minutes): 61
[2024-03-03 10:43] LABS: Body Fluid pH 7.49
--- NOTE | 2024-03-03 11:02 | W.PN.PUL3 ---
Today's Communication / Plan
-
s/p thora for 500 cc, studies pending
wean O2 further as tolerated, reviewed with RT
continue further PT/OT, OOB, IS
DHT in place, NPO due to recent VSE results
lasix ongoing per renal
Assessment
-
73-year-old male with history of hypertension, hyperlipidemia, TIA on Plavix therapy, describes chronic bronchitis and chronic subjective dyspnea with [id number] history of smoking quit 2003. He now presents with progressive cough, shortness of
breath and hemoptysis. Found to have right upper lobe mass with likely pneumonia. We are asked to comment on pulmonary process
Right upper lobe mass/infiltrate
Acute hemoptysis x 3 days, blood mixed with mucus
Right upper lobe abnormality noted per chest x-ray April 2023
Small R pleural effusion s/p thora 03/03/24
Chronic bronchitis, dyspnea
Progressive
[id number] history of smoking, quit 2003
No prior spirometry, no prior pulmonary evaluation
Anemia
Chronic kidney disease, creatinine 2.2
Creatinine 1.6 in January 2024
Elevated proBNP
Chronic diarrhea
Conditions present prior to admission
History of anemia
Hypertension/hyperlipidemia
GERD with history of duodenal ulcer with bleeding
Required IR embolization 2020
Em[address] via CT
Possible asbestos exposure
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
Family history of cancer
Father with lung cancer
Sister with brain cancer
Sister with liver cancer
Plan
Respiratory status has markedly improved, transitioned to midflow 15L--weaned to 12L
Slow progress
Creatinine and BUN peaked at 4.3 and 156, respectively, on 02/21, trending down to mid 2's
Encouraged IS
Preadmission history: Patient is short of breath since April 2023 at which time he had right upper lobe infiltrate.
Patient cannot recall any history of recent pneumonia
Significant smoking and asbestos exposure history noted--emphysema noted on CT
Patient did not get follow-up x-ray as recommended per report in April
Former smoker, quit >30 years ago, strong family history of cancers
There is high suspicion this could be metastatic illness
IV steroids initially --> on prednisone taper to continue until off
Repeat CT scan reviewed but cannot offer planning until hypoxemia significantly improving
Finished 10 day course of ceftriaxone on 02/22
s/p 6 days zithromax - stopped on 02/18
Sputum culture few gram-positive cocci, many white cells, usual yaritza/finalized
Myrna noted 02/15
Prior sputum 02/13 neg
Legionella, streptococcal pneumonia negative
Airway clearance reviewed with RT, mucinex/acapella, vest/IS
Currently off abx, can observe for now
Hemoglobin stable
Had brief hemoptysis on this admission, resolved
Plavix has been held and can likely be resumed
He has not had further episodes
Family interested in obtaining lung biopsy.
This may need to be planned pending improvement of hypoxemia
ProBNP elevated at 19,500 on 02/17/2024, history of CHF
Trend sCr and UOP; Kuo catheter in place --> recommend to continue given his critically ill state with need for strict I/O
Nephrology following � recommendations appreciated
s/p HD cath on 02/21 and got 1st session on 02/21
Continue HD/diuresis per renal
R effusion has been reviewed on US
s/p thora for 500cc, sent for chem/culture/cyto
Pt having anxiety and insomnia -- started seroquel 25mg HS on 02/21
Seemed to help his sleep quality initially
Feeling worsening insomnia, continue melatonin
Protonix for GERD therapy
Aspiration precautions
Soft & bite sized/gluten free
VSE planning as per VENDING STAND SUPERVISOR--elevated risk
Now NPO with DHT in place, TFs
Continue with ISS with goal BG 140�180
Moderate resistance ISS, accu check with meals
DVT ppx: HSQ 5000 units q8hr
Family Discussions
Discussion held by Dr. Montoya on 02/22/2024 with and patient ---> patient is now DNR, okay for intubation in addition to other full medical management (see separate note from 02/21)
Mira 02/18- Reviewed with today and son on speaker phone today on rounds. We discussed all of his poor prognostic markers including possible/suspected metastatic disease, acute HF picture, worsening JUDI, worsening hypoxemia. She understands
his overall outlook remains poor even with intubation/MV. There is less chance for good QoL the more organ dysfunction occurs. Family will visit and discuss further GOC.
Litzy - Reviewed with patient, at bedside
Updated son by phone 02/16 (Kevon: [phone])
Reviewed concern regarding possibility of underlying malignancy.
Patient high risk for intubation.
Diagnostic Data
Chest x-ray 02/28/2024: Mildly improved pulmonary changes concerning for pneumonia. Underlying mass in the right upper lobe not completely excluded as mentioned on prior chest CT examination. Repeat chest CT examination in a couple weeks following
resolution of acute pneumonic process recommended; Slightly progressed tiny right pleural effusion; Findings diaphragms consistent with COPD. Stable
CXR 02/24/2024:There is moderate diffuse interstitial and groundglass airspace disease throughout both lungs with more confluent alveolar airspace disease in the right upper lung. This airspace disease is improved but unresolved compared with
previous examination and has more the appearance of inflammatory airspace disease than pulmonary edema as there are no septal lines to suggest interstitial edema.
Chest x-ray 02/22/2024: Multifocal pneumonia, most pronounced within the right upper lobe. No significant change compared to 02/18/2024; Interstitial coarsening and mild interstitial prominence, suggestive of COPD. Pulmonary edema may also be present
Chest X-Ray: 02/18/24- Findings raising concern for pulmonary edema, superimposed on right lung pneumonic process. The patient does have a proBNP value of 19,500 today.
02/17/24- Right lung opacities suspicious for pneumonia without significant change in comparison to recent prior study.
CT Scan: CHEST 03/01/24- Mildly enlarged and more consolidated right upper lobe pulmonary mass. This probably represents pneumonia considering the acute change. Underlying neoplasm cannot be excluded. Sampling recommended as well as clinical and
laboratory correlation. Moderate right pleural effusion. Progressed. Small left pleural effusion. Progressed. Mild right lower lobe consolidation probably atelectasis. New spiculated mass in left lower lung field probably infectious considering the
acute development. New moderate bilateral groundglass densities suggesting additional foci of pneumonia considering the acute development. Emphysematous disease. Stable.
CHEST 02/14/24- 1. Large right upper lobe pneumonia. Imaging follow-up to resolution is recommended as an underlying pulmonary neoplasm would be difficult to completely exclude.
2. Chronic obstructive pulmonary disease.
3. Small pericardial effusion.
4. Small right pleural effusion.
5. Mild loculated pleural fluid in the right minor fissure.
Echo: 02/17/24- Normal left ventricular size and systolic function. No regional wall motion abnormalities are seen. LV ejection fraction is 65-70% by volumetric assessment. Mild concentric left ventricular hypertrophy. Stage II diastolic dysfunction
suggestive of abnormal relaxation and increased filling pressures. Top normal right ventricular size. Normal right ventricular systolic function. Aortic sclerosis without stenosis. Mild tricuspid regurgitation. Estimated pulmonary artery pressure
of 50-55 mmHg assuming a right atrial pressure of 8 mmHg. Compared to prior study dated 04/28/2023, estimated pulmonary artery systolic pressure was previously normal at 25-30 mmHg
04/28/23- 1. Mild concentric left ventricular hypertrophy with preserved systolic function, EF 60-65%
2. Thickened mitral leaflets with mitral annular calcification, trace mitral regurgitation and minimally dilated left atrium
3. Aortic sclerosis with trace aortic insufficiency
4. Normal right heart with normal pulmonary artery pressure
The study is similar to October 2021. The patient will be called and told that there is preserved heart muscle function and no significant valve abnormality.
-----
Total time spent today was 51 minutes for this encounter. Time includes reviewing laboratory test/imaging results, reviewing pertinent medical records, obtaining and reviewing medical history, performing an appropriate exam, ordering medications,
tests and procedures. Time also includes documentation of this encounter, coordinating patient care and communicating with other healthcare professionals. Total time does not include separately billed tests performed on this date of service.
Subjective Data
-
Date of Service:
Date of Service: March 03, 2024
Chief Complaint: Pulmonary Follow Up
Subjective:
s/p thora, remains on 12L
DHT in place at bedside
No new complaints
Objective Data
Data Reviewed
Vital Signs / I&O / Oxygen:
Vital Signs
Temp Pulse Resp BP Pulse Ox
98.3 F 67 16 149/59 95
03/03/24 07:44 03/03/24 08:17 03/03/24 06:00 03/03/24 08:17 03/03/24 05:58
Intake and Output
03/02/24 03/03/24 03/04/24
06:59 06:59 06:59
Intake Total 460 / 460 830 / 830
Output Total 1400 / 1400 1325 / 1325
Balance -940 / -940 -495 / -495
SaO2 [NIV (Non Invasive 94
Ventilation)]
SaO2 95
Nasal Cannula flow liters per 14
minute
Physical Exam
General: Comfortable
HEENT: Normocephalic and Anicteric
Cardiovascular: S1-S2, Regular Rhythm, Murmur (n) and Rub (n)
Respiratory: Wheeze (n), Crackles (few), Rhonchi (n), Non-Labored Respirations and Stridor (n)
GI: Soft, Non Distended and Non Tender
Neurology: Awake, Alert, Oriented, AO x 3 and No Motor Deficits (Able to sit up without difficulty)
Skin: Cyanosis (n), Jaundice (n) and Rash (n)
Labs/Micro/Reports
Lab Data
03/03/24 03:13
03/03/24 03:13
[2024-03-03 11:04] LABS: Body Fluid Amylase 35 U/L; Body Fluid Glucose 111 mg/dl; Body Fluid LDH 176 U/L; Body Fluid Protein 2.6 g/dl; Body Fluid Triglycerides < 30 mg/dl
--- NOTE | 2024-03-03 11:35 | PTCARENOTE ---
Pt now back from IR 500ml drained . Gi to be consulted for Dubhoff insertion. at bedside.
[2024-03-03 12:07] LABS: Body Fluid WBC 125 /CUMM
[2024-03-03] MEDS: TRANDATE 10 MG IV ×3 (12:11→23:40)
[2024-03-03 12:20] LABS: Glucose - Point of Care 124 mg/dl (70-99)
[2024-03-03 12:31] LABS: Body Fluid Second Tech EM
--- NOTE | 2024-03-03 12:32 | W.PN.NEPH.PH ---
Today's Communication / Plan
-
lasix and d/c CVC
Assessment/Plan
-
Impression:
Right upper lobe mass versus infiltrate with hemoptysis
Acute kidney
CKD stage IIIb baseline creatinine 1.6
HTN
History of TIA
History of COPD
Anemia
CHF HFpEF
Plan:
JUDI-cr stable at 2
however significant azotemia on steroids
goins replaced for retention
hb better post PRBC, no reported bleeding source
will dose lasix today since wt is slightly up
wean O2 as possible, s/p thoracentesis today
hyponatremia slowly improving, cont strict FR
no plan of further HD, d/c CVC today
Failed swallow, working on DHT feeds
follow BMP
d/w pt and at bedside in detail
d/w nursing
-
-
Date of Service: March 03, 2024
CC / HPI / ROS
-
Chief Complaint:
JUDI
History of Present Illness:
required straight cath since goins replaced 03/02
BP stable
Cr down to 2., BUN no change 98
last HD 02/25
Na better at 130
wt is slightly up
was on DHT feeds last night but not functioning now-GI consulted
Review of Systems:
no fever
no cp. sob improving slowly-on mid flow 12lit
no n/v,failed swallow
Labs
-
Labs:
WBC 7.6 10^3/uL (4.8-10.8) 03/03/24 03:13
RBC 2.62 10^6/uL (4.70-6.10) L 03/03/24 03:13
Hgb 7.8 g/dL (13.0-18.0) L 03/03/24 03:13
Hct 21.9 % (39.0-52.0) L 03/03/24 03:13
Plt Count 170 10^3/uL (130-400) 03/03/24 03:13
Sodium 130 mmol/L (135-145) L 03/03/24 03:13
Potassium 4.6 mmol/L (3.5-5.1) 03/03/24 03:13
Chloride 96 mmol/L (98-107) L 03/03/24 03:13
Carbon Dioxide 25 mmol/L (22-30) 03/03/24 03:13
BUN 98 mg/dl (9-20) H 03/03/24 03:13
Creatinine 2.0 mg/dL (0.7-1.3) H 03/03/24 03:13
eGFR 34.16 03/03/24 03:13
Glucose 128 mg/dl (70-99) H 03/03/24 03:13
Calcium 7.9 mg/dl (8.4-10.2) L 03/03/24 03:13
Phosphorus 4.4 mg/dl (2.5-4.5) 02/29/24 05:39
Tvk-G-Dmtibimzzqs Pept 39120 pg/ml 02/17/24 05:00
Albumin 3.0 g/dl (3.5-5.0) L 02/29/24 05:39
Physical Exam
-
Vital Signs:
Vital Signs
Temp Pulse Resp BP Pulse Ox
98.0 F 80 18 152/65 95
03/03/24 11:11 03/03/24 12:11 03/03/24 11:10 03/03/24 12:11 03/03/24 11:10
Cardiovascular:: Regular rate and rhythm
Lung Excursion:: Abnormal (decreased)
Abdomen:: Nontender and Soft
Extremity Edema:: None: Bilateral: (trace)
Goins Catheter: Yes
[2024-03-03] MEDS: LASIX 40 MG IV (13:15)
--- NOTE | 2024-03-03 15:49 | W.PN.UPDATE ---
Addendum entered and electronically signed by OLIVIA Estevez 03/03/24 16:47:
repeat X ray with tube in adequate position ok to use.
Original Note:
Update Note
Progress Note Update
DHT clogged after meds. Replaced and noted coiled upwards. Repositioned at 65cm. await repeat X ray.
[2024-03-03 18:20] LABS: Glucose - Point of Care 129 mg/dl (70-99)
--- NOTE | 2024-03-03 20:24 | VATNOTE ---
NOTED ORDER TO D/C HDC. PCN REQUESTED CATHETER BE REMOVED 8 SO ORDERED AM LABS CAN BE OBTAINED IN THE MORNING. VAT TO FOLLOW.
[2024-03-03] MEDS: TYLENOL 1000 MG TUBE (21:17)
[2024-03-03 23:50] LABS: Glucose - Point of Care 120 mg/dl (70-99)
[2024-03-04] VITALS (16 sets, daily range): BP systolic 142–180; BP diastolic 53–72; PULSE 72–74; O2SAT 94; BMI 21.6
[2024-03-04 04:10] LABS: % Basophils 0.1 % (0-2); % Eosinophils 0.6 % (0-6); % Immature Granulocytes 3.6 % (0-0.5); % Lymphocytes 11.4 % (20.5-51.1); % Monocytes 7.5 % (1.7-9.3); % Neutrophils 76.8 % (42.2-75.2); Absolute Immature Granulocytes 0.3 10^3/uL (0-0.05); Absolute Lymphocytes 0.8 10^3/uL (1.2-3.4); Absolute Monocytes 0.5 10^3/uL (0.1-0.6); Absolute Neutrophils 5.5 10^3/uL (1.4-6.5); Hematocrit 22.5 % (39.0-52.0); Mean Corp Hgb Conc. 35.6 g/dL (33.0-37.0); Mean Corpuscular Hgb 29.3 pg (27.0-31.0); Mean Corpuscular Volume 82.4 fL (80.0-94.0); Mean Platelet Volume 10.7 fL (7.4-10.4); Nucleated Red Blood Cells % 0 % (-); Platelet Count 189 10^3/uL (130-400); Red Blood Cell Count 2.73 10^6/uL (4.70-6.10); Red Cell Dist. Width 16.2 % (11.5-14.5); White Blood Cell Count 7.2 10^3/uL (4.8-10.8)
[2024-03-04 04:30] LABS: Blood Urea Nitrogen 92 mg/dl (9-20); Calcium 8.3 mg/dl (8.4-10.2); Carbon Dioxide 26 mmol/L (22-30); Chloride 99 mmol/L (98-107); Estimated Creatinine Clearance 34 ml/min; Glucose 99 mg/dl (70-99); Potassium 4.5 mmol/L (3.5-5.1); Sodium 134 mmol/L (135-145); eGFR 38.77
--- NOTE | 2024-03-04 05:18 | PTCARENOTE ---
No acute events overnight. Tube feeds running at goal. Dobhoff flushes without difficulty.
[2024-03-04] MEDS: NOVOLOG FLEXPEN-MODERATE RESISTANCE SC ×3 (05:42→17:50)
[2024-03-04] MEDS: TRANDATE 10 MG IV ×3 (05:42→17:14)
[2024-03-04 05:52] LABS: Glucose - Point of Care 101 mg/dl (70-99)
[2024-03-04 06:09] LABS: Glucose - Point of Care 110 mg/dl (70-99)
[2024-03-04] MEDS: DUONEB 3 ML INH ×4 (07:41→20:05)
[2024-03-04] MEDS: OCEAN, SALINE MIST 2 SPRAYS NASAL (08:53)
[2024-03-04] MEDS: PROTONIX IV 40 MG IV (08:54)
[2024-03-04] MEDS: NSS (PRESERVATIVE FREE) 10 ML IV (08:54)
[2024-03-04] MEDS: HEPARIN 5000 UNITS SC ×2 (08:55→16:42)
--- NOTE | 2024-03-04 10:09 | PTCARENOTE ---
Pt AAOX3 TF running as ordered. HD cat removed by VAT. at bedside. Pt remains on 13 l Mid flow
--- NOTE | 2024-03-04 10:36 | W.PN.NEPH.PH ---
Today's Communication / Plan
-
hydralazine
Assessment/Plan
-
Impression:
Right upper lobe mass versus infiltrate with hemoptysis
Acute kidney
CKD stage IIIb baseline creatinine 1.6
HTN
History of TIA
History of COPD
Anemia
CHF HFpEF
Plan:
follow BMP
maintain goins, likely keep in until OP f/u
add IV hydralazine (avoiding tube meds because of plugging)
continue IV labetalol
d/w pt and at bedside in detail
-
-
Date of Service: March 04, 2024
CC / HPI / ROS
-
Chief Complaint:
JUDI
History of Present Illness:
goins replaced 03/02
BP stable
Cr down to 1.8
last HD 02/25
Na better at 134
DHT replaced (plugged)
Review of Systems:
no fever
no cp. sob improving slowly-on mid flow 12lit
no n/v,failed swallow
Labs
-
Labs:
WBC 7.2 10^3/uL (4.8-10.8) 03/04/24 03:43
RBC 2.73 10^6/uL (4.70-6.10) L 03/04/24 03:43
Hgb 8.0 g/dL (13.0-18.0) L 03/04/24 03:43
Hct 22.5 % (39.0-52.0) L 03/04/24 03:43
Plt Count 189 10^3/uL (130-400) 03/04/24 03:43
Sodium 134 mmol/L (135-145) L 03/04/24 03:43
Potassium 4.5 mmol/L (3.5-5.1) 03/04/24 03:43
Chloride 99 mmol/L (98-107) 03/04/24 03:43
Carbon Dioxide 26 mmol/L (22-30) 03/04/24 03:43
BUN 92 mg/dl (9-20) H 03/04/24 03:43
Creatinine 1.8 mg/dL (0.7-1.3) H 03/04/24 03:43
eGFR 38.77 03/04/24 03:43
Glucose 99 mg/dl (70-99) 03/04/24 03:43
Calcium 8.3 mg/dl (8.4-10.2) L 03/04/24 03:43
Phosphorus 4.4 mg/dl (2.5-4.5) 02/29/24 05:39
Ymz-L-Ijbqcftddwa Pept 95288 pg/ml 02/17/24 05:00
Albumin 3.0 g/dl (3.5-5.0) L 02/29/24 05:39
Physical Exam
-
Vital Signs:
Vital Signs
Temp Pulse Resp BP Pulse Ox
98.1 F 71 17 162/69 90
03/04/24 07:30 03/04/24 10:00 03/04/24 10:00 03/04/24 10:00 03/04/24 10:00
Cardiovascular:: Regular rate and rhythm
Respiratory:: Bilateral: Coarse
Lung Excursion:: Normal
Abdomen:: Nontender and Soft
Bowel Sounds:: Normal
Extremity Edema:: None: Bilateral:
--- NOTE | 2024-03-04 10:51 | W.PN.HOSP.TC ---
Today's Communication/Plan
-
IV bp meds
Tube feeding
wean o2
OOB/Pulm recs
Assessment / Plan
Assessment / Plan
#Acute hypoxemic respiratory failure -- due to pneumonia, superimposed HFpEF, possible COPD, hematemesis
#Suspected ARDS -- No recent ABG to calculate P/F; clinically consistent per course and xray findings
#Severe CAP -- RUL, bacterial
#Acute on chronic HFpEF
#Acute hemoptysis -- suspected right upper lobe malignancy and also with Plavix
-CT thorax showed with large RUL consolidation, also signs of malignancy in the RUL, pulmonary edema
-Was started on IV ceftriaxone empirically, completed course of IV azithromycin as well;
-Developed decompensation of HFpEF in the context of IV fluids, elevated proBNP, s/p IV Lasix course, now on hemodialysis
-Echocardiogram here showed severe pulmonary hypertension; has evidence of COPD with emphysematous findings, tobacco history
-Continue with oral prednisone taper
-Continue to hold clopidogrel but if no plan for thora or biopsy may need to consider restarting it in near future.
-Continue with HD for volume status; Monitor I/Os
-off HFNC and transitioned to midflow.
-Will eventually need PFTs and pulm assessment for new COPD
-Pulm recs
#Severe dysphagia
-s/p VSE and now strict NPO
-DHT placement- and started on tube feeding
-avoid meds via DHT .
-will need repeat VSE once improvement in O2 and nutritional status
-speech recs
#Oliguric JUDI on CKD 3B
#Metabolic acidosis
#Normocytic anemia -- 2/2 renal dysfunction
-Suspected to be prerenal; Home medications include diuretics and ARB, presented with infection
-Home diuretics and losartan are held, received bicarbonate therapy for his acidemia
-Trend daily BMP, monitor strict I's and O's
-Consider transfusion for hemoglobin <7
- Complements back to normal. ANCA panel wnl. Normal serum protein electrophoresis.
-lasix per nephor. losing weight. Cr improving. HD catheter out.
-Renal diet
#Suspected Right upper lobe lesion shadowed due to pneumonia?
#Pleural effusion
-Likely demonstrated on CT, but does have superimposed bacterial pneumonia which may affect findings
-CT chest Mildly enlarged and more consolidated right upper lobe pulmonary mass. This probably represents pneumonia considering the acute change. Underlying neoplasm cannot be excluded. Sampling recommended as well as clinical and laboratory
correlation. Moderate right pleural effusion. Progressed. Small left pleural effusion. Progressed. Mild right lower lobe consolidation probably atelectasis. New spiculated mass in left lower lung field probably infectious considering the acute
development. New moderate bilateral groundglass densities suggesting additional foci of pneumonia considering the acute development.
-IRAD for R sided thoracentesis. Cytology ordered too. s/p 500cc fluid removed.
-Unclear role of bronch at this juncture as plavix has been held.
#Urinary retention
- flomax.
-straight cath protocol
-s/p goins catheter placement.
#Acute on chronic normocytic anemia -- blood loss from hemoptysis, dilution
-Baseline hemoglobin around 10,
-Iron studies without signs of deficiency, no evidence of hemolysis, B12 was low but now on therapy
-Will continue to trend daily CBC and transfuse for hemoglobin <7
-Hgb at 8 s/p 1u of PRBC so far.
#History of duodenal ulcer/GI bleed
-No signs of active GI bleeding while here, did have hemoptysis
-Remains on home PPI regimen
#History of TIA
-Holding plavix as above
#Essential hypertension
-No known history of hypertensive systemic disease, Home meds include metoprolol hydralazine, and amlodipine-HOLD
-Blood pressure has been poorly controlled outside of the hospital, recently hydralazine was increased
-Started on IV labetalol standing and hydralazine as plan for non oral meds due to clogging of DHT and strict NPO.
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
-History of heavy tobacco abuse in the past; no formal diagnosis, no home inhaler therapies
-Currently without any wheezing or signs of exacerbation though cannot rule out contribution to his presentation
-Plan for pulm follow-up and PFTs at discharge, DC on DuoNebs as needed
#Hyperlipidemia
-No known history of ASCVD
-No medications include high intensity shortness
#Celiac's disease
-No formal diagnosis, gluten sensitivity per history, told him to avoid gluten by an outside doctor
-No gluten diet ordered
DVT prophylaxis: Heparin subcutaneous
Diet: Soft and bite sized, Ensure with meals, renal friendly
Goals of care/CODE STATUS: Hospice was mentioned on 02/24, remains full treatment with limited DNR (no chest compressions)
Discussed with spouse at bedside in detail
Discussed with RN
Anticipated Discharge: > 48 hours
Subjective/Interval History
-
Date of Service: March 04, 2024
O2 downtreded slightly
remains on TF
Passing increasing amount of urine
Objective Data
-
Labs:
Laboratory Results
03/04/24
03:43
WBC 7.2
Hgb 8.0 L
Hct 22.5 L
Plt Count 189
Sodium 134 L
Potassium 4.5
Chloride 99
Carbon Dioxide 26
BUN 92 H
Creatinine 1.8 H
Glucose 99
Calcium 8.3 L
Vital Signs:
Vital Signs
Temp Pulse Resp BP Pulse Ox
98.1 F 71 17 162/69 90
03/04/24 07:30 03/04/24 10:00 03/04/24 10:00 03/04/24 10:00 03/04/24 10:00
I&O
03/03/24 03/04/24 03/05/24
06:59 06:59 06:59
Intake Total 830 / 830 1250 / 1250
Output Total 1325 / 1325 1800 / 1800
Balance -495 / -495 -550 / -550
Physical Exam
-
General: No Apparent Distress and Comfortable; Negative Respiratory Distress
HEENT: Normocephalic, Atraumatic, Moist Mucous Membranes, Anicteric and Oxygen (on 12L midflow )
Respiratory: Non Labored Respirations and Decreased Breath Sounds (R>L); Negative Wheezes, Rales or Accessory Resp Muscle Use
Cardiac: Regular Rhythm and S1/S2; Negative Murmur, Rub, JVD or Gallop
GI: Soft, Nontender, Nondistended, Normal Bowel Sounds and Other (DHT and TF ongoing )
Genito-urinary: Clear Urine and Goins
Musculoskeletal: No Clubbing, No Cyanosis and No Edema
Skin: Warm and Dry; Negative Rash
Neuro: Awake, AO x 3, Nonfocal/Grossly Intact and Central Nerve's Intact
Psych: Calm
Data Reviewed
-
Total Time Spent with Patient (in minutes): 56
[2024-03-04] MEDS: APRESOLINE 10 MG IV ×3 (11:03→20:42)
--- NOTE | 2024-03-04 12:10 | W.PN.PUL3 ---
Today's Communication / Plan
-
Remains on midflow 12L, wean as tolerated, slow progress
Ongoing duresis per renal
Tolerating TFs, encouraged IS
OOB, PT/OT
Prednisone taper continued
Cyto still pending on thora
Assessment
-
73-year-old male with history of hypertension, hyperlipidemia, TIA on Plavix therapy, describes chronic bronchitis and chronic subjective dyspnea with 90-[id number]-cmce history of smoking quit 2003. He now presents with progressive cough, shortness of
breath and hemoptysis. Found to have right upper lobe mass with likely pneumonia. We are asked to comment on pulmonary process
Right upper lobe mass/infiltrate
Acute hemoptysis x 3 days, blood mixed with mucus
Right upper lobe abnormality noted per chest x-ray April 2023
Small R pleural effusion s/p thora 03/03/24
Chronic bronchitis, dyspnea
Progressive
[id number] history of smoking, quit 2003
No prior spirometry, no prior pulmonary evaluation
Anemia
Chronic kidney disease, creatinine 2.2
Creatinine 1.6 in January 2024
Elevated proBNP
Chronic diarrhea
Conditions present prior to admission
History of anemia
Hypertension/hyperlipidemia
GERD with history of duodenal ulcer with bleeding
Required IR embolization 2020
Em[address]se[address] via CT
Possible asbestos exposure
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
Family history of cancer
Father with lung cancer
Sister with brain cancer
Sister with liver cancer
Plan
Respiratory status has markedly improved, transitioned to midflow 15L--weaned to 12L
Slow progress
Creatinine and BUN peaked at 4.3 and 156, respectively, on 02/21, trending down to mid 2's
Encouraged IS
Preadmission history: Patient is short of breath since April 2023 at which time he had right upper lobe infiltrate.
Patient cannot recall any history of recent pneumonia
Significant smoking and asbestos exposure history noted--emphysema noted on CT
Patient did not get follow-up x-ray as recommended per report in April
Former smoker, quit >30 years ago, strong family history of cancers
There is high suspicion this could be metastatic illness
IV steroids initially --> on prednisone taper to continue until off
Repeat CT scan reviewed but cannot offer planning until hypoxemia significantly improving
Finished 10 day course of ceftriaxone on 02/22
s/p 6 days zithromax - stopped on 02/18
Sputum culture few gram-positive cocci, many white cells, usual yaritza/finalized
Myrna noted 02/15
Prior sputum 02/13 neg
Legionella, streptococcal pneumonia negative
Airway clearance reviewed with RT, mucinex/acapella, vest/IS
Currently off abx, can observe for now
Hemoglobin stable
Had brief hemoptysis on this admission, resolved
Plavix has been held and can likely be resumed
He has not had further episodes
Family interested in obtaining lung biopsy.
This may need to be planned pending improvement of hypoxemia
ProBNP elevated at 19,500 on 02/17/2024, history of CHF
Trend sCr and UOP; Kuo catheter in place --> recommend to continue given his critically ill state with need for strict I/O
Nephrology following � recommendations appreciated
s/p HD cath on 02/21 and got 1st session on 02/21
Continue HD/diuresis per renal
R effusion has been reviewed on US
s/p thora for 500cc, sent for chem/culture/cyto--culture neg, cyto still pending
Pt having anxiety and insomnia -- started seroquel 25mg HS on 02/21
Seemed to help his sleep quality initially
Feeling worsening insomnia, continue melatonin
Protonix for GERD therapy
Aspiration precautions
Soft & bite sized/gluten free
VSE planning as per TANKAGE GRINDER--elevated risk
Now NPO with DHT in place, TFs
Continue with ISS with goal BG 140�180
Moderate resistance ISS, accu check with meals
DVT ppx: HSQ 5000 units q8hr
Family Discussions
Discussion held by Dr. Montoya on 02/22/2024 with and patient ---> patient is now DNR, okay for intubation in addition to other full medical management (see separate note from 02/21)
Mira 02/18- Reviewed with today and son on speaker phone today on rounds. We discussed all of his poor prognostic markers including possible/suspected metastatic disease, acute HF picture, worsening JUDI, worsening hypoxemia. She understands
his overall outlook remains poor even with intubation/MV. There is less chance for good QoL the more organ dysfunction occurs. Family will visit and discuss further GOC.
Litzy - Reviewed with patient, at bedside
Updated son by phone 02/16 (Kevon: [phone])
Reviewed concern regarding possibility of underlying malignancy.
Patient high risk for intubation.
Diagnostic Data
Chest x-ray 02/28/2024: Mildly improved pulmonary changes concerning for pneumonia. Underlying mass in the right upper lobe not completely excluded as mentioned on prior chest CT examination. Repeat chest CT examination in a couple weeks following
resolution of acute pneumonic process recommended; Slightly progressed tiny right pleural effusion; Findings diaphragms consistent with COPD. Stable
CXR 02/24/2024:There is moderate diffuse interstitial and groundglass airspace disease throughout both lungs with more confluent alveolar airspace disease in the right upper lung. This airspace disease is improved but unresolved compared with
previous examination and has more the appearance of inflammatory airspace disease than pulmonary edema as there are no septal lines to suggest interstitial edema.
Chest x-ray 02/22/2024: Multifocal pneumonia, most pronounced within the right upper lobe. No significant change compared to 02/18/2024; Interstitial coarsening and mild interstitial prominence, suggestive of COPD. Pulmonary edema may also be present
Chest X-Ray: 02/18/24- Findings raising concern for pulmonary edema, superimposed on right lung pneumonic process. The patient does have a proBNP value of 19,500 today.
02/17/24- Right lung opacities suspicious for pneumonia without significant change in comparison to recent prior study.
CT Scan: CHEST 03/01/24- Mildly enlarged and more consolidated right upper lobe pulmonary mass. This probably represents pneumonia considering the acute change. Underlying neoplasm cannot be excluded. Sampling recommended as well as clinical and
laboratory correlation. Moderate right pleural effusion. Progressed. Small left pleural effusion. Progressed. Mild right lower lobe consolidation probably atelectasis. New spiculated mass in left lower lung field probably infectious considering the
acute development. New moderate bilateral groundglass densities suggesting additional foci of pneumonia considering the acute development. Emphysematous disease. Stable.
CHEST 02/14/24- 1. Large right upper lobe pneumonia. Imaging follow-up to resolution is recommended as an underlying pulmonary neoplasm would be difficult to completely exclude.
2. Chronic obstructive pulmonary disease.
3. Small pericardial effusion.
4. Small right pleural effusion.
5. Mild loculated pleural fluid in the right minor fissure.
Echo: 02/17/24- Normal left ventricular size and systolic function. No regional wall motion abnormalities are seen. LV ejection fraction is 65-70% by volumetric assessment. Mild concentric left ventricular hypertrophy. Stage II diastolic dysfunction
suggestive of abnormal relaxation and increased filling pressures. Top normal right ventricular size. Normal right ventricular systolic function. Aortic sclerosis without stenosis. Mild tricuspid regurgitation. Estimated pulmonary artery pressure
of 50-55 mmHg assuming a right atrial pressure of 8 mmHg. Compared to prior study dated 04/28/2023, estimated pulmonary artery systolic pressure was previously normal at 25-30 mmHg
04/28/23- 1. Mild concentric left ventricular hypertrophy with preserved systolic function, EF 60-65%
2. Thickened mitral leaflets with mitral annular calcification, trace mitral regurgitation and minimally dilated left atrium
3. Aortic sclerosis with trace aortic insufficiency
4. Normal right heart with normal pulmonary artery pressure
The study is similar to October 2021. The patient will be called and told that there is preserved heart muscle function and no significant valve abnormality.
-----
Total time spent today was 51 minutes for this encounter. Time includes reviewing laboratory test/imaging results, reviewing pertinent medical records, obtaining and reviewing medical history, performing an appropriate exam, ordering medications,
tests and procedures. Time also includes documentation of this encounter, coordinating patient care and communicating with other healthcare professionals. Total time does not include separately billed tests performed on this date of service.
Subjective Data
-
Date of Service:
Date of Service: March 04, 2024
Chief Complaint: Pulmonary Follow Up
Subjective:
Remains unchanged
Midflow 12L
No new complaints
Objective Data
Data Reviewed
Vital Signs / I&O / Oxygen:
Vital Signs
Temp Pulse Resp BP Pulse Ox
98.1 F 78 18 158/64 12
03/04/24 11:03 03/04/24 12:07 03/04/24 11:23 03/04/24 12:07 03/04/24 11:23
Intake and Output
03/03/24 03/04/24 03/05/24
06:59 06:59 06:59
Intake Total 830 / 830 1250 / 1250
Output Total 1325 / 1325 1800 / 1800
Balance -495 / -495 -550 / -550
SaO2 [NIV (Non Invasive 94
Ventilation)]
SaO2 12
Nasal Cannula flow liters per 95
minute
Physical Exam
General: Comfortable
HEENT: Normocephalic and Anicteric
Cardiovascular: S1-S2, Regular Rhythm, Murmur (n) and Rub (n)
Respiratory: Wheeze (n), Crackles (few), Rhonchi (n), Non-Labored Respirations and Stridor (n)
GI: Soft, Non Distended and Non Tender
Neurology: Awake, Alert, Oriented, AO x 3 and No Motor Deficits (Able to sit up without difficulty)
Skin: Cyanosis (n), Jaundice (n) and Rash (n)
Labs/Micro/Reports
Lab Data
03/04/24 03:43
03/04/24 03:43
Microbiology
03/03/24 10:15 Pleural Fluid Body Fluid Culture - Preliminary
No Growth After 18-24 Hours
03/03/24 10:15 Pleural Fluid Gram Stain - Preliminary
[2024-03-04 12:25] LABS: Glucose - Point of Care 123 mg/dl (70-99)
--- NOTE | 2024-03-04 17:08 | CM ---
Patient with Dx Acute hypoxemic respiratory failure, pneumonia, HF, suspected ARDS, JUDI, suspected RUL lung lesion, anemia. O2 12L midflow. Dobdoff - tube feedings at goal rate. PT & OT recommend skilled rehab.
Plan follow up with patient and re; short term SNF for rehab vs home with VN.
[2024-03-04 18:02] LABS: Glucose - Point of Care 136 mg/dl (70-99)
[2024-03-04] MEDS: TYLENOL 1000 MG TUBE (22:01)
[2024-03-04 23:33] LABS: Glucose - Point of Care 173 mg/dl (70-99)
[2024-03-05] VITALS (13 sets, daily range): BP systolic 118–167; BP diastolic 47–70; BMI 21.3
[2024-03-05] MEDS: TRANDATE 10 MG IV ×5 (00:31→23:09)
[2024-03-05] MEDS: HEPARIN 5000 UNITS SC ×4 (00:33→23:08)
[2024-03-05] MEDS: APRESOLINE 10 MG IV ×5 (00:33→23:08)
[2024-03-05] MEDS: NOVOLOG FLEXPEN-MODERATE RESISTANCE 1 UNITS SC ×3 (00:34→23:20)
--- NOTE | 2024-03-05 01:25 | PTCARENOTE ---
Pt at TF goal and tolerating well. Dressing on HD cath removal site dry and intact. Pt has no complaints at this time. Assessment care and vitals as charted.
[2024-03-05 06:04] LABS: Glucose - Point of Care 142 mg/dl (70-99)
[2024-03-05 06:54] LABS: % Basophils 0.1 % (0-2); % Eosinophils 1.1 % (0-6); % Immature Granulocytes 2.3 % (0-0.5); % Lymphocytes 8.1 % (20.5-51.1); % Monocytes 6.8 % (1.7-9.3); % Neutrophils 81.6 % (42.2-75.2); Absolute Eosinophils 0.1 10^3/uL (0-0.7); Absolute Immature Granulocytes 0.2 10^3/uL (0-0.05); Absolute Lymphocytes 0.6 10^3/uL (1.2-3.4); Absolute Monocytes 0.5 10^3/uL (0.1-0.6); Absolute Neutrophils 6.1 10^3/uL (1.4-6.5); Hematocrit 24.4 % (39.0-52.0); Hemoglobin 8.4 g/dL (13.0-18.0); Mean Corp Hgb Conc. 34.4 g/dL (33.0-37.0); Mean Corpuscular Hgb 29.8 pg (27.0-31.0); Mean Corpuscular Volume 86.5 fL (80.0-94.0); Mean Platelet Volume 10.8 fL (7.4-10.4); Nucleated Red Blood Cells % 0 % (-); Platelet Count 196 10^3/uL (130-400); Red Blood Cell Count 2.82 10^6/uL (4.70-6.10); Red Cell Dist. Width 16.4 % (11.5-14.5); White Blood Cell Count 7.5 10^3/uL (4.8-10.8)
[2024-03-05 07:10] LABS: Blood Urea Nitrogen 87 mg/dl (9-20); Calcium 8.3 mg/dl (8.4-10.2); Carbon Dioxide 25 mmol/L (22-30); Chloride 98 mmol/L (98-107); Estimated Creatinine Clearance 34 ml/min; Glucose 136 mg/dl (70-99); Potassium 5.2 mmol/L (3.5-5.1); Sodium 134 mmol/L (135-145); eGFR 41.52
[2024-03-05] MEDS: DUONEB 3 ML INH ×4 (07:38→19:45)
[2024-03-05] MEDS: NOVOLOG FLEXPEN-MODERATE RESISTANCE SC ×2 (07:43→17:42)
[2024-03-05] MEDS: PROTONIX IV 40 MG IV (08:42)
[2024-03-05] MEDS: NSS (PRESERVATIVE FREE) 10 ML IV (08:42)
--- NOTE | 2024-03-05 08:55 | W.PN.NEPH.PH ---
Today's Communication / Plan
-
chnage TF to Nepro (osmolite this am)
Assessment/Plan
-
Impression:
Right upper lobe mass versus infiltrate with hemoptysis
Acute kidney
CKD stage IIIb baseline creatinine 1.6
HTN
History of TIA
History of COPD
Anemia
CHF HFpEF
Plan:
follow BMP
maintain goins, likely keep in until OP f/u
continue IV hydralazine (avoiding tube meds because of plugging)
continue IV labetalol
change to Nepro TF with higher K on labs today
-
-
Date of Service: March 05, 2024
CC / HPI / ROS
-
Chief Complaint:
JUDI
History of Present Illness:
goins replaced 03/02
BP stable high
Cr down to 1.7
last HD 02/25
Na better at 134 stable
K up to 5.[address] with TF
Review of Systems:
no fever
no cp. sob improving slowly
no n/v, failed swallow
Labs
-
Labs:
WBC 7.5 10^3/uL (4.8-10.8) 03/05/24 05:54
RBC 2.82 10^6/uL (4.70-6.10) L 03/05/24 05:54
Hgb 8.4 g/dL (13.0-18.0) L 03/05/24 05:54
Hct 24.4 % (39.0-52.0) L 03/05/24 05:54
Plt Count 196 10^3/uL (130-400) 03/05/24 05:54
Sodium 134 mmol/L (135-145) L 03/05/24 05:54
Potassium 5.2 mmol/L (3.5-5.1) H 03/05/24 05:54
Chloride 98 mmol/L (98-107) 03/05/24 05:54
Carbon Dioxide 25 mmol/L (22-30) 03/05/24 05:54
BUN 87 mg/dl (9-20) H 03/05/24 05:54
Creatinine 1.7 mg/dL (0.7-1.3) H 03/05/24 05:54
eGFR 41.52 03/05/24 05:54
Glucose 136 mg/dl (70-99) H 03/05/24 05:54
Calcium 8.3 mg/dl (8.4-10.2) L 03/05/24 05:54
Phosphorus 4.4 mg/dl (2.5-4.5) 02/29/24 05:39
Vuw-[id number]-Zqobmtyalqb Pept 31388 pg/ml 02/17/24 05:00
Albumin 3.0 g/dl (3.5-5.0) L 02/29/24 05:39
Physical Exam
-
Vital Signs:
Vital Signs
Temp Pulse Resp BP Pulse Ox
98.1 F 82 23 167/60 92
03/05/24 02:20 03/05/24 07:46 03/05/24 07:46 03/05/24 06:01 03/05/24 07:46
Cardiovascular:: Regular rate and rhythm
Respiratory:: Bilateral: Coarse
Lung Excursion:: Normal
Abdomen:: Nontender and Soft
Bowel Sounds:: Normal
Extremity Edema:: None: Bilateral:
--- NOTE | 2024-03-05 10:09 | W.PN.HOSP.TC ---
Today's Communication/Plan
-
Continue with tube feeds
Meds held
IV BP meds
Assessment / Plan
Assessment / Plan
#Acute hypoxemic respiratory failure -- due to pneumonia, superimposed HFpEF, possible COPD, hematemesis
#Suspected ARDS -- No recent ABG to calculate P/F; clinically consistent per course and xray findings
#Severe CAP -- RUL, bacterial
#Acute on chronic HFpEF
#Acute hemoptysis -- suspected right upper lobe malignancy and also with Plavix
-CT thorax showed with large RUL consolidation, also signs of malignancy in the RUL, pulmonary edema
-Was started on IV ceftriaxone empirically, completed course of IV azithromycin as well;
-Developed decompensation of HFpEF in the context of IV fluids, elevated proBNP, s/p IV Lasix course, now on hemodialysis and now off HD with intermittent lasix.
-Echocardiogram here showed severe pulmonary hypertension; has evidence of COPD with emphysematous findings, tobacco history
-Continue with oral prednisone taper on hold as patient NPO. Can consider IV steroids if needed. Will defer to pulmonary.
-Continue to hold clopidogrel but if no plan for thora or biopsy may need to consider restarting it in near future.
-Losing weight. Monitor I/Os
-off HFNC and transitioned to midflow.
-Pulm recs
#Severe dysphagia
-s/p VSE and now strict NPO
-DHT placement- and started on tube feeding. Changed to Nepro with carb study due to hyperkalemia.
-avoid meds via DHT . Tolerating tube feeds.
-will need repeat VSE once improvement in O2 and nutritional status
-speech recs
#Oliguric JUDI on CKD 3B
#Metabolic acidosis
#Normocytic anemia -- 2/2 renal dysfunction
-Suspected to be prerenal; Home medications include diuretics and ARB, presented with infection
-Home diuretics and losartan are held, received bicarbonate therapy for his acidemia
-Trend daily BMP, monitor strict I's and O's
-Consider transfusion for hemoglobin <7
- Complements back to normal. ANCA panel wnl. Normal serum protein electrophoresis.
-lasix per nephor. losing weight. Cr improving. HD catheter out.
-Renal diet
#Suspected Right upper lobe lesion shadowed due to pneumonia?
#Pleural effusion
-Likely demonstrated on CT, but does have superimposed bacterial pneumonia which may affect findings
-CT chest Mildly enlarged and more consolidated right upper lobe pulmonary mass. This probably represents pneumonia considering the acute change. Underlying neoplasm cannot be excluded. Sampling recommended as well as clinical and laboratory
correlation. Moderate right pleural effusion. Progressed. Small left pleural effusion. Progressed. Mild right lower lobe consolidation probably atelectasis. New spiculated mass in left lower lung field probably infectious considering the acute
development. New moderate bilateral groundglass densities suggesting additional foci of pneumonia considering the acute development.
-IRAD for R sided thoracentesis. Cytology ordered too. s/p 500cc fluid removed.
-Unclear role of bronch at this juncture as plavix has been held.
#Urinary retention
- flomax.
-straight cath protocol
-s/p goins catheter placement.
#Acute on chronic normocytic anemia -- blood loss from hemoptysis, dilution
-Baseline hemoglobin around 10,
-Iron studies without signs of deficiency, no evidence of hemolysis, B12 was low but now on therapy
-Will continue to trend daily CBC and transfuse for hemoglobin <7
-Hgb at 8.4 s/p 1u of PRBC so far.
#History of duodenal ulcer/GI bleed
-No signs of active GI bleeding while here, did have hemoptysis
-Remains on home PPI regimen
#History of TIA
-Holding plavix as above
#Essential hypertension
-No known history of hypertensive systemic disease, Home meds include metoprolol hydralazine, and amlodipine-HOLD
-Blood pressure has been poorly controlled outside of the hospital, recently hydralazine was increased
-Started on IV labetalol standing and hydralazine as plan for non oral meds due to clogging of DHT and strict NPO.
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
-History of heavy tobacco abuse in the past; no formal diagnosis, no home inhaler therapies
-Currently without any wheezing or signs of exacerbation though cannot rule out contribution to his presentation
-Plan for pulm follow-up and PFTs at discharge, DC on DuoNebs as needed
#Hyperlipidemia
-No known history of ASCVD
-No medications include high intensity shortness
#Celiac's disease
-No formal diagnosis, gluten sensitivity per history, told him to avoid gluten by an outside doctor
-No gluten diet ordered
DVT prophylaxis: Heparin subcutaneous
Diet: Soft and bite sized, Ensure with meals, renal friendly
Goals of care/CODE STATUS: Hospice was mentioned on 02/24, remains full treatment with limited DNR (no chest compressions)
Discussed with RN
Anticipated Discharge: > 48 hours
Subjective/Interval History
-
Date of Service: March 05, 2024
Remains on mid flow
Objective Data
-
Labs:
Laboratory Results
03/05/24
05:54
WBC 7.5
Hgb 8.4 L
Hct 24.4 L
Plt Count 196
Sodium 134 L
Potassium 5.2 H
Chloride 98
Carbon Dioxide 25
BUN 87 H
Creatinine 1.7 H
Glucose 136 H
Calcium 8.3 L
Vital Signs:
Vital Signs
Temp Pulse Resp BP Pulse Ox
98.2 F 82 23 167/60 92
03/05/24 07:35 03/05/24 07:46 03/05/24 07:46 03/05/24 06:01 03/05/24 07:46
I&O
03/04/24 03/05/24 03/06/24
06:59 06:59 06:59
Intake Total 1250 / 1250 800 / 800
Output Total 1800 / 1800 850 / 850
Balance -550 / -550 -50 / -50
Physical Exam
-
General: No Apparent Distress and Comfortable; Negative Respiratory Distress
HEENT: Normocephalic, Atraumatic, Moist Mucous Membranes, Anicteric and Oxygen (on 10- 12L midflow )
Respiratory: Non Labored Respirations and Decreased Breath Sounds (R>L); Negative Wheezes, Rales or Accessory Resp Muscle Use
Cardiac: Regular Rhythm and S1/S2; Negative Murmur, Rub, JVD or Gallop
GI: Soft, Nontender, Nondistended, Normal Bowel Sounds and Other (DHT and TF ongoing )
Genito-urinary: Clear Urine and Goins
Musculoskeletal: No Clubbing, No Cyanosis and No Edema
Skin: Warm and Dry; Negative Rash
Neuro: Awake, AO x 3, Nonfocal/Grossly Intact and Central Nerve's Intact
Psych: Calm
Data Reviewed
-
Total Time Spent with Patient (in minutes): 56
[2024-03-05 12:47] LABS: Glucose - Point of Care 167 mg/dl (70-99)
--- NOTE | 2024-03-05 12:52 | W.PN.PUL3 ---
Today's Communication / Plan
-
Wait for cytology
Plans for any further intervention will depend on improvement in oxygenation as well as cytology results.
Assessment
-
73-year-old male with history of hypertension, hyperlipidemia, TIA on Plavix therapy, describes chronic bronchitis and chronic subjective dyspnea with [id number] history of smoking quit 2003. He now presents with progressive cough, shortness of
breath and hemoptysis. Found to have right upper lobe mass with likely pneumonia. We are asked to comment on pulmonary process
Right upper lobe mass/infiltrate
Acute hemoptysis x 3 days, blood mixed with mucus
Right upper lobe abnormality noted per chest x-ray April 2023
Small R pleural effusion s/p thora 03/03/24
Chronic bronchitis, dyspnea
Progressive
[id number] history of smoking, quit 2003
No prior spirometry, no prior pulmonary evaluation
Anemia
Chronic kidney disease, creatinine 2.2
Creatinine 1.6 in January 2024
Elevated proBNP
Chronic diarrhea
Conditions present prior to admission
History of anemia
Hypertension/hyperlipidemia
GERD with history of duodenal ulcer with bleeding
Required IR embolization 2020
Em[address]se[address] via [address]
Possible asbestos exposure
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
Family history of cancer
Father with lung cancer
Sister with brain cancer
Sister with liver cancer
Plan
Oxygenation is slowly improving, down to 10 L mid flow.
Encouraged IS
Preadmission history: Patient is short of breath since April 2023 at which time he had right upper lobe infiltrate.
Patient cannot recall any history of recent pneumonia
Significant smoking and asbestos exposure history noted--emphysema noted on CT
Patient did not get follow-up x-ray as recommended per report in April
Former smoker, quit >30 years ago, strong family history of cancers
There is high suspicion this could be metastatic illness
IV steroids initially --> prednisone has been tapered off.
Repeat CT scan reviewed but cannot offer planning until hypoxemia significantly improving
Finished 10 day course of ceftriaxone on 02/22
s/p 6 days zithromax - stopped on 02/18
Sputum culture few gram-positive cocci, many white cells, usual yaritza/finalized
Myrna noted 02/15
Prior sputum 02/13 neg
Legionella, streptococcal pneumonia negative
Airway clearance reviewed with RT, mucinex/acapella, vest/IS
Currently off abx, can observe for now
Hemoglobin stable
Had brief hemoptysis on this admission, resolved
Can resume Plavix from the hemoptysis perspective
He has not had further episodes
Family interested in obtaining lung biopsy.
This may need to be planned pending improvement of hypoxemia first
Wait for cytology report. It may give some answers. Still pending as of 03/05/2024.
If cytology is negative then can consider bronchoscopic biopsy if oxygenation has improved. Will be an ongoing discussion
ProBNP elevated at 19,500 on 02/17/2024, history of CHF
Trend sCr and UOP; Kuo catheter in place --> recommend to continue given his critically ill state with need for strict I/O
Nephrology following � recommendations appreciated
s/p HD cath on 02/21-now on dialysis.
-
R effusion has been reviewed on US
s/p thora for 500cc, : Exudate/lymphocytic/culture negative. Cytology pending. May be malignant
Pt having anxiety and insomnia -- started seroquel 25mg HS on 02/21
Seemed to help his sleep quality initially
Feeling worsening insomnia, continue melatonin
Aspiration precautions
Soft & bite sized/gluten free
VSE planning as per [employer]MAIL PRODUCTION CONSULTANT--elevated risk
Now NPO with DHT in place, TFs
Continue with ISS with goal BG 140�180
Moderate resistance ISS, accu check with meals
DVT ppx: HSQ 5000 units q8hr

Family Discussions
Discussion held by Dr. Montoya on 02/22/2024 with and patient ---> patient is now DNR, okay for intubation in addition to other full medical management (see separate note from 02/21)
Mira 02/18- Reviewed with today and son on speaker phone today on rounds. We discussed all of his poor prognostic markers including possible/suspected metastatic disease, acute HF picture, worsening JUDI, worsening hypoxemia. She understands
his overall outlook remains poor even with intubation/MV. There is less chance for good QoL the more organ dysfunction occurs. Family will visit and discuss further GOC.
Litzy - Reviewed with patient, at bedside
Updated son by phone 02/16 (Kevon: [phone])
Reviewed concern regarding possibility of underlying malignancy.
Patient high risk for intubation.
Diagnostic Data
Chest x-ray 02/28/2024: Mildly improved pulmonary changes concerning for pneumonia. Underlying mass in the right upper lobe not completely excluded as mentioned on prior chest CT examination. Repeat chest CT examination in a couple weeks following
resolution of acute pneumonic process recommended; Slightly progressed tiny right pleural effusion; Findings diaphragms consistent with COPD. Stable
CXR 02/24/2024:There is moderate diffuse interstitial and groundglass airspace disease throughout both lungs with more confluent alveolar airspace disease in the right upper lung. This airspace disease is improved but unresolved compared with
previous examination and has more the appearance of inflammatory airspace disease than pulmonary edema as there are no septal lines to suggest interstitial edema.
Chest x-ray 02/22/2024: Multifocal pneumonia, most pronounced within the right upper lobe. No significant change compared to 02/18/2024; Interstitial coarsening and mild interstitial prominence, suggestive of COPD. Pulmonary edema may also be present
Chest X-Ray: 02/18/24- Findings raising concern for pulmonary edema, superimposed on right lung pneumonic process. The patient does have a proBNP value of 19,500 today.
02/17/24- Right lung opacities suspicious for pneumonia without significant change in comparison to recent prior study.
CT Scan: CHEST 03/01/24- Mildly enlarged and more consolidated right upper lobe pulmonary mass. This probably represents pneumonia considering the acute change. Underlying neoplasm cannot be excluded. Sampling recommended as well as clinical and
laboratory correlation. Moderate right pleural effusion. Progressed. Small left pleural effusion. Progressed. Mild right lower lobe consolidation probably atelectasis. New spiculated mass in left lower lung field probably infectious considering the
acute development. New moderate bilateral groundglass densities suggesting additional foci of pneumonia considering the acute development. Emphysematous disease. Stable.
CHEST 02/14/24- 1. Large right upper lobe pneumonia. Imaging follow-up to resolution is recommended as an underlying pulmonary neoplasm would be difficult to completely exclude.
2. Chronic obstructive pulmonary disease.
3. Small pericardial effusion.
4. Small right pleural effusion.
5. Mild loculated pleural fluid in the right minor fissure.
Echo: 02/17/24- Normal left ventricular size and systolic function. No regional wall motion abnormalities are seen. LV ejection fraction is 65-70% by volumetric assessment. Mild concentric left ventricular hypertrophy. Stage II diastolic dysfunction
suggestive of abnormal relaxation and increased filling pressures. Top normal right ventricular size. Normal right ventricular systolic function. Aortic sclerosis without stenosis. Mild tricuspid regurgitation. Estimated pulmonary artery pressure
of 50-55 mmHg assuming a right atrial pressure of 8 mmHg. Compared to prior study dated 04/28/2023, estimated pulmonary artery systolic pressure was previously normal at 25-30 mmHg
04/28/23- 1. Mild concentric left ventricular hypertrophy with preserved systolic function, EF 60-65%
2. Thickened mitral leaflets with mitral annular calcification, trace mitral regurgitation and minimally dilated left atrium
3. Aortic sclerosis with trace aortic insufficiency
4. Normal right heart with normal pulmonary artery pressure
The study is similar to October 2021. The patient will be called and told that there is preserved heart muscle function and no significant valve abnormality.
-----
Subjective Data
-
Date of Service:
Date of Service: March 05, 2024
Chief Complaint: Pulmonary Follow Up
Subjective:
No new pulmonary complaints
Review of Systems
Cardiopulmonary: Dyspnea, Cough and Sputum Production (minimal)
GI: Abdominal Pain (n)
Objective Data
Data Reviewed
Vital Signs / I&O / Oxygen:
Vital Signs
Temp Pulse Resp BP Pulse Ox
98.5 F 76 18 149/70 94
03/05/24 11:35 03/05/24 11:32 03/05/24 11:32 03/05/24 11:31 03/05/24 11:32
Intake and Output
03/04/24 03/05/24 03/06/24
06:59 06:59 06:59
Intake Total 1250 / 1250 800 / 800
Output Total 1800 / 1800 850 / 850
Balance -550 / -550 -50 / -50
SaO2 [NIV (Non Invasive 94
Ventilation)]
SaO2 94
Nasal Cannula flow liters per 10
minute
Physical Exam
General: Comfortable
HEENT: Normocephalic and Anicteric
Cardiovascular: S1-S2, Regular Rhythm, Murmur (n) and Rub (n)
Respiratory: Wheeze (n), Crackles (few), Rhonchi (n), Non-Labored Respirations and Stridor (n)
GI: Soft, Non Distended and Non Tender
Neurology: Awake, Alert, Oriented, AO x 3 and No Motor Deficits (Able to sit up without difficulty)
Skin: Cyanosis (n), Jaundice (n) and Rash (n)
Labs/Micro/Reports
Lab Data
03/05/24 05:54
03/05/24 05:54
Microbiology
03/03/24 10:15 Pleural Fluid Body Fluid Culture - Preliminary
No Growth After 48 Hours
03/03/24 10:15 Pleural Fluid Gram Stain - Preliminary
[2024-03-05 17:41] LABS: Glucose - Point of Care 132 mg/dl (70-99)
[2024-03-05] MEDS: AYR SALINE NASAL GEL 1 APPLIC NASAL (21:24)
[2024-03-05] MEDS: TYLENOL 1000 MG TUBE (21:24)
[2024-03-05] MEDS: DULCOLAX 10 MG RECTAL (23:09)
[2024-03-05 23:31] LABS: Glucose - Point of Care 169 mg/dl (70-99)
[2024-03-06] VITALS (13 sets, daily range): BP systolic 119–165; BP diastolic 55–72; BMI 21.6
--- NOTE | 2024-03-06 01:34 | PTCARENOTE ---
Pt weaned down to 4L NC over night. Pt appears to be tolerating well, spo2 96% respirations even and unlabored with a rate of 18. Pt clearing thick sputum, clear with red blood streaks. Work list showing Pt has not had BM in last 6 days. Night SODDER
made aware, suppository ordered. Suppository successful producing XL light down soft BM. Assessment care and vitals as charted.
[2024-03-06 06:03] LABS: % Basophils 0.1 % (0-2); % Eosinophils 0.8 % (0-6); % Immature Granulocytes 1.3 % (0-0.5); % Lymphocytes 8.2 % (20.5-51.1); % Monocytes 6.8 % (1.7-9.3); % Neutrophils 82.8 % (42.2-75.2); Absolute Eosinophils 0.1 10^3/uL (0-0.7); Absolute Immature Granulocytes 0.1 10^3/uL (0-0.05); Absolute Lymphocytes 0.6 10^3/uL (1.2-3.4); Absolute Monocytes 0.5 10^3/uL (0.1-0.6); Absolute Neutrophils 6.3 10^3/uL (1.4-6.5); Hematocrit 21.5 % (39.0-52.0); Hemoglobin 7.5 g/dL (13.0-18.0); Mean Corp Hgb Conc. 34.9 g/dL (33.0-37.0); Mean Platelet Volume 10.2 fL (7.4-10.4); Nucleated Red Blood Cells % 0 % (-); Platelet Count 181 10^3/uL (130-400); Red Blood Cell Count 2.59 10^6/uL (4.70-6.10); Red Cell Dist. Width 16.3 % (11.5-14.5); White Blood Cell Count 7.6 10^3/uL (4.8-10.8)
[2024-03-06] MEDS: NOVOLOG FLEXPEN-MODERATE RESISTANCE SC ×3 (06:08→17:52)
[2024-03-06] MEDS: APRESOLINE 10 MG IV ×4 (06:12→23:15)
[2024-03-06] MEDS: TRANDATE 10 MG IV ×4 (06:12→23:16)
[2024-03-06 06:19] LABS: Glucose - Point of Care 147 mg/dl (70-99)
[2024-03-06 06:27] LABS: Blood Urea Nitrogen 89 mg/dl (9-20); Calcium 8.4 mg/dl (8.4-10.2); Carbon Dioxide 25 mmol/L (22-30); Chloride 99 mmol/L (98-107); Estimated Creatinine Clearance 32 ml/min; Glucose 132 mg/dl (70-99); Potassium 4.3 mmol/L (3.5-5.1); Sodium 133 mmol/L (135-145); eGFR 38.77
[2024-03-06] MEDS: DUONEB 3 ML INH ×4 (07:36→19:44)
[2024-03-06] MEDS: HEPARIN 5000 UNITS SC ×3 (08:16→23:15)
[2024-03-06] MEDS: NSS (PRESERVATIVE FREE) 10 ML IV (08:16)
[2024-03-06] MEDS: PROTONIX IV 40 MG IV (08:17)
--- NOTE | 2024-03-06 08:22 | W.PN.NEPH.PH ---
Today's Communication / Plan
-
observe
Assessment/Plan
-
Impression:
Right upper lobe mass versus infiltrate with hemoptysis
Acute kidney
CKD stage IIIb baseline creatinine 1.6
HTN
History of TIA
History of COPD
Anemia
CHF HFpEF
Plan:
follow BMP
sodium 133
creatinine at 1.8, BUN 89
K down
maintain goins, likely keep in until OP f/u
continue IV hydralazine (avoiding tube meds because of plugging)
continue IV labetalol
changed to Nepro TF with higher K on labs today
-
-
Date of Service: March 06, 2024
CC / HPI / ROS
-
Chief Complaint:
JUDI
History of Present Illness:
goins replaced 03/02
BP improved
Cr at 1.8
last HD 02/25
Na at 133
K down
DHT in place with TF
Review of Systems:
no fever
no cp. sob improving slowly
no n/v, failed swallow
oliguric via goins
Labs
-
Labs:
WBC 7.6 10^3/uL (4.8-10.8) 03/06/24 05:41
RBC 2.59 10^6/uL (4.70-6.10) L 03/06/24 05:41
Hgb 7.5 g/dL (13.0-18.0) L 03/06/24 05:41
Hct 21.5 % (39.0-52.0) L 03/06/24 05:41
Plt Count 181 10^3/uL (130-400) 03/06/24 05:41
Sodium 133 mmol/L (135-145) L 03/06/24 05:41
Potassium 4.3 mmol/L (3.5-5.1) 03/06/24 05:41
Chloride 99 mmol/L (98-107) 03/06/24 05:41
Carbon Dioxide 25 mmol/L (22-30) 03/06/24 05:41
BUN 89 mg/dl (9-20) H 03/06/24 05:41
Creatinine 1.8 mg/dL (0.7-1.3) H 03/06/24 05:41
eGFR 38.77 03/06/24 05:41
Glucose 132 mg/dl (70-99) H 03/06/24 05:41
Calcium 8.4 mg/dl (8.4-10.2) 03/06/24 05:41
Phosphorus 4.4 mg/dl (2.5-4.5) 02/29/24 05:39
Uub-O-Lahjzjlfdga Pept 89638 pg/ml 02/17/24 05:00
Albumin 3.0 g/dl (3.5-5.0) L 02/29/24 05:39
Physical Exam
-
Vital Signs:
Vital Signs
Temp Pulse Resp BP Pulse Ox
99.0 F 80 22 156/63 94
03/06/24 03:10 03/06/24 07:40 03/06/24 07:40 03/06/24 06:12 03/06/24 07:40
Cardiovascular:: Regular rate and rhythm
Respiratory:: Bilateral: Coarse
Lung Excursion:: Normal
Abdomen:: Nontender and Soft
Bowel Sounds:: Normal
Extremity Edema:: None: Bilateral:
Goins Catheter: Yes
--- NOTE | 2024-03-06 10:07 | W.PN.HOSP.TC ---
Addendum entered and electronically signed by Francisco Javier Razo MD 03/06/24 12:29:
Patient pleural fluid preliminary positive for Enterococcus.
Discussed with pulmonary
Started patient on Zosyn
Plan for repeat chest x-ray
If with loculation may require chest tube
May need to consider infectious disease consultation
Original Note:
Today's Communication/Plan
-
wean o2
cont TF
bronch per pulm
await cytology
Assessment / Plan
Assessment / Plan
#Acute hypoxemic respiratory failure -- due to pneumonia, superimposed HFpEF, possible COPD, hematemesis
#Suspected ARDS -- No recent ABG to calculate P/F; clinically consistent per course and xray findings
#Severe CAP -- RUL, bacterial
#Acute on chronic HFpEF
#Acute hemoptysis -- suspected right upper lobe malignancy and also with Plavix
-CT thorax showed with large RUL consolidation, also signs of malignancy in the RUL, pulmonary edema
-Was started on IV ceftriaxone empirically, completed course of IV azithromycin as well;
-Developed decompensation of HFpEF in the context of IV fluids, elevated proBNP, s/p IV Lasix course, now on hemodialysis and now off HD with intermittent lasix.
-Echocardiogram here showed severe pulmonary hypertension; has evidence of COPD with emphysematous findings, tobacco history
-Continue with oral prednisone taper on hold as patient NPO. Can consider IV steroids if needed. Will defer to pulmonary.
-Continue to hold clopidogrel but if no plan for thora or biopsy may need to consider restarting it in near future.
-Losing weight. Monitor I/Os
-off HFNC and transitioned to midflow.
-Pulm recs
#Severe dysphagia
-s/p VSE and now strict NPO
-DHT placement- and started on tube feeding. Changed to Nepro with carb study due to hyperkalemia.
-avoid meds via DHT . Tolerating tube feeds.
-will need repeat VSE once improvement in O2 and nutritional status -can try early next week.
-speech recs
#Oliguric JUDI on CKD 3B
#Metabolic acidosis
#Normocytic anemia -- 2/2 renal dysfunction
#Mild hyponatremia
#Mild hyperkalemia
-Suspected to be prerenal; Home medications include diuretics and ARB, presented with infection
-Home diuretics and losartan are held, received bicarbonate therapy for his acidemia
-Trend daily BMP, monitor strict I's and O's
-Consider transfusion for hemoglobin <7
- Complements back to normal. ANCA panel wnl. Normal serum protein electrophoresis.
-lasix per nephor. losing weight. Cr improving. HD catheter out.
-K improved with switching TF.
-Renal diet
#Suspected Right upper lobe lesion shadowed due to pneumonia?
#Pleural effusion
-Likely demonstrated on CT, but does have superimposed bacterial pneumonia which may affect findings
-CT chest Mildly enlarged and more consolidated right upper lobe pulmonary mass. This probably represents pneumonia considering the acute change. Underlying neoplasm cannot be excluded. Sampling recommended as well as clinical and laboratory
correlation. Moderate right pleural effusion. Progressed. Small left pleural effusion. Progressed. Mild right lower lobe consolidation probably atelectasis. New spiculated mass in left lower lung field probably infectious considering the acute
development. New moderate bilateral groundglass densities suggesting additional foci of pneumonia considering the acute development.
-IRAD for R sided thoracentesis. Cytology ordered too. s/p 500cc fluid removed.
-Unclear role of bronch at this juncture as plavix has been held.
#Urinary retention
- flomax.
-straight cath protocol
-s/p goins catheter placement.
#Acute on chronic normocytic anemia -- blood loss from hemoptysis, dilution
-Baseline hemoglobin around 10,
-Iron studies without signs of deficiency, no evidence of hemolysis, B12 was low but now on therapy
-Will continue to trend daily CBC and transfuse for hemoglobin <7
-Hgb at 7.5 s/p 1u of PRBC so far.
#History of duodenal ulcer/GI bleed
-No signs of active GI bleeding while here, did have hemoptysis
-Remains on home PPI regimen
#History of TIA
-Holding plavix as above
#Essential hypertension
-No known history of hypertensive systemic disease, Home meds include metoprolol hydralazine, and amlodipine-HOLD
-Blood pressure has been poorly controlled outside of the hospital, recently hydralazine was increased
-Started on IV labetalol standing and hydralazine as plan for non oral meds due to clogging of DHT and strict NPO.
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
-History of heavy tobacco abuse in the past; no formal diagnosis, no home inhaler therapies
-Currently without any wheezing or signs of exacerbation though cannot rule out contribution to his presentation
-Plan for pulm follow-up and PFTs at discharge, DC on DuoNebs as needed
#Hyperlipidemia
-No known history of ASCVD
-No medications include high intensity shortness
#Celiac's disease
-No formal diagnosis, gluten sensitivity per history, told him to avoid gluten by an outside doctor
-No gluten diet ordered
DVT prophylaxis: Heparin subcutaneous
Diet: Soft and bite sized, Ensure with meals, renal friendly
Goals of care/CODE STATUS: Hospice was mentioned on 02/24, remains full treatment with limited DNR (no chest compressions)
Discussed with RN
d.w with spouse at bedside in details
Anticipated Discharge: > 48 hours
Subjective/Interval History
-
Date of Service: March 06, 2024
states slept well last night
had bm yesterday
Objective Data
-
Labs:
Laboratory Results
03/06/24
05:41
WBC 7.6
Hgb 7.5 L
Hct 21.5 L
Plt Count 181
Sodium 133 L
Potassium 4.3
Chloride 99
Carbon Dioxide 25
BUN 89 H
Creatinine 1.8 H
Glucose 132 H
Calcium 8.4
Vital Signs:
Vital Signs
Temp Pulse Resp BP Pulse Ox
98.5 F 80 22 156/63 94
03/06/24 07:40 03/06/24 07:40 03/06/24 07:40 03/06/24 06:12 03/06/24 07:40
I&O
03/05/24 03/06/24 03/07/24
06:59 06:59 06:59
Intake Total 800 / 800 1440 / 1440
Output Total 850 / 850 325 / 325
Balance -50 / -50 1115 / 1115
Physical Exam
-
General: No Apparent Distress and Comfortable; Negative Respiratory Distress
HEENT: Normocephalic, Atraumatic, Moist Mucous Membranes, Anicteric and Oxygen (on 4L midflow )
Respiratory: Non Labored Respirations and Decreased Breath Sounds (R>L); Negative Wheezes, Rales or Accessory Resp Muscle Use
Cardiac: Regular Rhythm and S1/S2; Negative Murmur, Rub, JVD or Gallop
GI: Soft, Nontender, Nondistended, Normal Bowel Sounds and Other (DHT and TF ongoing )
Genito-urinary: Clear Urine and Goins
Musculoskeletal: No Clubbing, No Cyanosis and No Edema
Skin: Warm and Dry; Negative Rash
Neuro: Awake, AO x 3, Nonfocal/Grossly Intact and Central Nerve's Intact
Psych: Calm
Data Reviewed
-
Total Time Spent with Patient (in minutes): 56
--- NOTE | 2024-03-06 11:55 | W.PN.PUL3 ---
Addendum entered and electronically signed by Jose A Yoder MD 03/06/24 12:52:
Thoracentesis culture just resulted with Enterococcus species. Suspect empyema.
Repeat chest x-ray, if there is significant pleural effusion we will request evaluation for possible pleural drainage. He does have persistent leukocytosis.
Suspect aspiration event.
Overall oxygenation improved down to 2- 3 L.
He has appears nontoxic. Afebrile.
Restart antibiotics with Unasyn, discussed with primary team.
If this is true empyema and chest tube is placed, this will delay any potential bronchoscopy.
Original Note:
Today's Communication / Plan
-
Continue supportive care
Wait for cytology results
If cytology negative will contemplate bronchoscopy for possibly Thursday
Assessment
-
73-year-old male with history of hypertension, hyperlipidemia, TIA on Plavix therapy, describes chronic bronchitis and chronic subjective dyspnea with [id number] history of smoking quit 2003. He now presents with progressive cough, shortness of
breath and hemoptysis. Found to have right upper lobe mass with likely pneumonia. We are asked to comment on pulmonary process
Right upper lobe mass/infiltrate
Acute hemoptysis x 3 days, blood mixed with mucus
Right upper lobe abnormality noted per chest x-ray April 2023
Small R pleural effusion s/p thora 03/03/24
Chronic bronchitis, dyspnea
Progressive
[id number] history of smoking, quit 2003
No prior spirometry, no prior pulmonary evaluation
Anemia
Chronic kidney disease, creatinine 2.2
Creatinine 1.6 in January 2024
Elevated proBNP
Chronic diarrhea
Conditions present prior to admission
History of anemia
Hypertension/hyperlipidemia
GERD with history of duodenal ulcer with bleeding
Required IR embolization 2020
Emphysema noted via CT
Possible asbestos exposure
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
Family history of cancer
Father with lung cancer
Sister with brain cancer
Sister with liver cancer
Plan
Oxygenation is slowly improving, down to 4 L mid flow.
Encouraged IS
Preadmission history: Patient is short of breath since April 2023 at which time he had right upper lobe infiltrate.
Patient cannot recall any history of recent pneumonia
Significant smoking and asbestos exposure history noted--emphysema noted on CT
Patient did not get follow-up x-ray as recommended per report in April
Former smoker, quit >30 years ago, strong family history of cancers
There is high suspicion this could be metastatic illness
IV steroids initially --> prednisone has been tapered off.
-
Repeat CT scan 03/01/2024: Persistent right upper lobe infiltrate/masslike opacity. Bilateral pleural effusions right greater than left
-
Finished 10 day course of ceftriaxone on 02/22
s/p 6 days zithromax - stopped on 02/18
Sputum culture few gram-positive cocci, many white cells, usual yaritza/finalized
Myrna noted 02/15
Prior sputum 02/13 neg
Legionella, streptococcal pneumonia negative
Airway clearance reviewed with RT, mucinex/acapella, vest/IS
Currently off abx, can observe for now
Hemoglobin stable
Had brief hemoptysis on this admission, resolved
Can resume Plavix from the hemoptysis perspective-currently on hold, possible procedure might be needed.
He has not had further episodes
Family interested in obtaining lung biopsy.
This may need to be planned pending improvement of hypoxemia first-so far improving.
Wait for cytology report. It may give some answers. Still pending as of 03/06/2024
If cytology is negative then can consider bronchoscopic biopsy if oxygenation has improved. Will be an ongoing discussion-potentially can be performed for Thursday provided patient is clinically improved.
Even if this is malignant, unclear whether this patient will tolerate Aggressive care-radiation/chemotherapy etc. He seems debilitated
ProBNP elevated at 19,500 on 02/17/2024, history of CHF
Trend sCr and UOP; Kuo catheter in place --> recommend to continue given his critically ill state with need for strict I/O
Nephrology following � recommendations appreciated
s/p HD cath on 02/21-now on dialysis.
-
R effusion has been reviewed on US
s/p thora for 500cc, : Exudate/lymphocytic/culture negative. Cytology pending. May be malignant
Aspiration precautions
Soft & bite sized/gluten free
VSE planning as per ENGINE REPAIRER--elevated risk
Now NPO with DHT in place, TFs
DVT ppx: HSQ 5000 units q8hr

Family Discussions
Discussion held by Dr. Montoya on 02/22/2024 with and patient ---> patient is now DNR, okay for intubation in addition to other full medical management (see separate note from 02/21)
Mira 02/18- Reviewed with today and son on speaker phone today on rounds. We discussed all of his poor prognostic markers including possible/suspected metastatic disease, acute HF picture, worsening JUDI, worsening hypoxemia. She understands
his overall outlook remains poor even with intubation/MV. There is less chance for good QoL the more organ dysfunction occurs. Family will visit and discuss further GOC.
Litzy - Reviewed with patient, at bedside
Updated son by phone 02/16 (Kevon: [phone])
Reviewed concern regarding possibility of underlying malignancy.
Patient high risk for intubation.
Diagnostic Data
Chest x-ray 02/28/2024: Mildly improved pulmonary changes concerning for pneumonia. Underlying mass in the right upper lobe not completely excluded as mentioned on prior chest CT examination. Repeat chest CT examination in a couple weeks following
resolution of acute pneumonic process recommended; Slightly progressed tiny right pleural effusion; Findings diaphragms consistent with COPD. Stable
CXR 02/24/2024:There is moderate diffuse interstitial and groundglass airspace disease throughout both lungs with more confluent alveolar airspace disease in the right upper lung. This airspace disease is improved but unresolved compared with
previous examination and has more the appearance of inflammatory airspace disease than pulmonary edema as there are no septal lines to suggest interstitial edema.
Chest x-ray 02/22/2024: Multifocal pneumonia, most pronounced within the right upper lobe. No significant change compared to 02/18/2024; Interstitial coarsening and mild interstitial prominence, suggestive of COPD. Pulmonary edema may also be present
Chest X-Ray: 02/18/24- Findings raising concern for pulmonary edema, superimposed on right lung pneumonic process. The patient does have a proBNP value of 19,500 today.
02/17/24- Right lung opacities suspicious for pneumonia without significant change in comparison to recent prior study.
CT Scan: CHEST 03/01/24- Mildly enlarged and more consolidated right upper lobe pulmonary mass. This probably represents pneumonia considering the acute change. Underlying neoplasm cannot be excluded. Sampling recommended as well as clinical and
laboratory correlation. Moderate right pleural effusion. Progressed. Small left pleural effusion. Progressed. Mild right lower lobe consolidation probably atelectasis. New spiculated mass in left lower lung field probably infectious considering the
acute development. New moderate bilateral groundglass densities suggesting additional foci of pneumonia considering the acute development. Emphysematous disease. Stable.
CHEST 02/14/24- 1. Large right upper lobe pneumonia. Imaging follow-up to resolution is recommended as an underlying pulmonary neoplasm would be difficult to completely exclude.
2. Chronic obstructive pulmonary disease.
3. Small pericardial effusion.
4. Small right pleural effusion.
5. Mild loculated pleural fluid in the right minor fissure.
Echo: 02/17/24- Normal left ventricular size and systolic function. No regional wall motion abnormalities are seen. LV ejection fraction is 65-70% by volumetric assessment. Mild concentric left ventricular hypertrophy. Stage II diastolic dysfunction
suggestive of abnormal relaxation and increased filling pressures. Top normal right ventricular size. Normal right ventricular systolic function. Aortic sclerosis without stenosis. Mild tricuspid regurgitation. Estimated pulmonary artery pressure
of 50-55 mmHg assuming a right atrial pressure of 8 mmHg. Compared to prior study dated 04/28/2023, estimated pulmonary artery systolic pressure was previously normal at 25-30 mmHg
04/28/23- 1. Mild concentric left ventricular hypertrophy with preserved systolic function, EF 60-65%
2. Thickened mitral leaflets with mitral annular calcification, trace mitral regurgitation and minimally dilated left atrium
3. Aortic sclerosis with trace aortic insufficiency
4. Normal right heart with normal pulmonary artery pressure
The study is similar to October 2021. The patient will be called and told that there is preserved heart muscle function and no significant valve abnormality.
-----
Subjective Data
-
Date of Service:
Date of Service: March 06, 2024
Chief Complaint: Pulmonary Follow Up
Objective Data
Data Reviewed
Vital Signs / I&O / Oxygen:
Vital Signs
Temp Pulse Resp BP Pulse Ox
98.5 F 82 18 156/63 94
03/06/24 07:40 03/06/24 11:13 03/06/24 11:13 03/06/24 06:12 03/06/24 11:13
Intake and Output
03/05/24 03/06/24 03/07/24
06:59 06:59 06:59
Intake Total 800 / 800 1440 / 1440
Output Total 850 / 850 325 / 325
Balance -50 / -50 1115 / 1115
SaO2 [NIV (Non Invasive 94
Ventilation)]
SaO2 94
Nasal Cannula flow liters per 4
minute
Physical Exam
General: Comfortable
HEENT: Normocephalic and Anicteric
Cardiovascular: S1-S2, Regular Rhythm, Murmur (n) and Rub (n)
Respiratory: Wheeze (n), Crackles (few), Rhonchi (n), Non-Labored Respirations and Stridor (n)
GI: Soft, Non Distended and Non Tender
Neurology: Awake, Alert, Oriented, AO x 3 and No Motor Deficits (Able to sit up without difficulty)
Skin: Cyanosis (n), Jaundice (n) and Rash (n)
Labs/Micro/Reports
Lab Data
03/06/24 05:41
03/06/24 05:41
Microbiology
03/03/24 10:15 Pleural Fluid Body Fluid Culture - Preliminary
Enterococcus species
03/03/24 10:15 Pleural Fluid Gram Stain - Preliminary
[2024-03-06 13:43] LABS: Glucose - Point of Care 149 mg/dl (70-99)
[2024-03-06] MEDS: UNASYN IV ×2 (14:04→19:31)
--- NOTE | 2024-03-06 16:15 | W.PN.UPDATE ---
Update Note
Progress Note Update
Chest x-ray: Confluent area of parenchymal density is worse. Possible infectious.
No significant pleural effusion.
Antibiotics were started due to worsening leukocytosis and worsening right upper lobe abnormality.
No evidence for active empyema at this point.
[2024-03-06 17:46] LABS: Glucose - Point of Care 118 mg/dl (70-99)
[2024-03-06] MEDS: TYLENOL 1000 MG TUBE (21:11)
[2024-03-06] MEDS: NOVOLOG FLEXPEN-MODERATE RESISTANCE 1 UNITS SC (23:16)
[2024-03-06 23:23] LABS: Glucose - Point of Care 154 mg/dl (70-99)
[2024-03-07] VITALS (13 sets, daily range): BP systolic 133–175; BP diastolic 47–109; BMI 21.7
[2024-03-07] MEDS: UNASYN IV ×4 (01:26→19:17)
[2024-03-07] MEDS: NOVOLOG FLEXPEN-MODERATE RESISTANCE SC ×3 (05:38→18:12)
[2024-03-07] MEDS: TRANDATE 10 MG IV ×4 (05:40→23:28)
[2024-03-07] MEDS: APRESOLINE 10 MG IV ×4 (05:40→23:28)
[2024-03-07 05:48] LABS: Glucose - Point of Care 147 mg/dl (70-99)
[2024-03-07 06:00] LABS: % Basophils 0.1 % (0-2); % Eosinophils 1.4 % (0-6); % Lymphocytes 7.3 % (20.5-51.1); % Monocytes 7.2 % (1.7-9.3); Absolute Eosinophils 0.1 10^3/uL (0-0.7); Absolute Immature Granulocytes 0.1 10^3/uL (0-0.05); Absolute Lymphocytes 0.5 10^3/uL (1.2-3.4); Absolute Monocytes 0.5 10^3/uL (0.1-0.6); Absolute Neutrophils 5.9 10^3/uL (1.4-6.5); Hemoglobin 7.4 g/dL (13.0-18.0); Mean Corp Hgb Conc. 35.2 g/dL (33.0-37.0); Mean Corpuscular Hgb 30.2 pg (27.0-31.0); Mean Corpuscular Volume 85.7 fL (80.0-94.0); Mean Platelet Volume 10.6 fL (7.4-10.4); Nucleated Red Blood Cells % 0 % (-); Platelet Count 166 10^3/uL (130-400); Red Blood Cell Count 2.45 10^6/uL (4.70-6.10); Red Cell Dist. Width 15.9 % (11.5-14.5); White Blood Cell Count 7.1 10^3/uL (4.8-10.8)
[2024-03-07 06:09] LABS: Blood Urea Nitrogen 90 mg/dl (9-20); Calcium 8.4 mg/dl (8.4-10.2); Carbon Dioxide 23 mmol/L (22-30); Chloride 99 mmol/L (98-107); Estimated Creatinine Clearance 32 ml/min; Glucose 130 mg/dl (70-99); Potassium 4.6 mmol/L (3.5-5.1); Sodium 133 mmol/L (135-145); eGFR 38.77
--- NOTE | 2024-03-07 06:46 | PTCARENOTE ---
no acute events overnight. pt remains on 4-5L, rating 91-92%. pt is SOB on exertion, using suction at bedside. goins intact draining yellow urine.
[2024-03-07] MEDS: DUONEB 3 ML INH ×4 (07:30→19:30)
[2024-03-07] MEDS: HEPARIN 5000 UNITS SC ×3 (08:23→23:28)
[2024-03-07] MEDS: NSS (PRESERVATIVE FREE) 10 ML IV (08:23)
[2024-03-07] MEDS: PROTONIX IV 40 MG IV (08:23)
--- NOTE | 2024-03-07 09:29 | W.PN.NEPH.PH ---
Today's Communication / Plan
-
follow bmp
Assessment/Plan
-
Impression:
Right upper lobe mass versus infiltrate with hemoptysis: 03/03/24: Enterococcus in pleural effusion
Acute kidney injury
CKD stage IIIb baseline creatinine 1.6
HTN
History of TIA
History of COPD
Anemia
CHF HFpEF
Plan:
follow BMP
sodium 133,unchanged
creatinine at 1.8, BUN 90
maintain goins, likely keep in until OP f/u
continue IV hydralazine (avoiding tube meds because of plugging)
continue IV labetalol
changed to Nepro TF K now stable
-
-
Date of Service: March 07, 2024
CC / HPI / ROS
-
Chief Complaint:
JUDI
History of Present Illness:
goins replaced 03/02
BP stable
Cr at 1.8
last HD 02/25
Na at 133
K down
DHT in place with TF
Review of Systems:
no fever
Weight stable nonoliguric 600 cc
no cp. sob improving slowly
no n/v, failed swallow
Labs
-
Labs:
WBC 7.1 10^3/uL (4.8-10.8) 03/07/24 05:38
RBC 2.45 10^6/uL (4.70-6.10) L 03/07/24 05:38
Hgb 7.4 g/dL (13.0-18.0) L 03/07/24 05:38
Hct 21.0 % (39.0-52.0) L 03/07/24 05:38
Plt Count 166 10^3/uL (130-400) 03/07/24 05:38
Sodium 133 mmol/L (135-145) L 03/07/24 05:38
Potassium 4.6 mmol/L (3.5-5.1) 03/07/24 05:38
Chloride 99 mmol/L (98-107) 03/07/24 05:38
Carbon Dioxide 23 mmol/L (22-30) 03/07/24 05:38
BUN 90 mg/dl (9-20) H 03/07/24 05:38
Creatinine 1.8 mg/dL (0.7-1.3) H 03/07/24 05:38
eGFR 38.77 03/07/24 05:38
Glucose 130 mg/dl (70-99) H 03/07/24 05:38
Calcium 8.4 mg/dl (8.4-10.2) 03/07/24 05:38
Phosphorus 4.4 mg/dl (2.5-4.5) 02/29/24 05:39
Cjl-[id number] Pept 40073 pg/ml 02/17/24 05:00
Albumin 3.0 g/dl (3.5-5.0) L 02/29/24 05:39
Physical Exam
-
Vital Signs:
Vital Signs
Temp Pulse Resp BP Pulse Ox
98.0 F 84 24 154/109 93
03/07/24 07:20 03/07/24 07:32 03/07/24 07:32 03/07/24 06:00 03/07/24 07:32
Cardiovascular:: Regular rate and rhythm
Respiratory:: Bilateral: Coarse
Lung Excursion:: Normal
Abdomen:: Nontender and Soft
Bowel Sounds:: Normal
Extremity Edema:: None: Bilateral:
Goins Catheter: Yes
--- NOTE | 2024-03-07 09:38 | CON.ID ---
Consultation
-
Date/Time Consultation Requested: 03/07/2024 0905
Date/Time Consultation Performed: 03/07/2024 0940
Requesting Provider: Dr. Diane Vasquez
Performing Provider: Dr. Adeline Moe
Reason for Consultation: Enterococcus in pleural fluid
Chief Complaint / Past History
Chief Complaint
Coughing up blood
History of Present Illness
History obtained from review medical records, from patient as well as from his at bedside. He is a 73-year-old male with history of hypertension, COPD, chronic bronchitis, CKD who presented to the hospital on February 13 due to worsening
shortness of breath, cough, blood in sputum for about 2 to 3 days. Patient was in acute hypoxic respiratory failure. Chest CT showed large right upper lobe mass. Patient completed 7 days of azithromycin and 11 days of ceftriaxone completed February
for PNA. He was noted to have severe dysphagia requiring NG tube placement followed by Dobbhoff tube. After completion of antibiotics, patient's white count trended up. Repeat chest CT showed progression of right pleural effusion, new moderate
bilateral groundglass densities, new spiculated mass left lower lobe. On March 03 he underwent right-sided thoracentesis of 500 cc of serosanguineous fluid. The pleural fluid culture from broth only is now growing Enterococcus. He is placed back
on antibiotic Unasyn yesterday. Per she noted patient coughing after eating approximately 1 week prior to admission. No recent weight loss. He is feeling better with decreased cough during hospital stay. No fevers. No vomiting or diarrhea.
Per pulmonary he is too deconditioned for lung biopsy at this time.
Past History
Additional Past Medical History:
HTN
HLD
COPD
Chronic bronchitis
Duodenal ulcer/GI bleed
Anemia
TIA
CKD3
Asbestosis exposure
R BRIGHT
Hernia repair
Allergy History:
gluten Adverse Reaction (Severe, Verified 02/22/24 07:36)
diarrhea
Medications Reviewed: Yes
Current Antibiotics:
Unasyn d2
s/p 7d azithromycin completed 02/18
s/p ceftriaxone x11d completed 02/22.
Social History
Tobacco: Former Smoker
Alcohol: None
Drug: None
Personal:
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
Family History
Family History: Not Pertinent
Review of Systems
Review of Systems
General: Change in Appetite; Negative Fever or Chills
HEENT: Negative Sinus Problems, Headache or Pharyngitis
Respiratory: Dyspnea
Genital / Urological: Negative Dysuria or Flank Pain
Endocrine: Weakness
Neurological: Negative Headache or Dizziness
All systems: All other systems were reviewed and were negative
Vital Signs
Temp Pulse Resp BP Pulse Ox
98.0 F 84 24 154/109 93
03/07/24 07:20 03/07/24 07:32 03/07/24 07:32 03/07/24 06:00 03/07/24 07:32
Physical Exam
Physical Exam
Constitutional: Acutely Ill
Eyes: No Conjunctival Hemorrhage and Sclera Anicteric
Oral: Other (edentulous)
Cardiovascular: Regular Rate and S1/S2
Pulmonary: Other (decreased BS bases, somewhat labored breathing)
Gastrointestinal: Soft, Non Distended and Normal Bowel Sounds
Genito-Urinary: Negative CVA Tenderness
Extremities: Negative Edema
Neurological: AO x 3
Lab / Diagnostic Study Results
03/07/24 05:38
03/07/24 05:38
Abs Immat Gran (auto) 0.1 10^3/uL (0-0.05) H 03/07/24 05:38
Absolute Neuts (auto) 5.9 10^3/uL (1.4-6.5) 03/07/24 05:38
Absolute Lymphs (auto) 0.5 10^3/uL (1.2-3.4) L 03/07/24 05:38
Absolute Monos (auto) 0.5 10^3/uL (0.1-0.6) 03/07/24 05:38
Absolute Basos (auto) 0.0 10^3/uL (0-0.2) 03/07/24 05:38
Immature Gran % 1.0 % (0-0.5) H 03/07/24 05:38
Neutrophils % 83.0 % (42.2-75.2) H 03/07/24 05:38
Lymphocytes % 7.3 % (20.5-51.1) L 03/07/24 05:38
Monocytes % 7.2 % (1.7-9.3) 03/07/24 05:38
Eosinophils % 1.4 % (0-6) 03/07/24 05:38
Basophils % 0.1 % (0-2) 03/07/24 05:38
PT 15.1 Sec (11.4-14.6) H 02/19/24 04:33
INR 1.19 02/19/24 04:33
Microbiology Results
Micro:
03/03/24 10:15 Body Fluid Culture - Preliminary
Pleural Fluid Enterococcus species
Gram Stain - Preliminary
02/14/24 12:29 Blood Culture - Final
Blood/Venous No Growth - Final Report
02/16/24 15:05 Respiratory Culture - Final
Sputum Myrna albicans
Gram Stain - Final
02/16/24 03:59 Acid Fast Bacilli Smear - Preliminary
Sputum Acid Fast Bacilli Culture - Preliminary
02/14/24 12:42 Respiratory Culture - Final
Sputum Usual Respiratory Kim
Gram Stain - Final
02/15/24 06:26 Legionella Urinary Antigen - Final
Urine Negative for Legionella pneumophila Serogroup 1 antigen.
A negative result does not rule out the possiblity of
Legionella infection due to other serogroups or species of
Legionella. Clinical correlation is recommended.
Streptococcus pneumoniae Antigen (M - Final
Negative for Streptococcus pneumoniae antigen.
A negative result does not exclude infection with
Streptococcus pneumoniae. Clinical correlation is
recommended.
03/06/24 CXR: The 13 cm confluent area of parenchymal density in the right upper lobe has worsened slightly in the interval since the previous examination. Interstitial airway disease suggesting pneumonia at the medial right lung base is new when
compared with the prior study
03/01/[address]: Mildly enlarged and more consolidated right upper lobe pulmonary mass. This probably represents pneumonia considering the acute change. Underlying neoplasm cannot be excluded. Moderate right pleural effusion. Progressed. Small left
pleural effusion. Progressed. New spiculated mass in left lower lung field probably infectious considering the acute development.
02/14/[address]: Large right upper lobe pneumonia. Imaging follow-up to resolution is recommended as an underlying pulmonary neoplasm would be difficult to completely exclude.
Assessment / Plan
# Suspect aspiration PNA with large RUL consolidation
# Enterococcal right parapneumonic effusion - from aspiration.
# Severe dysphagia requiring Dobhoff)
# Acute hypoxemic resp failure
- Agree with Unasyn (d2). Await sensitivities
- At time of DC, will transition to po Augmentin to complete 3 weeks.
- Repeat CT chest in few weeks to follow improvement of RUL mass/consolidation
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
HTN
HLD
COPD
Chronic bronchitis
Duodenal ulcer/GI bleed
Anemia
TIA
CKD3
Asbestosis exposure
R BRIGHT
Care Review
Plan reviewed with: Physician (Dr. Mays)
--- NOTE | 2024-03-07 09:44 | W.PN.HOSP.TC ---
Today's Communication/Plan
-
IV Unasyn
Infectious disease consultation
Continue with tube feeding
Continue with IV BP meds
Assessment / Plan
Assessment / Plan
#Acute hypoxemic respiratory failure -- due to pneumonia, superimposed HFpEF, possible COPD, hematemesis
#Suspected ARDS -- No recent ABG to calculate P/F; clinically consistent per course and xray findings
#Severe CAP -- RUL, bacterial
#Acute on chronic HFpEF
#Acute hemoptysis -- suspected right upper lobe malignancy and also with Plavix
-CT thorax showed with large RUL consolidation, also signs of malignancy in the RUL, pulmonary edema
-Was started on IV ceftriaxone empirically, completed course of IV azithromycin as well;
-Developed decompensation of HFpEF in the context of IV fluids, elevated proBNP, s/p IV Lasix course, now on hemodialysis and now off HD with intermittent lasix.
-Echocardiogram here showed severe pulmonary hypertension; has evidence of COPD with emphysematous findings, tobacco history
-Completed p.o. prednisone regimen. Can consider IV steroids if needed. Will defer to pulmonary.
-Continue to hold clopidogrel but if no plan for thora or biopsy may need to consider restarting it in near future.
-Losing weight. Monitor I/Os
-off HFNC and transitioned to midflow.
-Pulm recs
#Suspected parapneumonic effusion infection
-Patient thoracentesis status post below for positive Enterococcus
-Possibility of aspiration. Start Unasyn
-Repeat chest x-ray without much improvement. Infectious disease consulted
#Severe dysphagia
-s/p VSE and now strict NPO
-DHT placement- and started on tube feeding. Changed to Nepro with carb study due to hyperkalemia.
-avoid meds via DHT . Tolerating tube feeds.
-will need repeat VSE once improvement in O2 and nutritional status -can try early next week.
-speech recs
#Oliguric JUDI on CKD 3B
#Metabolic acidosis
#Normocytic anemia -- 2/2 renal dysfunction
#Mild hyponatremia
#Mild hyperkalemia
-Suspected to be prerenal; Home medications include diuretics and ARB, presented with infection
-Home diuretics and losartan are held, received bicarbonate therapy for his acidemia
-Trend daily BMP, monitor strict I's and O's
-Consider transfusion for hemoglobin <7
- Complements back to normal. ANCA panel wnl. Normal serum protein electrophoresis.
-lasix per nephor. losing weight. Cr improving. HD catheter out.
-K improved with switching TF.
-Renal diet
#Suspected Right upper lobe lesion shadowed due to pneumonia?
#Pleural effusion
-Likely demonstrated on CT, but does have superimposed bacterial pneumonia which may affect findings
-CT chest Mildly enlarged and more consolidated right upper lobe pulmonary mass. This probably represents pneumonia considering the acute change. Underlying neoplasm cannot be excluded. Sampling recommended as well as clinical and laboratory
correlation. Moderate right pleural effusion. Progressed. Small left pleural effusion. Progressed. Mild right lower lobe consolidation probably atelectasis. New spiculated mass in left lower lung field probably infectious considering the acute
development. New moderate bilateral groundglass densities suggesting additional foci of pneumonia considering the acute development.
-IRAD for R sided thoracentesis. Cytology ordered too. s/p 500cc fluid removed.
-Unclear role of bronch at this juncture as plavix has been held. Per pulmonology plan is to hold [facility] for now.
#Urinary retention
- flomax.
-straight cath protocol
-s/p goins catheter placement.
#Acute on chronic normocytic anemia -- blood loss from hemoptysis, dilution
-Baseline hemoglobin around 10,
-Iron studies without signs of deficiency, no evidence of hemolysis, B12 was low but now on therapy
-Will continue to trend daily CBC and transfuse for hemoglobin <7
-Hgb at 7.4 s/p 1u of PRBC so far.
#History of duodenal ulcer/GI bleed
-No signs of active GI bleeding while here, did have hemoptysis
-Remains on home PPI regimen
#History of TIA
-Holding plavix as above
#Essential hypertension
-No known history of hypertensive systemic disease, Home meds include metoprolol hydralazine, and amlodipine-HOLD
-Blood pressure has been poorly controlled outside of the hospital, recently hydralazine was increased
-Started on IV labetalol standing and hydralazine as plan for non oral meds due to clogging of DHT and strict NPO.
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
-History of heavy tobacco abuse in the past; no formal diagnosis, no home inhaler therapies
-Currently without any wheezing or signs of exacerbation though cannot rule out contribution to his presentation
-Plan for pulm follow-up and PFTs at discharge, DC on DuoNebs as needed
#Hyperlipidemia
-No known history of ASCVD
-No medications include high intensity shortness
#Celiac's disease
-No formal diagnosis, gluten sensitivity per history, told him to avoid gluten by an outside doctor
-No gluten diet ordered
DVT prophylaxis: Heparin subcutaneous
Diet: Soft and bite sized, Ensure with meals, renal friendly
Goals of care/CODE STATUS: Hospice was mentioned on 02/24, remains full treatment with limited DNR (no chest compressions)
Discussed with RN
d.w with spouse at bedside in details
Discussed with pulmonary
Anticipated Discharge: > 48 hours
Subjective/Interval History
-
Date of Service: March 07, 2024
States she has a dry mouth
Oxygenation requirement going up
Objective Data
-
Labs:
Laboratory Results
03/07/24
05:38
WBC 7.1
Hgb 7.4 L
Hct 21.0 L
Plt Count 166
Sodium 133 L
Potassium 4.6
Chloride 99
Carbon Dioxide 23
BUN 90 H
Creatinine 1.8 H
Glucose 130 H
Calcium 8.4
Vital Signs:
Vital Signs
Temp Pulse Resp BP Pulse Ox
98.0 F 84 24 154/109 93
03/07/24 07:20 03/07/24 07:32 03/07/24 07:32 03/07/24 06:00 03/07/24 07:32
I&O
03/06/24 03/07/24 03/08/24
06:59 06:59 06:59
Intake Total 1440 / 1440 1740 / 1740
Output Total 325 / 325 600 / 600
Balance 1115 / 1115 1140 / 1140
Physical Exam
-
General: No Apparent Distress and Comfortable; Negative Respiratory Distress
HEENT: Normocephalic, Atraumatic, Moist Mucous Membranes, Anicteric and Oxygen (on 4L-5l midflow )
Respiratory: Non Labored Respirations and Decreased Breath Sounds (R>L); Negative Wheezes, Rales or Accessory Resp Muscle Use
Cardiac: Regular Rhythm and S1/S2; Negative Murmur, Rub, JVD or Gallop
GI: Soft, Nontender, Nondistended, Normal Bowel Sounds and Other (DHT and TF ongoing )
Genito-urinary: Clear Urine and Goins
Musculoskeletal: No Clubbing, No Cyanosis and No Edema
Skin: Warm and Dry; Negative Rash
Neuro: Awake, AO x 3, Nonfocal/Grossly Intact and Central Nerve's Intact
Psych: Calm
Data Reviewed
-
Total Time Spent with Patient (in minutes): 56
--- NOTE | 2024-03-07 11:55 | W.PN.PUL3 ---
Today's Communication / Plan
-
Unasyn, will need 3 weeks of antibiotics eventually transition to oral
Nutritional support via Dobbhoff tube and tube feedings
Follow renal function
Physical therapy as tolerated
Hold on bronchoscopy at this point while in the hospital. Can be revisited in the outpatient setting
Assessment
-
73-year-old male with history of hypertension, hyperlipidemia, TIA on Plavix therapy, describes chronic bronchitis and chronic subjective dyspnea with [id number] history of smoking quit 2003. He now presents with progressive cough, shortness of
breath and hemoptysis. Found to have right upper lobe mass with likely pneumonia. We are asked to comment on pulmonary process
Right upper lobe mass/infiltrate
Acute hemoptysis x 3 days, blood mixed with mucus
Right upper lobe abnormality noted per chest x-ray April 2023
Small R pleural effusion s/p thora 03/03/24
Positive for Enterococcus
[id number] history of smoking, quit 2003
No prior spirometry, no prior pulmonary evaluation
Anemia
Chronic kidney disease, creatinine 2.2
Creatinine 1.6 in January 2024
Elevated proBNP
Chronic diarrhea
Conditions present prior to admission
History of anemia
Hypertension/hyperlipidemia
GERD with history of duodenal ulcer with bleeding
Required IR embolization 2020
Em[address]se[address] via CT
Possible asbestos exposure
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
Family history of cancer
Father with lung cancer
Sister with brain cancer
Sister with liver cancer
Plan
Oxygenation improved
Patient afebrile without leukocytosis
Severely deconditioned
-
Preadmission history: Patient is short of breath since April 2023 at which time he had right upper lobe infiltrate.
Patient cannot recall any history of recent pneumonia
Significant smoking and asbestos exposure history noted--emphysema noted on CT
Patient did not get follow-up x-ray as recommended per report in April
Former smoker, quit >30 years ago, strong family history of cancers
There is high suspicion this could be metastatic illness
IV steroids initially --> prednisone has been tapered off.
-
CT scan 03/01/2024: Persistent right upper lobe infiltrate/masslike opacity. Bilateral pleural effusions right greater than left
-
Finished 10 day course of ceftriaxone on 02/22
s/p 6 days zithromax - stopped on 02/18
R effusion has been reviewed on US
s/p thora for 500cc, : Exudate/lymphocytic/culture negative. Cytology pending. May be malignant
Sputum culture few gram-positive cocci, many white cells, usual yaritza/finalized
Myrna noted 02/15
Prior sputum 02/13 neg
Legionella, streptococcal pneumonia negative
Continue -airway clearance reviewed with RT, mucinex/acapella, vest/IS
Thoracentesis culture positive for Enterococcus-likely aspiration.
Cytology report pending. Cannot rule out malignancy versus infectious
-
Case discussed with infectious disease
Unasyn started on 03/06/2024
Will need at least 3 weeks of antibiotics with radiographic follow-up
-
Cancer cannot be ruled out. Dr. Mays discussed this with patient and on 03/06/2024-I explained to the that even if this is cancer, unlikely that patient will tolerate any aggressive therapy. He is debilitated. Currently has a Dobbhoff
tube in place. Has aspiration.
I favor treating infection and deciding in the outpatient whether bronchoscopy with biopsy will be necessary. They both agree. No plans for bronchoscopy during this admission at this point
-
ProBNP elevated at 19,500 on 02/17/2024, history of CHF
Trend sCr and UOP; Kuo catheter in place --> recommend to continue given his critically ill state with need for strict I/O
Nephrology following � recommendations appreciated
Status post dialysis. Now as needed
Creatinine improving
-
Aspiration precautions
Soft & bite sized/gluten free
VSE planning as per [employer]--elevated risk
Now NPO with DHT in place, TFs
DVT ppx: HSQ 5000 units q8hr
-
Physical therapy/Occupational Therapy as able
-
Will continue to follow.
Case was discussed with infectious disease and primary team by Dr. Mays on 03/07/2024.

Family Discussions
Discussion held by Dr. Montoya on 02/22/2024 with and patient ---> patient is now DNR, okay for intubation in addition to other full medical management (see separate note from 02/21)
Mira 02/18- Reviewed with today and son on speaker phone today on rounds. We discussed all of his poor prognostic markers including possible/suspected metastatic disease, acute HF picture, worsening JUDI, worsening hypoxemia. She understands
his overall outlook remains poor even with intubation/MV. There is less chance for good QoL the more organ dysfunction occurs. Family will visit and discuss further GOC.
Litzy - Reviewed with patient, at bedside
Updated son by phone 02/16 (Kevon: [phone])
Reviewed concern regarding possibility of underlying malignancy.
Patient high risk for intubation.
Diagnostic Data
Chest x-ray 02/28/2024: Mildly improved pulmonary changes concerning for pneumonia. Underlying mass in the right upper lobe not completely excluded as mentioned on prior chest CT examination. Repeat chest CT examination in a couple weeks following
resolution of acute pneumonic process recommended; Slightly progressed tiny right pleural effusion; Findings diaphragms consistent with COPD. Stable
CXR 02/24/2024:There is moderate diffuse interstitial and groundglass airspace disease throughout both lungs with more confluent alveolar airspace disease in the right upper lung. This airspace disease is improved but unresolved compared with
previous examination and has more the appearance of inflammatory airspace disease than pulmonary edema as there are no septal lines to suggest interstitial edema.
Chest x-ray 02/22/2024: Multifocal pneumonia, most pronounced within the right upper lobe. No significant change compared to 02/18/2024; Interstitial coarsening and mild interstitial prominence, suggestive of COPD. Pulmonary edema may also be present
Chest X-Ray: 02/18/24- Findings raising concern for pulmonary edema, superimposed on right lung pneumonic process. The patient does have a proBNP value of 19,500 today.
02/17/24- Right lung opacities suspicious for pneumonia without significant change in comparison to recent prior study.
CT Scan: CHEST 03/01/24- Mildly enlarged and more consolidated right upper lobe pulmonary mass. This probably represents pneumonia considering the acute change. Underlying neoplasm cannot be excluded. Sampling recommended as well as clinical and
laboratory correlation. Moderate right pleural effusion. Progressed. Small left pleural effusion. Progressed. Mild right lower lobe consolidation probably atelectasis. New spiculated mass in left lower lung field probably infectious considering the
acute development. New moderate bilateral groundglass densities suggesting additional foci of pneumonia considering the acute development. Emphysematous disease. Stable.
CHEST 02/14/24- 1. Large right upper lobe pneumonia. Imaging follow-up to resolution is recommended as an underlying pulmonary neoplasm would be difficult to completely exclude.
2. Chronic obstructive pulmonary disease.
3. Small pericardial effusion.
4. Small right pleural effusion.
5. Mild loculated pleural fluid in the right minor fissure.
Echo: 02/17/24- Normal left ventricular size and systolic function. No regional wall motion abnormalities are seen. LV ejection fraction is 65-70% by volumetric assessment. Mild concentric left ventricular hypertrophy. Stage II diastolic dysfunction
suggestive of abnormal relaxation and increased filling pressures. Top normal right ventricular size. Normal right ventricular systolic function. Aortic sclerosis without stenosis. Mild tricuspid regurgitation. Estimated pulmonary artery pressure
of 50-55 mmHg assuming a right atrial pressure of 8 mmHg. Compared to prior study dated 04/28/2023, estimated pulmonary artery systolic pressure was previously normal at 25-30 mmHg
04/28/23- 1. Mild concentric left ventricular hypertrophy with preserved systolic function, EF 60-65%
2. Thickened mitral leaflets with mitral annular calcification, trace mitral regurgitation and minimally dilated left atrium
3. Aortic sclerosis with trace aortic insufficiency
4. Normal right heart with normal pulmonary artery pressure
The study is similar to October 2021. The patient will be called and told that there is preserved heart muscle function and no significant valve abnormality.
-----
Subjective Data
-
Date of Service:
Date of Service: March 07, 2024
Chief Complaint: Pulmonary Follow Up
Subjective:
No new complaints
Stable from overnight
Denies any chest
Review of Systems
Cardiopulmonary: Dyspnea (none at rest)
GI: Abdominal Pain (n) and Nausea (n)
Neuro: Headache (n)
Objective Data
Data Reviewed
Vital Signs / I&O / Oxygen:
Vital Signs
Temp Pulse Resp BP Pulse Ox
98.0 F 75 20 153/56 94
03/07/24 07:20 03/07/24 11:23 03/07/24 11:23 03/07/24 10:00 03/07/24 11:23
Intake and Output
03/06/24 03/07/24 03/08/24
06:59 06:59 06:59
Intake Total 1440 / 1440 1740 / 1740
Output Total 325 / 325 600 / 600
Balance 1115 / 1115 1140 / 1140
SaO2 [NIV (Non Invasive 94
Ventilation)]
SaO2 94
Nasal Cannula flow liters per 4
minute
Physical Exam
General: Comfortable
HEENT: Normocephalic and Anicteric
Cardiovascular: S1-S2, Regular Rhythm, Murmur (n) and Rub (n)
Respiratory: Wheeze (n), Crackles (few), Rhonchi (n), Non-Labored Respirations and Stridor (n)
GI: Soft, Non Distended and Non Tender
Neurology: Awake, Alert, Oriented, AO x 3 and No Motor Deficits (Able to sit up without difficulty)
Skin: Cyanosis (n), Jaundice (n) and Rash (n)
Labs/Micro/Reports
Lab Data
03/07/24 05:38
03/07/24 05:38
Microbiology
03/03/24 10:15 Pleural Fluid Body Fluid Culture - Preliminary
Enterococcus species
03/03/24 10:15 Pleural Fluid Gram Stain - Preliminary
[2024-03-07 12:00] LABS: Glucose - Point of Care 146 mg/dl (70-99)
[2024-03-07 18:07] LABS: Glucose - Point of Care 146 mg/dl (70-99)
[2024-03-07] MEDS: TYLENOL 1000 MG TUBE (21:08)
[2024-03-07] MEDS: NOVOLOG FLEXPEN-MODERATE RESISTANCE 1 UNITS SC (23:28)
[2024-03-07 23:41] LABS: Glucose - Point of Care 153 mg/dl (70-99)
[2024-03-08] VITALS (12 sets, daily range): BP systolic 145–177; BP diastolic 57–68; BMI 22.0
[2024-03-08] MEDS: UNASYN IV ×4 (01:43→20:39)
[2024-03-08] MEDS: DESYREL 12.5 MG PO (02:00)
[2024-03-08 05:19] LABS: % Basophils 0.3 % (0-2); % Eosinophils 1.9 % (0-6); % Immature Granulocytes 1.1 % (0-0.5); % Lymphocytes 10.3 % (20.5-51.1); % Monocytes 5.9 % (1.7-9.3); % Neutrophils 80.5 % (42.2-75.2); Absolute Eosinophils 0.1 10^3/uL (0-0.7); Absolute Immature Granulocytes 0.1 10^3/uL (0-0.05); Absolute Lymphocytes 0.7 10^3/uL (1.2-3.4); Absolute Monocytes 0.4 10^3/uL (0.1-0.6); Absolute Neutrophils 5.1 10^3/uL (1.4-6.5); Hemoglobin 7.3 g/dL (13.0-18.0); Mean Corp Hgb Conc. 34.8 g/dL (33.0-37.0); Mean Corpuscular Hgb 29.4 pg (27.0-31.0); Mean Corpuscular Volume 84.7 fL (80.0-94.0); Nucleated Red Blood Cells % 0 % (-); Platelet Count 172 10^3/uL (130-400); Red Blood Cell Count 2.48 10^6/uL (4.70-6.10); White Blood Cell Count 6.4 10^3/uL (4.8-10.8)
[2024-03-08 05:25] LABS: Blood Urea Nitrogen 95 mg/dl (9-20); Calcium 8.3 mg/dl (8.4-10.2); Carbon Dioxide 22 mmol/L (22-30); Chloride 100 mmol/L (98-107); Estimated Creatinine Clearance 31 ml/min; Glucose 130 mg/dl (70-99); Magnesium 2.2 mg/dl (1.6-2.3); Phosphorus 4.3 mg/dl (2.5-4.5); Potassium 4.3 mmol/L (3.5-5.1); Sodium 135 mmol/L (135-145); eGFR 36.33
[2024-03-08] MEDS: NOVOLOG FLEXPEN-MODERATE RESISTANCE SC ×3 (05:52→23:13)
[2024-03-08] MEDS: TRANDATE 10 MG IV ×4 (06:08→23:10)
[2024-03-08] MEDS: APRESOLINE 10 MG IV ×2 (06:09→22:15)
[2024-03-08 06:10] LABS: Glucose - Point of Care 117 mg/dl (70-99)
--- NOTE | 2024-03-08 06:28 | PTCARENOTE ---
no acute events overnight, pt remains on 6L, 88-91%, SOB on exertion and tachypneic at times, productive cough of bloody sputum. pt with complaints of not being able to sleep, notified covering dagoberto BAKER ordered. pt sleeping on and off
throughout night. tube feeds running in Dobbhoff.
[2024-03-08] MEDS: DUONEB 3 ML INH ×4 (07:21→19:38)
[2024-03-08] MEDS: HEPARIN 5000 UNITS SC ×3 (08:49→23:10)
[2024-03-08] MEDS: PROTONIX IV 40 MG IV (08:49)
[2024-03-08] MEDS: NSS (PRESERVATIVE FREE) 10 ML IV (08:50)
--- NOTE | 2024-03-08 09:44 | W.PN.PUL3 ---
Today's Communication / Plan
-
Unasyn, will need 3 weeks of antibiotics eventually transition to Augmentin
Nutritional support via Dobbhoff tube and tube feedings --> eventual VFSS; defer starting PO diet to RECRUITER MANAGER
Follow renal function
Physical therapy as tolerated - rec'd skilled rehab upon discharge
NPO p MN for IR CT-guided RUL Bx; hold tube feeds starting at 1AM tomorrow
Hold plavix (hemoptysis is mild still and intermittent)
Assessment
-
73-year-old male with history of hypertension, hyperlipidemia, TIA on Plavix therapy, describes chronic bronchitis and chronic subjective dyspnea with [id number]-[id number] history of smoking quit 2003. He now presents with progressive cough, shortness of
breath and hemoptysis. Found to have right upper lobe mass with likely pneumonia. We are asked to comment on pulmonary process
Right upper lobe mass/infiltrate
Acute hemoptysis x 3 days, blood mixed with mucus
Right upper lobe abnormality noted per chest x-ray April 2023
Complicated right pleural effusion with fluid culture positive for Enterococcus faecalis, likely a parapneumonic process --> s/p thora on 03/03/24
[id number] history of smoking, quit 2003
No prior spirometry, no prior pulmonary evaluation - suspected COPD given degree of centrilobular emphysema
Anemia
Chronic kidney disease, creatinine 2.2
Creatinine 1.6 in January 2024
JUDI requiring HD --> now resolved and short-term HD catheter has been removed and he is making urine with Cr stable at ~1.8-2
Elevated proBNP
Chronic diarrhea
Conditions present prior to admission
History of anemia
Hypertension/hyperlipidemia
GERD with history of duodenal ulcer with bleeding
Required IR embolization 2020
Em[address] via [address]
Possible asbestos exposure
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
Family history of cancer
Father with lung cancer
Sister with brain cancer
Sister with liver cancer
Plan
Oxygenation improved
Patient afebrile without leukocytosis
Severely deconditioned
-
Preadmission history: Patient is short of breath since April 2023 at which time he had right upper lobe infiltrate.
Patient cannot recall any history of recent pneumonia
Significant smoking and asbestos exposure history noted--emphysema noted on CT
Patient did not get follow-up x-ray as recommended per report in April
Former smoker, quit >30 years ago, strong family history of cancers
There is high suspicion this could be metastatic illness
IV steroids initially --> prednisone has been tapered off - last dose on 03/03/2024
-
CT scan 03/01/2024: Persistent right upper lobe infiltrate/masslike opacity. Bilateral pleural effusions right greater than left
-
Finished 10 day course of ceftriaxone on 02/22
s/p 6 days zithromax - stopped on 02/18
R effusion has been reviewed on US
s/p thora on 03/03/2024 with removal of 500cc of serosanguineous fluid that is exudative with glucose 111, pH 7.49, cytology pending (may be malignant)
Thoracentesis culture positive for Enterococcus-likely aspiration
Sputum culture few gram-positive cocci, many white cells, usual yaritza/finalized
Myrna noted 02/15
Prior sputum 02/13 neg
Legionella, streptococcal pneumonia negative
Continue -airway clearance reviewed with RT, mucinex/acapella, vest/IS
Cytology report pending. Cannot rule out malignancy versus infection
-
Case discussed with infectious disease
Unasyn started on 03/06/2024
Will need at least 3 weeks of antibiotics with radiographic follow-up
-
Cancer cannot be ruled out. Dr. Mays discussed this with patient and on 03/06/2024- explained to the that even if this is cancer, unlikely that patient will tolerate any aggressive therapy. He is debilitated. Currently has a Dobbhoff
tube in place. Has aspiration.
Patient is currently to deconditioned and hypoxic for a bronchoscopy with biopsy, however it does seem appropriate for IR CT-guided biopsy to occur. Case discussed with IR and they will perform biopsy likely in the AM - further information will be
discussed tomorrow morning regarding scheduling. Make NPO past midnight for now.
-
ProBNP elevated at 19,500 on 02/17/2024, history of CHF
Trend sCr and UOP; Kuo catheter in place --> recommend to continue given his critically ill state with need for strict I/O
Nephrology following � recommendations appreciated
Status post dialysis. Now as needed
Creatinine improved and is stable
-
Aspiration precautions
RECRUITER MANAGER following
Currently on tube feeds via Dobhoff tube (DHT)
Eventual VFSS given elevated aspiration risk
DVT ppx: HSQ 5000 units q8hr
-
Physical therapy/Occupational Therapy as able - PT rec'd skilled rehab upon discharge
-
Will continue to follow.

Family Discussions
Discussion held by Dr. Montoya on 02/22/2024 with and patient ---> patient is now DNR, okay for intubation in addition to other full medical management (see separate note from 02/21)
Mira 02/18- Reviewed with today and son on speaker phone today on rounds. We discussed all of his poor prognostic markers including possible/suspected metastatic disease, acute HF picture, worsening JUDI, worsening hypoxemia. She understands
his overall outlook remains poor even with intubation/MV. There is less chance for good QoL the more organ dysfunction occurs. Family will visit and discuss further GOC.
Litzy - Reviewed with patient, at bedside
Updated son by phone 02/16 (Kevon: [phone])
Reviewed concern regarding possibility of underlying malignancy.
Patient high risk for intubation.
Diagnostic Data
Chest x-ray 02/28/2024: Mildly improved pulmonary changes concerning for pneumonia. Underlying mass in the right upper lobe not completely excluded as mentioned on prior chest CT examination. Repeat chest CT examination in a couple weeks following
resolution of acute pneumonic process recommended; Slightly progressed tiny right pleural effusion; Findings diaphragms consistent with COPD. Stable
CXR 02/24/2024:There is moderate diffuse interstitial and groundglass airspace disease throughout both lungs with more confluent alveolar airspace disease in the right upper lung. This airspace disease is improved but unresolved compared with
previous examination and has more the appearance of inflammatory airspace disease than pulmonary edema as there are no septal lines to suggest interstitial edema.
Chest x-ray 02/22/2024: Multifocal pneumonia, most pronounced within the right upper lobe. No significant change compared to 02/18/2024; Interstitial coarsening and mild interstitial prominence, suggestive of COPD. Pulmonary edema may also be present
Chest X-Ray: 02/18/24- Findings raising concern for pulmonary edema, superimposed on right lung pneumonic process. The patient does have a proBNP value of 19,500 today.
02/17/24- Right lung opacities suspicious for pneumonia without significant change in comparison to recent prior study.
CT Scan: CHEST 03/01/24- Mildly enlarged and more consolidated right upper lobe pulmonary mass. This probably represents pneumonia considering the acute change. Underlying neoplasm cannot be excluded. Sampling recommended as well as clinical and
laboratory correlation. Moderate right pleural effusion. Progressed. Small left pleural effusion. Progressed. Mild right lower lobe consolidation probably atelectasis. New spiculated mass in left lower lung field probably infectious considering the
acute development. New moderate bilateral groundglass densities suggesting additional foci of pneumonia considering the acute development. Emphysematous disease. Stable.
CHEST 02/14/24- 1. Large right upper lobe pneumonia. Imaging follow-up to resolution is recommended as an underlying pulmonary neoplasm would be difficult to completely exclude.
2. Chronic obstructive pulmonary disease.
3. Small pericardial effusion.
4. Small right pleural effusion.
5. Mild loculated pleural fluid in the right minor fissure.
Echo: 02/17/24- Normal left ventricular size and systolic function. No regional wall motion abnormalities are seen. LV ejection fraction is 65-70% by volumetric assessment. Mild concentric left ventricular hypertrophy. Stage II diastolic dysfunction
suggestive of abnormal relaxation and increased filling pressures. Top normal right ventricular size. Normal right ventricular systolic function. Aortic sclerosis without stenosis. Mild tricuspid regurgitation. Estimated pulmonary artery pressure
of 50-55 mmHg assuming a right atrial pressure of 8 mmHg. Compared to prior study dated 04/28/2023, estimated pulmonary artery systolic pressure was previously normal at 25-30 mmHg
04/28/23- 1. Mild concentric left ventricular hypertrophy with preserved systolic function, EF 60-65%
2. Thickened mitral leaflets with mitral annular calcification, trace mitral regurgitation and minimally dilated left atrium
3. Aortic sclerosis with trace aortic insufficiency
4. Normal right heart with normal pulmonary artery pressure
The study is similar to October 2021. The patient will be called and told that there is preserved heart muscle function and no significant valve abnormality.
-----
Total time spent today was 35 minutes for this encounter. Time includes reviewing laboratory test/imaging results, reviewing pertinent medical records, obtaining and reviewing medical history, performing an appropriate exam, ordering medications,
tests and procedures. Time also includes documentation of this encounter, coordinating patient care and communicating with other healthcare professionals. Total time does not include separately billed tests performed on this date of service.
Subjective Data
-
Date of Service:
Date of Service: March 08, 2024
Chief Complaint: Pulmonary Follow Up
Subjective:
Seen and evaluated today at bedside. He feels well, currently on 6 L/min via mid flow nasal cannula. He denies shortness of breath. He mainly endorses fatigue/feeling tired. Patient's at bedside. All questions were answered. Patient is
making urine. He denies chest pain, headache, diarrhea, fevers or chills. He is being evaluated by RECRUITER MANAGER today. DHT still in place. He had a small amount of blood tinged sputum this morning but it is very mild and only happens occasionally.
Review of Systems
General: Other (Negative unless mentioned above)
Objective Data
Data Reviewed
Vital Signs / I&O / Oxygen:
Vital Signs
Temp Pulse Resp BP Pulse Ox
98.2 F 78 24 162/62 91
03/08/24 11:31 03/08/24 12:00 03/08/24 12:00 03/08/24 12:00 03/08/24 12:22
Intake and Output
03/07/24 03/08/24 03/09/24
06:59 06:59 06:59
Intake Total 1740 / 1740 240 / 240
Output Total 600 / 600 1175 / 1175
Balance 1140 / 1140 -935 / -935
SaO2 [NIV (Non Invasive 94
Ventilation)]
SaO2 91
Nasal Cannula flow liters per 8
minute
Physical Exam
General: Respiratory Distress (negative) and Comfortable
HEENT: Normocephalic and Anicteric
Cardiovascular: S1-S2, Murmur (EDMUNDO, heard in RUSB, grade II/), Rub (n) and Peripheral Edema (trace GEORGE bilaterally)
Respiratory: Wheeze (n), Crackles (Right base), Rhonchi (Bilateral in the lower lobe-mid lung snider), Non-Labored Respirations and Stridor (negative)
GI: Soft, Non Distended, Non Tender and Normal Bowel Sounds
Neurology: AO x 3 and No Motor Deficits (Able to sit up without difficulty)
Skin: Warm, Dry, Cyanosis (n), Jaundice (n) and Rash (n)
Labs/Micro/Reports
Lab Data
03/08/24 04:50
03/08/24 04:50
Microbiology
03/03/24 10:15 Pleural Fluid Body Fluid Culture - Final
Enterococcus faecalis
03/03/24 10:15 Pleural Fluid Gram Stain - Final
--- NOTE | 2024-03-08 10:33 | W.PN.HOSP.TC ---
Today's Communication/Plan
-
Aspiration precautions
Attempt to wean O2
Increase activity
IV antibiotics
Follow pleural fluid path
TF
Transfuse
Continue Goins and monitor renal function
Resume enteral BP regimen
Assessment / Plan
Assessment / Plan
#Acute hypoxemic respiratory failure -- due to pneumonia, superimposed HFpEF, possible COPD, hematemesis
#Suspected ARDS -- No recent ABG to calculate P/F; clinically consistent per course and xray findings
#Severe pneumonia likely secondary to aspiration
#Acute on chronic HFpEF
#Acute hemoptysis -- suspected right upper lobe malignancy and also with Plavix
-CT thorax showed with large RUL consolidation, also signs of malignancy in the RUL, pulmonary edema
-Was started on IV ceftriaxone empirically, completed course of IV azithromycin as well;
-Developed decompensation of HFpEF in the context of IV fluids, elevated proBNP, s/p IV Lasix course, now on hemodialysis and now off HD with intermittent lasix.
-Echocardiogram here showed severe pulmonary hypertension; has evidence of COPD with emphysematous findings, tobacco history
-Completed p.o. prednisone regimen. Can consider IV steroids if needed. Will defer to pulmonary.
-Continue to hold clopidogrel but if no plan for thora or biopsy may need to consider restarting it in near future.
-Losing weight. Monitor I/Os
-off HFNC and transitioned to midflow.
-Pulm recs
#Suspected parapneumonic effusion infection
Concern for malignant effusion
-Patient thoracentesis status post below for positive Enterococcus
-Possibility of aspiration. Started Unasyn 03/06
-Repeat chest x-ray without much improvement. Infectious disease consulted
#Severe dysphagia
-s/p VSE and now strict NPO
-DHT placement- and started on tube feeding. Changed to Nepro with carb study due to hyperkalemia.
-avoid meds via DHT . Tolerating tube feeds.
-will need repeat VSE once improvement in O2 and nutritional status -can try early next week.
-speech recs
#Oliguric JUDI on CKD 3B
#Metabolic acidosis
#Normocytic anemia -- 2/2 renal dysfunction
#Mild hyponatremia
#Mild hyperkalemia
-Suspected to be prerenal; Home medications include diuretics and ARB, presented with infection
-Home diuretics and losartan are held, received bicarbonate therapy for his acidemia
-Trend daily BMP, monitor strict I's and O's
-Consider transfusion for hemoglobin <7
- Complements back to normal. ANCA panel wnl. Normal serum protein electrophoresis.
-lasix per nephor. losing weight. Cr improving. HD catheter out.
-K improved with switching TF.
-Renal diet
#Suspected Right upper lobe lesion shadowed due to pneumonia?
#Pleural effusion
-Likely demonstrated on CT, but does have superimposed bacterial pneumonia which may affect findings
-CT chest Mildly enlarged and more consolidated right upper lobe pulmonary mass. This probably represents pneumonia considering the acute change. Underlying neoplasm cannot be excluded. Sampling recommended as well as clinical and laboratory
correlation. Moderate right pleural effusion. Progressed. Small left pleural effusion. Progressed. Mild right lower lobe consolidation probably atelectasis. New spiculated mass in left lower lung field probably infectious considering the acute
development. New moderate bilateral groundglass densities suggesting additional foci of pneumonia considering the acute development.
-IRAD for R sided thoracentesis. Cytology ordered too. s/p 500cc fluid removed.
-Unclear role of bronch at this juncture as plavix has been held. Per pul[facility]ology [facility]
#Urinary retention
- flomax.
-straight cath protocol
-s/p goins catheter placement.
#Acute on chronic normocytic anemia -- blood loss from hemoptysis, dilution
-Baseline hemoglobin around 10,
-Iron studies without signs of deficiency, no evidence of hemolysis, B12 was low but now on therapy
-Will continue to trend daily CBC and transfuse for hemoglobin <7
-Transfuse to keep Hg above 8
#History of duodenal ulcer/GI bleed
-No signs of active GI bleeding while here, did have hemoptysis
-Remains on home PPI regimen
#History of TIA
-Holding plavix as above
#Essential hypertension
-No known history of hypertensive systemic disease, Home meds include metoprolol hydralazine, and amlodipine-HOLD
-Blood pressure has been poorly controlled outside of the hospital, recently hydralazine was increased
-Started on IV labetalol standing and hydralazine as plan for non oral meds due to clogging of DHT and strict NPO.
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
-History of heavy tobacco abuse in the past; no formal diagnosis, no home inhaler therapies
-Currently without any wheezing or signs of exacerbation though cannot rule out contribution to his presentation
-Plan for pulm follow-up and PFTs at discharge, DC on DuoNebs as needed
#Hyperlipidemia
-No known history of ASCVD
-No medications include high intensity shortness
#Celiac's disease
-No formal diagnosis, gluten sensitivity per history, told him to avoid gluten by an outside doctor
-No gluten diet ordered
DVT prophylaxis: Heparin subcutaneous
Diet: Soft and bite sized, Ensure with meals, renal friendly
Goals of care/CODE STATUS: Hospice was mentioned on 02/24, remains full treatment with limited DNR (no chest compressions)
Discussed with RN
d.w with spouse at bedside in details
Discussed with pulmonary
Anticipated Discharge: > 48 hours
Subjective/Interval History
-
Date of Service: March 08, 2024
Objective Data
-
Labs:
Laboratory Results
03/08/24
04:50
WBC 6.4
Hgb 7.3 L
Hct 21.0 L
Plt Count 172
Sodium 135
Potassium 4.3
Chloride 100
Carbon Dioxide 22
BUN 95 H
Creatinine 1.9 H
Glucose 130 H
Calcium 8.3 L
Vital Signs:
Vital Signs
Temp Pulse Resp BP Pulse Ox
98.1 F 78 28 165/62 92
03/08/24 07:13 03/08/24 07:23 03/08/24 07:23 03/08/24 06:00 03/08/24 07:23
I&O
03/07/24 03/08/24 03/09/24
06:59 06:59 06:59
Intake Total 1740 / 1740 240 / 240
Output Total 600 / 600 1175 / 1175
Balance 1140 / 1140 -935 / -935
Physical Exam
-
General: No Apparent Distress and Comfortable; Negative Respiratory Distress
HEENT: Normocephalic, Atraumatic, Moist Mucous Membranes, Anicteric and Oxygen (on 4L-5l midflow )
Respiratory: Non Labored Respirations and Decreased Breath Sounds (R>L); Negative Wheezes, Rales or Accessory Resp Muscle Use
Cardiac: Regular Rhythm and S1/S2; Negative Murmur, Rub, JVD or Gallop
GI: Soft, Nontender, Nondistended, Normal Bowel Sounds and Other (DHT and TF ongoing )
Genito-urinary: Clear Urine and Goins
Musculoskeletal: No Clubbing, No Cyanosis and No Edema
Skin: Warm and Dry; Negative Rash
Neuro: Awake, AO x 3, Nonfocal/Grossly Intact and Central Nerve's Intact
Psych: Calm
--- NOTE | 2024-03-08 10:40 | W.PN.ID1 ---
Date of Service
Date of Service: March 08, 2024
Today's Communication
Continue Unasyn.
Assessment / Plan
# Suspect aspiration PNA with large RUL consolidation
# Enterococcus faecalis right parapneumonic effusion - from aspiration.
# Severe dysphagia requiring Dobhoff
# Acute hypoxemic resp failure
- Continue Unasyn (d3).
- At time of DC, will transition to po Augmentin to complete 3 weeks.
- Repeat CT chest in few weeks to follow improvement of RUL mass/consolidation
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
HTN
HLD
COPD
Chronic bronchitis
Duodenal ulcer/GI bleed
Anemia
TIA
CKD3
Asbestosis exposure
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
R BRIGHT
Chief Complaint
-: Pneumonia
Subjective / Review of Systems
Feeling a little better.
Vital Signs / Physical Exam
Vital Signs
Vital Signs
Temp Pulse Resp BP Pulse Ox
98.1 F 78 28 165/62 92
03/08/24 07:13 03/08/24 07:23 03/08/24 07:23 03/08/24 06:00 03/08/24 07:23
Physical Exam
Constitutional: Comfortable
Pulmonary: Other (decreased BS bases)
Gastrointestinal: Soft, Non Tender and Non Distended
Neurological: AO x 3
Objective Data
Lab Data
Lab Results
03/08/24 04:50
03/08/24 04:50
PT 15.1 Sec (11.4-14.6) H 02/19/24 04:33
INR 1.19 02/19/24 04:33
APTT 33.2 Sec (23.4-35.0) 02/19/24 04:33
Estimated Creat Clear 31 ml/min 03/08/24 04:50
Total Bilirubin 0.8 mg/dl (0.2-1.3) 02/29/24 05:39
AST 32 U/L (17-59) 02/29/24 05:39
ALT 30 U/L (0-50) 02/29/24 05:39
Alkaline Phosphatase 67 U/L (38-126) 02/29/24 05:39
Most recent labs reviewed.
Micro Results:
03/03/24 10:15 Body Fluid Culture - Final
Pleural Fluid Enterococcus faecalis
Gram Stain - Final
02/14/24 12:29 Blood Culture - Final
Blood/Venous No Growth - Final Report
02/16/24 15:05 Respiratory Culture - Final
Sputum Myrna albicans
Gram Stain - Final
02/16/24 03:59 Acid Fast Bacilli Smear - Preliminary
Sputum Acid Fast Bacilli Culture - Preliminary
02/14/24 12:42 Respiratory Culture - Final
Sputum Usual Respiratory Kim
Gram Stain - Final
02/15/24 06:26 Legionella Urinary Antigen - Final
Urine Negative for Legionella pneumophila Serogroup 1 antigen.
A negative result does not rule out the possiblity of
Legionella infection due to other serogroups or species of
Legionella. Clinical correlation is recommended.
Streptococcus pneumoniae Antigen (M - Final
Negative for Streptococcus pneumoniae antigen.
A negative result does not exclude infection with
Streptococcus pneumoniae. Clinical correlation is
recommended.
03/06/24 CXR: The 13 cm confluent area of parenchymal density in the right upper lobe has worsened slightly in the interval since the previous examination. Interstitial airway disease suggesting pneumonia at the medial right lung base is new when
compared with the prior study
03/01/[address]: Mildly enlarged and more consolidated right upper lobe pulmonary mass. This probably represents pneumonia considering the acute change. Underlying neoplasm cannot be excluded. Moderate right pleural effusion. Progressed. Small left
pleural effusion. Progressed. New spiculated mass in left lower lung field probably infectious considering the acute development.
02/14/[address]: Large right upper lobe pneumonia. Imaging follow-up to resolution is recommended as an underlying pulmonary neoplasm would be difficult to completely exclude.
--- NOTE | 2024-03-08 11:42 | W.PN.NEPH.PH ---
Today's Communication / Plan
-
follow labs, lasix x1
Assessment/Plan
-
Impression:
Right upper lobe mass versus infiltrate with hemoptysis: 03/03/24: Enterococcus in pleural effusion
Acute kidney injury
CKD stage IIIb baseline creatinine 1.6
HTN
History of TIA
History of COPD
Anemia
CHF HFpEF
Plan:
fcr remains stable at 1.9
significant azotemia persists
maintain goins, likely keep in until OP f/u
continue IV hydralazine (avoiding tube meds because of plugging)
continue IV labetalol
changed to Nepro TF K now stable
follow h/h , prn trasnfusions
wean O2 as possible, wt is up today lasixx1
abx per ID
-
-
Date of Service: March 08, 2024
CC / HPI / ROS
-
Chief Complaint:
JUDI
History of Present Illness:
goins replaced 03/02
BP stable
Cr at 1.9
last HD 02/25
Na at 135
K normal
DHT in place with TF
Review of Systems:
no fever
Weight is up, non oliguric with goins
no cp. sob improving slowly
Labs
-
Labs:
WBC 6.4 10^3/uL (4.8-10.8) 03/08/24 04:50
RBC 2.48 10^6/uL (4.70-6.10) L 03/08/24 04:50
Hgb 7.3 g/dL (13.0-18.0) L 03/08/24 04:50
Hct 21.0 % (39.0-52.0) L 03/08/24 04:50
Plt Count 172 10^3/uL (130-400) 03/08/24 04:50
Sodium 135 mmol/L (135-145) 03/08/24 04:50
Potassium 4.3 mmol/L (3.5-5.1) 03/08/24 04:50
Chloride 100 mmol/L (98-107) 03/08/24 04:50
Carbon Dioxide 22 mmol/L (22-30) 03/08/24 04:50
BUN 95 mg/dl (9-20) H 03/08/24 04:50
Creatinine 1.9 mg/dL (0.7-1.3) H 03/08/24 04:50
eGFR 36.33 03/08/24 04:50
Glucose 130 mg/dl (70-99) H 03/08/24 04:50
Calcium 8.3 mg/dl (8.4-10.2) L 03/08/24 04:50
Phosphorus 4.3 mg/dl (2.5-4.5) 03/08/24 04:50
Kgk-[id number] Pept 91344 pg/ml 02/17/24 05:00
Albumin 3.0 g/dl (3.5-5.0) L 02/29/24 05:39
Physical Exam
-
Vital Signs:
Vital Signs
Temp Pulse Resp BP Pulse Ox
98.2 F 77 26 165/62 93
03/08/24 11:31 03/08/24 11:19 03/08/24 11:19 03/08/24 06:00 03/08/24 11:19
Cardiovascular:: Regular rate and rhythm
Respiratory:: Bilateral: Rales (decreased right base)
Lung Excursion:: Abnormal
Abdomen:: Nontender and Soft
Extremity Edema:: None: Bilateral:
Goins Catheter: Yes
[2024-03-08 12:26] LABS: Glucose - Point of Care 160 mg/dl (70-99)
[2024-03-08] MEDS: NOVOLOG FLEXPEN-MODERATE RESISTANCE 1 UNITS SC (13:02)
[2024-03-08] MEDS: LOPRESSOR 25 MG TUBE ×2 (13:02→17:28)
--- NOTE | 2024-03-08 15:00 | PTOTSP ---
Speech Language Pathology
Pt seen for dysphagia tx. Sitting upright in recliner upon arrival. 02 weaned to 6LPM. Improved vocal strength and cough strength this date. Pt stated he does effortful swallow exercises 'when I remember to.' Seen with ice chips for completion
of effortful swallow exercises. He completed 10 effortful swallow exercises with use of ice chips. Frequently taking 3-4 ice chips on spoon at a time. Discussed single ice chips only. Sp02 remained at 90-94% during session.
Improvement in respiratory status, vocal strength, and cough strength noted this date. Hopeful that dysphagia will have improved along with respiratory status, but pt with silent aspiration on last VSE, so repeat VSE required to determine
improvement.
Recommend:
1. NPO - non-oral means (DHT) in place
2. Oral care 4x/day with suctioning as needed
3. Non-oral meds
4. Allow ice chips post oral care per Aspiration Risk Hydration Protocol (ARHP)
5. Repeat VSE 03/09 or 03/10 (also has possible lung biopsy planned)
6. Dysphagia therapy at the acute care level for continued education and rehabilitation
[2024-03-08] MEDS: LASIX 40 MG IV (16:13)
[2024-03-08] MEDS: APRESOLINE 75 MG TUBE (16:14)
--- NOTE | 2024-03-08 17:13 | CM ---
Patient with Dx PNA, HF, Suspected parapneumonic effusion, Severe dysphagia, JUDI, suspected RUL lung lesion, Urinary retention, anemia. O2 6L midflow. NPO/Dobdoff/tube feedings/ST. Per MD notes: will need repeat VSE once improvement in O2 and
nutritional status -can try early next week. Receiving IV Unasyn. PT 03/04 & OT 03/04 recommend skilled rehab.
CM continuing to follow for d/c needs.
Plan follow patient's progress with dysphagia/nutrition needs.
Plan eventual follow up with patient and re; short term SNF for rehab vs home with VN.
[2024-03-08 18:10] LABS: Glucose - Point of Care 143 mg/dl (70-99)
--- NOTE | 2024-03-08 19:15 | PTCARENOTE ---
pt recieving one unit prbcs per order. pt just accidentally pulled out about 15 cm of dobhoff tube while having a coughing attack. tube feeds placed on hold. house provider notified.
[2024-03-08] MEDS: APRESOLINE TUBE (21:14)
[2024-03-08] MEDS: TYLENOL TUBE (21:15)
[2024-03-08] MEDS: MELATONIN TUBE (21:15)
[2024-03-08] MEDS: NORVASC TUBE (21:15)
[2024-03-08] MEDS: DESYREL PO (21:15)
--- NOTE | 2024-03-08 21:16 | PTCARENOTE ---
Received pt at change of shift. During dayshift pt had accidentally pulled dobhoff out a bit. Abd Xray ordered and obtained. Xray confirmed the tube has been displaced and currently in his throat. Dobhoff has been pulled by this RN. Pt
tolerated well. PRBCs completed transfusing; pt offers no complaints. PM medications unable to be given d/t dobhoff displacement. Notified POUNDMASTER.
[2024-03-08] MEDS: LOPRESSOR TUBE (23:13)
[2024-03-08 23:23] LABS: Glucose - Point of Care 104 mg/dl (70-99)
[2024-03-09] VITALS (13 sets, daily range): BP systolic 163–182; BP diastolic 69–78; BMI 21.8
[2024-03-09] MEDS: UNASYN IV ×4 (03:08→21:51)
[2024-03-09] MEDS: LOPRESSOR TUBE ×2 (04:56→12:05)
[2024-03-09] MEDS: TRANDATE 10 MG IV ×3 (05:21→18:17)
[2024-03-09 05:49] LABS: % Basophils 0.5 % (0-2); % Eosinophils 1.8 % (0-6); % Immature Granulocytes 1.2 % (0-0.5); % Lymphocytes 9.3 % (20.5-51.1); % Monocytes 7.3 % (1.7-9.3); % Neutrophils 79.9 % (42.2-75.2); Absolute Eosinophils 0.1 10^3/uL (0-0.7); Absolute Immature Granulocytes 0.1 10^3/uL (0-0.05); Absolute Lymphocytes 0.6 10^3/uL (1.2-3.4); Absolute Monocytes 0.4 10^3/uL (0.1-0.6); Absolute Neutrophils 4.8 10^3/uL (1.4-6.5); Hematocrit 23.7 % (39.0-52.0); Hemoglobin 8.3 g/dL (13.0-18.0); Mean Corpuscular Hgb 29.2 pg (27.0-31.0); Mean Corpuscular Volume 83.5 fL (80.0-94.0); Mean Platelet Volume 10.6 fL (7.4-10.4); Nucleated Red Blood Cells % 0 % (-); Platelet Count 195 10^3/uL (130-400); Red Blood Cell Count 2.84 10^6/uL (4.70-6.10); Red Cell Dist. Width 15.6 % (11.5-14.5)
[2024-03-09 06:16] LABS: Glucose - Point of Care 111 mg/dl (70-99)
[2024-03-09] MEDS: NOVOLOG FLEXPEN-MODERATE RESISTANCE SC ×2 (06:44→12:09)
[2024-03-09 07:02] LABS: Blood Urea Nitrogen 97 mg/dl (9-20); Calcium 8.3 mg/dl (8.4-10.2); Carbon Dioxide 21 mmol/L (22-30); Chloride 105 mmol/L (98-107); Estimated Creatinine Clearance 31 ml/min; Glucose 108 mg/dl (70-99); Potassium 4.5 mmol/L (3.5-5.1); Sodium 137 mmol/L (135-145); eGFR 36.33
[2024-03-09] MEDS: DUONEB 3 ML INH ×4 (07:30→19:43)
[2024-03-09] MEDS: NSS (PRESERVATIVE FREE) 10 ML IV (07:46)
[2024-03-09] MEDS: PROTONIX IV 40 MG IV (07:46)
[2024-03-09] MEDS: HEPARIN 5000 UNITS SC ×2 (07:46→16:45)
--- NOTE | 2024-03-09 09:10 | W.PN.PUL3 ---
Today's Communication / Plan
-
Unasyn, will need 3 weeks of antibiotics eventually transition to Augmentin
VFSS today; defer diet to RESIDENTIAL SALES REPRESENTATIVE
Trend renal function
Physical therapy as tolerated - rec'd skilled rehab upon discharge
Consult oncology given right-sided pleural fluid non-small cell carcinoma with suspected adenocarcinoma; likely primary lung
Hold plavix (hemoptysis is mild still and intermittent)
Patient is appropriate for hospice; patient and first want to speak with oncology before officially deciding on hospice.
Assessment
-
73-year-old male with history of hypertension, hyperlipidemia, TIA on Plavix therapy, describes chronic bronchitis and chronic subjective dyspnea with [id number] history of smoking quit 2003. He now presents with progressive cough, shortness of
breath and hemoptysis. Found to have right upper lobe mass with likely pneumonia. We are asked to comment on pulmonary process
Right upper lobe mass/infiltrate
Acute hemoptysis x 3 days, blood mixed with mucus
Right upper lobe abnormality noted per chest x-ray April 2023
Complicated right pleural effusion with fluid culture positive for Enterococcus faecalis, likely a parapneumonic process --> s/p thora on 03/03/24
Metastatic non-small cell carcinoma, likely adenocarcinoma, seen in the right pleural fluid s/p thoracentesis on 03/03/2024 - suspect that this is primary lung pathology
AFB positive from sputum AFB collected on 02/16/2024
[id number] history of smoking, quit 2003
No prior spirometry, no prior pulmonary evaluation - suspected COPD given degree of centrilobular emphysema
Anemia
Chronic kidney disease, creatinine 2.2
Creatinine 1.6 in January 2024
JUDI requiring HD --> now resolved and short-term HD catheter has been removed and he is making urine with Cr stable at ~1.8-2
Elevated proBNP
Chronic diarrhea
Conditions present prior to admission
History of anemia
Hypertension/hyperlipidemia
GERD with history of duodenal ulcer with bleeding
Required IR embolization 2020
[address]
Possible asbestos exposure
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
Family history of cancer
Father with lung cancer
Sister with brain cancer
Sister with liver cancer
Plan
Oxygenation stable although still requiring 6-8L/min via midflow nasal cannula
Patient afebrile without leukocytosis
Severely deconditioned
-
Preadmission history: Patient is short of breath since April 2023 at which time he had right upper lobe infiltrate.
Patient cannot recall any history of recent pneumonia
Significant smoking and asbestos exposure history noted--emphysema noted on CT
Patient did not get follow-up x-ray as recommended per report in April
Former smoker, quit >30 years ago, strong family history of cancers
There is high suspicion this could be metastatic illness
IV steroids initially --> prednisone has been tapered off - last dose on 03/03/2024
-
CT scan 03/01/2024: Persistent right upper lobe infiltrate/masslike opacity. Bilateral pleural effusions right greater than left
s/p R-sided thora on 03/03/2024 --> cytopathology shows non-small cell carcinoma, likely adenocarcinoma; suspect that this is primary lung pathology
Recommend Oncology consult. Family is interested in discussing available options, if any.
-
Finished 10 day course of ceftriaxone on 02/22
s/p 6 days zithromax - stopped on 02/18
R effusion has been reviewed on US
s/p thora on 03/03/2024 with removal of 500cc of serosanguineous fluid that is exudative with glucose 111, pH 7.49, cytology pending (may be malignant)
Thoracentesis culture positive for Enterococcus-likely aspiration
Sputum culture few gram-positive cocci, many white cells, usual yaritza/finalized
Myrna noted 02/15
Prior sputum 02/13 neg
Legionella, streptococcal pneumonia negative
Sputum AFB (+) for AFB --> ID on board (pt unable to tolerate MUKESH treatment)
- Follow up AFB species
Continue -airway clearance reviewed with RT, xaviex/savagepellmodesto montanot/IS
-
Case discussed with infectious disease
Unasyn started on 03/06/2024
Will need at least 3 weeks of antibiotics with radiographic follow-up
-
Dr. Mays discussed this with patient and on 03/06/2024- explained to the that even if this is cancer, unlikely that patient will tolerate any aggressive therapy. He is debilitated. Currently has a Dobbhoff tube in place. Has aspiration.
Patient is currently too deconditioned and hypoxic for a bronchoscopy with biopsy. Pt too hypoxic for IR ct guided biopsy. Right pleural fluid is positive for non-small cell carcinoma, likely adenocarcinoma. Oncology consultation recommended.
-
ProBNP elevated at 19,500 on 02/17/2024, history of CHF
Trend sCr and UOP; Kuo catheter in place --> recommend to continue given his critically ill state with need for strict I/O
Nephrology following � recommendations appreciated
Status post dialysis. Now as needed
Creatinine improved and is stable
-
Aspiration precautions
RESIDENTIAL SALES REPRESENTATIVE following
Currently on tube feeds via Dobhoff tube (DHT)
VFSS scheduled for today --> follow up results
DVT ppx: HSQ 5000 units q8hr
-
Physical therapy/Occupational Therapy as able - PT rec'd skilled rehab upon discharge
I discussed hospice today with family and they are amenable to this. They first went to speak to oncology to see what options are available for his newly diagnosed adenocarcinoma seen in right sided pleural fluid.
-
Will continue to follow.

Family Discussions
Discussion held by Dr. Montoya on 02/22/2024 with and patient ---> patient is now DNR, okay for intubation in addition to other full medical management (see separate note from 02/21)
Mira 02/18- Reviewed with today and son on speaker phone today on rounds. We discussed all of his poor prognostic markers including possible/suspected metastatic disease, acute HF picture, worsening JUDI, worsening hypoxemia. She understands
his overall outlook remains poor even with intubation/MV. There is less chance for good QoL the more organ dysfunction occurs. Family will visit and discuss further GOC.
Litzy - Reviewed with patient, at bedside
Updated son by phone 02/16 (Kevon: [phone])
Reviewed concern regarding possibility of underlying malignancy.
Patient high risk for intubation.
Diagnostic Data
Chest x-ray 02/28/2024: Mildly improved pulmonary changes concerning for pneumonia. Underlying mass in the right upper lobe not completely excluded as mentioned on prior chest CT examination. Repeat chest CT examination in a couple weeks following
resolution of acute pneumonic process recommended; Slightly progressed tiny right pleural effusion; Findings diaphragms consistent with COPD. Stable
CXR 02/24/2024:There is moderate diffuse interstitial and groundglass airspace disease throughout both lungs with more confluent alveolar airspace disease in the right upper lung. This airspace disease is improved but unresolved compared with
previous examination and has more the appearance of inflammatory airspace disease than pulmonary edema as there are no septal lines to suggest interstitial edema.
Chest x-ray 02/22/2024: Multifocal pneumonia, most pronounced within the right upper lobe. No significant change compared to 02/18/2024; Interstitial coarsening and mild interstitial prominence, suggestive of COPD. Pulmonary edema may also be present
Chest X-Ray: 02/18/24- Findings raising concern for pulmonary edema, superimposed on right lung pneumonic process. The patient does have a proBNP value of 19,500 today.
02/17/24- Right lung opacities suspicious for pneumonia without significant change in comparison to recent prior study.
CT Scan: CHEST 03/01/24- Mildly enlarged and more consolidated right upper lobe pulmonary mass. This probably represents pneumonia considering the acute change. Underlying neoplasm cannot be excluded. Sampling recommended as well as clinical and
laboratory correlation. Moderate right pleural effusion. Progressed. Small left pleural effusion. Progressed. Mild right lower lobe consolidation probably atelectasis. New spiculated mass in left lower lung field probably infectious considering the
acute development. New moderate bilateral groundglass densities suggesting additional foci of pneumonia considering the acute development. Emphysematous disease. Stable.
CHEST 02/14/24- 1. Large right upper lobe pneumonia. Imaging follow-up to resolution is recommended as an underlying pulmonary neoplasm would be difficult to completely exclude.
2. Chronic obstructive pulmonary disease.
3. Small pericardial effusion.
4. Small right pleural effusion.
5. Mild loculated pleural fluid in the right minor fissure.
Echo: 02/17/24- Normal left ventricular size and systolic function. No regional wall motion abnormalities are seen. LV ejection fraction is 65-70% by volumetric assessment. Mild concentric left ventricular hypertrophy. Stage II diastolic dysfunction
suggestive of abnormal relaxation and increased filling pressures. Top normal right ventricular size. Normal right ventricular systolic function. Aortic sclerosis without stenosis. Mild tricuspid regurgitation. Estimated pulmonary artery pressure
of 50-55 mmHg assuming a right atrial pressure of 8 mmHg. Compared to prior study dated 04/28/2023, estimated pulmonary artery systolic pressure was previously normal at 25-30 mmHg
04/28/23- 1. Mild concentric left ventricular hypertrophy with preserved systolic function, EF 60-65%
2. Thickened mitral leaflets with mitral annular calcification, trace mitral regurgitation and minimally dilated left atrium
3. Aortic sclerosis with trace aortic insufficiency
4. Normal right heart with normal pulmonary artery pressure
The study is similar to October 2021. The patient will be called and told that there is preserved heart muscle function and no significant valve abnormality.
-----
Total time spent today was 35 minutes for this encounter. Time includes reviewing laboratory test/imaging results, reviewing pertinent medical records, obtaining and reviewing medical history, performing an appropriate exam, ordering medications,
tests and procedures. Time also includes documentation of this encounter, coordinating patient care and communicating with other healthcare professionals. Total time does not include separately billed tests performed on this date of service.
Subjective Data
-
Date of Service:
Date of Service: March 09, 2024
Chief Complaint: Pulmonary Follow Up
Subjective:
Patient seen and evaluated today at bedside. He feels well. Pleural fluid cytology from right lung is positive for adenocarcinoma. Also sputum AFB from 02/16/2024 is now growing AFB, likely MUKESH. Patient feels well. Currently on 7 L/min via
midflow nasal cannula. Has occasional blood-tinged sputum. Denies CERVANTES, abdominal pain, nausea, fevers chills.
Review of Systems
General: Other (Negative unless mentioned above)
Objective Data
Data Reviewed
Vital Signs / I&O / Oxygen:
Vital Signs
Temp Pulse Resp BP Pulse Ox
98.0 F 76 17 167/72 90
03/09/24 07:37 03/09/24 08:00 03/09/24 08:00 03/09/24 08:00 03/09/24 09:11
Intake and Output
03/08/24 03/09/24 03/10/24
06:59 06:59 06:59
Intake Total 240 / 240 1730 / 1730
Output Total 1175 / 1175 1375 / 1375
Balance -935 / -935 355 / 355
SaO2 [NIV (Non Invasive 94
Ventilation)]
SaO2 90
Nasal Cannula flow liters per 6
minute
Physical Exam
General: Respiratory Distress (negative), Comfortable, Chills (negative) and Sweats (negative)
HEENT: Normocephalic and Anicteric
Cardiovascular: S1-S2, Murmur (EDMUNDO, heard in RUSB, grade II/), Rub (n) and Peripheral Edema (trace GEORGE bilaterally)
Respiratory: Wheeze (n), Crackles (Right base), Rhonchi (Bilateral in the lower lobe-mid lung snider), Non-Labored Respirations and Stridor (negative)
GI: Soft, Non Distended, Non Tender and Normal Bowel Sounds
Neurology: AO x 3 and No Motor Deficits (Able to sit up without difficulty)
Skin: Warm, Dry, Cyanosis (n), Jaundice (n) and Rash (n)
Labs/Micro/Reports
Lab Data
03/09/24 05:31
03/09/24 05:31
Microbiology
02/16/24 03:59 Sputum Acid Fast Bacilli Smear - Preliminary
02/16/24 03:59 Sputum Acid Fast Bacilli Culture - Preliminary
Acid fast bacilli
03/03/24 10:15 Pleural Fluid Body Fluid Culture - Final
Enterococcus faecalis
03/03/24 10:15 Pleural Fluid Gram Stain - Final
--- NOTE | 2024-03-09 09:13 | W.PN.NEPH.PH ---
Today's Communication / Plan
-
BP meds adjusted
Assessment/Plan
-
Impression:
Right upper lobe mass versus infiltrate with hemoptysis: 03/03/24: Enterococcus in pleural effusion
Acute kidney injury
CKD stage IIIb baseline creatinine 1.6
HTN
History of TIA
History of COPD
Anemia
CHF HFpEF
Plan:
follow BMP
for thoracentesis
maintain goins
may try VTrial again tomorrow
continue flomax
replace DHT
increase hydralazine
IF BP remains high, will use clonidine
d/w daughter
-
-
Date of Service: March 09, 2024
CC / HPI / ROS
-
Chief Complaint:
JUDI
History of Present Illness:
goins replaced 03/02
BP stable but high
Cr at 1.9
last HD 02/25
Na at 137
K normal
pt pulled out DHT this am
Review of Systems:
no fever
nonoliguric with goins
no cp
conversant
Labs
-
Labs:
WBC 6.0 10^3/uL (4.8-10.8) 03/09/24 05:31
RBC 2.84 10^6/uL (4.70-6.10) L 03/09/24 05:31
Hgb 8.3 g/dL (13.0-18.0) L 03/09/24 05:31
Hct 23.7 % (39.0-52.0) L 03/09/24 05:31
Plt Count 195 10^3/uL (130-400) 03/09/24 05:31
Sodium 137 mmol/L (135-145) 03/09/24 05:31
Potassium 4.5 mmol/L (3.5-5.1) 03/09/24 05:31
Chloride 105 mmol/L (98-107) 03/09/24 05:31
Carbon Dioxide 21 mmol/L (22-30) L 03/09/24 05:31
BUN 97 mg/dl (9-20) H 03/09/24 05:31
Creatinine 1.9 mg/dL (0.7-1.3) H 03/09/24 05:31
eGFR 36.33 03/09/24 05:31
Glucose 108 mg/dl (70-99) H 03/09/24 05:31
Calcium 8.3 mg/dl (8.4-10.2) L 03/09/24 05:31
Phosphorus 4.3 mg/dl (2.5-4.5) 03/08/24 04:50
Eqa-Y-Pngxgxzgfmb Pept 01324 pg/ml 02/17/24 05:00
Albumin 3.0 g/dl (3.5-5.0) L 02/29/24 05:39
Physical Exam
-
Vital Signs:
Vital Signs
Temp Pulse Resp BP Pulse Ox
98.0 F 76 17 167/72 90
03/09/24 07:37 03/09/24 08:00 03/09/24 08:00 03/09/24 08:00 03/09/24 09:11
Cardiovascular:: Regular rate and rhythm
Respiratory:: Bilateral: Coarse
Lung Excursion:: Normal
Abdomen:: Nontender and Soft
Bowel Sounds:: Normal
Extremity Edema:: None: Bilateral:
--- NOTE | 2024-03-09 09:26 | W.PN.ID1 ---
Date of Service
Date of Service: March 09, 2024
Today's Communication
See below
Assessment / Plan
# Suspect aspiration PNA with Enterococcus faecalis right parapneumonic effusion
# Severe dysphagia requiring Dobhoff
# Acute hypoxemic resp failure
- Continue Unasyn (d4).
- At time of DC, will transition to po Augmentin to complete 3 weeks.
# Probable pulmonary MUKESH
- 02/16/24 BAL: AFB smear neg, AFB cx positive
- Add-on MTB pcr.
- Add-on Mycobacterium identification with sensitivities.
- For lung mass biopsy today, add AFB stain to path
- No need for airborne isolation - low suspicion for MTB.
# RUL lung mass
- For IR lung biopsy today for path.
- If able, please send lung tissue for AFB culture and aerobic culture
# Conditions PEOPLESOFT CONSULTANT
HTN
HLD
COPD
Chronic bronchitis
Duodenal ulcer/GI bleed
Anemia
TIA
CKD3
Asbestosis exposure
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
R BRIGHT
Chief Complaint
-: Pneumonia
Subjective / Review of Systems
For lung biopsy today.
No known TB exposure.
Vital Signs / Physical Exam
Vital Signs
Vital Signs
Temp Pulse Resp BP Pulse Ox
98.0 F 76 17 167/72 90
03/09/24 07:37 03/09/24 08:00 03/09/24 08:00 03/09/24 08:00 03/09/24 09:11
Physical Exam
Constitutional: Chronically Ill
Cardiovascular: Regular Rate and S1/S2
Pulmonary: Coarse (right lung)
Gastrointestinal: Soft, Non Tender and Non Distended
Genito-Urinary: Negative CVA Tenderness
Neurological: AO x 3
Objective Data
Lab Data
Lab Results
03/09/24 05:31
03/09/24 05:31
PT 15.1 Sec (11.4-14.6) H 02/19/24 04:33
INR 1.19 02/19/24 04:33
APTT 33.2 Sec (23.4-35.0) 02/19/24 04:33
Estimated Creat Clear 31 ml/min 03/09/24 05:31
Total Bilirubin 0.8 mg/dl (0.2-1.3) 02/29/24 05:39
AST 32 U/L (17-59) 02/29/24 05:39
ALT 30 U/L (0-50) 02/29/24 05:39
Alkaline Phosphatase 67 U/L (38-126) 02/29/24 05:39
Most recent labs reviewed.
Micro Results:
02/16/24 03:59 Acid Fast Bacilli Smear - Preliminary
Sputum Acid Fast Bacilli Culture - Preliminary
Acid fast bacilli
03/03/24 10:15 Body Fluid Culture - Final
Pleural Fluid Enterococcus faecalis
Gram Stain - Final
02/14/24 12:29 Blood Culture - Final
Blood/Venous No Growth - Final Report
02/16/24 15:05 Respiratory Culture - Final
Sputum Myrna albicans
Gram Stain - Final
02/14/24 12:42 Respiratory Culture - Final
Sputum Usual Respiratory Kim
Gram Stain - Final
02/15/24 06:26 Legionella Urinary Antigen - Final
Urine Negative for Legionella pneumophila Serogroup 1 antigen.
A negative result does not rule out the possiblity of
Legionella infection due to other serogroups or species of
Legionella. Clinical correlation is recommended.
Streptococcus pneumoniae Antigen (M - Final
Negative for Streptococcus pneumoniae antigen.
A negative result does not exclude infection with
Streptococcus pneumoniae. Clinical correlation is
recommended.
03/06/24 CXR: The 13 cm confluent area of parenchymal density in the right upper lobe has worsened slightly in the interval since the previous examination. Interstitial airway disease suggesting pneumonia at the medial right lung base is new when
compared with the prior study
03/01/[address]: Mildly enlarged and more consolidated right upper lobe pulmonary mass. This probably represents pneumonia considering the acute change. Underlying neoplasm cannot be excluded. Moderate right pleural effusion. Progressed. Small left
pleural effusion. Progressed. New spiculated mass in left lower lung field probably infectious considering the acute development.
02/14/[address]: Large right upper lobe pneumonia. Imaging follow-up to resolution is recommended as an underlying pulmonary neoplasm would be difficult to completely exclude.
--- NOTE | 2024-03-09 09:55 | PTCARENOTE ---
Assumed care of patient at beginning of this shift from lens engraver RN; POx 89% on 6L n/c. Patient received respiratory treatment; POx 97% during that time. Oxygen increased to 7L; POx currently 91-92%. Patient with GRIER on minimal exertion; however,
denies SOB.
Dobhoff tube remains out since accidentally pulled out yesterday. Patient due for hydralazine via tube; BP 167/72. Patient not cleared by speech for po intake; plan for repeat video swallow as per note from ST. Both Dr Noguera and Dr Ayala aware
patient without tube and unable to get hydralazine.
[2024-03-09] MEDS: APRESOLINE TUBE (10:00)
[2024-03-09] MEDS: APRESOLINE 10 MG IV (12:02)
[2024-03-09 12:20] LABS: Glucose - Point of Care 101 mg/dl (70-99)
--- NOTE | 2024-03-09 15:54 | PTCARENOTE ---
Patient's diet advanced to IDDSI 5 following video swallow. Lung biopsy cancelled; Dr Montoya in to update patient and .
--- NOTE | 2024-03-09 16:08 | CM ---
Addendum entered by Ketty Ledbetter RN 03/09/24 16:16:
O2 6L midflow.
Original Note:
Patient with Dx PNA, HF, Suspected parapneumonic effusion, Severe dysphagia, JUDI, suspected RUL lung lesion, Urinary retention, anemia. Dobhoff out yesterday. VSE today. Started on dysphagia diet. PT/OT 03/04 recommend skilled rehab. Patient
declined PT/OT today. Order for oncology Consult.
CM continuing to follow for d/c needs.
Plan follow up after seen by PT/OT.
--- NOTE | 2024-03-09 16:12 | CON.IR ---
Medical History
Allergies / Home Medications
Allergy/AdvReac Type Severity Reaction Status Date / Time
gluten AdvReac Severe diarrhea Verified 02/22/24 07:36
�Medication �Instructions �Recorded �Confirmed �Type
metoprolol succinate 50 mg 100 mg PO HS Blood pressure 08/10/20 02/14/24 History
tablet,extended release 24 hr
pantoprazole 40 mg tablet,delayed 40 mg PO DAILY Gastrointestinal 09/25/20 02/14/24 History
release issue
acetaminophen 500 mg tablet 1,000 mg PO HS Pain 08/05/21 02/14/24 History
(Tylenol Extra Strength)
clopidogrel 75 mg tablet 75 mg PO DAILY 30 days #30 tabs 08/07/21 02/14/24 Rx
amlodipine 10 mg tablet 10 mg PO HS Blood Pressure 02/14/24 02/14/24 History
atorvastatin 40 mg tablet 80 mg PO DAILY High Cholesterol 02/14/24 02/14/24 History
furosemide 40 mg tablet (Lasix) 40 mg PO DAILY Fluid 02/14/24 02/14/24 History
Retention/Swelling
hydralazine 50 mg tablet 50 mg PO BID Blood Pressure 02/14/24 02/14/24 History
losartan 50 mg tablet 50 mg PO HS Blood Pressure 02/14/24 02/14/24 History
Physical Exam
Vital Signs
Temp Pulse Resp BP Pulse Ox
98.1 F 76 16 174/72 91
03/09/24 15:08 03/09/24 15:28 03/09/24 15:28 03/09/24 14:02 03/09/24 15:28
Lab Results
03/09/24 05:31
03/09/24 05:31
Wwq-R-Xudqgtqvyen Pept 81306 pg/ml 02/17/24 05:00
Assessment / Plan
-
Re: RUL mass. Reviewed imaging. Very difficult to discern mass from surrounding postobstructive atelectasis or pneumonia. PET/CT would would be helpful for further evaluation. Would have a high risk of getting a false negative biopsy at this point
given appearance and uncertainty regarding exact portion of mass to target. Further, patient's respiratory status does not make him an ideal candidate for either percutaneous biopsy (with possible post biopsy hemoptysis or pneumothorax) or moderate
sedation. Would recommend optimizing patient's respiratory status and obtaining further imaging prior to percutaneous biopsy. Alternatively, could consider bronchoscopic approach with percutaneous biopsy performed if bronchoscopic biopsy is
nondiagnostic or unable to obtain enough tissue.
--- NOTE | 2024-03-09 16:38 | W.PN.HOSP.TC ---
Today's Communication/Plan
-
Continue IV antibiotics covering aspiration.
Additional workup for MUKESH.
Oncology consultation.
Ongoing goals of care discussions.
Assessment / Plan
Assessment / Plan
#Acute hypoxemic respiratory failure -- due to pneumonia, superimposed HFpEF, possible COPD, hemoptysis
#Severe pneumonia likely secondary to aspiration
# AFB culture positive suspected MUKESH
Parapneumonic effusion with culture positive for Enterococcus.
Pathology positive for non-small cell likely adenocarcinoma
#Acute hemoptysis -- suspected right upper lobe malignancy and also with Plavix
-CT thorax showed with large RUL consolidation, also signs of malignancy in the RUL
-Was started on IV ceftriaxone empirically, completed course of IV azithromycin as well;
-Developed decompensation of HFpEF in the context of IV fluids, elevated proBNP, s/p IV Lasix course, now on hemodialysis and now off HD with intermittent lasix.
-Initial concern for ARDS as well as acute CHF preserved EF.
� Echocardiogram here showed severe pulmonary hypertension; has evidence of COPD with emphysematous findings, tobacco history
-Completed p.o. prednisone regimen. Can consider IV steroids if needed. Will defer to pulmonary.
-Continue to hold clopidogrel given ongoing hemoptysis
-Initially plan for lung biopsy canceled given high risk with tenuous respiratory status as well pleural fluid positive path for adenocarcinoma
#Severe dysphagia
-s/p VSE and now strict NPO
-DHT placement- and started on tube feeding. Changed to Nepro with carb study due to hyperkalemia.
-DHT indefinitely removed on 03/08.
� Repeat VSE on 03/09 reviewed. Remains aspiration risk, although cleared for modified diet and aspiration precautions.
#Oliguric JUDI on CKD 3B
#Metabolic acidosis
#Normocytic anemia -- 2/2 renal dysfunction
#Mild hyponatremia
#Mild hyperkalemia
-Suspected to be prerenal; Home medications include diuretics and ARB, presented with infection
-Home diuretics and losartan are held, received bicarbonate therapy for his acidemia
-Trend daily BMP, monitor strict I's and O's
-Consider transfusion for hemoglobin <7
- Complements back to normal. ANCA panel wnl. Normal serum protein electrophoresis.
-lasix per nephor. losing weight. Cr improving. HD catheter out.
-K improved with switching TF.
-Renal diet
#Suspected Right upper lobe lesion shadowed due to pneumonia?
#Pleural effusion
-Likely demonstrated on CT, but does have superimposed bacterial pneumonia which may affect findings
-CT chest Mildly enlarged and more consolidated right upper lobe pulmonary mass. This probably represents pneumonia considering the acute change. Underlying neoplasm cannot be excluded. Sampling recommended as well as clinical and laboratory
correlation. Moderate right pleural effusion. Progressed. Small left pleural effusion. Progressed. Mild right lower lobe consolidation probably atelectasis. New spiculated mass in left lower lung field probably infectious considering the acute
development. New moderate bilateral groundglass densities suggesting additional foci of pneumonia considering the acute development.
-IRAD for R sided thoracentesis. Cytology ordered too. s/p 500cc fluid removed.
-Unclear role of bronch at this juncture as plavix has been held. Per pulmonology plan is to hold cox monett for now.
#Urinary retention
- flomax.
-straight cath protocol
-s/p goins catheter placement.
#Acute on chronic normocytic anemia -- blood loss from hemoptysis, dilution
-Baseline hemoglobin around 10,
-Iron studies without signs of deficiency, no evidence of hemolysis, B12 was low but now on therapy
-Will continue to trend daily CBC and transfuse for hemoglobin <7
-Transfuse to keep Hg above 8
#History of duodenal ulcer/GI bleed
-No signs of active GI bleeding while here, did have hemoptysis
-Remains on home PPI regimen
#History of TIA
-Holding plavix as above
#Essential hypertension
-No known history of hypertensive systemic disease, Home meds include metoprolol hydralazine, and amlodipine-HOLD
-Blood pressure has been poorly controlled outside of the hospital, recently hydralazine was increased
-Started on IV labetalol standing and hydralazine as plan for non oral meds due to clogging of DHT and strict NPO.
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
-History of heavy tobacco abuse in the past; no formal diagnosis, no home inhaler therapies
-Currently without any wheezing or signs of exacerbation though cannot rule out contribution to his presentation
-Plan for pulm follow-up and PFTs at discharge, DC on DuoNebs as needed
#Hyperlipidemia
-No known history of ASCVD
-No medications include high intensity shortness
#Celiac's disease
-No formal diagnosis, gluten sensitivity per history, told him to avoid gluten by an outside doctor
-No gluten diet ordered
DVT prophylaxis: Heparin subcutaneous
Diet: Soft and bite sized, Ensure with meals, renal friendly
Goals of care/CODE STATUS: Hospice was mentioned on 02/24, remains full treatment with limited DNR (no chest compressions)
New clinical data including pathology from pleural fluid consistent with adenocarcinoma likely primary pulmonary malignancy, cultures from BAL positive for Mycobacterium suspected MUKESH, severe aspiration and declining performance status including
weight loss. Ongoing goals of care discussion including hospice option.
Anticipated Discharge: > 48 hours
Subjective/Interval History
-
Date of Service: March 09, 2024
Objective Data
-
Labs:
Laboratory Results
03/09/24
05:31
WBC 6.0
Hgb 8.3 L
Hct 23.7 L
Plt Count 195
Sodium 137
Potassium 4.5
Chloride 105
Carbon Dioxide 21 L
BUN 97 H
Creatinine 1.9 H
Glucose 108 H
Calcium 8.3 L
Vital Signs:
Vital Signs
Temp Pulse Resp BP Pulse Ox
98.1 F 76 16 174/72 91
03/09/24 15:08 03/09/24 15:28 03/09/24 15:28 03/09/24 14:02 03/09/24 15:28
I&O
03/08/24 03/09/24 03/10/24
06:59 06:59 06:59
Intake Total 240 / 240 1730 / 1730 240 / 240
Output Total 1175 / 1175 1375 / 1375 625 / 625
Balance -935 / -935 355 / 355 -385 / -385
Physical Exam
-
General: No Apparent Distress and Comfortable; Negative Respiratory Distress
HEENT: Normocephalic, Atraumatic, Moist Mucous Membranes, Anicteric and Oxygen (on 4L-5l midflow )
Respiratory: Non Labored Respirations and Decreased Breath Sounds (R>L); Negative Wheezes, Rales or Accessory Resp Muscle Use
Cardiac: Regular Rhythm and S1/S2; Negative Murmur, Rub, JVD or Gallop
GI: Soft, Nontender, Nondistended, Normal Bowel Sounds and Other (DHT and TF ongoing )
Genito-urinary: Clear Urine and Goins
Musculoskeletal: No Clubbing, No Cyanosis and No Edema
Skin: Warm and Dry; Negative Rash
Neuro: Awake, AO x 3, Nonfocal/Grossly Intact and Central Nerve's Intact
Psych: Calm
[2024-03-09] MEDS: APRESOLINE 100 MG TUBE ×2 (16:45→21:44)
--- NOTE | 2024-03-09 16:59 | PTOTSP ---
Video Swallow Study
Summary: Patient with functional oral stage and moderate-severe pharyngeal dysphagia with primarily silent aspiration with thin and mildly thick liquids that did not clear with cued coughing. Pharyngeal retention reduced compared to prior study
03/02/2024.
Patient indicated that he did not want non-oral means (NGT) replaced and wanted to start an oral diet understanding risks/complications of aspiration. He consented to diet modifications below.
Recommendations:
1. IDDSI Level 5 Minced and Moist Solids, IDDSI Level 3 Moderately Thick Liquids
2. Medications - crushed in puree if medically cleared to do so
3. Strategies: upright to 90 degrees, small single sips/bites, slow rate with breaks for breathing, hold PO if RR >30 and SpO2 <90%
4. Oral care 3x daily
5. Aspiration risk hydration protocol - unlimited ice chips (1 at a time) after oral care, in between meals
6. Dysphagia therapy at the acute care level and follow up after D/C pending goals of care.
[2024-03-09] MEDS: NOVOLOG FLEXPEN-MODERATE RESISTANCE 1 UNITS SC (18:17)
[2024-03-09] MEDS: LOPRESSOR 25 MG TUBE (18:19)
[2024-03-09 18:27] LABS: Glucose - Point of Care 173 mg/dl (70-99)
[2024-03-09] MEDS: DESYREL 12.5 MG PO (21:44)
[2024-03-09] MEDS: MELATONIN 5 MG TUBE (21:44)
[2024-03-09] MEDS: NORVASC 10 MG TUBE (21:44)
[2024-03-09] MEDS: TYLENOL 1000 MG TUBE (21:45)
[2024-03-09 22:12] LABS: Glucose - Point of Care 161 mg/dl (70-99)
[2024-03-10] VITALS (17 sets, daily range): BP systolic 145–186; BP diastolic 62–100; BMI 21.5
[2024-03-10] MEDS: HEPARIN 5000 UNITS SC ×3 (01:20→16:03)
[2024-03-10] MEDS: TRANDATE 10 MG IV ×4 (01:20→17:46)
[2024-03-10] MEDS: LOPRESSOR 25 MG TUBE ×4 (01:20→17:44)
[2024-03-10] MEDS: UNASYN IV ×3 (01:20→21:17)
--- NOTE | 2024-03-10 06:00 | PTCARENOTE ---
Cared for patient overnight. aaox3, denies pain. remains on 8LMF, tachypneic & SOB at rest & exertion. NSR on monitor. Kuo in place. All other assessment changes are the same. Will continue to monitor. Call miranda in reach.
[2024-03-10 06:59] LABS: Blood Urea Nitrogen 93 mg/dl (9-20); Calcium 8.6 mg/dl (8.4-10.2); Carbon Dioxide 21 mmol/L (22-30); Chloride 105 mmol/L (98-107); Estimated Creatinine Clearance 29 ml/min; Glucose 126 mg/dl (70-99); Potassium 4.6 mmol/L (3.5-5.1); Sodium 143 mmol/L (135-145); eGFR 34.16
[2024-03-10] MEDS: DUONEB 3 ML INH ×4 (07:15→19:45)
[2024-03-10 07:20] LABS: Hematocrit 27.5 % (39.0-52.0); Hemoglobin 9.4 g/dL (13.0-18.0); Mean Corp Hgb Conc. 34.2 g/dL (33.0-37.0); Mean Corpuscular Hgb 29.7 pg (27.0-31.0); Mean Platelet Volume 10.6 fL (7.4-10.4); Platelet Count 210 10^3/uL (130-400); Red Blood Cell Count 3.16 10^6/uL (4.70-6.10); Red Cell Dist. Width 15.6 % (11.5-14.5); White Blood Cell Count 4.7 10^3/uL (4.8-10.8)
[2024-03-10] MEDS: APRESOLINE 100 MG TUBE ×3 (08:00→21:18)
[2024-03-10] MEDS: NSS (PRESERVATIVE FREE) 10 ML IV (08:02)
[2024-03-10] MEDS: PROTONIX IV 40 MG IV (08:02)
[2024-03-10 08:06] LABS: Glucose - Point of Care 140 mg/dl (70-99)
[2024-03-10] MEDS: NOVOLOG FLEXPEN-MODERATE RESISTANCE SC ×2 (08:40→16:26)
--- NOTE | 2024-03-10 08:55 | W.PN.NEPH.PH ---
Today's Communication / Plan
-
follow BMP
Assessment/Plan
-
Impression:
Right upper lobe mass versus infiltrate with hemoptysis: 03/03/24: Enterococcus in pleural effusion
Acute kidney injury
CKD stage IIIb baseline creatinine 1.6
HTN
History of TIA
History of COPD
Anemia
CHF HFpEF
MUKESH/enterococcus lung
adenoCA in pleural effusion
Plan:
follow BMP
maintain goins
may try VTrial again at some point (goins since 03/02)
continue flomax
po labetalol, use IV prn
If he needs CT/PET with IV contrast, it can be done as benefits of study will outweigh the CN risk. would use IVF with CT if ordered.
high risk
-
-
Date of Service: March 10, 2024
CC / HPI / ROS
-
Chief Complaint:
JUDI
History of Present Illness:
goins replaced 03/02
BP stable but high
Cr at 2.0
last HD 02/25
Na normal
K normal
abx for MUKESH/enterococcus lung
Review of Systems:
no fever
nonoliguric with goins
no cp
conversant
Labs
-
Labs:
WBC 4.7 10^3/uL (4.8-10.8) L 03/10/24 06:21
RBC 3.16 10^6/uL (4.70-6.10) L 03/10/24 06:21
Hgb 9.4 g/dL (13.0-18.0) L 03/10/24 06:21
Hct 27.5 % (39.0-52.0) L 03/10/24 06:21
Plt Count 210 10^3/uL (130-400) 09/05/24 06:21
Sodium 143 mmol/L (135-145) 03/10/24 06:21
Potassium 4.6 mmol/L (3.5-5.1) 03/10/24 06:21
Chloride 105 mmol/L (98-107) 03/10/24 06:21
Carbon Dioxide 21 mmol/L (22-30) L 03/10/24 06:21
BUN 93 mg/dl (9-20) H 03/10/24 06:21
Creatinine 2.0 mg/dL (0.7-1.3) H 03/10/24 06:21
eGFR 34.16 03/10/24 06:21
Glucose 126 mg/dl (70-99) H 03/10/24 06:21
Calcium 8.6 mg/dl (8.4-10.2) 03/10/24 06:21
Phosphorus 4.3 mg/dl (2.5-4.5) 03/08/24 04:50
Kfu-L-Vqvkpenzgue Pept 74672 pg/ml 02/17/24 05:00
Albumin 3.0 g/dl (3.5-5.0) L 02/29/24 05:39
Physical Exam
-
Vital Signs:
Vital Signs
Temp Pulse Resp BP Pulse Ox
97.6 F 70 21 176/71 91
03/10/24 04:41 03/10/24 08:00 03/10/24 06:00 03/10/24 08:00 03/10/24 06:00
Cardiovascular:: Regular rate and rhythm
Respiratory:: Bilateral: Coarse
Lung Excursion:: Normal
Abdomen:: Nontender and Soft
Bowel Sounds:: Normal
Extremity Edema:: None: Bilateral:
Goins Catheter: Yes
--- NOTE | 2024-03-10 09:12 | CON.ONC ---
Documented by User: OLIVIA Hayward 03/10/24 11:25
Impression
Impression
RUL mass/infiltrate
pleural fluid positive for adenocarcinoma
Anemia
hemoptysis
JUDI on CKD
COPD
probable MUKESH/enterococcus
suspected aspiration PNA with Enterococcus faecalis right parapneumonic effusion
HFpEF
dyphagia
Plan
Plan
He underwent thoracentesis 03/03/2024 that drained 500cc serosanguineous fluid. Cytology showed metastatic non-small cell carcinoma, favor adenocarcinoma that was TTF positive. Unfortunately, tissue is insufficient for lung cancer biomarkers.
Initially plan for lung biopsy canceled given high risk with tenuous respiratory status. GOC conversation with patient and at bedside. We discussed pleural fluid findings c/w metastatic adenocarcinoma. We reviewed that if goals remain
restorative then would pursue CT ab/pelvis w/o contrast for staging and consideration of additional tissue biopsy to obtain biomarkers for lung panel. We also reviewed that in order to be a palliative treatment candidate, he will need to recover
from infections, optimize performance status, and optimize nutritional status. He does not want to pursue any further evaluation or treatment for malignancy. He is agreeable to comfort focused care. Case management consult placed for hospice.
Medical oncology will sign off. Thank you for involving us in this patient's care.
Patient History
History of Present Illness
73yo M presented 02/14/2024 with cough, hemoptysis, GRIER, and SOB that had been progressive over several weeks. He reports significant weigh loss and decline in performance status. 02/14/2024 CT w/o IVC showed a large right upper lobe pneumonia,
however, underlying pulmonary neoplasm not exclude. Small pericardial effusion, Small right pleural effusion, and Mild loculated pleural fluid in the right minor fissure. He was admitted and started on IV abx for suspected PNA. His antiplatelet
therapy has been on hold due to hemoptysis. He underwent thoracentesis 03/03/2024 that drained 500cc serosanguineous fluid. Cytology showed metastatic non-small cell carcinoma, favor adenocarcinoma that were TTF positive. Unfortunately, tissue is
insufficient for lung cancer biomarkers. Initially plan for lung biopsy canceled given high risk with tenuous respiratory status. Steroid course complete. Pt remains on abx for MUKESH and enterococcus PNA. He has Dobbhoff tube for alternate nutrition
due to dysphagia. Pt and considering palliative vs comfort focused care so oncology was consulted to discuss further.
Past-Medical/Surgical History
PMH DU with GIB, TIA , HTN, HLD, CKD
PSH hernia repair, right hip replacement
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 Former smoker, 90pack year. Denies ETOH or recreational drugs
Family: father lung cancer, sister liver cancer, sister brain cancer
Patient Medication
�Medication �Instructions �Recorded �Confirmed �Last Taken �Type
metoprolol succinate 50 mg 100 mg PO HS Blood pressure 08/10/20 02/14/24 02/13/24 History
tablet,extended release 24 hr
pantoprazole 40 mg tablet,delayed 40 mg PO DAILY Gastrointestinal 09/25/20 02/14/24 02/13/24 History
release issue
acetaminophen 500 mg tablet 1,000 mg PO HS Pain 08/05/21 02/14/24 02/13/24 History
(Tylenol Extra Strength)
clopidogrel 75 mg tablet 75 mg PO DAILY 30 days #30 tabs 08/07/21 02/14/24 02/14/24 Rx
amlodipine 10 mg tablet 10 mg PO HS Blood Pressure 02/14/24 02/14/24 02/13/24 History
atorvastatin 40 mg tablet 80 mg PO DAILY High Cholesterol 02/14/24 02/14/24 02/14/24 History
furosemide 40 mg tablet (Lasix) 40 mg PO DAILY Fluid 02/14/24 02/14/24 02/14/24 History
Retention/Swelling
hydralazine 50 mg tablet 50 mg PO BID Blood Pressure 02/14/24 02/14/24 02/14/24 History
losartan 50 mg tablet 50 mg PO HS Blood Pressure 02/14/24 02/14/24 02/13/24 History
Active Medications
Generic Name Dose Route Start Last Admin
Trade Name Freq PRN Reason Stop Dose Admin
Acetaminophen 1,000 mg 03/02/24 22:00 03/09/24 21:45
Acetaminophen 500 Mg Tablet TUBE 03/30/24 21:59 1,000 mg
HS KONSTANTIN Administration
Albuterol/Ipratropium 3 ml 02/15/24 08:00 03/10/24 07:15
Ipratropium 0.5/Albuterol 3 Mg (3 Ml Ampul) INH 3 ml
R QID KONSTANTIN Administration
Protocol
Albuterol/Ipratropium 3 ml 02/15/24 00:08 02/18/24 22:28
Ipratropium 0.5/Albuterol 3 Mg (3 Ml Ampul) INH 3 ml
R Q4HPRN PRN Administration
sob/wheeze
Protocol
Amlodipine Besylate 10 mg 03/02/24 22:00 03/09/24 21:44
Amlodipine 10 Mg Tablet TUBE 03/30/24 21:59 10 mg
HS KONSTANTIN Administration
Atorvastatin Calcium 80 mg 03/03/24 08:00 03/03/24 08:18
Atorvastatin (Lipitor) 80 Mg Tablet TUBE 03/31/24 07:59 80 mg
DAILY KONSTANTIN Administration
Bisacodyl 10 mg 03/05/24 20:52 03/05/24 23:09
Bisacodyl 10 Mg Rectal Suppository RECTAL 04/02/24 20:51 10 mg
DAILYPRN PRN Administration
constipation-no bm prior day
Calamine 0 ml 02/17/24 22:33 02/18/24 13:01
Calamine Lotion 120 Ml Bottle (6 Oz) TOPICAL 03/16/24 22:32 180 ml
TIDPRN PRN Administration
itching rash
Clopidogrel Bisulfate 75 mg 02/15/24 08:00 02/15/24 08:28
Clopidogrel 75 Mg Tablet PO 03/14/24 07:59 75 mg
DAILY KONSTANTIN Administration
Cyanocobalamin 1,000 mcg 03/03/24 08:00 03/03/24 08:20
Cyanocobalamin 1,000 Mcg Tablet TUBE 03/31/24 07:59 1,000 mcg
DAILY KONSTANTIN Administration
Dextrose 12.5 grams 02/19/24 13:00
Dextrose 50% (0.5 Grams/Ml) 50 Ml Syringe IV 03/18/24 12:59
[id number] PRN
hypoglycemia
Protocol
Glucagon 1 mg 02/19/24 13:00
Glucagon 1 Mg Vial IM 03/18/24 12:59
PRN PRN
hypoglycemia - no IV access
Protocol
Guaifenesin 200 mg 03/02/24 20:00 03/03/24 08:18
Guaifenesin Oral Solution (200 Mg/10 Ml) Cup TUBE 03/30/24 19:59 200 mg
Q4 KONSTANTIN Administration
Heparin Sodium 5,000 units 02/24/24 16:00 03/10/24 08:01
Heparin 5,000 Units/Ml 1 Ml Vial SC 03/23/24 15:59 5,000 units
Q8 KONSTANTIN Administration
Hydralazine HCl 10 mg 03/08/24 11:47 03/09/24 12:02
Hydralazine 20 Mg/Ml Vial IV 04/05/24 11:46 10 mg
Q6HPRN PRN Administration
SBP>150
Hydralazine HCl 100 mg 03/09/24 16:00 03/10/24 08:00
Hydralazine 50 Mg Tablet TUBE 04/06/24 15:59 100 mg
TID KONSTANTIN Administration
Ampicillin Sodium/Sulbactam 120 mls @ 240 mls/hr 03/06/24 14:00 03/10/24 08:02
Sodium 3 gm/ Sodium Chloride IV 120 mls
Q6H KONSTANTIN Administration
Insulin Aspart 0 units 03/10/24 07:30 03/10/24 08:40
Insulin Aspart Moderate Resistance 300 Units/3 Ml Pen.Injctr SC 04/07/24 07:29 Not Given
AC KONSTANTIN
Protocol
Labetalol HCl 10 mg 03/03/24 12:00 03/10/24 06:15
Labetalol Hcl 5 Mg/1 Ml (20 Mg/4 Ml) Injection IV 03/31/24 11:59 10 mg
Q6H KONSTANTIN Administration
Labetalol HCl 200 mg 03/10/24 16:00
Labetalol 200 Mg Tablet PO 04/07/24 15:59
TID KONSTANTIN
Melatonin 5 mg 03/08/24 22:00 03/09/24 21:44
Melatonin 5 Mg Tablet TUBE 04/05/24 21:59 5 mg
HS KONSTANTIN Administration
Metoprolol Tartrate 25 mg 03/03/24 00:00 03/10/24 06:15
Metoprolol 25 Mg Regular Release Tablet TUBE 03/31/24 00:00 25 mg
Q6 KONSTANTIN Administration
Pantoprazole Sodium 40 mg 03/03/24 08:00 03/10/24 08:02
Protonix 40 Mg Iv Push IV 03/31/24 07:59 40 mg
DAILY KONSTANTIN Administration
Quetiapine Fumarate 25 mg 03/02/24 22:00 03/02/24 20:35
Quetiapine 25 Mg Tablet TUBE 03/30/24 21:59 25 mg
HS KONSTANTIN Administration
Sodium Chloride 0 flush 02/14/24 15:00 02/15/24 12:45
Sodium Chloride 0.9% (Flush) Syringe IV 03/13/24 14:59 1 flush
PER PROTOCOL KONSTANTIN Administration
Sodium Chloride 2 sprays 02/15/24 00:11 03/04/24 08:53
Sodium Chloride 0.65% Nasal [place] 45 Ml Bottle NASAL 03/14/24 00:10 2 sprays
QIDPRN PRN Administration
nasal congestion
Sodium Chloride 10 ml 03/03/24 08:00 03/10/24 08:02
Sodium Chloride 0.9% (Preservative Free) 10 Ml Vial IV 03/31/24 07:59 10 ml
DAILY KONSTANTIN Administration
Sodium Chloride 0 applic 03/05/24 19:51 03/05/24 21:24
Keller (Sodium Chloride/Aloe Vera) Nasal Gel 14.1 Gm Tube NASAL 04/02/24 19:50 1 applic
Q2HPRN PRN Administration
nasal dryness
Tamsulosin HCl 0.4 mg 03/03/24 08:00 03/03/24 08:19
Tamsulosin 0.4 Mg Capsule TUBE 03/31/24 07:59 0.4 mg
DAILY KONSTANTIN Administration
Trazodone HCl 12.5 mg 03/08/24 22:00 03/09/24 21:44
Trazodone 50 Mg Tablet PO 04/05/24 21:59 12.5 mg
HS KONSTANTIN Administration
Review of Systems
-
ROS notable for HPI, otherwise negative.
Physical Exam
-
General no distress
HEENT: Normocephalic and Anicteric
Cardiovascular: S1/S2, Regular Rhythm
Respiratory: scattered rhonchi
GI: Soft, Non Distended and Non Tender
Neurology: Awake, Alert
Skin:No rash, no cyanosis, no clubbing
Labs
Lab Results
WBC 4.7 10^3/uL (4.8-10.8) L 03/10/24 06:21
RBC 3.16 10^6/uL (4.70-6.10) L 03/10/24 06:21
Hgb 9.4 g/dL (13.0-18.0) L 03/10/24 06:21
Hct 27.5 % (39.0-52.0) L 03/10/24 06:21
MCV 87.0 fL (80.0-94.0) 03/10/24 06:21
MCH 29.7 pg (27.0-31.0) 03/10/24 06:21
MCHC 34.2 g/dL (33.0-37.0) 03/10/24 06:21
RDW 15.6 % (11.5-14.5) H 03/10/24 06:21
Plt Count 210 10^3/uL (130-400) 03/10/24 06:21
MPV 10.6 fL (7.4-10.4) H 03/10/24 06:21
Abs Immat Gran (auto) 0.1 10^3/uL (0-0.05) H 03/09/24 05:31
Absolute Neuts (auto) 4.8 10^3/uL (1.4-6.5) 03/09/24 05:31
Absolute Lymphs (auto) 0.6 10^3/uL (1.2-3.4) L 03/09/24 05:31
Absolute Monos (auto) 0.4 10^3/uL (0.1-0.6) 03/09/24 05:31
Absolute Eos (auto) 0.1 10^3/uL (0-0.7) 03/09/24 05:31
Absolute Basos (auto) 0.0 10^3/uL (0-0.2) 03/09/24 05:31
Immature Gran % 1.2 % (0-0.5) H 03/09/24 05:31
Neutrophils % 79.9 % (42.2-75.2) H 03/09/24 05:31
Lymphocytes % 9.3 % (20.5-51.1) L 03/09/24 05:31
Monocytes % 7.3 % (1.7-9.3) 03/09/24 05:31
Eosinophils % 1.8 % (0-6) 03/09/24 05:31
Basophils % 0.5 % (0-2) 03/09/24 05:31
Creatinine 2.0 mg/dL (0.7-1.3) H 03/10/24 06:21
Vital Signs
Vital Signs
Temp Pulse Resp BP Pulse Ox
97.6 F 69 23 176/71 90
03/10/24 04:41 03/10/24 08:00 03/10/24 08:00 03/10/24 08:00 03/10/24 08:00

Documented by User: Nora Gunn MD 03/10/24 19:47
Plan
Plan
He underwent thoracentesis 03/03/2024 that drained 500cc serosanguineous fluid. Cytology showed metastatic non-small cell carcinoma, favor adenocarcinoma that was TTF positive. Unfortunately, tissue is insufficient for lung cancer biomarkers.
Initially plan for lung biopsy canceled given high risk with tenuous respiratory status. GOC conversation with patient and at bedside. We discussed pleural fluid findings c/w metastatic adenocarcinoma. We reviewed that if goals remain
restorative then would pursue CT ab/pelvis w/o contrast for staging and consideration of additional tissue biopsy to obtain biomarkers for lung panel. We also reviewed that in order to be a palliative treatment candidate, he will need to recover
from infections, optimize performance status, and optimize nutritional status. He does not want to pursue any further evaluation or treatment for malignancy. He is agreeable to comfort focused care. Case management consult placed for hospice.
Medical oncology will sign off. Thank you for involving us in this patient's care.
Attending Addendum
Pt ill-appearing, unclear whether he could tolerate treatment even if his wishes were different.
Pt confirms wishes for hospice.
Denies uncontrolled pain.
Agree with hospice plans.
--- NOTE | 2024-03-10 09:27 | W.PN.PUL3 ---
Today's Communication / Plan
-
Unasyn, will need 3 weeks of antibiotics eventually transition to Augmentin, which he can finish Abx course while on hospice
Physical therapy as tolerated - rec'd skilled rehab upon discharge, which he will unlikely do as he is enrolling into hospice tomorrow
Pt not a candidate for systemic treatment for his non-small cell carcinoma with suspected adenocarcinoma; likely primary lung
Continue to hold plavix (hemoptysis is mild still and intermittent)
No additional pulmonary recommendations at this time. Emotional support was provided to the patient and . Patient has family meeting tomorrow AM with hospice team, and will enroll at that time. Pulmonary service will now sign off. Please
reconsult if there are any additional questions/concerns.
Assessment
-
73-year-old male with history of hypertension, hyperlipidemia, TIA on Plavix therapy, describes chronic bronchitis and chronic subjective dyspnea with [id number] history of smoking quit 2003. He now presents with progressive cough, shortness of
breath and hemoptysis. Found to have right upper lobe mass with likely pneumonia. We are asked to comment on pulmonary process
Impression:
Right upper lobe mass/infiltrate
Acute hemoptysis x 3 days, blood mixed with mucus
Right upper lobe abnormality noted per chest x-ray April 2023
Complicated right pleural effusion with fluid culture positive for Enterococcus faecalis, likely a parapneumonic process --> s/p thora on 03/03/24
Metastatic non-small cell carcinoma, likely adenocarcinoma, seen in the right pleural fluid s/p thoracentesis on 03/03/2024 - suspect that this is primary lung pathology
AFB positive from sputum AFB collected on 02/16/2024
[id number] history of smoking, quit 2003
No prior spirometry, no prior pulmonary evaluation - suspected COPD given degree of centrilobular emphysema
Anemia
Chronic kidney disease, creatinine 2.2
Creatinine 1.6 in January 2024
JUDI requiring HD --> now resolved and short-term HD catheter has been removed and he is making urine with Cr stable at ~1.8-2
Elevated proBNP
Chronic diarrhea
Conditions present prior to admission
History of anemia
Hypertension/hyperlipidemia
GERD with history of duodenal ulcer with bleeding
Required IR embolization 2020
Em[address]
Possible asbestos exposure
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
Family history of cancer
Father with lung cancer
Sister with brain cancer
Sister with liver cancer
Plan
Oxygenation stable although still requiring 6-8L/min via midflow nasal cannula
Patient afebrile without leukocytosis
Severely deconditioned
-
Preadmission history: Patient had short of breath started in April 2023 at which time he had right upper lobe infiltrate.
Patient cannot recall any history of recent pneumonia
Significant smoking and asbestos exposure history noted--emphysema noted on CT
Patient did not get follow-up x-ray as recommended per report in April
Former smoker, quit >30 years ago, strong family history of cancers
There is high suspicion this could be metastatic illness
IV steroids initially --> prednisone has been tapered off - last dose on 03/03/2024
-
CT scan 03/01/2024: Persistent right upper lobe infiltrate/masslike opacity. Bilateral pleural effusions right greater than left
s/p R-sided thora on 03/03/2024 --> cytopathology shows non-small cell carcinoma, likely adenocarcinoma; suspect that this is primary lung pathology
Oncology consult - recs appreciated - patient is interested in comfort care/hospice - hospice has family meeting scheduled for tomorrow morning.
-
Finished 10 day course of ceftriaxone on 02/22
s/p 6 days zithromax - stopped on 02/18
R effusion has been reviewed on US
s/p thora on 03/03/2024 with removal of 500cc of serosanguineous fluid that is exudative with glucose 111, pH 7.49, cytology pending (may be malignant)
Thoracentesis culture positive for Enterococcus-likely aspiration
Sputum culture few gram-positive cocci, many white cells, usual yaritza/finalized
Myrna noted 02/15
Prior sputum 02/13 neg
Legionella, streptococcal pneumonia negative
Sputum AFB (+) for AFB --> ID on board (pt unable to tolerate MUKESH treatment)
- Follow up AFB species
Continue -airway clearance reviewed with RT, mucinex/acapella, vest/IS
-
Case discussed with infectious disease
Unasyn started on 03/06/2024
Will need at least 3 weeks of antibiotics with radiographic follow-up --> assuming that pt can be treated with Augmentin, would recommend finishing out treatment course with PO augmentin for remainder of ABx course that he can finish while on hospice
-
Dr. Mays discussed this with patient and on 03/06/2024- explained to the that even if this is cancer, unlikely that patient will tolerate any aggressive therapy. He is debilitated. Currently has a Dobbhoff tube in place. Has aspiration.
Patient is currently too deconditioned and hypoxic for a bronchoscopy with biopsy. Pt too hypoxic for IR ct guided biopsy. Right pleural fluid is positive for non-small cell carcinoma, likely adenocarcinoma. Oncology recs appreciated.
-
ProBNP elevated at 19,500 on 02/17/2024, history of CHF
Trend sCr and UOP; Kuo catheter in place --> recommend to continue given his critically ill state with need for strict I/O
Nephrology following � recommendations appreciated
Status post dialysis. Now as needed
Creatinine improved and is stable
-
Aspiration precautions
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
VFSS performed yesterday and showed moderate to severe pharyngeal dysphagia with suspected silent aspiration. Patient indicated that he did not want to have Dobbhoff tube replaced and understood his aspiration risk. Patient started on minced +
moist solids with moderately thickened liquids.
DVT ppx: HSQ 5000 units q8hr
-
Physical therapy/Occupational Therapy as able - PT rec'd skilled rehab upon discharge
I discussed hospice today and yesterday with family and they are amenable to this. Hospice meeting with patient tomorrow AM, and he will likely enroll into inpatient hospice as the pt is not interested in going home now as he is more comfortable
being here.
-
No additional pulmonary recommendations at this time. Emotional support was provided to the patient and . Pulmonary service will now sign off. Thank you for allowing us to be involved in the care of this patient. Please reconsult if there
are any additional questions/concerns.

Prior Family Discussions:
Discussion held by Dr. Montoya on 02/22/2024 with and patient ---> patient is now DNR, okay for intubation in addition to other full medical management (see separate note from 02/21)
Mira 02/18- Reviewed with today and son on speaker phone today on rounds. We discussed all of his poor prognostic markers including possible/suspected metastatic disease, acute HF picture, worsening JUDI, worsening hypoxemia. She understands
his overall outlook remains poor even with intubation/MV. There is less chance for good QoL the more organ dysfunction occurs. Family will visit and discuss further GOC.
Diagnostic Data
Chest x-ray 02/28/2024: Mildly improved pulmonary changes concerning for pneumonia. Underlying mass in the right upper lobe not completely excluded as mentioned on prior chest CT examination. Repeat chest CT examination in a couple weeks following
resolution of acute pneumonic process recommended; Slightly progressed tiny right pleural effusion; Findings diaphragms consistent with COPD. Stable
CXR 02/24/2024:There is moderate diffuse interstitial and groundglass airspace disease throughout both lungs with more confluent alveolar airspace disease in the right upper lung. This airspace disease is improved but unresolved compared with
previous examination and has more the appearance of inflammatory airspace disease than pulmonary edema as there are no septal lines to suggest interstitial edema.
Chest x-ray 02/22/2024: Multifocal pneumonia, most pronounced within the right upper lobe. No significant change compared to 02/18/2024; Interstitial coarsening and mild interstitial prominence, suggestive of COPD. Pulmonary edema may also be present
Chest X-Ray: 02/18/24- Findings raising concern for pulmonary edema, superimposed on right lung pneumonic process. The patient does have a proBNP value of 19,500 today.
02/17/24- Right lung opacities suspicious for pneumonia without significant change in comparison to recent prior study.
CT Scan: CHEST 03/01/24- Mildly enlarged and more consolidated right upper lobe pulmonary mass. This probably represents pneumonia considering the acute change. Underlying neoplasm cannot be excluded. Sampling recommended as well as clinical and
laboratory correlation. Moderate right pleural effusion. Progressed. Small left pleural effusion. Progressed. Mild right lower lobe consolidation probably atelectasis. New spiculated mass in left lower lung field probably infectious considering the
acute development. New moderate bilateral groundglass densities suggesting additional foci of pneumonia considering the acute development. Emphysematous disease. Stable.
CHEST 02/14/24- 1. Large right upper lobe pneumonia. Imaging follow-up to resolution is recommended as an underlying pulmonary neoplasm would be difficult to completely exclude.
2. Chronic obstructive pulmonary disease.
3. Small pericardial effusion.
4. Small right pleural effusion.
5. Mild loculated pleural fluid in the right minor fissure.
Echo: 02/17/24- Normal left ventricular size and systolic function. No regional wall motion abnormalities are seen. LV ejection fraction is 65-70% by volumetric assessment. Mild concentric left ventricular hypertrophy. Stage II diastolic dysfunction
suggestive of abnormal relaxation and increased filling pressures. Top normal right ventricular size. Normal right ventricular systolic function. Aortic sclerosis without stenosis. Mild tricuspid regurgitation. Estimated pulmonary artery pressure
of 50-55 mmHg assuming a right atrial pressure of 8 mmHg. Compared to prior study dated 04/28/2023, estimated pulmonary artery systolic pressure was previously normal at 25-30 mmHg
04/28/23- 1. Mild concentric left ventricular hypertrophy with preserved systolic function, EF 60-65%
2. Thickened mitral leaflets with mitral annular calcification, trace mitral regurgitation and minimally dilated left atrium
3. Aortic sclerosis with trace aortic insufficiency
4. Normal right heart with normal pulmonary artery pressure
The study is similar to October 2021. The patient will be called and told that there is preserved heart muscle function and no significant valve abnormality.
-----
Total time spent today was 25 minutes for this encounter. Time includes reviewing laboratory test/imaging results, reviewing pertinent medical records, obtaining and reviewing medical history, performing an appropriate exam, ordering medications,
tests and procedures. Time also includes documentation of this encounter, coordinating patient care and communicating with other healthcare professionals. Total time does not include separately billed tests performed on this date of service.
Subjective Data
-
Date of Service:
Date of Service: March 10, 2024
Chief Complaint: Pulmonary Follow Up
Subjective:
Seen and evaluated today at bedside. at bedside � all questions were answered. Currently saturating 92% on 8 L/min via midflow nasal cannula. Patient says he feels well. Interested in hospice and initially said that he wanted to go home on
hospice but now he is saying that he is amenable to staying hospitalized for hospice care. Current heart rate 75, BP 174/78. He denies chest pain, headache, abdominal pain, nausea, fevers or chills.
Review of Systems
General: Other (Negative unless mentioned above)
Objective Data
Data Reviewed
Vital Signs / I&O / Oxygen:
Vital Signs
Temp Pulse Resp BP Pulse Ox
97.6 F 69 23 176/71 88
03/10/24 04:41 03/10/24 08:00 03/10/24 08:00 03/10/24 08:00 03/10/24 08:00
Intake and Output
03/09/24 03/10/24 03/11/24
06:59 06:59 06:59
Intake Total 1730 / 1730 240 / 240
Output Total 1375 / 1375 1425 / 1425
Balance 355 / 355 -1185 / -1185
SaO2 [NIV (Non Invasive 94
Ventilation)]
SaO2 88
Nasal Cannula flow liters per 8
minute
Physical Exam
General: Respiratory Distress (negative), Comfortable, Chills (negative) and Sweats (negative)
HEENT: Normocephalic and Anicteric
Cardiovascular: S1-S2, Murmur (EDMUNDO, heard in RUSB, grade II/), Rub (n) and Peripheral Edema (trace GEORGE bilaterally)
Respiratory: Wheeze (n), Crackles (Right base), Rhonchi (Bilateral in the lower lobe-mid lung snider), Accessory Resp Muscle Use (With exertion) and Stridor (negative)
GI: Soft, Non Distended, Non Tender and Normal Bowel Sounds
Neurology: AO x 3 and No Motor Deficits (Able to sit up without difficulty)
Skin: Warm, Dry, Cyanosis (n), Jaundice (n) and Rash (n)
Labs/Micro/Reports
Lab Data
03/10/24 06:21
03/10/24 06:21
Microbiology
02/16/24 03:59 Sputum Acid Fast Bacilli Smear - Preliminary
02/16/24 03:59 Sputum Acid Fast Bacilli Culture - Preliminary
Acid fast bacilli
03/03/24 10:15 Pleural Fluid Body Fluid Culture - Final
Enterococcus faecalis
03/03/24 10:15 Pleural Fluid Gram Stain - Final
--- NOTE | 2024-03-10 10:04 | W.PN.ID1 ---
Date of Service
Date of Service: March 10, 2024
Today's Communication
Continue Unasyn.
Overall poor prognosis.
Assessment / Plan
# Suspect aspiration PNA with Enterococcus faecalis right parapneumonic effusion
# Severe dysphagia
# Acute hypoxemic resp failure
- Continue Unasyn (d5).
Decrease dose to q12 based on worsening JUDI.
- Eventual po Augmentin to complete 3 weeks.
# Probable pulmonary MUKESH
- 02/16/24 BAL: AFB smear neg, AFB cx positive
- Add-on MTB pcr pending
- Add-on Mycobacterium identification with sensitivities, pending
- No need for airborne isolation - low suspicion for MTB.
# RUL lung mass/neoplasm
- Right pleural fluid + adenocarcinoma
Overall poor prognosis.
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
HTN
HLD
COPD
Chronic bronchitis
Duodenal ulcer/GI bleed
Anemia
TIA
CKD3
Asbestosis exposure
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
R BRIGHT
Chief Complaint
-: Pneumonia
Subjective / Review of Systems
DHT dc'd. Eating pureed foods.
Vital Signs / Physical Exam
Vital Signs
Vital Signs
Temp Pulse Resp BP Pulse Ox
97.6 F 69 23 176/71 88
03/10/24 04:41 03/10/24 08:00 03/10/24 08:00 03/10/24 08:00 03/10/24 08:00
Physical Exam
Constitutional: Acutely Ill
Pulmonary: Other (labored breathing)
Gastrointestinal: Soft and Non Distended
Extremities: Negative Edema
Neurological: AO x 3
Objective Data
Lab Data
Lab Results
03/10/24 06:21
03/10/24 06:21
PT 15.1 Sec (11.4-14.6) H 02/19/24 04:33
INR 1.19 02/19/24 04:33
APTT 33.2 Sec (23.4-35.0) 02/19/24 04:33
Estimated Creat Clear 29 ml/min 03/10/24 06:21
Total Bilirubin 0.8 mg/dl (0.2-1.3) 02/29/24 05:39
AST 32 U/L (17-59) 02/29/24 05:39
ALT 30 U/L (0-50) 02/29/24 05:39
Alkaline Phosphatase 67 U/L (38-126) 02/29/24 05:39
Most recent labs reviewed.
Micro Results:
02/16/24 03:59 Acid Fast Bacilli Smear - Preliminary
Sputum Acid Fast Bacilli Culture - Preliminary
Acid fast bacilli
03/03/24 10:15 Body Fluid Culture - Final
Pleural Fluid Enterococcus faecalis
Gram Stain - Final
02/14/24 12:29 Blood Culture - Final
Blood/Venous No Growth - Final Report
02/16/24 15:05 Respiratory Culture - Final
Sputum Myrna albicans
Gram Stain - Final
02/14/24 12:42 Respiratory Culture - Final
Sputum Usual Respiratory Kim
Gram Stain - Final
02/15/24 06:26 Legionella Urinary Antigen - Final
Urine Negative for Legionella pneumophila Serogroup 1 antigen.
A negative result does not rule out the possiblity of
Legionella infection due to other serogroups or species of
Legionella. Clinical correlation is recommended.
Streptococcus pneumoniae Antigen (M - Final
Negative for Streptococcus pneumoniae antigen.
A negative result does not exclude infection with
Streptococcus pneumoniae. Clinical correlation is
recommended.
03/06/24 CXR: The 13 cm confluent area of parenchymal density in the right upper lobe has worsened slightly in the interval since the previous examination. Interstitial airway disease suggesting pneumonia at the medial right lung base is new when
compared with the prior study
03/01/[address]: Mildly enlarged and more consolidated right upper lobe pulmonary mass. This probably represents pneumonia considering the acute change. Underlying neoplasm cannot be excluded. Moderate right pleural effusion. Progressed. Small left
pleural effusion. Progressed. New spiculated mass in left lower lung field probably infectious considering the acute development.
02/14/[address]: Large right upper lobe pneumonia. Imaging follow-up to resolution is recommended as an underlying pulmonary neoplasm would be difficult to completely exclude.
Care Review
Plan reviewed with: Physician (Dr. Noguera)
[2024-03-10] MEDS: ATIVAN 0.5 MG PO (12:19)
[2024-03-10 12:24] LABS: Glucose - Point of Care 176 mg/dl (70-99)
--- NOTE | 2024-03-10 13:25 | PTCARENOTE ---
Patient received from [facility]. Patient reported feeling anxious so PO lorazepam ordered. Patient had consults with oncology and with the hospitalist and started conversations about hospice. Patient's diet was changed back to regular diet because
patient wants to eat regular food and is communicating he does not want further treatment. Patient and family are discussing home hospice and inpatient hospice options. continuing to monitor the patient.
--- NOTE | 2024-03-10 14:28 | W.PN.HOSP.TC ---
Today's Communication/Plan
-
Ongoing goals of care discussion now with new diagnosis of lung carcinoma, complicated clinical course including severe aspiration syndrome with pneumonia, concern for atypical mycobacterial infection, deteriorating performance status. Patient is
considering transition to hospice care. Also requesting diet to be liberalized.
Hospice consultation
Add low-dose of lorazepam and morphine for respiratory distress and anxiety.
Assessment / Plan
Assessment / Plan
#Acute hypoxemic respiratory failure -- due to pneumonia, superimposed HFpEF, possible COPD, hemoptysis
#Severe pneumonia likely secondary to aspiration
# AFB culture positive suspected MUKESH
Parapneumonic effusion with culture positive for Enterococcus.
Pathology positive for non-small cell likely adenocarcinoma
#Acute hemoptysis -- suspected right upper lobe malignancy and also with Plavix
-CT thorax showed with large RUL consolidation, also signs of malignancy in the RUL
-Was started on IV ceftriaxone empirically, completed course of IV azithromycin as well;
-Developed decompensation of HFpEF in the context of IV fluids, elevated proBNP, s/p IV Lasix course, now on hemodialysis and now off HD with intermittent lasix.
-Initial concern for ARDS as well as acute CHF preserved EF.
� Echocardiogram here showed severe pulmonary hypertension; has evidence of COPD with emphysematous findings, tobacco history
-Completed p.o. prednisone regimen. Can consider IV steroids if needed. Will defer to pulmonary.
-Continue to hold clopidogrel given ongoing hemoptysis
-Initial plan for lung biopsy canceled given high risk with tenuous respiratory status as well pleural fluid positive path for adenocarcinoma
Oncology input appreciated. Patient with multiple comorbidities with poor performance status prefers not to pursue any additional workup and treatment for cancer.
#Severe dysphagia
-s/p VSE and now strict NPO
-DHT placement- and started on tube feeding. Changed to Nepro with carb study due to hyperkalemia.
-DHT indefinitely removed on 03/08.
� Repeat VSE on 03/09 reviewed.
#Oliguric JUDI on CKD 3B
#Metabolic acidosis
#Normocytic anemia -- 2/2 renal dysfunction
#Mild hyponatremia
#Mild hyperkalemia
-Suspected to be prerenal; Home medications include diuretics and ARB, presented with infection
-Home diuretics and losartan are held, received bicarbonate therapy for his acidemia
-Trend daily BMP, monitor strict I's and O's
-Consider transfusion for hemoglobin <7
- Complements back to normal. ANCA panel wnl. Normal serum protein electrophoresis.
-lasix per nephor. losing weight. Cr improving. HD catheter out.
-K improved with switching TF.
#Suspected Right upper lobe lesion shadowed due to pneumonia?
#Pleural effusion
-Likely demonstrated on CT, but does have superimposed bacterial pneumonia which may affect findings
-CT chest Mildly enlarged and more consolidated right upper lobe pulmonary mass. This probably represents pneumonia considering the acute change. Underlying neoplasm cannot be excluded. Sampling recommended as well as clinical and laboratory
correlation. Moderate right pleural effusion. Progressed. Small left pleural effusion. Progressed. Mild right lower lobe consolidation probably atelectasis. New spiculated mass in left lower lung field probably infectious considering the acute
development. New moderate bilateral groundglass densities suggesting additional foci of pneumonia considering the acute development.
-IRAD for R sided thoracentesis. Cytology ordered too. s/p 500cc fluid removed.
-Unclear role of bronch at this juncture as plavix has been held. Per pulmonology plan is to hold [facility] for now.
#Urinary retention
- flomax.
-straight cath protocol
-s/p goins catheter placement.
#Acute on chronic normocytic anemia -- blood loss from hemoptysis, dilution
-Baseline hemoglobin around 10,
-Iron studies without signs of deficiency, no evidence of hemolysis, B12 was low but now on therapy
-Will continue to trend daily CBC and transfuse for hemoglobin <7
-Transfuse to keep Hg above 8
#History of duodenal ulcer/GI bleed
-No signs of active GI bleeding while here, did have hemoptysis
-Remains on home PPI regimen
#History of TIA
-Holding plavix as above
#Essential hypertension
-No known history of hypertensive systemic disease, Home meds include metoprolol hydralazine, and amlodipine-HOLD
-Blood pressure has been poorly controlled outside of the hospital, recently hydralazine was increased
-Started on IV labetalol standing and hydralazine as plan for non oral meds due to clogging of DHT and strict NPO.
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
-History of heavy tobacco abuse in the past; no formal diagnosis, no home inhaler therapies
-Currently without any wheezing or signs of exacerbation though cannot rule out contribution to his presentation
-Plan for pulm follow-up and PFTs at discharge, DC on DuoNebs as needed
#Hyperlipidemia
-No known history of ASCVD
-No medications include high intensity shortness
#Celiac's disease
-No formal diagnosis, gluten sensitivity per history, told him to avoid gluten by an outside doctor
-No gluten diet ordered
DVT prophylaxis: Heparin subcutaneous
Diet: Soft and bite sized, Ensure with meals, renal friendly
Goals of care/CODE STATUS: Hospice was mentioned on 02/24, remains full treatment with limited DNR (no chest compressions)
New clinical data including pathology from pleural fluid consistent with adenocarcinoma likely primary pulmonary malignancy, cultures from BAL positive for Mycobacterium suspected MUKESH, severe aspiration and declining performance status including
weight loss. Ongoing goals of care discussion including hospice option.
03/10: Ongoing goals of care discussion now with new diagnosis of lung carcinoma, complicated clinical course including severe aspiration syndrome with pneumonia, concern for atypical mycobacterial infection, deteriorating performance status.
Patient is considering transition to hospice care. Also requesting diet to be liberalized.
Anticipated Discharge: 24 - 48 hours
Subjective/Interval History
-
Date of Service: March 10, 2024
Objective Data
-
Labs:
Laboratory Results
03/10/24
06:21
WBC 4.7 L
Hgb 9.4 L
Hct 27.5 L
Plt Count 210
Sodium 143
Potassium 4.6
Chloride 105
Carbon Dioxide 21 L
BUN 93 H
Creatinine 2.0 H
Glucose 126 H
Calcium 8.6
Vital Signs:
Vital Signs
Temp Pulse Resp BP Pulse Ox
97.6 F 76 18 177/74 91
03/10/24 04:41 03/10/24 12:18 03/10/24 10:51 03/10/24 12:18 03/10/24 13:17
I&O
03/09/24 03/10/24 03/11/24
06:59 06:59 06:59
Intake Total 1730 / 1730 240 / 240
Output Total 1375 / 1375 1425 / 1425
Balance 355 / 355 -1185 / -1185
Physical Exam
-
General: No Apparent Distress and Comfortable; Negative Respiratory Distress
HEENT: Normocephalic, Atraumatic, Moist Mucous Membranes, Anicteric and Oxygen (on 4L-5l midflow )
Respiratory: Non Labored Respirations and Decreased Breath Sounds (R>L); Negative Wheezes, Rales or Accessory Resp Muscle Use
Cardiac: Regular Rhythm and S1/S2; Negative Murmur, Rub, JVD or Gallop
GI: Soft, Nontender, Nondistended, Normal Bowel Sounds and Other (DHT and TF ongoing )
Genito-urinary: Clear Urine and Goins
Musculoskeletal: No Clubbing, No Cyanosis and No Edema
Skin: Warm and Dry; Negative Rash
Neuro: Awake, AO x 3, Nonfocal/Grossly Intact and Central Nerve's Intact
Psych: Calm
[2024-03-10] MEDS: NOVOLOG FLEXPEN-MODERATE RESISTANCE 1 UNITS SC (14:53)
[2024-03-10 15:13] LABS: COVID-19 Antigen Negative (Negative)
--- NOTE | 2024-03-10 15:56 | HOSPNOTE ---
Will discuss hospice with the patient and spouse tomorrow 03/11. Meeting is scheduled for 9:30am. More information to follow.
--- NOTE | 2024-03-10 16:00 | CM ---
living manager received a consult for hospice, case preparer and liner reviewed patient's chart and met with patient and spouse at bedside, hospice options reviewed and patient has selected [facility], referral sent to [facility] and meeting has
been set up with [facility] tomorrow at 9:30am.
Plan; Meeting set up with [facility] tomorrow at 9:30am.
[2024-03-10] MEDS: TRANDATE 200 MG PO ×2 (16:03→21:23)
[2024-03-10 16:34] LABS: Glucose - Point of Care 140 mg/dl (70-99)
[2024-03-10] MEDS: TYLENOL 1000 MG TUBE (21:19)
[2024-03-10] MEDS: NORVASC 10 MG TUBE (21:20)
[2024-03-10] MEDS: DESYREL 12.5 MG PO (21:22)
[2024-03-10] MEDS: MELATONIN 5 MG TUBE (21:22)
[2024-03-10 21:38] LABS: Glucose - Point of Care 137 mg/dl (70-99)
[2024-03-11] VITALS (8 sets, daily range): BP systolic 130–163; BP diastolic 61–75; BMI 21.6
[2024-03-11] MEDS: HEPARIN 5000 UNITS SC ×2 (00:59→08:35)
[2024-03-11] MEDS: TRANDATE 10 MG IV ×2 (00:59→05:30)
[2024-03-11] MEDS: LOPRESSOR 25 MG TUBE ×3 (00:59→12:55)
--- NOTE | 2024-03-11 02:56 | PTCARENOTE ---
Assumed care of pt at 2300. Pt awake in bed watching tv. Remains on 8LMF, remains tachypneic, SOB rest/exertion when examined but when asked pt states that he is comfortable. Denies pain. Took pills whole in applesauce, no coughing. NSR. BP's
running high, bp meds given to control it. No other issues at this time. Will monitor.
[2024-03-11 05:41] LABS: Hematocrit 21.9 % (39.0-52.0); Hemoglobin 7.6 g/dL (13.0-18.0); Mean Corp Hgb Conc. 34.7 g/dL (33.0-37.0); Mean Corpuscular Hgb 29.8 pg (27.0-31.0); Mean Corpuscular Volume 85.9 fL (80.0-94.0); Mean Platelet Volume 10.4 fL (7.4-10.4); Platelet Count 203 10^3/uL (130-400); Red Blood Cell Count 2.55 10^6/uL (4.70-6.10); Red Cell Dist. Width 15.5 % (11.5-14.5); White Blood Cell Count 3.9 10^3/uL (4.8-10.8)
[2024-03-11 06:11] LABS: Blood Urea Nitrogen 84 mg/dl (9-20); Carbon Dioxide 18 mmol/L (22-30); Chloride 105 mmol/L (98-107); Estimated Creatinine Clearance 29 ml/min; Glucose 113 mg/dl (70-99); Potassium 4.1 mmol/L (3.5-5.1); Sodium 140 mmol/L (135-145); eGFR 34.16
[2024-03-11 07:20] LABS: Glucose - Point of Care 123 mg/dl (70-99)
[2024-03-11] MEDS: DUONEB 3 ML INH ×2 (07:22→11:52)
--- NOTE | 2024-03-11 08:09 | W.PN.NEPH.PH ---
Today's Communication / Plan
-
follow bmp
Assessment/Plan
-
Impression:
Right upper lobe mass versus infiltrate with hemoptysis: 03/03/24: Enterococcus in pleural effusion
Acute kidney injury
CKD stage IIIb baseline creatinine 1.6
HTN
History of TIA
History of COPD
Anemia
CHF HFpEF
MUKESH/enterococcus lung
adenoCA in pleural effusion
Plan:
follow BMP, creatinine stable at 2
metabolic acidosis worsening
maintain goins
may try Voiding trial again at some point (goins since 03/02)
continue flomax
po labetalol, use IV prn
If he needs CT/PET with IV contrast, it can be done as benefits of study will outweigh the CN risk. would use IVF with CT if ordered.
high risk
-
-
Date of Service: March 11, 2024
CC / HPI / ROS
-
Chief Complaint:
JUDI
History of Present Illness:
goins replaced 03/02
BP stable but high
Cr at 2.0
last HD 02/25
Na normal
K normal
abx for MUKESH/enterococcus lung
Review of Systems:
no fever
nonoliguric with goins
no cp
conversant
Labs
-
Labs:
WBC 3.9 10^3/uL (4.8-10.8) L 03/11/24 05:31
RBC 2.55 10^6/uL (4.70-6.10) L 03/11/24 05:31
Hgb 7.6 g/dL (13.0-18.0) L 03/11/24 05:31
Hct 21.9 % (39.0-52.0) L 03/11/24 05:31
Plt Count 203 10^3/uL (130-400) 03/11/24 05:31
Sodium 140 mmol/L (135-145) 03/11/24 05:31
Potassium 4.1 mmol/L (3.5-5.1) 03/11/24 05:31
Chloride 105 mmol/L (98-107) 03/11/24 05:31
Carbon Dioxide 18 mmol/L (22-30) L 03/11/24 05:31
BUN 84 mg/dl (9-20) H 03/11/24 05:31
Creatinine 2.0 mg/dL (0.7-1.3) H 03/11/24 05:31
eGFR 34.16 03/11/24 05:31
Glucose 113 mg/dl (70-99) H 03/11/24 05:31
Calcium 8.0 mg/dl (8.4-10.2) L 03/11/24 05:31
Phosphorus 4.3 mg/dl (2.5-4.5) 03/08/24 04:50
Ijg-W-Vbbgpgzjpaf Pept 21324 pg/ml 02/17/24 05:00
Albumin 3.0 g/dl (3.5-5.0) L 02/29/24 05:39
Physical Exam
-
Vital Signs:
Vital Signs
Temp Pulse Resp BP Pulse Ox
98.0 F 78 18 149/64 91
03/11/24 07:22 03/11/24 07:25 03/11/24 07:25 03/11/24 06:00 03/11/24 07:25
Cardiovascular:: Regular rate and rhythm
Respiratory:: Bilateral: Coarse
Lung Excursion:: Normal
Abdomen:: Nontender and Soft
Bowel Sounds:: Normal
Extremity Edema:: None: Bilateral:
Goins Catheter: Yes
[2024-03-11] MEDS: NOVOLOG FLEXPEN-MODERATE RESISTANCE SC ×2 (08:22→12:28)
[2024-03-11] MEDS: TRANDATE 200 MG PO (08:34)
[2024-03-11] MEDS: APRESOLINE 100 MG TUBE (08:34)
[2024-03-11] MEDS: UNASYN IV (08:34)
[2024-03-11] MEDS: NSS (PRESERVATIVE FREE) 10 ML IV (08:34)
[2024-03-11] MEDS: PROTONIX IV 40 MG IV (08:35)
--- NOTE | 2024-03-11 09:08 | PTCARENOTE ---
Assumed care of patient at beginning of this shift from previous RN with 8L midflow in use; POx 89-91%. POx then dropped to 80%. This RN went into room and saw that oxygen was at patient's chin. stated he removed it to put in his dentures.
Oxygen placed back on patient and increased to 10L to recover; POx 91-93%.
Patient currently ordered regular diet. Requested to take pills whole in applesauce. Coughing with po intake; audible rhonchi noted anteriorly. tile molder hand to meet with patient and this morning.
--- NOTE | 2024-03-11 10:13 | W.PN.ID1 ---
Date of Service
Date of Service: March 11, 2024
Today's Communication
Pt for hospice.
DC abx.
ID will sign off.
Assessment / Plan
# Suspect aspiration PNA with Enterococcus faecalis right parapneumonic effusion
# Severe dysphagia
# Acute hypoxemic resp failure
-Pt opted for hospice.
- Discontinue Unasyn (d6).
# RUL lung mass/neoplasm
- Right pleural fluid + adenocarcinoma
- Pt opted for hospice.
# Probable pulmonary MUKESH
- 02/16/24 BAL: AFB smear neg, AFB cx positive
- No need for airborne isolation - low suspicion for MTB.
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
HTN
HLD
COPD
Chronic bronchitis
Duodenal ulcer/GI bleed
Anemia
TIA
CKD3
Asbestosis exposure
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
R BRIGHT
Chief Complaint
-: Pneumonia
Subjective / Review of Systems
Patient and just met with hospice.
Vital Signs / Physical Exam
Vital Signs
Vital Signs
Temp Pulse Resp BP Pulse Ox
98.0 F 69 26 163/67 88
03/11/24 07:22 03/11/24 08:00 03/11/24 08:00 03/11/24 08:00 03/11/24 08:00
Physical Exam
Constitutional: Comfortable
Pulmonary: Other (decreased BS)
Gastrointestinal: Soft, Non Tender and Non Distended
Neurological: AO x 3
Objective Data
Lab Data
Lab Results
03/11/24 05:31
03/11/24 05:31
PT 15.1 Sec (11.4-14.6) H 02/19/24 04:33
INR 1.19 02/19/24 04:33
APTT 33.2 Sec (23.4-35.0) 02/19/24 04:33
Estimated Creat Clear 29 ml/min 03/11/24 05:31
Total Bilirubin 0.8 mg/dl (0.2-1.3) 02/29/24 05:39
AST 32 U/L (17-59) 02/29/24 05:39
ALT 30 U/L (0-50) 02/29/24 05:39
Alkaline Phosphatase 67 U/L (38-126) 02/29/24 05:39
Most recent labs reviewed.
Micro Results:
02/16/24 03:59 Acid Fast Bacilli Smear - Preliminary
Sputum Acid Fast Bacilli Culture - Preliminary
Acid fast bacilli
03/03/24 10:15 Body Fluid Culture - Final
Pleural Fluid Enterococcus faecalis
Gram Stain - Final
02/14/24 12:29 Blood Culture - Final
Blood/Venous No Growth - Final Report
02/16/24 15:05 Respiratory Culture - Final
Sputum Myrna albicans
Gram Stain - Final
02/14/24 12:42 Respiratory Culture - Final
Sputum Usual Respiratory Kim
Gram Stain - Final
02/15/24 06:26 Legionella Urinary Antigen - Final
Urine Negative for Legionella pneumophila Serogroup 1 antigen.
A negative result does not rule out the possiblity of
Legionella infection due to other serogroups or species of
Legionella. Clinical correlation is recommended.
Streptococcus pneumoniae Antigen (M - Final
Negative for Streptococcus pneumoniae antigen.
A negative result does not exclude infection with
Streptococcus pneumoniae. Clinical correlation is
recommended.
03/06/24 CXR: The 13 cm confluent area of parenchymal density in the right upper lobe has worsened slightly in the interval since the previous examination. Interstitial airway disease suggesting pneumonia at the medial right lung base is new when
compared with the prior study
03/01/[address]: Mildly enlarged and more consolidated right upper lobe pulmonary mass. This probably represents pneumonia considering the acute change. Underlying neoplasm cannot be excluded. Moderate right pleural effusion. Progressed. Small left
pleural effusion. Progressed. New spiculated mass in left lower lung field probably infectious considering the acute development.
02/14/[address]: Large right upper lobe pneumonia. Imaging follow-up to resolution is recommended as an underlying pulmonary neoplasm would be difficult to completely exclude.
--- NOTE | 2024-03-11 10:24 | HOSPNOTE ---
Spoke with patient and spouse about hospice and the philosophy. After speaking with patient and family I feel patient will need to remain here on inpatient hospice. The spouse asked me to call the son and explain about hospice, the son is very angry
and does not agree with hospice he will be calling and speaking with his mom. CM aware of plan for inpatient hospice. Attending in agreement and will be seeing patient shortly. Pole Framer was called and Awa made a visit family very grateful for the
support.
--- NOTE | 2024-03-11 11:09 | CM ---
Patient with Dx PNA, HF, Suspected parapneumonic effusion, Severe dysphagia, JUDI, suspected RUL lung lesion, urinary retention, anemia. O2 10L midflow.
Spoke with [facility]; she met with patient and who agreed to staying here in [facility] with Hospice.
Plan [facility].
[2024-03-11] MEDS: TRANDATE IV (12:54)
--- NOTE | 2024-03-11 14:20 | PTCARENOTE ---
Dr Noguera in to see patient and spoke with and son as well; he informed this nurse that patient will be ordered comfort measures only. Patient had wanted to wait until son comes to see him to start morphine drip. Son is currently here; all in
agreement.
[2024-03-11] MEDS: MORPHINE SULFATE 2 MG IV ×3 (14:59→20:28)
--- NOTE | 2024-03-11 15:05 | PTCARENOTE ---
Order written for morphine 2mg IV push Q1h prn. If pain/dyspnea unrelieved after 3 doses in 4 hours, start morphine IV infusion and breakthrough per protocol. This nurse confirmed with both Dr Noguera and Cyndie, pharmacist, that this is the
protocol order to follow. Patient and updated.
--- NOTE | 2024-03-11 15:14 | HOSPNOTE ---
Addendum entered by Lesvia Travis RN 03/11/24 15:16:
Correction patient will be given IV push of morphine and if symptoms unrelieved will be started on a morphine drip.
Original Note:
The plan is for patient to be placed on comfort measures and to begin a morphine drip step 2. Attending and I spoke and feel will be within 24-48 hours. Hospice will continue to follow and will reach out to spouse for bereavement services.
--- NOTE | 2024-03-11 15:41 | CHAP ---
Emotional and spiritual support provided by myself and also Lay Tailing Hand Leeanne Foy who had formed a relationship with MrJoann and Mrs. Orr throughout his hospitalization. I will let the weekend main line assembler, Gokul Mcgrath, who also works for
Hospice, know to make them a priority this weekend.
--- NOTE | 2024-03-11 15:48 | PTCARENOTE ---
Patient continues with observed dyspnea/tachypnea. He stated he does not want any more morphine at this time; he would like to visit with his family. Encouraged patient and to notify this nurse at anytime if feeling SOB.
--- NOTE | 2024-03-11 16:27 | W.PN.HOSP.TC ---
Today's Communication/Plan
-
Comfort care
Assessment / Plan
Assessment / Plan
Acute hypoxic respiratory failure due to severe aspiration pneumonia, parapneumonic and malignant pleural effusion, new diagnosis of lung carcinoma with right upper lobe mass, severe aspiration syndrome, acute kidney injury, severe deconditioning
with rapidly deteriorating clinical status
Patient and family made decision to be transition to comfort care
Initiated on IV morphine, lorazepam for symptomatic control
Hospice consulted.
Anticipated Discharge: 24 - 48 hours
Subjective/Interval History
-
Date of Service: March 11, 2024
Objective Data
-
Labs:
Laboratory Results
03/11/24
05:31
WBC 3.9 L
Hgb 7.6 L
Hct 21.9 L
Plt Count 203
Sodium 140
Potassium 4.1
Chloride 105
Carbon Dioxide 18 L
BUN 84 H
Creatinine 2.0 H
Glucose 113 H
Calcium 8.0 L
Vital Signs:
Vital Signs
Temp Pulse Resp BP Pulse Ox
98.0 F 71 18 161/69 89
03/11/24 07:22 03/11/24 14:00 03/11/24 14:00 03/11/24 14:00 03/11/24 14:00
I&O
03/10/24 03/11/24 03/12/24
06:59 06:59 06:59
Intake Total 240 / 240 990 / 990
Output Total 1425 / 1425 725 / 725
Balance -1185 / -1185 265 / 265
Physical Exam
-
General: No Apparent Distress and Comfortable; Negative Respiratory Distress
HEENT: Normocephalic, Atraumatic, Moist Mucous Membranes, Anicteric and Oxygen (on 4L-5l midflow )
Respiratory: Non Labored Respirations and Decreased Breath Sounds (R>L); Negative Wheezes, Rales or Accessory Resp Muscle Use
Cardiac: Regular Rhythm and S1/S2; Negative Murmur, Rub, JVD or Gallop
GI: Soft, Nontender, Nondistended, Normal Bowel Sounds and Other (DHT and TF ongoing )
Genito-urinary: Clear Urine and Kuo
Musculoskeletal: No Clubbing, No Cyanosis and No Edema
Skin: Warm and Dry; Negative Rash
Neuro: Awake, AO x 3, Nonfocal/Grossly Intact and Central Nerve's Intact
Psych: Calm
--- NOTE | 2024-03-11 16:29 | PTCARENOTE ---
This nurse in to evaluate patient; continues with observed dyspnea with very little movement or talking. Patient consented to receiving morphine. remains at bedside. This nurse placed sign on patient's door for visitors to go to nurses' station
before going into patient's room, per patient and request. to stay the night.
--- NOTE | 2024-03-11 17:10 | PTCARENOTE ---
Reviewed with patient that he can have more morphine for dyspnea/sob. Patient declined, stating he feels comfortable at this time.
--- NOTE | 2024-03-11 20:40 | PTCARENOTE ---
Received pt at change of shift. Pt visibly dyspneic at rest; abdomen and clavicle rises significantly with inspiration. 10L MF with pulse ox 92%. PRN Morphine administered for end of life dyspnea. at bedside. Pt resting in bed with call
miranda in reach.
[2024-03-12] MEDS: MORPHINE SULFATE 2 MG IV ×4 (00:41→03:50)
[2024-03-12] MEDS: NSS (PRESERVATIVE FREE) 1 ML IV (01:47)
[2024-03-12] MEDS: ATIVAN 2 MG IV (01:47)
[2024-03-12] MEDS: ROBINUL 0.2 MG IV (02:38)
[2024-03-12] MEDS: MORPHINE 100 IV (03:36)
[2024-03-12 03:46] VITALS: BP 127/59
--- NOTE | 2024-03-12 04:12 | PTCARENOTE ---
Pt at 03:55. Notified House DIESEL ENGINE MECHANIC APPRENTICE to pronounce pt. Family at bedside
--- NOTE | 2024-03-12 04:24 | W.PN.DEATH ---
Pronouncement of
-
Called to see patient to pronounce.
No spontaneous heart tones or respirations noted.
Patient not responsive to verbal stimuli.
Patient is pronounced .
Time of : 03:55
Date of : 03/12/24
Cause of : Acute hypoxic respiratory failure, aspiration pneumonia, parapneumonic and malignant pleural effusion, lung carcinoma with right upper lobe mass, acute kidney injury, Acute on chronic normocytic anemia, hypertension, Hyperlipidemia
chronic obstructive respiratory failure.
Family Notified: Yes ( at bedside )
== END 2024-03-12 06:12 | disposition expired | DRG 180 ==
LOC: IMU 13:02
PROVIDERS: Hospitalist; Internal Medicine; Internal Medicine Critical Care Medicine; Nurse Practitioner; Nurse Practitioner Primary Care; Radiology Vascular & Interventional Radiology; Registered Nurse; Specialist; ADMITTING PHYSICIAN Hospitalist; ATTENDING PHYSICIAN Internal Medicine; CONSULT PHYSICIAN Internal Medicine Critical Care Medicine; CONSULT PHYSICIAN Internal Medicine Infectious Disease; CONSULT PHYSICIAN Radiology Diagnostic Radiology; CONSULT PHYSICIAN Specialist; EMERGENCY PHYSICIAN Emergency Medicine; FAMILY PHYSICIAN Family Medicine; OTHER PHYSICIAN Internal Medicine Hematology & Oncology
PROC: 02HV33Z Insertion of Infusion Device into Superior Vena Cava, Percutaneous Approach (ICD-10-PCS; 2024-02-22)
PROC: 30233N1 Transfusion of Nonautologous Red Blood Cells into Peripheral Vein, Percutaneous Approach (ICD-10-PCS; 2024-03-02)
PROC: 0W993ZZ Drainage of Right Pleural Cavity, Percutaneous Approach (ICD-10-PCS; 2024-03-03)
DX: C34.11 Malignant neoplasm of upper lobe, right bronchus or lung (principal); I50.33 Acute on chronic diastolic (congestive) heart failure; J15.8 Pneumonia due to other specified bacteria; J96.01 Acute respiratory failure with hypoxia; J69.0 Pneumonitis due to inhalation of food and vomit; J91.0 Malignant pleural effusion; I13.0 Hypertensive heart and chronic kidney disease with heart failure and stage 1 through stage 4 chronic kidney disease, or unspecified chronic kidney disease; J44.0 Chronic obstructive pulmonary disease with (acute) lower respiratory infection; R04.2 Hemoptysis; E87.20 Acidosis, unspecified; E87.1 Hypo-osmolality and hyponatremia; N17.9 Acute kidney failure, unspecified; Z51.5 Encounter for palliative care; Z66 Do not resuscitate; N18.32 Chronic kidney disease, stage 3b; D63.1 Anemia in chronic kidney disease; E78.00 Pure hypercholesterolemia, unspecified; K21.9 Gastro-esophageal reflux disease without esophagitis; K52.9 Noninfective gastroenteritis and colitis, unspecified; R13.10 Dysphagia, unspecified; I27.20 Pulmonary hypertension, unspecified; Z11.52 Encounter for screening for COVID-19; Z77.090 Contact with and (suspected) exposure to asbestos; Z79.02 Long term (current) use of antithrombotics/antiplatelets; Z79.899 Other long term (current) drug therapy; Z80.1 Family history of malignant neoplasm of trachea, bronchus and lung; Z86.73 Personal history of transient ischemic attack (TIA), and cerebral infarction without residual deficits; Z87.11 Personal history of peptic ulcer disease; Z87.891 Personal history of nicotine dependence
CPT/HCPCS: 88305; 32555; 36600; 71045; 71250; 74018; 74230; 76604; 76770; 80048; 80053; 81003; 82150; 82248; 82565; 82570; 82607; 82728; 82746; 82805; 82945; 82962; 83516; 83521; 83540; 83550; 83615; 83735; 83880; 83986; 84100; 84155; 84156; 84157; 84165; 84300; 84478; 85025; 85027; 85045; 85379; 85610; 85730; 86160; 86335; 86704; 86706; 86803; 86850; 86900; 86901; 86920; 87015; 87040; 87070; 87077; 87116; 87186; 87205; 87340; 87449; 87811; 87899; 88112; 88313; 88342; 89051; 92526; 92610; 92611; 93005; 93306; 94002; 94003; 94640; 94669; 96365; 96375; 97116; 97163; 97164; 97167; 97168; 97530; 97535; 99285; G0257; P9016; P9047; Q5106